=== PATIENT | female | born 1965 | race Caucasian/White ===

== ENCOUNTER → 2018-01-27 11:52 | Outpatient (CLI) | payer OTHER, SELFPAY ==
--- NOTE | 2018-01-27 12:00 | RAD_ITS ---
STUDY: X-RAY - LUMBAR SPINE REASON FOR EXAM: Female, 52 years old. Low back and left leg pain. TECHNIQUE: 3 view(s) of the lumbar spine were obtained. COMPARISON: None FINDINGS: Normal lumbar lordosis. There is no substantial scoliosis. There is a normal alignment of the vertebrae. Mild anterior spondylosis at the L4-L5 level. Moderate degree of disc space at the L4-L5 and L5-S1 levels. The soft tissue structures are unremarkable. RAD/Lumbar Spine 2 or 3 Views IMPRESSION: Degenerative changes of the spine, as detailed above. Electronically Signed: Mane Viera MD at 14:00 EDT Tel [phone], Service support ,
== END ==
PROVIDERS: Family Provider Nurse Practitioner; PCP Nurse Practitioner; Visit Provider Physician Assistant
DX: M54.5 Low back pain (principal)
CPT/HCPCS: 72100

== ENCOUNTER → 2018-02-15 06:32 | Outpatient (CLI) | payer OTHER, SELFPAY ==
--- NOTE | 2018-02-15 06:30 | MRI_ITS ---
STUDY: MRI LEFT KNEE REASON FOR EXAM: Female, 52 years old. Pain. TECHNIQUE: Standardized fat and water weighted pulse sequences were obtained in all 3 orthogonal planes. COMPARISON: None. FINDINGS: There is partial tear of the posterior horn of the medial meniscus adjacent to the meniscal root ligament, series 8 image 13/30. There is partial extrusion of the body of the medial meniscus. There is diffuse, greater than 50% thickness articular cartilage loss of the medial femorotibial compartment. There is mild osteoarthritic spur formation of the medial knee compartment. Normal medial collateral ligamentous complex (MCL). Normal distal semimembranosus, gracilis and semitendinosus tendons. Normal lateral meniscus. There is diffuse, less than 50% thickness articular cartilage loss of the lateral femorotibial compartment. There is mild osteoarthritic spur formation of the lateral knee compartment. Normal proximal tibiofibular articulation. Normal lateral collateral (fibular) ligament. Normal popliteus tendon. Normal biceps femoris tendon. Normal anterior cruciate ligament (ACL). Normal posterior cruciate ligament (PCL). There is arthrosis of the patellofemoral articulation. There is diffuse, full thickness articular cartilage loss of the patellofemoral compartment. Normal medial and lateral patellar retinaculum. Normal quadriceps tendon. Normal patellar tendon. Normal Hoffa's fat pad. There is a small volume joint effusion. The soft tissues are unremarkable. The otherwise visualized osseous structures are unremarkable. MRI/Lower Ext Joint Only (Routine) IMPRESSION: Medial meniscus tear. Tricompartmental degenerative change. Joint effusion. Electronically Signed: Domingo Man MD at 10:36 EDT , Service support ,
--- NOTE | 2018-02-15 06:32 | DT_ITS ---
This patient was seen during an EMR downtime February 14, 2018 - February 21, 2018. This patient may have a combination of paper and electronic documentation or all paper documentation. All documentation is viewable within the e-chart portion of [employer] for each patient visit.
== END ==
PROVIDERS: Family Provider Nurse Practitioner; PCP Nurse Practitioner; Visit Provider Physician Assistant
DX: M17.12 Unilateral primary osteoarthritis, left knee (principal)
CPT/HCPCS: 73721

== ENCOUNTER → 2018-07-15 07:30 | Outpatient (CLI) | payer OTHER, SELFPAY ==
--- NOTE | 2018-07-14 17:05 | BI_ITS ---
MAMMOGRAPHY - BILATERAL SCREENING REASON FOR EXAM: Female, 52 years old. Routine annual screening examination. PERTINENT HISTORY: Non-contributory. TECHNIQUE: Digital bilateral breast rina (3D mammographic acquisition) in the CC and MLO projections. 2-D mediolateral oblique (MLO) and craniocaudad (CC) views of both breasts were obtained. CAD: Full Field Digital Mammography with Computer Added Detection was performed. COMPARISON: Comparison is made with prior study dated February 28, 2014. FINDINGS: Breast Composition: The breasts are heterogeneously dense, which may obscure small masses. There is a 1.6 cm x 1.3 cm well-defined nodule in the central medial aspect of the left breast corresponding to the 3:00 position. Correlation with ultrasound is recommended. Stable small bilateral axillary lymph nodes. No other significant abnormalities are identified. BI/SCREENING MAMM (CAD), BILAT IMPRESSION: 1.6 cm x 1.3 cm well-defined nodule at the 3:00 position of the left breast as described. Correlation with ultrasound is recommended. ASSESSMENT CATEGORY: BIRADS Category 0: Incomplete. Need additional imaging evaluation. A letter regarding these results will be sent to the patient by the facility within 30 days. Approximately 10% of breast cancers are not detected by mammography. A normal mammogram should not delay biopsy of a clinically suspicious abnormality. [id number] Electronically Signed: Mane Viera MD at 8:03 EDT Tel [phone], Service support ,
== END ==
PROVIDERS: Family Provider Nurse Practitioner; PCP Nurse Practitioner; Visit Provider Nurse Practitioner
DX: Z12.31 Encounter for screening mammogram for malignant neoplasm of breast (principal)
CPT/HCPCS: 77063; 77067

== ENCOUNTER → 2018-07-18 15:01 | Outpatient (CLI) | payer OTHER, SELFPAY ==
--- NOTE | 2018-07-18 15:02 | US_ITS ---
STUDY: ULTRASOUND BREAST - LEFT REASON FOR EXAM: Female, 52 years old. Abnormal screening mammogram. TECHNIQUE: Axial and longitudinal images of the LEFT breast were performed with a high resolution ultrasound transducer. COMPARISON: Comparison is made with prior mammogram dated July 14, 2018. FINDINGS: LEFT Breast: There is a 1.6 cm x 1.2 cm x 0.7 cm cyst at the 9:00 position breast 5 cm from the nipple. Adjacent to this, there is a 0.5 cm x 0.6 cm by 0.3 cm cyst. There is a 1.4 cm x 1 cm x 0.9 cm cyst with septation at the 10:00 position breast at 5 cm from the nipple. US/Breast Limited Unilateral IMPRESSION: 3 cysts are seen in the central medial aspect of the left breast as described. Routine mammographic follow-up is recommended. ASSESSMENT CATEGORY: BIRADS Category 2: Benign. A letter regarding these results will be sent to the patient by the facility within 30 days. Electronically Signed: Mane Viera MD at 15:48 EST Tel [phone], Service support ,
== END ==
PROVIDERS: Family Provider Nurse Practitioner; PCP Nurse Practitioner; Visit Provider Nurse Practitioner
DX: R92.8 Other abnormal and inconclusive findings on diagnostic imaging of breast (principal)
CPT/HCPCS: 76642

== ENCOUNTER → 2018-09-19 08:55 | Outpatient (CLI) | payer OTHER, SELFPAY ==
[2018-09-19 10:35] LABS: Anion Gap 8 (5-15); BUN 16 mg/dL (7-18); BUN/Creat Ratio 20.4 RATIO (10-20); Calcium,Total 8.2 mg/dL (8.5-10.1); Chloride 108 mmol/L (98-107); Creatinine, Serum 0.79 mg/dL (0.55-1.02); EST Glomerular Filtration Rate 82 mL/min (>60); Est Glom Filt Rate - Afr Amer 99 mL/min (>60); Glucose 84 mg/dL (74-106); Potassium 3.8 mmol/L (3.5-5.1); Sodium Level 142 mmol/L (136-145)
[2018-09-20 10:50] LABS: AST(SGOT) 16 U/L (15-37); Alanine Aminotransfer ALT/SGPT 18 U/L (13-56); Albumin, Serum 3.4 g/dL (3.2-5.0); Alkaline Phosphatase 76 U/L (45-117); Bilirubin, Direct 0.09 mg/dL (0.00-0.30); Protein, Total 6.4 g/dL (6.4-8.2)
== END ==
PROVIDERS: Family Provider Nurse Practitioner; PCP Nurse Practitioner; Referring Provider Nurse Practitioner; Visit Provider Nurse Practitioner
DX: I10 Essential (primary) hypertension (principal)
CPT/HCPCS: 36415; 80048; 80076

== ENCOUNTER → 2018-09-22 12:53 | Outpatient (CLI) | payer OTHER, SELFPAY ==
--- NOTE | 2018-09-22 12:56 | ECHOD_ITS ---
Reason For Study: CHEST PAIN Procedure This was a 2D Doppler, Color Flow transthoracic echocardiogram. Exam performed in department. Left Ventricle Normal size and thickness. The estimated ejection fraction is 65 %. Normal diastology for age. No regional wall motion abnormalities noted. Right Ventricle Normal size and thickness. Normal systolic function. Atria Normal left atrium. Normal right atrium. Normal atrial septum. Mitral Valve The mitral valve is structurally normal. No prolapse or stenosis seen. Tricuspid Valve Normal tricuspid valve. Trivial tricuspid valve insufficiency. Right ventricular systolic pressure estimated to be 28 mmHg. Aortic Valve Normal aortic valve. Trisinus/trileaflet aortic valve. Pulmonic Valve Normal pulmonic valve. Great Vessels Normal aortic root. Normal arch. Normal inferior vena cava. Inferior vena cava collapse with sniff. Pericardium/Pleural Trivial pericardial effusion. There are no echocardiographic indications of cardiac tamponade. MMode/2D Measurements & Calculations LVIDd: 4.3 cm IVSd: 0.82 cm Ao root diam: 3.2 cm LVIDs: 2.4 cm LVPWd: 0.94 cm RVDd: 2.3 cm FS: 43.8 % LAV(MOD-bp): 41.8 ml LVAd ap4: 28.1 cm2 SV(MOD-sp4): 65.7 ml LAV(MOD-bp) Indexed: 24.2 ml/m2 EDV(MOD-sp4): 87.0 ml LAV(MOD-sp2): 44.2 ml EDV(sp4-el): 92.2 ml LAV(MOD-sp4): 37.5 ml LVAs ap4: 11.1 cm2 ESV(MOD-sp4): 21.3 ml ESV(sp4-el): 20.8 ml EF(MOD-sp4): 75.5 % EF(sp4-el): 77.4 % SV(sp4-el): 71.3 ml LA A4 area: 15.1 cm2 LA dimension(2D): 3.4 cm RA A4 area: 8.5 cm2 Time Measurements MV dec time: 0.19 sec Doppler Measurements & Calculations MV E max óscar: 85.8 cm/sec Lat Peak E' Óscar: 10.2 cm/sec Med Peak E' Óscar: 7.4 cm/sec MV A max óscar: 64.6 cm/sec E/E' lat: 8.4 E/E' med: 11.7 MV E/A: 1.3 Ao V2 max: 157.8 cm/sec LV V1 max: 128.6 cm/sec PA V2 max: 107.7 cm/sec Ao max P.0 mmHg LV V1 max P.6 mmHg TR max óscar: 241.5 cm/sec TR max P.3 mmHg Interpretation Summary The estimated ejection fraction is 65 %. Normal diastology for age. Trivial tricuspid valve insufficiency. Right ventricular systolic pressure estimated to be 28 mmHg. Trivial pericardial effusion. There are no echocardiographic indications of cardiac tamponade. Compared to echo report dated 01/26/2014, no appreciable changes noted. Ordering Physician: Ivette Ramos Referring Physician: Ivette Ramos Performed By: Mckenna Henry, DUSTY, RVT
== END ==
PROVIDERS: Family Provider Nurse Practitioner; PCP Nurse Practitioner; Referring Provider Nurse Practitioner; Visit Provider Nurse Practitioner
DX: R07.9 Chest pain, unspecified (principal)
CPT/HCPCS: 93225; 93226; 93306

== ENCOUNTER → 2018-10-06 14:50 | Outpatient (CLI) | payer OTHER, SELFPAY ==
--- NOTE | 2018-10-06 14:54 | CT_ITS ---
STUDY: CT CHEST WITHOUT CONTRAST REASON FOR EXAM: Female, 52 years old. Chest pain, screening exam for calcium scoring RADIATION DOSAGE (If Supplied By Facility): CTDIvol = ( 12.19 ) mGy, DLP = ( 170.66 ) mGycm TECHNIQUE: Transaxial imaging was performed without the administration of intravenous contrast material. Individualized dose optimization techniques were used for this CT. COMPARISON: None. FINDINGS: The lungs are normal in their visualized extent. There is no demonstrated pleural abnormality. Heart size is normal. There is a small volume pericardial effusion. Normal mediastinum. Normal hilar regions. Normal unenhanced pulmonary arteries. Normal aorta arch and descending thoracic aorta. Normal osseous structures. There is a small hiatal hernia. Simple cyst of the left hepatic lobe is demonstrated. CT/Limited Chest CT w/CCTA IMPRESSION: 1. Small pericardial effusion. 2. Small hepatic cyst. Electronically Signed: Jose Alberto Walton MD at 9:07 EST , Service support ,
--- NOTE | 2018-10-06 14:54 | CT_ITS ---
STUDY: CT CHEST WITHOUT CONTRAST REASON FOR EXAM: Female, 52 years old. Chest pain, screening exam for calcium scoring RADIATION DOSAGE (If Supplied By Facility): CTDIvol = ( 12.19 ) mGy, DLP = ( 170.66 ) mGycm TECHNIQUE: Transaxial imaging was performed without the administration of intravenous contrast material. Individualized dose optimization techniques were used for this CT. COMPARISON: None. FINDINGS: The lungs are normal in their visualized extent. There is no demonstrated pleural abnormality. Heart size is normal. There is a small volume pericardial effusion. Normal mediastinum. Normal hilar regions. Normal unenhanced pulmonary arteries. Normal aorta arch and descending thoracic aorta. Normal osseous structures. There is a small hiatal hernia. Simple cyst of the left hepatic lobe is demonstrated. CT/CCTA Calcium Scoring IMPRESSION: 1. Small pericardial effusion. 2. Small hepatic cyst. Electronically Signed: Jose Alberto Walton MD at 9:07 EST , Service support ,
[2018-10-06 14:55] VITALS: BP 151/106; PULSE 73; RESP 16; O2SAT 100; BMI 32.8
--- NOTE | 2018-10-06 16:58 | CA.SCORE ---
Calcium Scoring Date of Study:: 10/06/18 Coronary Calcium Scoring: Coronary calcium score. High-resolution computed tomographic images of the chest was performed on 10/06/2018 with particular attention paid to the coronary arteries. Images from the examination were analyzed for the presence and extent of coronary artery calcification using the coronary calcification quantification software. The patient tolerated the procedure well there were no complications. The results of the coronary consultation analysis are provided below. Coronary artery score Left main coronary artery score 0 Line left anterior descending artery score 0 Left circumflex artery score 0 Right coronary artery score 0. Total Agagston score 0. Interpretation: The above is indicative of no significant atherosclerotic plaquing. Less than 5% chance of coronary artery disease noted.
== END ==
PROVIDERS: Family Provider Nurse Practitioner; PCP Nurse Practitioner; Referring Provider Nurse Practitioner; Visit Provider Nurse Practitioner
DX: I10 Essential (primary) hypertension (principal); R07.9 Chest pain, unspecified
CPT/HCPCS: 75571; 76380

== ENCOUNTER → 2018-10-24 15:01 | Outpatient (CLI) | payer OTHER, SELFPAY ==
[2018-10-12 15:10] VITALS: BMI 34.0
--- NOTE | 2018-10-24 15:04 | VDLE_ITS ---
Reason For Study: swelling RIGHT LEFT CFV is compressible, spontaneous, phasic, GSV is normal. competent and demonstrates normal CFV is compressible, spontaneous, phasic, augmentation. competent, and demonstrates normal Procedure augmentation. Exam performed in department. FV is compressible, spontaneous, phasic, The exam was diagnostic. competent and demonstrates normal A preliminary report was called and/or faxed augmentation. to Ivette Ramos. POP V is compressible, spontaneous, phasic, competent and demonstrates normal augmentation. T/P Trunk is compressible. PTV is compressible. LT PerV is compressible. Interpretation Summary Deep veins of the left lower extremity are patent and compressible segmentally. There is no evidence of left lower extremity deep vein thrombosis. Valvular competence appears intact within the proximal deep venous system on the left . The left greater saphenous vein appears patent and compressible segmentally. Ordering Physician: Ivette Ramos Performed By: Srini Zamora RVT
--- NOTE | 2018-10-24 15:22 | RAD_ITS ---
STUDY: X-RAY CHEST REASON FOR EXAM: Female, 52 years old. Shortness of breath TECHNIQUE: PA and lateral views of the chest. COMPARISON: August 23, 2009 chest x-ray FINDINGS: There is a trace focus of linear density in the right upper lobe which was not seen on prior study. There is persistent elevation of the right hemidiaphragm. There is no demonstrated pleural abnormality. Normal size heart. Normal mediastinum and glenda. Normal visualized pulmonary arteries. Normal visualized aortic arch and descending thoracic aorta. Normal visualized thoracic spine. Normal visualized ribs, clavicles, and shoulders. There is no demonstrated abnormality of the visualized soft tissue structures of the upper abdomen. RAD/Chest PA and Lateral IMPRESSION: Right upper lobe atelectasis and/or developing infiltrate. Electronically Signed: Shannon Martinez MD at 16:36 EST Tel , Service support ,
[2018-10-24 16:23] LABS: Absolute Lymphocyte Count 2.25 X10^3/ul (0.83-4.51); Absolute Neutrophil Count 7.3 X10^3/uL (2.0-7.7); Basophil# 0.03 X10^3/uL; Basophil% 0.3 % (0-1); Eosinophil# 0.24 X10^3/uL; Eosinophils% 2.3 % (0-5); Hematocrit 44.1 % (37-47); Hemoglobin 14.6 g/dl (12.0-15.0); Lymphocyte # 2.25 X10^3/ul (4.0); Lymphocyte % 21.6 % (19-41); Mean Corp Hgb Conc 33.1 g/gl (32-36); Mean Corpuscular Volume 84.6 fL (81-99); Mean Platelet Vol. 10.1 fl (6.2-12.0); Monocyte# 0.61 X10^3/uL; Monocyte% 5.9 % (0-10); Neutrophil # 7.28 X10^3/uL (2.7-7.7); Neutrophil % 69.8 % (47-70); Platelet Count 330 K/mm3 (150-450); RBC Distribution Width SD 39.7 fl (35.1-43.9); Red Blood Count 5.21 M/mm3 (4.2-5.4); White Blood Count 10.4 K/mm3 (4.4-11.0)
[2018-10-24 16:30] LABS: POSITIVE COUNT NO; POSITIVE DIFFERENTIAL NO; POSITIVE MORPHOLOGY NO
[2018-10-24 16:40] LABS: Erythrocyte Sedimentation Rate 15 mm/hr (0-30)
[2018-10-24 16:52] LABS: ALB/GLOB Ratio 1.1 RATIO (0.9-2.4); AST(SGOT) 16 U/L (15-37); Alanine Aminotransfer ALT/SGPT 20 U/L (13-56); Albumin, Serum 3.8 g/dL (3.2-5.0); Alkaline Phosphatase 80 U/L (45-117); Anion Gap 12 (5-15); BUN 12 mg/dL (7-18); BUN/Creat Ratio 16.6 RATIO (10-20); CRP 5.02 mg/L (0.0-3.0); Calcium,Total 8.8 mg/dL (8.5-10.1); Chloride 105 mmol/L (98-107); Creatinine, Serum 0.72 mg/dL (0.55-1.02); EST Glomerular Filtration Rate 90 mL/min (>60); Est Glom Filt Rate - Afr Amer 109 mL/min (>60); Globulin 3.6 g/dL (2.2-4.2); Glucose 85 mg/dL (74-106); Potassium 3.6 mmol/L (3.5-5.1); Protein, Total 7.4 g/dL (6.4-8.2); Sodium Level 140 mmol/L (136-145)
[2018-10-24 17:51] LABS: D-Dimer Quantitative (DVT/PE) 0.27 FEU/ug/m (0.27-0.49)
[2018-10-25 10:22] LABS: BNP,B-Type NATRIURETIC PEPTIDE 20.6 pg/mL (0-100)
== END ==
PROVIDERS: Family Provider Nurse Practitioner; PCP Nurse Practitioner; Referring Provider Nurse Practitioner; Visit Provider Nurse Practitioner
DX: M79.89 Other specified soft tissue disorders (principal); R06.02 Shortness of breath
CPT/HCPCS: 36415; 71046; 80053; 83880; 85025; 85379; 85652; 86140; 93971

== ENCOUNTER → 2018-11-07 12:20 | Outpatient (CLI) | payer OTHER, SELFPAY ==
[2018-10-12 15:10] VITALS: BMI 34.0
--- NOTE | 2018-11-07 12:21 | STE_ITS ---
Reason For Study: HTN WITH CHEST PAIN Stress Results Protocol: Juan Protocol Maximum Predicted HR: 168 bpm Target HR: 143 bpm % Maximum Predicted HR: 96 % DurationHeart Rate Stage (mm:ss) (bpm) BP BASELINE 84 144/92 STAGE 1 3:00 120 166/90 STAGE 2 3:00 144 184/94 STAGE 3 2:00 162 / RECOVERY 86 122/90 Stress Duration: 8:00 mm:ss Maximum Stress HR: 162 bpm Baseline Echocardiogram Findings Stress Echo Wall motion Data Resting WM Intermediate WM Stress WM Resting Wall Motion Wall Motion Stress No regional wall motion No regional wall motion abnormalities noted. abnormalities noted. Ejection Fraction 55 %. Ejection Fraction 65 %. Interpretation Summary Exercise stress echo. Stress protocol: Resting EKG demonstrates normal sinus rhythm with a rate of 80 bpm normal intervals are noted. Resting blood pressure 144/92 mmHg. The patient exercised according to regular Juan protocol for total duration of 8 minutes the maximum heart rate attained was 164 bpm which was 97% of maximum predicted heart rate the maximum workload was 10.1 metabolic equivalents. At rest there were no ST or T wave changes noted suggest ischemia peak exercise upsloping ST changes only were noted with no meet the criteria for ischemia. No clinical angina was noted the test was terminated due to leg fatigue. The resting blood pressure 144/92 mmHg with a peak blood pressure 184/94 mmHg. The blood pressure response to exercise was normal. Stress echocardiographic images. The resting echocardiogram demonstrated preserved ejection fraction of 55-60% with no wall motion of normality is noted. The stress echocardiographic images demonstrated thickening of all lambert with reduction in left ventricular cavity size and no new wall motion abnormalities noted. No evidence of ischemia was noted the peak ejection fraction was 75%. Conclusion: Normal exercise stress echo with no evidence of ischemia at a high workload No clinical angina noted Ordering Physician: Rip Hester Referring Physician: Rip Hester Performed By: Ambar Frances, DUSTY, RVT
== END ==
PROVIDERS: Family Provider Nurse Practitioner; PCP Nurse Practitioner; Referring Provider Internal Medicine Cardiovascular Disease; Visit Provider Internal Medicine Cardiovascular Disease
DX: I10 Essential (primary) hypertension (principal)
CPT/HCPCS: 93017; 93350

== ENCOUNTER → 2020-06-27 11:30 | Outpatient (CLI) | payer OTHER, SELFPAY ==
[2018-10-12 15:10] VITALS: BMI 34.0
[2020-06-27 12:21] LABS: Absolute Lymphocyte Count 2.59 X10^3/uL (0.83-4.51); Absolute Neutrophil Count 4.4 X10^3/uL (2.0-7.7); Basophil# 0.04 X10^3/uL; Basophil% 0.5 % (0-1); Eosinophils% 3.8 % (0-5); Hematocrit 45.5 % (37-47); Hemoglobin 15.1 g/dL (12.0-15.0); Lymphocyte # 2.59 X10^3/ul (4.0); Lymphocyte % 32.9 % (19-41); Mean Corp Hgb Conc 33.2 g/dL (32-36); Mean Corpuscular Hgb 28.7 pg (27.0-32.0); Mean Corpuscular Volume 86.3 fL (81-99); Mean Platelet Vol. 9.9 fl (6.2-12.0); Monocyte# 0.49 X10^3/uL; Monocyte% 6.2 % (0-10); NRBC Flagged by Analyzer 0 % (0-5); Neutrophil # 4.44 X10^3/uL (2.7-7.7); Neutrophil % 56.5 % (47-70); Platelet Count 361 K/mm3 (150-450); RBC Distribution Width CV 12.6 % (11.6-14.6); RBC Distribution Width SD 39.5 fl (35.1-43.9); Red Blood Count 5.27 M/mm3 (4.2-5.4); White Blood Count 7.9 K/mm3 (4.4-11.0)
[2020-06-27 12:56] LABS: Magnesium 2.1 mg/dL (1.6-2.6); Potassium 3.2 mmol/L (3.5-5.1)
== END ==
PROVIDERS: PCP Nurse Practitioner; Referring Provider Nurse Practitioner; Visit Provider Nurse Practitioner
DX: E87.6 Hypokalemia (principal); D72.829 Elevated white blood cell count, unspecified
CPT/HCPCS: 36415; 83735; 84132; 85025

== ENCOUNTER → 2020-07-02 17:30 | Outpatient (CLI) | payer OTHER, SELFPAY ==
[2018-10-12 15:10] VITALS: BMI 34.0
--- NOTE | 2020-07-02 16:50 | BI_ITS ---
MAMMOGRAPHY - BILATERAL SCREENING REASON FOR EXAM: Female, 54 years old. Routine annual screening examination. PERTINENT HISTORY: Non-contributory. TECHNIQUE: Digital bilateral breast jean-paul (3D mammographic acquisition) in the CC and MLO projections. 2-D mediolateral oblique (MLO) and craniocaudad (CC) views of both breasts were obtained. CAD: Full Field Digital Mammography with Computer Added Detection was performed. COMPARISON: Comparison is made with prior study dated 07/14/2018 and 02/28/2014. FINDINGS: Breast Composition: The breasts are heterogeneously dense, which may obscure small masses. There are no dominant masses or suspicious calcifications. The previously seen well-defined nodule in the central medial aspect of the left breast is not seen at this time. No other significant abnormalities are identified. BI/SCREEN MAMM (CAD) W/JEAN-PAUL BILAT IMPRESSION: Stable bilateral screening mammogram. Yearly follow-up mammogram recommended. (A) ASSESSMENT CATEGORY: BIRADS Category 2: Benign. A letter regarding these results will be sent to the patient by the facility within 30 days. Approximately 10% of breast cancers are not detected by mammography. A normal mammogram should not delay biopsy of a clinically suspicious abnormality. [id number] Electronically Signed: Mane Viera, at 8:15 EDT , Service support ,
== END ==
PROVIDERS: PCP Nurse Practitioner; Referring Provider Nurse Practitioner; Visit Provider Nurse Practitioner
DX: Z12.31 Encounter for screening mammogram for malignant neoplasm of breast (principal)
CPT/HCPCS: 77063; 77067

== ENCOUNTER → 2020-07-25 16:51 | Outpatient (CLI) | payer OTHER, SELFPAY ==
[2018-10-12 15:10] VITALS: BMI 34.0
[2020-07-25 21:43] LABS: Anion Gap 8 (5-15); BUN 19 mg/dL (7-18); BUN/Creat Ratio 18.4 RATIO (10-20); Calcium,Total 9.1 mg/dL (8.5-10.1); Chloride 108 mmol/L (98-107); Creatinine, Serum 1.03 mg/dL (0.55-1.02); EST Glomerular Filtration Rate 59 mL/min (>60); Est Glom Filt Rate - Afr Amer 72 mL/min (>60); Glucose 73 mg/dL (74-106); Magnesium 2.3 mg/dL (1.6-2.6); Potassium 3.7 mmol/L (3.5-5.1); Sodium Level 143 mmol/L (136-145)
== END ==
PROVIDERS: PCP Nurse Practitioner; Referring Provider Nurse Practitioner; Visit Provider Nurse Practitioner
DX: E87.6 Hypokalemia (principal)
CPT/HCPCS: 36415; 80048; 83735

== ENCOUNTER → 2021-01-10 12:12 | Outpatient (CLI) | payer OTHER, SELFPAY ==
[2018-10-12 15:10] VITALS: BMI 34.0
[2021-01-10 15:41] LABS: Vitamin B12 299 pg/mL (211-911)
[2021-01-10 15:59] LABS: Follicle Stimulating Hormone 22.3 mIU/mL; Free T3 2.9 pg/mL (2.18-3.98); Luteinizing Hormone 32.5 mIU/mL; T4 Free Direct 1.13 ng/dL (0.76-1.46); Thyroid Stim Hormone (TSH) 1.25 uIU/mL (0.358-3.74)
[2021-01-11 13:21] LABS: ALB/GLOB Ratio 1.6 RATIO (0.9-2.4); AST(SGOT) 12 U/L (15-37); Alanine Aminotransfer ALT/SGPT 17 U/L (13-56); Albumin, Serum 4.2 g/dL (3.2-5.0); Alkaline Phosphatase 86 U/L (45-117); Anion Gap 6 (5-15); BUN 12 mg/dL (7-18); BUN/Creat Ratio 14.4 RATIO (10-20); Calcium,Total 9.3 mg/dL (8.5-10.1); Chloride 105 mmol/L (98-107); Creatinine, Serum 0.83 mg/dL (0.55-1.02); EST Glomerular Filtration Rate 75 mL/min (>60); Est Glom Filt Rate - Afr Amer 91 mL/min (>60); Globulin 2.7 g/dL (2.2-4.2); Glucose 89 mg/dL (74-106); Potassium 3.6 mmol/L (3.5-5.1); Protein, Total 6.9 g/dL (6.4-8.2); Sodium Level 140 mmol/L (136-145)
[2021-01-13 09:27] LABS: Vitamin D,25 Hydroxy 33.9 ng/mL
== END ==
PROVIDERS: PCP Nurse Practitioner; Referring Provider Nurse Practitioner; Visit Provider Nurse Practitioner
DX: R23.2 Flushing (principal)
CPT/HCPCS: 36415; 80053; 82306; 82607; 82652; 82746; 83001; 83002; 84439; 84443; 84481

== ENCOUNTER → 2021-07-15 15:54 | Outpatient (CLI) | payer OTHER, SELFPAY ==
--- NOTE | 2021-07-15 15:56 | BI_ITS ---
MAMMOGRAPHY - BILATERAL SCREENING REASON FOR EXAM: Female, 55 years old. Routine annual screening examination. PERTINENT HISTORY: Non-contributory. TECHNIQUE: Digital bilateral breast jean-paul (3D mammographic acquisition) in the CC and MLO projections. 2-D mediolateral oblique (MLO) and craniocaudad (CC) views of both breasts were obtained. CAD: Full Field Digital Mammography with Computer Added Detection was performed. COMPARISON: Comparison is made with prior study 07/02/2020 and 07/14/2018. FINDINGS: Breast Composition: The breasts are heterogeneously dense, which may obscure small masses. There are no dominant masses or suspicious calcifications. Stable small benign-appearing bilateral axillary lymph nodes. No other significant abnormalities are identified. There has been no significant change since the prior study. BI/SCRN MAMM (CAD)W/JEAN-PAUL BILAT IMPRESSION: Stable bilateral screening mammogram. Yearly follow-up mammogram recommended. (A) ASSESSMENT CATEGORY: BIRADS Category 2: Benign. A letter regarding these results will be sent to the patient by the facility within 30 days. Approximately 10% of breast cancers are not detected by mammography. A normal mammogram should not delay biopsy of a clinically suspicious abnormality. [id number] Electronically Signed: Mane Viera MD at 9:28 EDT , Service support ,
--- NOTE | 2021-07-15 16:00 | BD_ITS ---
STUDY: DUAL ENERGY X-RAY ABSORPTIOMETRY / DXA REASON FOR EXAM: Female, 55 years old. [id number]. Patient is postmenopausal. TECHNIQUE: Bone Mineral Density (BMD) measurements of lumbar spine and bilateral hips were obtained. COMPARISON: None. FINDINGS: Lumbar Spine (L1-L4): g/cm2 (1.101) / T-score (0.8) / Z-score (1.8) Findings are suggestive of normal bone density with a low fracture risk. Left Femur Total: g/cm2 (1.183) / T-score (2.0) / Z-score (2.7) Left Femoral Neck: g/cm2 (1.000) / T-score (1.4) / Z-score (2.4) Right Femur Total: g/cm2 (1.179) / T-score (1.9) / Z-score (2.6) Right Femoral Neck: g/cm2 (1.010) / T-score (1.5) / Z-score (2.5) BD/Dexa Bone Density Study IMPRESSION: The patient is considered normal as outlined below according to World Luis Alberto Organization (WHO) criteria with a low fracture risk. Reference Information: The T-score is the number of standard deviations above or below the standard which is normal for young adults at their peak bone mineral density. The World Health Organization (WHO) interprets the T-scores as follows: Above -1 Normal bone density Between -1 and -2.5 Osteopenia Equal to / or below -2.5 Osteoporosis As a practical clinical guideline, osteopenia may be graded as follows: Mild -1 through -1.5 Moderate -1.6 through -2.0 Severe -2.1 through -2.4 The Z-score is the number of standard deviations above or below age-matched controls. A Z-score of less than -1.5 would be considered abnormal. References: 1. NIH Osteoporosis and Related Bone Diseases www osteo.org 2. International Society for Clinical Densitometry www iscd.org 3. National Osteoporosis Foundation www nof.org Electronically Signed: Mane Viera MD at 15:48 EDT , Service support ,
[2021-07-15 18:14] LABS: Vitamin B12 966 pg/mL (211-911)
[2021-07-15 18:16] LABS: Albumin, Serum 3.6 g/dL (3.2-5.0); BUN 24 mg/dL (7-18); BUN/Creat Ratio 28.2 RATIO (10-20); Calcium,Total 9.3 mg/dL (8.5-10.1); Chloride 106 mmol/L (98-107); Creatinine, Serum 0.85 mg/dL (0.55-1.02); EST Glomerular Filtration Rate 74 mL/min (>60); Est Glom Filt Rate - Afr Amer 89 mL/min (>60); Glucose 96 mg/dL (74-106); Phosphorus 3.2 mg/dL (2.5-4.9); Potassium 3.9 mmol/L (3.5-5.1); Sodium Level 138 mmol/L (136-145)
== END ==
LOC: OPBD 15:54 → LAB 16:30
PROVIDERS: PCP Nurse Practitioner; Visit Provider Nurse Practitioner
DX: Z12.31 Encounter for screening mammogram for malignant neoplasm of breast (principal); Z78.0 Asymptomatic menopausal state; I10 Essential (primary) hypertension; E53.8 Deficiency of other specified B group vitamins
CPT/HCPCS: 36415; 77063; 77067; 77080; 80069; 82607; 82746

== ENCOUNTER 2021-12-10 14:53 | Outpatient (CLI) | payer OTHER, SELFPAY ==
[2021-12-10 16:32] LABS: Vitamin B12 > 2000 pg/mL (211-911); Vitamin D,25 Hydroxy 58.6 ng/mL
[2021-12-10 17:05] LABS: BUN 23 mg/dL (7-18); BUN/Creat Ratio 28.9 RATIO (10-20); Calcium,Total 8.9 mg/dL (8.5-10.1); Chloride 104 mmol/L (98-107); EST Glomerular Filtration Rate 79 mL/min (>60); Est Glom Filt Rate - Afr Amer 96 mL/min (>60); Glucose 102 mg/dL (74-106); Phosphorus 3.2 mg/dL (2.5-4.9); Potassium 3.7 mmol/L (3.5-5.1); Sodium Level 138 mmol/L (136-145)
== END 2021-12-10 23:59 | disposition home or self-care (01) ==
LOC: LAB 14:54
PROVIDERS: PCP Nurse Practitioner; Referring Provider Nurse Practitioner; Visit Provider Nurse Practitioner
DX: E53.8 Deficiency of other specified B group vitamins (principal); E87.6 Hypokalemia; E55.9 Vitamin D deficiency, unspecified
CPT/HCPCS: 36415; 80069; 82306; 82607; 82746

== ENCOUNTER → 2022-06-05 | Outpatient (CLI) | payer OTHER, SELFPAY ==
--- NOTE | 2022-06-05 12:47 | US_ITS ---
STUDY: RENAL ULTRASOUND - COMPLETE REASON FOR EXAM: Female, 56 years old. Hematuria TECHNIQUE: Ultrasound evaluation of the kidneys was performed with real-time and static padilla-scale imaging. COMPARISON: None. FINDINGS: RIGHT KIDNEY: Normal location of the right kidney, which is normal in size. The right kidney measures 10.2 cm in length. There is a normal cortex of the right kidney. There is no right renal mass or cyst. There are no right renal calculi. There is no right hydronephrosis. DISTAL RIGHT URETER: There is non-visualization of the distal right ureter. There is no demonstrated right ureterovesical junction calculus. There is no demonstrated right ureteral jet. LEFT KIDNEY: Normal location of the left kidney, which is normal in size. The left kidney measures 10.3 cm in length. There is a normal cortex of the left kidney. There is no left renal mass or cyst. There are no left renal calculi. There is no left hydronephrosis. DISTAL LEFT URETER: There is non-visualization of the distal left ureter. There is no demonstrated left ureterovesical junction calculus. There is no demonstrated left ureteral jet. BLADDER: The distended urinary bladder has a volume of 168.2 ml. There is a normal wall thickness of the distended urinary bladder. There is no demonstrated mass within the urinary bladder. There are no demonstrated bladder calculi. There is a predominantly hypoechoic 13.5 x 11.7 x 7.7 cm soft tissue mass that appears to be arising from the uterus. US/Kidney and Bladder IMPRESSION: Within normal limits ultrasound of the kidneys and urinary bladder. 13.5 x 11.7 x 7.7 cm soft tissue mass that appears to be arising from the uterine fundus, likely a fibroid however cannot exclude a leiomyosarcoma, recommend MRI with contrast for further characterization. Electronically Signed: Harmony Bronson MD at 16:35 EDT ,
== END | disposition home or self-care (01) ==
LOC: US 12:46
PROVIDERS: PCP Nurse Practitioner Family; Referring Provider Nurse Practitioner Family; Visit Provider Nurse Practitioner Family
DX: R31.9 Hematuria, unspecified (principal)
CPT/HCPCS: 76770

== ENCOUNTER → 2022-06-11 | Outpatient (CLI) | payer OTHER, SELFPAY ==
--- NOTE | 2022-06-11 08:41 | MRI_ITS ---
MR Pelvis Female W/ Contrast 06/11/2022 8:47 AM COMPARISON: None CLINICAL HISTORY: size and identify utneine mass - was 13.5x11.7x7.7 on u/s -- size and identify utneine mass - was 13.5x11.7x7.7 on u/s TECHNIQUE: Multiplanar T1 and T2 weighted, diffusion and dynamic post-gadolinium images were obtained through the pelvis. FINDINGS: Uterus size: 12.5 x 8.9 x 13 cm There are a total of at least 8 leiomyomas, which do distort the endometrial cavity. The 4 largest leiomyomas: 1) 8.5 x 7 x 7.3 cm; left body; subserosal;homogeneous low T2 signal intensity; heterogeneous enhancement 2) 5.2 x 5 x 5.5 cm; right body/fundal; intramural;heterogeneous T2 signal intensity (cobblestone); heterogeneous enhancement 3) 3.6 x 3.5 x 3.5 cm; anterior; subserosal;homogeneous low T2 signal intensity; heterogeneous enhancement 4) 2.9 x 2.4 x 2.3 cm; left body/fundal; subserosal;heterogeneous T2 signal intensity (cobblestone); homogeneous enhancement Endometrium: Mostly distorted and obscured by the multiple fibroids. No focal abnormalities seen. Right ovary: Unremarkable Left ovary: Unremarkable Free fluid: Small volume Bones: No suspicious lesions MRI/Pelvis W/WO Contrast IMPRESSION: Multi-fibroid uterus as detailed above. The largest fibroid measures 8.5 x 7 x 7.3 cm. Electronically Signed: Srinivas Rodríguez MD at 19:22 EDT ,
== END | disposition home or self-care (01) ==
LOC: MRI 08:39
PROVIDERS: PCP Nurse Practitioner Family; Visit Provider Nurse Practitioner Family
DX: N85.8 Other specified noninflammatory disorders of uterus (principal)
CPT/HCPCS: 72197; A9575

== ENCOUNTER → 2022-08-13 | Outpatient (CLI) | payer OTHER, SELFPAY ==
--- NOTE | 2022-08-13 16:37 | BI_ITS ---
MAMMOGRAPHY - BILATERAL SCREENING REASON FOR EXAM: Female, 56 years old. Routine annual screening examination. PERTINENT HISTORY: Non-contributory. TECHNIQUE: Digital bilateral breast jean-paul (3D mammographic acquisition) in the CC and MLO projections. 2-D mediolateral oblique (MLO) and craniocaudad (CC) views of both breasts were obtained. CAD: Full Field Digital Mammography with Computer Added Detection was performed. COMPARISON: Comparison is made with prior study dated 07/15/2021 and 07/02/2020. FINDINGS: Breast Composition: The breasts are heterogeneously dense, which may obscure small masses. There are no dominant masses or suspicious calcifications. Stable small benign-appearing bilateral axillary lymph nodes. No other significant abnormalities are identified. There has been no significant change since the prior study. BI/SCRN MAMM (CAD)W/JEAN-PAUL BILAT IMPRESSION: Stable bilateral screening mammogram. Yearly follow-up mammogram recommended. (A) ASSESSMENT CATEGORY: BIRADS Category 2: Benign. A letter regarding these results will be sent to the patient by the facility within 30 days. Approximately 10% of breast cancers are not detected by mammography. A normal mammogram should not delay biopsy of a clinically suspicious abnormality. [id number] Electronically Signed: Mane Viera MD at 9:06 EST ,
== END | disposition home or self-care (01) ==
LOC: OPBI 08-14 07:32
PROVIDERS: PCP Nurse Practitioner Family; Referring Provider Nurse Practitioner Family; Visit Provider Nurse Practitioner Family
DX: Z12.31 Encounter for screening mammogram for malignant neoplasm of breast (principal)
CPT/HCPCS: 77063; 77067

== ENCOUNTER → 2023-07-02 | Outpatient (CLI) | payer OTHER, SELFPAY ==
--- NOTE | 2023-07-02 13:55 | RAD_ITS ---
STUDY: X-RAY - LUMBAR SPINE REASON FOR EXAM: Female, 57 years old. lower extremity pain, left TECHNIQUE: 5 view(s) of the lumbar spine were obtained. COMPARISON: None FINDINGS: Normal lumbar lordosis. There is no substantial scoliosis. There is a normal alignment of the vertebrae. Normal vertebral bodies and endplates. There is multi-level degenerative disc disease with multi-level disc space narrowing. Facet hypertrophy in the lower lumbar spine. The soft tissue structures are unremarkable. RAD/L/S Spine Min 4 Views IMPRESSION: Degenerative changes of the spine, as detailed above. MRI may be useful. Electronically Signed: Casimiro Alvarado MD at 16:20 EDT ,
== END | disposition home or self-care (01) ==
LOC: MTRAD 13:53
PROVIDERS: PCP Nurse Practitioner Family; Referring Provider Nurse Practitioner Family; Visit Provider Nurse Practitioner Family
DX: M79.605 Pain in left leg (principal)
CPT/HCPCS: 72110

== ENCOUNTER → 2023-08-19 | Outpatient (CLI) | payer OTHER, SELFPAY ==
--- NOTE | 2023-08-19 15:25 | BI_ITS ---
MAMMOGRAPHY - BILATERAL SCREENING REASON FOR EXAM: Female, 57 years old. Routine annual screening examination. PERTINENT HISTORY: Aunt with breast cancer. TECHNIQUE: Digital bilateral breast jean-paul (3D mammographic acquisition) in the CC and MLO projections. 2-D mediolateral oblique (MLO) and craniocaudad (CC) views of both breasts were obtained. CAD: Full Field Digital Mammography with Computer Added Detection was performed. COMPARISON: Comparison is made with prior study August 13, 2022 and July 15, 2021. FINDINGS: Breast Composition: The breasts are heterogeneously dense, which may obscure small masses. Questionable 1.2 cm x 0.4 cm nodular density seen in the slightly upper aspect of the left breast on the mediolateral oblique view. The patient will be recalled for additional views including 90 degree lateral and compression spot views. Stable small benign-appearing bilateral axillary lymph nodes. No other significant abnormalities are identified. BI/SCRN MAMM (CAD)W/JEAN-PAUL BILAT IMPRESSION: Questionable 1.2 cm x 0.4 cm nodular density in the slightly upper aspect of the left breast as seen on the mediolateral oblique view. The patient will be recalled for additional views. Recall Side: Left Breast ASSESSMENT CATEGORY: BIRADS Category 0: Incomplete. Need additional imaging evaluation. A letter regarding these results will be sent to the patient by the facility within 30 days. Approximately 10% of breast cancers are not detected by mammography. A normal mammogram should not delay biopsy of a clinically suspicious abnormality. [id number] Electronically Signed: Mane Viera MD at 9:26 EST ,
--- NOTE | 2023-08-19 15:29 | BD_ITS ---
STUDY: DUAL ENERGY X-RAY ABSORPTIOMETRY / DXA REASON FOR EXAM: Female, 57 years old. Z78.0 TECHNIQUE: Bone Mineral Density (BMD) measurements of lumbar spine and bilateral hips were obtained. COMPARISON: Comparison is made with prior study July 15, 2021. FINDINGS: Lumbar Spine (L1-L4): g/cm2 (1.177) / T-score (1.2) / Z-score (2.4) Findings are suggestive of normal bone density with a low fracture risk. Left Femur Total: g/cm2 (1.153) / T-score (1.7) / Z-score (2.5) Left Femoral Neck: g/cm2 (0.961) / T-score (1.0) / Z-score (2.2) Right Femur Total: g/cm2 (1.127) / T-score (1.5) / Z-score (2.3) Right Femoral Neck: g/cm2 (0.987) / T-score (1.) / Z-score (2.4) The T-Scores on the most recent prior examination were: Lumbar Spine (L1-L4): There has been improvement of bone density since the previous examination. Left Femur Total: which represents a worsening of 2.5%. Right Femur Total: which represents a worsening of 4.4%. BD/Dexa Bone Density Study IMPRESSION: The patient is considered normal as outlined below according to World [employer] Organization (WHO) criteria with a low fracture risk. There has been worsening of bone density since the previous examination. Reference Information: The T-score is the number of standard deviations above or below the standard which is normal for young adults at their peak bone mineral density. The World Health Organization (WHO) interprets the T-scores as follows: Above -1 Normal bone density Between -1 and -2.5 Osteopenia Equal to / or below -2.5 Osteoporosis As a practical clinical guideline, osteopenia may be graded as follows: Mild -1 through -1.5 Moderate -1.6 through -2.0 Severe -2.1 through -2.4 The Z-score is the number of standard deviations above or below age-matched controls. A Z-score of less than -1.5 would be considered abnormal. References: 1. NIH Osteoporosis and Related Bone Diseases www osteo.org 2. International Society for Clinical Densitometry www iscd.org 3. National Osteoporosis Foundation www nof.org Electronically Signed: Mane Viera MD at 13:38 EST ,
== END | disposition home or self-care (01) ==
LOC: OPBD 15:23
PROVIDERS: PCP Nurse Practitioner Family; Referring Provider Nurse Practitioner Family; Visit Provider Nurse Practitioner Family
DX: Z12.31 Encounter for screening mammogram for malignant neoplasm of breast (principal); Z78.0 Asymptomatic menopausal state
CPT/HCPCS: 77063; 77067; 77080

== ENCOUNTER → 2023-08-24 | Outpatient (CLI) | payer OTHER, SELFPAY ==
--- NOTE | 2023-08-24 14:32 | BI_ITS ---
MAMMOGRAPHY - UNILATERAL DIAGNOSTIC: LEFT BREAST REASON FOR EXAM: Female, 57 years old. Abnormal screening mammogram. PERTINENT HISTORY: Aunt with breast cancer. TECHNIQUE: 90 degree lateral view of the left breast as well as compression spot views were obtained. CAD: Full Field Digital Mammography with Computer Added Detection was performed. COMPARISON: Comparison is made with prior study dated August 19, 2012 3. FINDINGS: Breast Composition: The breasts are heterogeneously dense, which may obscure small masses. There are no dominant masses or suspicious calcifications. No other significant abnormalities are identified. BI/DIAG MAMM W/CAD, UNILAT IMPRESSION: Negative unilateral diagnostic mammogram. Yearly followup mammogram recommended. (A) ASSESSMENT CATEGORY: BIRADS Category 1: Negative. A letter regarding these results will be sent to the patient by the facility within 30 days. Approximately 10% of breast cancers are not detected by mammography. A normal mammogram should not delay biopsy of a clinically suspicious abnormality. Electronically Signed: Mane Viera MD at 15:13 EST ,
== END | disposition home or self-care (01) ==
LOC: OPBI 14:29
PROVIDERS: PCP Nurse Practitioner Family; Referring Provider Nurse Practitioner Family; Visit Provider Nurse Practitioner Family
DX: R92.2 Inconclusive mammogram (principal); R92.30 Dense breasts, unspecified
CPT/HCPCS: 77065

== ENCOUNTER 2023-09-02 13:07 | Outpatient (CLI) | payer OTHER, SELFPAY ==
--- OUTSIDE RECORDS SUMMARY | 2023-09-02 13:47 | XMS RPT_ITS | CCD ---
Author Name Unknown Address [address] [place] [address] Organization [facility] Care Team Providers Care Online Merchandising Manager Name Role Phone Ivette Ramos Unavailable Severiano Kuhn Unavailable Lisa Pop Unavailable Agnes Boyle Unavailable Ilir Alicea Unavailable Letty Gaffney Unavailable Unavailable Rebecca Abdalla Unavailable Unavailable Unavailable Unavailable Ivette Ramos Unavailable Severiano Kuhn Unavailable Lisa Pop Unavailable Jane Boylehleen Unavailable Kacie, [place] S Unavailable Ilir Alicea Unavailable Gulshan Letty Unavailable Unavailable Rebecca Abdalla Unavailable Unavailable Unavailable Unavailable Kacie, Rip S Unavailable Steven [place] Unavailable Unavailable Unavailable Unavailable Steven He Unavailable Unavailable [place] Agnes Unavailable Cindy Oro Unavailable Unavailable Ivette Ramos CNP Unavailable Severiano Kuhn MD Unavailable Dr. Lisa Pop MD Unavailable Agnes Boyle DO Unavailable Kacie MORALES, Rip S Unavailable Dr. Ilir Alicea Unavailable Gulshan BOLAND, Letty Unavailable Unavailable Rebecca Abdalla Unavailable Unavailable Steven He LPN Unavailable Unavailable Unavailable Unavailable Cindy Oro LPN Unavailable Unavailable Unavailable Primary Care Provider Unavailabl e Miguelina Jones CNP Unavailable Miguelina Jones CNP Unavailable Peyton Pizarro MA Unavailable Unavailable Ivette Ramos Unavailable Friend, Dr. Devries Unavailable Miguelina Jones CNP Attending Unavailable Ivette Ramos Referring Unavailable Miguelina Jones CNP Consulting Unavailable Medications Completed/Discontinued Medications Medication Drug Class(es) Dates Sig (Normalized) Sig (Original) amLODIPine 5 mg oral tablet (20 sources) Dihydropyridine Calcium Channel Will take 1 mg by mouth once daily AmLODIPine Besylate 5 MG Oral Tablet daily (5 MG) Inactive amoxicillin 875 mg oral tablet (20 sources) Penicillin-class Antibacterial Start: 03-03-2011 End: 05-31-2012 take 1 tablet by mouth twice daily AMOXICILLIN, 875MG (Oral Tablet) 1 Tablet bid for 0 days Quantity: 20 {Tablet} Refills: 0 Ordered: 31-May-2012 Start : 03-Mar-2011 End : 31-May-2012 Inactive amoxicillin 875 mg / clavulanate 125 mg oral tablet (20 sources) Penicillin-class Antibacterial Start: 08-24-2014 End: 09-07-2014 take 1 tablet by mouth twice daily AUGMENTIN, 875-125MG (Oral Tablet) 1 (one) Tablet bid for 14 days Quantity: 28 {Tablet} Refills: 0 Ordered: 24-Aug-2014 Ivette Ramos Start : 24-Aug-2014 End : 07-Sep-2014 Inactive 12 hr buPROPion hydrochloride 100 mg extended release oral tablet (20 sources) Aminoketone Start: 09-16-2018 End: 10-24-2018 take 1 tablet by mouth once daily BuPROPion HCl ER (SR) 100 MG Oral Tablet Extended Release 12 Hour 1 (one) Milligram one daily for 0 days Quantity: 30 {Milligram} Refills: 3 Ordered: 24-Oct-2018 Rebecca Abdalla Start : 16-Sep-2018 End : 24-Oct-2018 Discontinued buPROPion / Naltrexone (20 sources) Opioid Antagonist, Aminoketone Start: 06-19-2019 End: 06-03-2020 take 1 tablet by mouth once in the morning, then take 1 tablet by mouth twice daily, then take 2 tablets by mouth once daily in the morning, then take 1 tablet by mouth once daily in the evening, then take 2 tablets by mouth twice daily CONTRAVE, 8/ 90MG (Oral Tablet) (Free Text) 1 Tablet TAD for 0 days Quantity: 120 {QS} Refills: 3 Ordered: 03-Jun-2020 Steven He LPN Start : 19-Jun-2019 End : 03-Jun-2020 Inactive Comments: avoid with high fat mealTake 1 q am x 1 week, then 1 bid x 1 week , Then 2 qam and 1 qpm x 1 week then 2 bid Problems Active Problems Problem Classification Problem Date Documented Da te Episodic/Chronic Administrative/social admission (20 sources) Medical examinations/repo rts status; Translations: [Patient encounter status] Resolved: 06-07-2017 03-31-2018 Episodic Past or Other Problems Problem Classification Problem Date Documented Da te Episodic/Chronic Other and unspecified benign neoplasm (1 source) Leiomyoma; Translations: [Benign neoplasm of connective and other soft tissue, unspecified] Onset: 03-31-2011 03-31-2011 Episodic Other circulatory disease (10 sources) Narrow pulse pressure; Translations: [Pulse pressure decrease] Resolved: 06-02-2019 10-24-2018 Chronic Unclassified (20 sources) Encounter for screening for malignant neoplasm of colon (Renamed from Special screening for malignant neoplasms, colon); Translations: [Screening status] 06-03-2018 Unclassified (20 sources) Medication management; Translations: [Drug therapy finding] 06-03-2018 Results Test Name Value Interpretation Reference Range Facil ity Vital Signs Date Time Vital Sign Value Performing Clinician Facility 07-02-2023 13:0400 Body height 152.4 cm Peyton Pizarro [facility] Work Phone: 07-02-2023 13:09-0400 Body mass index (BMI) [Ratio] 30.08 kg/m2 Peyton Pizarro MA [facility]; [facility] Work Phone: 07-02-2023 13:09-0400 Body surface area Derived from formula 1.67 m2 Peyton Pizarro MA [facility]; [facility] Work Phone: 07-02-2023 13: Body temperature 98.3 [degF] Peyton Pizarro MA [facility]; [facility] Work Phone: 07-02-2023 13:040 Body weight 69.85 kg Peyton Pizarro MA [facility]; [facility] Work Phone: 07-02-2023 13:040 Diastolic blood pressure 78 mm[Hg] Peyton Pizarro MA [facility]; [facility] Work Phone: Encounters Encounter Date Encounter Type Care Provider Facility Start: 07-05-2023 End: 07-05-2023 Annotation/Addendum Miguelina Jones CNP Work Phone: [facility] Start: 07-02-2023 End: 07-04-2023 Office outpatient visit 15 minutes Miguelina Jones CNP Work Phone: [facility] Start: 06-09-2023 End: 06-11-2023 Office outpatient visit 15 minutes Miguelina Jones CNP Work Phone: [facility] Start: 06-09-2023 Review Miguelina Jones CNP Work Phone: [facility] Start: 12-22-2022 ambulatory Miguelina Jones CNP [facility] Start: 12-01-2022 End: 12-01-2022 Office outpatient visit 15 minutes Miguelina Jones CNP Work Phone: [facility] Start: 12-01-2022 Review Miguelina Jones CNP Work Phone: [facility] Start: 06-08-2022 Telephone encounter Zoey Pierson MD Work Phone: OB/Gynecology Procedures Date Procedure Procedure Detail Performing Clinician Start: 07-02-2023 End: 07-03-2023 L/S Spine Min 4 Views Procedure Note: See Note; NOTES: [facility] Imaging Services [address] [place] [address] L/S Spine Min 4 Views MR#: [id number] Acct: [id number] Name: MERVAT CORREA Rep #: [id number] : 1965 F 57 From: Casimiro Alvarado MD PCP: DHAVAL Almeida Status: REG CLI Study: L/S Spine Min 4 Views Date of Exam: 07/02/23 Exam# [id number] Ordering Dr: Miguelina Jones :[id number] STUDY: X-RAY - LUMBAR SPINE REASON FOR EXAM: Female, 57 years old. lower extremity pain, left TECHNIQUE: 5 view(s) of the lumbar spine were obtained. COMPARISON: None FINDINGS: Normal lumbar lordosis. There is no substantial scoliosis. There is a normal alignment of the vertebrae. Normal vertebral bodies and endplates. There is multi-level degenerative disc disease with multi-level disc space narrowing. Facet hypertrophy in the lower lumbar spine. The soft tissue structures are unremarkable. RAD/L/S Spine Min 4 Views IMPRESSION: Degenerative changes of the spine, as detailed above. MRI may be useful. Electronically Signed: Casimiro Alvarado MD at 16:20 EDT , CC: [employer]PER[employer]C Miguelina Jones Content Strategy Lead: Signed Miguelina Jones [facility] Work Phone: Start: 08-13-2022 End: 08-14-2022 SCRN MAMM (CAD)W/JEAN-PAUL BILAT Procedure Note: See Note; NOTES: [facility] Imaging Services [address] [place] [address] SCRN MAMM (CAD)W/JEAN-PAUL BILAT MR#: [id number] Acct: [id number] Name: MERVAT CORREA Rep #: [id number] : 1965 F 56 From: Mane powell MD PCP: DHAVAL Almeida Status: [facility] Study: SCRN MAMM (CAD)W/JEAN-PAUL BILAT Date of Exam: 10/04 Exam# [id number] Ordering Dr: Miguelina Jones MAMMOGRAPHY - BILATERAL SCREENING REASON FOR EXAM: Female, 56 years old. Routine annual screening examination. PERTINENT HISTORY: Non-contributory. TECHNIQUE: Digital bilateral breast jean-paul (3D mammographic acquisition) in the CC and MLO projections. 2-D mediolateral oblique (MLO) and craniocaudad (CC) views of both breasts were obtained. CAD: Full Field Digital Mammography with Computer Added Detection was performed. COMPARISON: Comparison is made with prior study dated 07/15/2021 and 07/02/2020. FINDINGS: Breast Composition: The breasts are heterogeneously dense, which may obscure small masses. There are no dominant masses or suspicious calcifications. Stable small benign-appearing bilateral axillary lymph nodes. No other significant abnormalities are identified. There has been no significant change since the prior study. BI/SCRN MAMM (CAD)W/JEAN-PAUL BILAT IMPRESSION: Stable bilateral screening mammogram. Yearly follow-up mammogram recommended. (A) ASSESSMENT CATEGORY: BIRADS Category 2: Benign. A letter regarding these results will be sent to the patient by the facility within 30 days. Approximately 10% of breast cancers are not detected by mammography. A normal mammogram should not delay biopsy of a clinically suspicious abnormality. [id number] Electronically Signed: Mane Viera MD at 9:06 EST , CC: Miguelina Jones NP; SUPERVISOR PLASTICSTeresaC Miguelina Jones Content Strategy Lead: Signed Miguelina Jones CNP Work Phone: Start: 06-11-2022 End: 06-11-2022 Pelvis W/WO Contrast Procedure Note: See Note; NOTES: [facility] Imaging Services [address] [place] [address] Pelvis W/WO Contrast MR#: [id number] Acct: [id number] Name: MERVAT CORREA Rep #: [id number] : 1965 F 56 From: Srinivas chavez MD PCP: DHAVAL Almeida Status: REG CLI Study: Pelvis W/WO Contrast Date of Exam: 06/11/22 Exam# [id number] Ordering Dr: Miguelina Jones MR Pelvis Female W/ Contrast 06/11/2022 8:47 AM COMPARISON: None CLINICAL HISTORY: size and identify utneine mass - was 13.5x11.7x7.7 on u/s -- size and identify utneine mass - was 13.5x11.7x7.7 on u/s TECHNIQUE: Multiplanar T1 and T2 weighted, diffusion and dynamic post-gadolinium images were obtained through the pelvis. FINDINGS: Uterus size: 12.5 x 8.9 x 13 cm There are a total of at least 8 leiomyomas, which do distort the endometrial cavity. The 4 largest leiomyomas: 1) 8.5 x 7 x 7.3 cm; left body; subserosal;homogeneous low T2 signal intensity; heterogeneous enhancement 2) 5.2 x 5 x 5.5 cm; right body/fundal; intramural;heterogeneous T2 signal intensity (cobblestone); heterogeneous enhancement 3) 3.6 x 3.5 x 3.5 cm; anterior; subserosal;homogeneous low T2 signal intensity; heterogeneous enhancement 4) 2.9 x 2.4 x 2.3 cm; left body/fundal; subserosal;heterogeneous T2 signal intensity (cobblestone); homogeneous enhancement Endometrium: Mostly distorted and obscured by the multiple fibroids. No focal abnormalities seen. Right ovary: Unremarkable Left ovary: Unremarkable Free fluid: Small volume Bones: No suspicious lesions MRI/Pelvis W/WO Contrast IMPRESSION: Multi-fibroid uterus as detailed above. The largest fibroid measures 8.5 x 7 x 7.3 cm. Electronically Signed: Srinivas Rodríguez MD at 19:22 EDT , CC: Miguelina Jones SUPERVIS[employer]; [employer] Miguelina Jones Content Strategy Lead: Signed Miguelina Jones FMD TEACHER Work Phone: Start: 06-05-2022 End: 06-05-2022 Kidney and Bladder Procedure Note: See Note; NOTES: [facility] Imaging Services [address] [place] [address] Kidney and Bladder MR#: [id number] Acct: [id number] Name: MERVAT CORREA Rep #: [id number] : 1965 F 56 From: Harmony Bronson MD PCP: DHAVAL Almeida Status: REG CLI Study: Kidney and Bladder Date of Exam: 06/05/22 Exam# [id number] Ordering Dr: Miguelina Jones STUDY: RENAL ULTRASOUND - COMPLETE REASON FOR EXAM: Female, 56 years old. Hematuria TECHNIQUE: Ultrasound evaluation of the kidneys was performed with real-time and static padilla-scale imaging. COMPARISON: None. FINDINGS: RIGHT KIDNEY: Normal location of the right kidney, which is normal in size. The right kidney measures 10.2 cm in length. There is a normal cortex of the right kidney. There is no right renal mass or cyst. There are no right renal calculi. There is no right hydronephrosis. DISTAL RIGHT URETER: There is non-visualization of the distal right ureter. There is no demonstrated right ureterovesical junction calculus. There is no demonstrated right ureteral jet. LEFT KIDNEY: Normal location of the left kidney, which is normal in size. The left kidney measures 10.3 cm in length. There is a normal cortex of the left kidney. There is no left renal mass or cyst. There are no left renal calculi. There is no left hydronephrosis. DISTAL LEFT URETER: There is non-visualization of the distal left ureter. There is no demonstrated left ureterovesical junction calculus. There is no demonstrated left ureteral jet. BLADDER: The distended urinary bladder has a volume of 168.2 ml. There is a normal wall thickness of the distended urinary bladder. There is no demonstrated mass within the urinary bladder. There are no demonstrated bladder calculi. There is a predominantly hypoechoic 13.5 x 11.7 x 7.7 cm soft tissue mass that appears to be arising from the uterus. US/Kidney and Bladder IMPRESSION: Within normal limits ultrasound of the kidneys and urinary bladder. 13.5 x 11.7 x 7.7 cm soft tissue mass that appears to be arising from the uterine fundus, likely a fibroid however cannot exclude a leiomyosarcoma, recommend MRI with contrast for further characterization. Electronically Signed: Harmony Bronson MD at 16:35 EDT , CC: Miguelina Jones NP; SUPERVISOR PLASTICSTeresaC Miguelina Jones Content Strategy Lead: Signed Miguelina Jones FMD TEACHER Work Phone: Start: 07-15-2021 End: 07-16-2021 Dexa Bone Density Study Procedure Note: See Note; NOTES: [facility] Imaging Services [address] [place] [address] Dexa Bone Density Study MR#: [id number] Acct: [id number] Name: MERVAT CORREA Rep #: [id number] : 1965 F 55 From: Mane powell MD PCP: IGGY SolanoC Status: [facility] CLI Study: Dexa Bone Density Study Date of Exam: 07/15/21 Exam# [id number] Ordering Dr: Ivette Ramos NP SUPER[employer]-C STUDY: DUAL ENERGY X-RAY ABSORPTIOMETRY / DXA REASON FOR EXAM: Female, 55 years old. [id number]. Patient is postmenopausal. TECHNIQUE: Bone Mineral Density (BMD) measurements of lumbar spine and bilateral hips were obtained. COMPARISON: None. FINDINGS: Lumbar Spine (L1-L4): g/cm2 (1.101) / T-score (0.8) / Z-score (1.8) Findings are suggestive of normal bone density with a low fracture risk. Left Femur Total: g/cm2 (1.183) / T-score (2.0) / Z-score (2.7) Left Femoral Neck: g/cm2 (1.000) / T-score (1.4) / Z-score (2.4) Right Femur Total: g/cm2 (1.179) / T-score (1.9) / Z-score (2.6) Right Femoral Neck: g/cm2 (1.010) / T-score (1.5) / Z-score (2.5) BD/Dexa Bone Density Study IMPRESSION: The patient is considered normal as outlined below according to World Luis Alberto Organization (WHO) criteria with a low fracture risk. Reference Information: The T-score is the number of standard deviations above or below the standard which is normal for young adults at their peak bone mineral density. The World Health Organization (WHO) interprets the T-scores as follows: Above -1 Normal bone density Between -1 and -2.5 Osteopenia Equal to / or below -2.5 Osteoporosis As a practical clinical guideline, osteopenia may be graded as follows: Mild -1 through -1.5 Moderate -1.6 through -2.0 Severe -2.1 through -2.4 The Z-score is the number of standard deviations above or below age-matched controls. A Z-score of less than -1.5 would be considered abnormal. References: 1. NIH Osteoporosis and Related Bone Diseases www osteo.org 2. International Society for Clinical Densitometry www iscd.org 3. National Osteoporosis Foundation www nof.org Electronically Signed: Mane Viera MD at 15:48 EDT , Service support , CC: DHAVAL Ramos Content Strategy Lead: Signed Ivette Ramos Work Phone: Start: 07-15-2021 End: 07-16-2021 SCRN MAMM (CAD)W/JEAN-PAUL BILAT Procedure Note: See Note; NOTES: [facility] Imaging Services [address] [place] [address] SCRN MAMM (CAD)W/JEAN-PAUL BILAT MR#: [id number] Acct: [id number] Name: MERVAT CORREA Rep #: [id number] : 1965 F 55 From: Mane powell MD PCP: DHAVAL Solano Status: REG CLI Study: SCRN MAMM (CAD)W/JEAN-PAUL BILAT Date of Exam: 11/03 Exam# [id number] Ordering Dr: Ivette Ramos NP, NP-Flaco MAMMOGRAPHY - BILATERAL SCREENING REASON FOR EXAM: Female, 55 years old. Routine annual screening examination. PERTINENT HISTORY: Non-contributory. TECHNIQUE: Digital bilateral breast jean-paul (3D mammographic acquisition) in the CC and MLO projections. 2-D mediolateral oblique (MLO) and craniocaudad (CC) views of both breasts were obtained. CAD: Full Field Digital Mammography with Computer Added Detection was performed. COMPARISON: Comparison is made with prior study 07/02/2020 and 07/14/2018. FINDINGS: Breast Composition: The breasts are heterogeneously dense, which may obscure small masses. There are no dominant masses or suspicious calcifications. Stable small benign-appearing bilateral axillary lymph nodes. No other significant abnormalities are identified. There has been no significant change since the prior study. BI/SCRN MAMM (CAD)W/JEAN-PAUL BILAT IMPRESSION: Stable bilateral screening mammogram. Yearly follow-up mammogram recommended. (A) ASSESSMENT CATEGORY: BIRADS Category 2: Benign. A letter regarding these results will be sent to the patient by the facility within 30 days. Approximately 10% of breast cancers are not detected by mammography. A normal mammogram should not delay biopsy of a clinically suspicious abnormality. [id number] Electronically Signed: Mane Viera MD at 9:28 EDT , Service support , CC: DHAVAL Ramos Content Strategy Lead: Signed Ivette Ramos Work Phone: Start: 07-02-2020 End: 07-03-2020 SCREEN MAMM (CAD) W/JEAN-PAUL BILAT Comments: See Note; NOTES: [facility] Imaging Services [address] [place], [place] [address] SCREEN MAMM (CAD) W/JEAN-PAUL BILAT MR#: [id number] Acct: [id number] Name: MERVAT CORREA Rep #: [id number] : 1965 F 54 From: Mane powell MD PCP: DHAVAL Solano Status: [facility] Study: SCREEN MAMM (CAD) W/JEAN-PAUL BILAT Date of Exam: Exam# [id number] Ordering Dr: Ivette Ramos NP MAMMOGRAPHY - BILATERAL SCREENING REASON FOR EXAM: Female, 54 years old. Routine annual screening examination. PERTINENT HISTORY: Non-contributory. TECHNIQUE: Digital bilateral breast jean-paul (3D mammographic acquisition) in the CC and MLO projections. 2-D mediolateral oblique (MLO) and craniocaudad (CC) views of both breasts were obtained. CAD: Full Field Digital Mammography with Computer Added Detection was performed. COMPARISON: Comparison is made with prior study dated 07/14/2018 and 02/28/2014. FINDINGS: Breast Composition: The breasts are heterogeneously dense, which may obscure small masses. There are no dominant masses or suspicious calcifications. The previously seen well-defined nodule in the central medial aspect of the left breast is not seen at this time. No other significant abnormalities are identified. BI/SCREEN MAMM (CAD) W/JEAN-PAUL BILAT IMPRESSION: Stable bilateral screening mammogram. Yearly follow-up mammogram recommended. (A) ASSESSMENT CATEGORY: BIRADS Category 2: Benign. A letter regarding these results will be sent to the patient by the facility within 30 days. Approximately 10% of breast cancers are not detected by mammography. A normal mammogram should not delay biopsy of a clinically suspicious abnormality. [id number] Electronically Signed: Mane Viera, at 8:15 EDT , Service support , CC: DHAVAL Ramos Content Strategy Lead: Signed Ivette Ramos [facility] Work Phone: Start: 11-07-2018 End: 11-07-2018 Stress Test Echo w/o Contrast Comments: See Note; NOTES: [facility] Cardiovascular Services [address] [place] [address] Stress Test Echo w/o Contrast MR#: [id number] Acct: [id number] Name: MERVAT CORREA Rep #: [id number] : 1965 52 From: Rip Hester MD Primary Care: Ivette Ramos NP Status: REG CLI Ordering Dr: Rip Hester MD Sex: F C Reason For Study: HTN WITH CHEST PAIN Stress Results Protocol: Juan Protocol Maximum Predicted HR: 168 bpm Target HR: 143 bpm % Maximum Predicted HR: 96 % DurationHeart Rate Stage (mm:ss) (bpm) BP BASELINE 84 144/92 STAGE 1 3:00 120 166/90 STAGE 2 3:00 144 184/94 STAGE 3 2:00 162 / RECOVERY 86 122/90 Stress Duration: 8:00 mm:ss Maximum Stress HR: 162 bpm Baseline Echocardiogram Findings Stress Echo Wall motion Data Resting WM Intermediate WM Stress WM Resting Wall Motion Wall Motion Stress No regional wall motion No regional wall motion abnormalities noted. abnormalities noted. Ejection Fraction 55 %. Ejection Fraction 65 %. Interpretation Summary Exercise stress echo. Stress protocol: Resting EKG demonstrates normal sinus rhythm with a rate of 80 bpm normal intervals are noted. Resting blood pressure 144/92 mmHg. The patient exercised according to regular Juan protocol for total duration of 8 minutes the maximum heart rate attained was 164 bpm which was 97% of maximum predicted heart rate the maximum workload was 10.1 metabolic equivalents. At rest there were no ST or T wave changes noted suggest ischemia peak exercise upsloping ST changes only were noted with no meet the criteria for ischemia. No clinical angina was noted the test was terminated due to leg fatigue. The resting blood pressure 144/92 mmHg with a peak blood pressure 184/94 mmHg. The blood pressure response to exercise was normal. Stress echocardiographic images. The resting echocardiogram demonstrated preserved ejection fraction of 55-60% with no wall motion of normality is noted. The stress echocardiographic images demonstrated thickening of all lambert with reduction in left ventricular cavity size and no new wall motion abnormalities noted. No evidence of ischemia was noted the peak ejection fraction was 75%. Conclusion: Normal exercise stress echo with no evidence of ischemia at a high workload No clinical angina noted Ordering Physician: Rip Hester Referring Physician: Rip Hester Performed By: Ambar Frances, DUSTY, RVT 11/07/18 1428 Date Rip Hester MD CC: Ivette Ramos SUPERVIS[employer]; Rip Hester MD Date Dictated: 11/07/18 1254 Date Transcribed: 11/07/18 1428 Content Strategy Lead: Signed Rip Hester Work Phone: Start: 10-24-2018 End: 10-24-2018 Venous Duplex Lower Extremity Comments: See Note; NOTES: [facility] Cardiovascular Services [address] [place] [address] Venous Duplex US, Unilateral 10/24/18 1507 MR#: [id number] Acct: [id number] Name: MERVAT CORREA Rep #: [id number] : 1965 52 From: Art Ojeda MD Attending Dr: Ivette Ramos NP Status: REG CLI Ordering Dr: Ivette Ramos [employer]PER[employer]-C Date: 10/24/18 Location: [facility] Sex: F C Admitted: Reason For Study: swelling RIGHT LEFT CFV is compressible, spontaneous, phasic, GSV is normal. competent and demonstrates normal CFV is compressible, spontaneous, phasic, augmentation. competent, and demonstrates normal Procedure augmentation. Exam performed in department. FV is compressible, spontaneous, phasic, The exam was diagnostic. competent and demonstrates normal A preliminary report was called and/or faxed augmentation. to Ivette Ramos. POP V is compressible, spontaneous, phasic, competent and demonstrates normal augmentation. T/P Trunk is compressible. PTV is compressible. LT PerV is compressible. Interpretation Summary Deep veins of the left lower extremity are patent and compressible segmentally. There is no evidence of left lower extremity deep vein thrombosis. Valvular competence appears intact within the proximal deep venous system on the left . The left greater saphenous vein appears patent and compressible segmentally. Ordering Physician: Ivette Ramos Performed By: Srini Zamora, RVT 10/24/182029 Date Art Ojeda MD CC: Ivette Ramos NP Date Dictated: 10/24/18 1507 Date Transcribed: 10/24/182029 Content Strategy Lead: Signed Ivette Ramos Work Phone: Start: 10-24-2018 End: 10-24-2018 Chest PA and Lateral Comments: See Note; NOTES: [facility] Imaging Services [address] [place] [address] Chest PA and Lateral MR#: [id number] Acct: [id number] Name: MERVAT CORREA Rep #: [id number] : 1965 F 52 From: Shannon Martinez MD PCP: Ivette Ramos NP Status: REG CLI Study: Chest PA and Lateral Date of Exam: 10/24/18 Exam# [id number] Ordering Dr: Ivette Ramos [employer]-C STUDY: X-RAY CHEST REASON FOR EXAM: Female, 52 years old. Shortness of breath TECHNIQUE: PA and lateral views of the chest. COMPARISON: August 23, 2009 chest x-ray FINDINGS: There is a trace focus of linear density in the right upper lobe which was not seen on prior study. There is persistent elevation of the right hemidiaphragm. There is no demonstrated pleural abnormality. Normal size heart. Normal mediastinum and glenda. Normal visualized pulmonary arteries. Normal visualized aortic arch and descending thoracic aorta. Normal visualized thoracic spine. Normal visualized ribs, clavicles, and shoulders. There is no demonstrated abnormality of the visualized soft tissue structures of the upper abdomen. RAD/Chest PA and Lateral IMPRESSION: Right upper lobe atelectasis and/or developing infiltrate. Electronically Signed: Shannon Martinez MD at 16:36 EST Tel , Service support , CC: Ivette Ramos NP Content Strategy Lead: Signed Ivette Ramos Work Phone: Start: 10-12-2018 End: 10-12-2018 Cardiology Visit Report Comments: See Note; NOTES: [facility] [address] [place] [address]. [address] [place] [address] OFFICE VISIT Date of Service: 10/12/18 MR#: [id number] Acct: [id number] Name: MERVAT CORREA Rep #: [id number] : 1965 Provider: Rip Hester MD Age/Sex: 52/F Location: [facility] [place] Status: Signed HPI HPI Chief Complaint: Initial visit Details: MERVAT CORREA, is a 52 F who presents to the office today for an initial visit for evaluation of chest discomfort. She has a history of hypertension which was well controlled on Diovan for years and that this was changed to Cozaar and now subsequently irbesartan. She says that she has been having a continued elevation in her blood pressure as well as these chest pain episodes which are not necessarily heavy and do not have any radiation. As part of her workup she underwent an echocardiogram with demonstrated preserved ejection fraction of 65% and a trivial pericardial effusion which is chronic. She is also had some palpitations and had a 24-hour Holter monitor done which demonstrated an average heart rate of 75 bpm and minimum of 45 beats minute sinus rhythm and a maximum 125 bpm. Occasional ventricular and supraventricular ectopic beats were noted. She also had a calcium score performed which was 0. However she was asked to see us for further evaluation and management. She has had no neck arm or jaw discomfort suggestive of angina. Her physical exam today demonstrates clear lung muller regular rate and rhythm no pedal edema her blood pressure appears to be elevated. Her electrocardiogram from 09/16/2018 demonstrated sinus rhythm with a rate of 73 bpm and no acute changes. Intake Vital Signs10/12/18 Height 5 ft Intake Visit Reasons: PCP ref'd for chest pain Allergies No Known Allergies Allergy (Unverified 10/12/18 12:01) Medications irbesartan 300 mg tablet 300 mg PO DAILY 10/11/18 [History Confirmed 10/12/18] amlodipine 5 mg tablet 5 mg PO DAILY #90 tab 10/12/18 [Rx Confirmed 10/12/18] [facility] Medical History Low HDL (under 40) (Chronic) Essential (primary) hypertension (Chronic) Pericardial effusion (Chronic) Basal cell carcinoma (Chronic) Obesity (Chronic) Surgical History H/O myomectomy (Resolved) History of (Resolved) Family History Mother Heart disease Father Heart disease Social History Smoking Status: Former smoker alcohol intake: never ROS Const Const: Negative for fatigue, weakness, headache(s), frequent falls, difficulty sleeping or excessive sweating Eyes Eyes: Negative for loss of peripheral vision, transient loss of vision, blurry vision, double vision or tunnel vision ENT ENT: Negative for headache(s), dizziness, Nosebleed/epistaxis or balance problems Cardio Chest Pain: Yes (notes chest pain with elevated blood pressure) Palpitations: Yes (Fast heart rate wakes her from sleep) feels like its: fast Edema: None Muscle aches with walking: None Resp Respiratory: Negative for SOB with activity, SOB at rest, SOB orthopnea\SOB lying down, Cough or paroxysmal nocturnal dyspnea GI GI: Negative nausea, vomiting, heartburn or black,tarry stools : Negative for hematuria Musc Musc: Negative for muscle aches/ myalgia, muscle weakness, joint pain or balance problems Skin Skin: Negative non-healing lesions, rash or unusual bruising Neuro Neuro: Negative for dizziness, lightheadedness, near syncope, syncope, orthostatic symptoms, frequent falls, headache(s), weakness, blurry vision, double vision or lack of coordination Flavio Hematologic/Lymphatic: Negative for easy bleeding or easy bruising Endo Endo: Negative for fatigue, excessive sweating or increased thirst/drinking Psych Psych: Negative for anxiety or depression Allergy Allergy/Immunology: Negative for hives, Negative for rash Cardiology Exam Const Appearance: cooperative, healthy appearing, no acute distress, well developed and well groomed Nutritional Appearance: average body habitus and well nourished Orientation: alert, awake and oriented x3 Head Head: normal to inspection, normocephalic and atraumatic Ears: hearing grossly normal bilaterally and external ears normal Nose: external nose normal, nares normal, nasal mucous membranes and turbinates normal, septum normal, no nasal discharge Face and Sinus: face symmetric Mouth: oral mucosae normal, tongue normal, oropharynx normal and moist mucous membranes Teeth and gingiva: dentition normal Throat: posterior oropharynx normal, tonsils normal and uvula midline Eyes General: appearance normal, both eyes and all related structures Eyelids: eyelids normal Conjunctivae: conjunctivae normal Pupils: PERRL, normal by confrontation and accommodation normal EOM: EOM intact bilaterally Neck Neck: normal visual inspection, trachea midline and no JVD JVD: +5 Carotids: normal carotid upstroke and bounding pulses Chest Chest inspection: normal inspection of the chest, symmetric chest movement and normal respiratory effort Auscultation: Bilateral: Clear to Auscultation Cardio Palpation: normal PMI Rate: regular rate Rhythm: regular rhythm Heart sounds: S1 normal, S2 normal and normal, physiologic split S2; negative rub, gallop or murmur GI GI: normal to inspection, soft, no hepatosplenomegaly and bowel sounds present Neuro General: alert, awake, oriented x3, gait normal, moves all extremities and no focal sensory deficit Skin Skin: no rashes or lesions noted Extremities Pulses: Normal: Right Femoral Pulse, Left Femoral Pulse, Right Dorsalis Pedis Pulse, Left Dorsalis Pedis Pulse, Right Posterior Tibial Pulse, Left Posterior Tibial Pulse, Right Radial Pulse, Left Radial Pulse Lower Extremity Edema: None: Bilateral Musculoskel Musculoskeletal: No joint tenderness Psych Psychological: normal affect Assessment AND Plan 1. Chest pain R07.9 Plan She does have chest pain which is atypical. With her normal calcium score I am fairly confident that she does not have any significant atherosclerotic plaquing. It may however be helpful to assess exercise tolerance as well as her blood pressure with exercise by doing a stress echo. Depending on the results further recommendations will be made. 2. Essential (primary) hypertension I10 Plan She does have a history of hypertension which does not appear to be very well controlled I would recommend that she remain on the atorvastatin, discontinue the potassium and the hydrochlorothiazide due to her tendency towards hypokalemia and start her on Norvasc 5 mg a day. She has previously had pedal edema on Norvasc though I do not know the dose but I suspect that she will do well with the lower dose. Salt restriction has also been emphasized. Her lipid status is excellent with a total cholesterol 179, LDL of 95 and HDL of 65. With a calcium score of 0 I do not think that there is any reason for statin management.. It will be helpful for her to check her blood pressure on a weekly basis and record to this. Thank you for allowing me to participate in the care of your patient. Please don't hesitate to call if any issues arise Orders Orders: 3. Pericardial effusion I31.3 Plan She does have a history of trivial pericardial effusion which appears to be inconsequential. No changes were made to the above. 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) Coding Level of Care Code Off vis,new,level 4 Diagnoses Chest pain R07.9 Essential (primary) hypertension I10 Pericardial effusion I31.3 Coding Level of Care Code Off vis,new,level 4 Diagnoses Chest pain R07.9 Essential (primary) hypertension I10 Pericardial effusion I31.3 Supplemental Info Supplemental Information Labs LDL Cholesterol 95 mg/dL (0-130) 05/17/18 HDL Cholesterol 65 mg/dL (40-) 05/17/18 Triglycerides 97 mg/dL (-199) 05/17/18 VLDL Cholesterol 19 mg/dL (5-40) 05/17/18 Diagnostics Echocardiogram 09/22/[address] 10/06/18 10/12/18 2016 <Electronically signed by Rip Hester MD> Date Rip Hester MD Cosigner Signature: Date (if applicable) CC: Ivette Ramos Start: 10-06-2018 End: 10-10-2018 CCTA Calcium Scoring Comments: See Note; NOTES: [facility] Imaging Services [address] [place] [address] CCTA Calcium Scoring MR#: [id number] Acct: [id number] Name: MERVAT CORREA Rep #: [id number] : 1965 F 52 From: Jose Alberto Walton MD PCP: Ivette Ramos NP Status: REG CLI Study: CCTA Calcium Scoring Date of Exam: 10/06/18 Exam# [id number] Ordering Dr: Ivette Ramos [employer]C STUDY: CT CHEST WITHOUT CONTRAST REASON FOR EXAM: Female, 52 years old. Chest pain, screening exam for calcium scoring RADIATION DOSAGE (If Supplied By Facility): CTDIvol = ( 12.19 ) mGy, DLP = ( 170.66 ) mGycm TECHNIQUE: Transaxial imaging was performed without the administration of intravenous contrast material. Individualized dose optimization techniques were used for this CT. COMPARISON: None. FINDINGS: The lungs are normal in their visualized extent. There is no demonstrated pleural abnormality. Heart size is normal. There is a small volume pericardial effusion. Normal mediastinum. Normal hilar regions. Normal unenhanced pulmonary arteries. Normal aorta arch and descending thoracic aorta. Normal osseous structures. There is a small hiatal hernia. Simple cyst of the left hepatic lobe is demonstrated. CT/CCTA Calcium Scoring IMPRESSION: 1. Small pericardial effusion. 2. Small hepatic cyst. Electronically Signed: Jose Alberto Walton MD at 9:07 EST , Service support , CC: Ivette Ramos NP Content Strategy Lead: Signed Jazmyn Rachel Work Phone: Start: 10-06-2018 End: 10-08-[address] w/CCTA Comments: See Note; NOTES: [facility] Imaging Services [address] [place] [address] w/CCTA MR#: [id number] Acct: [id number] Name: MERVAT CORREA Rep #: [id number] : 1965 F 52 From: Jose Alberto Walton MD PCP: Ivette Ramos NP Status: REG CLI Study: Limited Chest CT w/CCTA Date of Exam: 10/06/18 Exam# [id number] Ordering Dr: Ivette Ramos [employer] STUDY: CT CHEST WITHOUT CONTRAST REASON FOR EXAM: Female, 52 years old. Chest pain, screening exam for calcium scoring RADIATION DOSAGE (If Supplied By Facility): CTDIvol = ( 12.19 ) mGy, DLP = ( 170.66 ) mGycm TECHNIQUE: Transaxial imaging was performed without the administration of intravenous contrast material. Individualized dose optimization techniques were used for this CT. COMPARISON: None. FINDINGS: The lungs are normal in their visualized extent. There is no demonstrated pleural abnormality. Heart size is normal. There is a small volume pericardial effusion. Normal mediastinum. Normal hilar regions. Normal unenhanced pulmonary arteries. Normal aorta arch and descending thoracic aorta. Normal osseous structures. There is a small hiatal hernia. Simple cyst of the left hepatic lobe is demonstrated. CT/Limited Chest CT w/CCTA IMPRESSION: 1. Small pericardial effusion. 2. Small hepatic cyst. Electronically Signed: Jose Alberto Walton MD at 9:07 EST , Service support , CC: Ivette Ramos NP Content Strategy Lead: Signed Ivette Ramos Work Phone: Start: 09-22-2018 End: 09-22-2018 Echocardiogram Complete Comments: See Note; NOTES: [facility] Cardiovascular Services [address] [place] [address] Echo Complete 09/22/18 1253 MR#: [id number] Acct: [id number] Name: MERVAT CORREA Rep #: [id number] : 1965 52 From: Jeff Eckert MD Attending Dr: Ivette Ramos NP Status: REG CLI Ordering Dr: Ivette Ramos [employer]C Date: 09/22/18 Location: [facility] Sex: F C Admitted: Reason For Study: CHEST PAIN Procedure This was a 2D Doppler, Color Flow transthoracic echocardiogram. Exam performed in department. Left Ventricle Normal size and thickness. The estimated ejection fraction is 65 %. Normal diastology for age. No regional wall motion abnormalities noted. Right Ventricle Normal size and thickness. Normal systolic function. Atria Normal left atrium. Normal right atrium. Normal atrial septum. Mitral Valve The mitral valve is structurally normal. No prolapse or stenosis seen. Tricuspid Valve Normal tricuspid valve. Trivial tricuspid valve insufficiency. Right ventricular systolic pressure estimated to be 28 mmHg. Aortic Valve Normal aortic valve. Trisinus/trileaflet aortic valve. Pulmonic Valve Normal pulmonic valve. Great Vessels Normal aortic root. Normal arch. Normal inferior vena cava. Inferior vena cava collapse with sniff. Pericardium/Pleural Trivial pericardial effusion. There are no echocardiographic indications of cardiac tamponade. MMode/2D Measurements AND Calculations LVIDd: 4.3 cm IVSd: 0.82 cm Ao root diam: 3.2 cm LVIDs: 2.4 cm LVPWd: 0.94 cm RVDd: 2.3 cm FS: 43.8 % LAV(MOD-bp): 41.8 ml LVAd ap4: 28.1 cm2 SV(MOD-sp4): 65.7 ml LAV(MOD-bp) Indexed: 24.2 ml/m2 EDV(MOD-sp4): 87.0 ml LAV(MOD-sp2): 44.2 ml EDV(sp4-el): 92.2 ml LAV(MOD-sp4): 37.5 ml LVAs ap4: 11.1 cm2 ESV(MOD-sp4): 21.3 ml ESV(sp4-el): 20.8 ml EF(MOD-sp4): 75.5 % EF(sp4-el): 77.4 % SV(sp4-el): 71.3 ml LA A4 area: 15.1 cm2 LA dimension(2D): 3.4 cm RA A4 area: 8.5 cm2 Time Measurements MV dec time: 0.19 sec Doppler Measurements AND Calculations MV E max óscar: 85.8 cm/sec Lat Peak E' Óscar: 10.2 cm/sec Med Peak E' Óscar: 7.4 cm/sec MV A max óscar: 64.6 cm/sec E/E' lat: 8.4 E/E' med: 11.7 MV E/A: 1.3 Ao V2 max: 157.8 cm/sec LV V1 max: 128.6 cm/sec PA V2 max: 107.7 cm/sec Ao max P.0 mmHg LV V1 max P.6 mmHg TR max óscar: 241.5 cm/sec TR max P.3 mmHg Interpretation Summary The estimated ejection fraction is 65 %. Normal diastology for age. Trivial tricuspid valve insufficiency. Right ventricular systolic pressure estimated to be 28 mmHg. Trivial pericardial effusion. There are no echocardiographic indications of cardiac tamponade. Compared to echo report dated 01/26/2014, no appreciable changes noted. Ordering Physician: Ivette Ramos Referring Physician: Ivette Ramos Performed By: Mckenna Henry, DUSTY, RVT 09/22/18 1949 Date Jeff Eckert MD CC: Ivette Ramos [employer]PER[employer] Date Dictated: 09/22/18 1253 Date Transcribed: 09/22/18 2842 Content Strategy Lead: Signed Ivette Ramos Work Phone: Start: 07-18-2018 End: 07-18-2018 Breast Limited Unilateral Comments: See Note; NOTES: [facility] Imaging Services [address] [place] [address] Breast Limited Unilateral MR#: [id number] Acct: [id number] Name: MERVAT CORREA Rep #: [id number] : 1965 F 52 From: Mane Viera MD PCP: Ivette Ramos NP Status: REG CLI Study: Breast Limited Unilateral Date of Exam: 07/18/18 Exam# [id number] Ordering Dr: Ivette Ramos [employer]-C STUDY: ULTRASOUND BREAST - LEFT REASON FOR EXAM: Female, 52 years old. Abnormal screening mammogram. TECHNIQUE: Axial and longitudinal images of the LEFT breast were performed with a high resolution ultrasound transducer. COMPARISON: Comparison is made with prior mammogram dated July 14, 2018. FINDINGS: LEFT Breast: There is a 1.6 cm x 1.2 cm x 0.7 cm cyst at the 9:00 position breast 5 cm from the nipple. Adjacent to this, there is a 0.5 cm x 0.6 cm by 0.3 cm cyst. There is a 1.4 cm x 1 cm x 0.9 cm cyst with septation at the 10:00 position breast at 5 cm from the nipple. US/Breast Limited Unilateral IMPRESSION: 3 cysts are seen in the central medial aspect of the left breast as described. Routine mammographic follow-up is recommended. ASSESSMENT CATEGORY: BIRADS Category 2: Benign. A letter regarding these results will be sent to the patient by the facility within 30 days. Electronically Signed: Mane Viera MD at 15:48 EST Tel [phone], Service support , CC: Ivette Ramos NP Content Strategy Lead: Signed Ivette Ramos Work Phone: Start: 07-14-2018 End: 07-15-2018 SCREENING MAMM (CAD), BILAT Comments: See Note; NOTES: [facility] Imaging Services [address] [place] [address] SCREENING MAMM (CAD), BILAT MR#: [id number] Acct: [id number] Name: MERVAT CORREA Rep #: [id number] : 1965 F 52 From: Mane Viera MD PCP: Ivette Ramos NP Status: REG CLI Study: SCREENING MAMM (CAD), BILAT Date of Exam: 07/14/18 Exam# [id number] Ordering Dr: Ivette Ramos [employer]-C MAMMOGRAPHY - BILATERAL SCREENING REASON FOR EXAM: Female, 52 years old. Routine annual screening examination. PERTINENT HISTORY: Non-contributory. TECHNIQUE: Digital bilateral breast jean-paul (3D mammographic acquisition) in the CC and MLO projections. 2-D mediolateral oblique (MLO) and craniocaudad (CC) views of both breasts were obtained. CAD: Full Field Digital Mammography with Computer Added Detection was performed. COMPARISON: Comparison is made with prior study dated February 28, 2014. FINDINGS: Breast Composition: The breasts are heterogeneously dense, which may obscure small masses. There is a 1.6 cm x 1.3 cm well-defined nodule in the central medial aspect of the left breast corresponding to the 3:00 position. Correlation with ultrasound is recommended. Stable small bilateral axillary lymph nodes. No other significant abnormalities are identified. BI/SCREENING MAMM (CAD), BILAT IMPRESSION: 1.6 cm x 1.3 cm well-defined nodule at the 3:00 position of the left breast as described. Correlation with ultrasound is recommended. ASSESSMENT CATEGORY: BIRADS Category 0: Incomplete. Need additional imaging evaluation. A letter regarding these results will be sent to the patient by the facility within 30 days. Approximately 10% of breast cancers are not detected by mammography. A normal mammogram should not delay biopsy of a clinically suspicious abnormality. [id number] Electronically Signed: Mane Viera MD at 8:03 EDT Tel [phone], Service support , CC: Ivette Ramos NP Content Strategy Lead: Signed Jazmyn Rachel Work Phone: Start: 03-03-2018 End: 03-03-2018 Downtime Report Comments: See Note; NOTES: [facility] Medical Records Department [address] [place] [address] Downtime Report MR#: [id number] Acct: [id number] Name: MELANIE CORREALEIGH Soni Rep #: [id number] : 1965 52 From: Mitch Toro PCP: Ivette Ramos NP Status: REG CLI This patient was seen during an EMR downtime February 14, 2018 - February 21, 2018. This patient may have a combination of paper and electronic documentation or all paper documentation. All documentation is viewable within the e-chart portion of [facility] for each patient visit. Ivette Ramos Start: 02-18-2018 End: 02-24-2018 Lower Ext Joint Only (Routine) Comments: See Note; NOTES: [facility] Imaging Services [address] [place] [address] Lower Ext Joint Only (Routine) MR#: [id number] Acct: [id number] Name: MERVAT CORREA Zachariah Rep #: [id number] : 1965 F 52 From: Domingo Man MD PCP: Ivette Ramos NP Status: REG CLI Study: Lower Ext Joint Only (Routine) Date of Exam: 02/15/18 Exam# [id number] Ordering Dr: Fercho Lees PA-C STUDY: MRI LEFT KNEE REASON FOR EXAM: Female, 52 years old. Pain. TECHNIQUE: Standardized fat and water weighted pulse sequences were obtained in all 3 orthogonal planes. COMPARISON: None. FINDINGS: There is partial tear of the posterior horn of the medial meniscus adjacent to the meniscal root ligament, series 8 image . There is partial extrusion of the body of the medial meniscus. There is diffuse, greater than 50% thickness articular cartilage loss of the medial femorotibial compartment. There is mild osteoarthritic spur formation of the medial knee compartment. Normal medial collateral ligamentous complex (MCL). Normal distal semimembranosus, gracilis and semitendinosus tendons. Normal lateral meniscus. There is diffuse, less than 50% thickness articular cartilage loss of the lateral femorotibial compartment. There is mild osteoarthritic spur formation of the lateral knee compartment. Normal proximal tibiofibular articulation. Normal lateral collateral ( fibular ) ligament. Normal popliteus tendon. Normal biceps femoris tendon. Normal anterior cruciate ligament (ACL). Normal posterior cruciate ligament (PCL). There is arthrosis of the patellofemoral articulation. There is diffuse, full thickness articular cartilage loss of the patellofemoral compartment. Normal medial and lateral patellar retinaculum. Normal quadriceps tendon. Normal patellar tendon. Normal Hoffa's fat pad. There is a small volume joint effusion. The soft tissues are unremarkable. The otherwise visualized osseous structures are unremarkable. MRI/Lower Ext Joint Only (Routine) IMPRESSION: Medial meniscus tear. Tricompartmental degenerative change. Joint effusion. Electronically Signed: Domingo Man MD at 10:36 EDT , Service support , CC: Ivette Ramos NP; Fercho NATARAJAN Content Strategy Lead: Signed Ivette Ramos Start: 01-27-2018 End: 01-27-2018 Lumbar Spine 2 or 3 Views Comments: See Note; NOTES: [facility] Imaging Services [address] [place] [id number] Lumbar Spine 2 or 3 Views MR#: [id number] Acct: [id number] Name: MERVAT CORREA Rep #: [id number] : 1965 F 52 From: Mane Viera MD PCP: Ivette Ramos NP Status: REG CLI Study: Lumbar Spine 2 or 3 Views Date of Exam: 01/27/18 Exam# [id number] Ordering Dr: Fercho Lees-C STUDY: X-RAY - LUMBAR SPINE REASON FOR EXAM: Female, 52 years old. Low back and left leg pain. TECHNIQUE: 3 view(s) of the lumbar spine were obtained. COMPARISON: None FINDINGS: Normal lumbar lordosis. There is no substantial scoliosis. There is a normal alignment of the vertebrae. Mild anterior spondylosis at the L4-L5 level. Moderate degree of disc space at the L4-L5 and L5-S1 levels. The soft tissue structures are unremarkable. RAD/Lumbar Spine 2 or 3 Views IMPRESSION: Degenerative changes of the spine, as detailed above. Electronically Signed: Mane Viera MD at 14:00 EDT Tel [phone], Service support , CC: Ivette Ramos NP; Fercho NATARAJAN Content Strategy Lead: Signed Ivette Ramos Start: 01-24-2015 End: 01-24-2015 NCS and/or EMG Patient Comments: See Note; NOTES: [facility] Pulmonary Services/Neurology [address] [place] [address] NCS and/or EMG Patient MR#: [id number] Acct: [id number] Name: MERVAT CORREA Rep #: [id number] : 1965 49 From: Kell Perales Referring Dr: Ivette Ramos Status: REG CLI Ordering Dr: Ivette Ramos Date: 01/23/15 Location: [facility] Sex: F C HISTORY OF PRESENT ILLNESS: The patient is a 49-year-old female with arm pain and numbness. ELECTRODIAGNOSTIC FINDINGS: No significant nerve slowing or amplitude loss noted in both hands. Normal EMG in areas tested both arms without membrane irritability or motor unit changes. IMPRESSION: No significant electrodiagnostic abnormality to indicate carpal tunnel syndrome or other nerve entrapment. No evidence of cervical root or brachial plexus lesion or polyneuropathy. In the absence of any significant electrodiagnostic abnormalities, consider referred pain from cervical spine or soft tissue problems or nerve paresthesias without measurable damage. She will follow up with her primary care doctor for further review. Thank you for this referral. 01/24/15 1227 <Electronically signed by Kell Perales > Date Kell Perales CC: Ivette Ramos; KELL PERALES Date Dictated: 01/23/15 1047 Date Transcribed: 01/23/15 1215 Content Strategy Lead: LUIS ENRIQUE Ramos Work Phone: Start: 01-23-2015 End: 01-23-2015 Cerv Spine 4 or 5 Views Comments: See Note; NOTES: [facility] Imaging Services [address] [place] [id number] Radiology Report MR#: [id number] Acct: [id number] Name: MERVAT CORREA Rep #: [id number] : 1965 F 49 From: Shashi Loera DO PCP: Ivette Ramos Status: REG CLI Study: Cerv Spine 4 or 5 Views Date of Exam: 01/23/15 Exam# [id number] Ordering Dr: Ievtte Ramos STUDY: X-RAY - CERVICAL SPINE REASON FOR EXAM: Female, 49 years old. Bilateral arm numbness. TECHNIQUE: 7 view(s) of the cervical spine were obtained. COMPARISON: None FINDINGS: Normal anterior atlantoaxial articulation. Normal odontoid process. Normal cervical lordosis. There is minimal endplate spondylosis most marked at C5-6 and C6-7. There is multi-level degenerative disc disease with multilevel disc space narrowing. Again, this is most marked at C5-6 and C6-7. Normal visualized intervertebral neuroforamina. There is no evidence of acute fracture or loss of vertebral axial height. There is maintenance of normal alignment. The soft tissue structures are unremarkable. IMPRESSION: Minimal degenerative changes of the lower cervical spine. Electronically Signed: Shashi Loera DO at 11:16 EDT Tel [phone], Service support [phone], RAD/Cerv Spine 4 or 5 Views IMPRESSION: Minimal degenerative changes of the lower cervical spine. Electronically Signed: Shashi Loera DO at 11:16 EDT Tel [phone], Service support [phone], CC: Ivette Ramos Content Strategy Lead: Signed Ivette Ramos Work Phone: Start: 01-23-2015 End: 01-24-2015 Nuclear Stress Test - Chemical Comments: See Note; NOTES: [facility] Imaging Services [address] [place] [address] Nuclear Medicine Report MR#: [id number] Acct: [id number] Name: MERVAT CORREA Rep #: [id number] : 1965 F 49 From: Rip Hester MD PCP: Ivette Ramos Status: REG CLI Study: Nuclear Stress Test - Chemical Date of Exam: 01/23/15 Exam# [id number] Ordering Dr: Ivette Ramos PHARMACOLOGIC MYOCARDIAL PERFUSION STRESS TEST INDICATION: Hypertension. MEDICATIONS: Diovan, Hydrochlorothiazide. Resting EKG demonstrates normal sinus rhythm with a rate of 85 beats per minute. Normal intervals are noted. Resting blood pressure was 144/110. 0.4 mg of regadenoson was infused per usual protocol followed by rapid intravenous saline flush injection. Continuous EKG monitoring was performed. The maximum heart rate attained was 120 beats per minute, which was 70% of maximum predicted heart rate. The maximum workload attained was 1 MET. At rest, there were no ST or T-wave changes noted to suggest abnormal flow reserve. At peak infusion, no ST or T-wave changes were noted to suggest abnormal flow reserve. MYOCARDIAL PERFUSION PROTOCOL: 11.4 mCi of Sestamibi was injected at rest. 0.4 mg of regadenoson was infused per usual protocol. At peak infusion, 33.7 mCi of Sestamibi was injected. Stress images were obtained. Stress and rest images were reconstructed and compared in the short axis, vertical long, and horizontal long axes. Gated images were also obtained. PERFUSION SPECT ANALYSIS: Review of the images demonstrated normal uptake of tracer noted in all areas of the myocardium. The resting images similarly demonstrated normal uptake of tracer noted in all areas of the myocardium. No areas of reversibility are noted to suggest ischemia. GATED SPECT ANALYSIS: The gated ejection fraction is noted to be 68%. CONCLUSION: 1. Normal myocardial perfusion stress test with no evidence of ischemia. 2. Preserved ejection fraction. CC: Ivette Ramos Content Strategy Lead: DUDLEY Signed Ivette Ramos Work Phone: Start: 02-28-2014 End: 02-28-2014 Bilat Scrn Digital & CAD Comments: See Note; NOTES: [facility] Imaging Services [address] [place] [address] Breast Imaging Report MR#: [id number] Acct: [id number] Name: MERVAT CORREA Rep #: [id number] : 1965 F 48 From: Mane Viera MD PCP: Status: [facility] Exam# [id number] Ordering Dr: Ivette Ramos MAMMOGRAPHY - BILATERAL SCREENING REASON FOR EXAM: Female, 48 years old. Routine annual screening examination. PERTINENT HISTORY: Aunt with breast cancer. TECHNIQUE: Digital examination. Mediolateral oblique (MLO) and craniocaudad (CC) views of both breasts were obtained. CAD: CAD was performed on this study. COMPARISON: Comparison is made with prior study dated November 24, 2007. FINDINGS: The breast composition is heterogeneously dense, ranging from 51% to 75% of the total breast volume, which may obscure small masses. There are no dominant masses or suspicious calcifications. No other significant abnormalities are identified. There has been no significant change since the prior study. IMPRESSION: Stable bilateral screening mammogram. Yearly follow-up recommended. (A) ASSESSMENT CATEGORY: BIRADS Category 2: Benign finding(s). A letter regarding these results will be sent to the patient by the facility within 30 days. Approximately 10% of breast cancers are not detected by mammography. A normal mammogram should not delay biopsy of a clinically suspicious abnormality. Electronically Signed: Mane Viera MD at 16:18 EDT Tel [phone], Service support [phone], CC: Ivette Ramos Content Strategy Lead: Signed Ivette Ramos Work Phone: Start: 01-26-2014 End: 01-26-2014 Echocardiogram Complete Comments: See Note; NOTES: [facility] Cardiovascular Services [address] [place] [address] Echo Complete 01/26/14 1012 MR#: [id number] Acct: [id number] Name: MERVAT CORREA Rep #: [id number] : 1965 48 From: Jeff Eckert MD Attending Dr: Ivette Ramos Status: REG CLI Ordering Dr: Ivette Ramos Date: 01/26/14 Location: [facility] Sex: F C Admitted: Procedure This was a 2D Doppler, Color Flow transthoracic echocardiogram. Exam performed in department. Left Ventricle Normal size and thickness. The estimated ejection fraction is 65 %. Normal diastology for age. No regional wall motion abnormalities noted. Right Ventricle Normal size and thickness. Normal systolic function. Atria Normal left atrium. Normal right atrium. Normal atrial septum. Mitral Valve The mitral valve is structurally normal. No prolapse or stenosis seen. Trivial mitral valve insufficiency. Tricuspid Valve Normal tricuspid valve. Trivial tricuspid valve insufficiency. Right ventricular systolic pressure estimated to be 28 mmHg. Aortic Valve Trisinus/trileaflet aortic valve. Pulmonic Valve Normal pulmonic valve. Great Vessels Normal aortic root. Normal arch. Normal inferior vena cava. Inferior vena cava collapse with respiration. Pericardium/Pleural Trivial pericardial effusion. There are no echocardiographic indications of cardiac tamponade. LVIDd: 4.2 cm IVSd: 1.0 cm Ao root diam: 2.8 cm LAV(MOD-bp): 20.2 ml LVIDs: 2.3 cm LVPWd: 1.1 cm Ao root area: 6.1 cm2 LAV(MOD-bp) Indexed: 11.3 ml/m2 RVDd: 2.8 cm FS: 45.6 % LA dimension: 3.5 cm LAV(MOD-sp2): 18.6 ml LAV(MOD-sp4): 18.7 ml LA A4 area: 10.5 cm2 RA A4 area: 9.5 cm2 MV E max óscar: Lat Peak E' Óscar: Med Peak E' Óscar: Ao V2 max: 70.8 cm/sec 10.7 cm/sec 8.1 cm/sec 137.7 cm/sec MV A max óscar: Ao max P.6 mmHg 65.9 cm/sec MV E/A: 1.1 LV V1 max: 121.0 cm/sec PA V2 max: 106.8 cm/sec TR max óscar: 237.3 cm/sec E /E' lat: 6.6 LV V1 max P.9 mmHg PA max P.6 mmHg TR max P.5 mmHg E/E' med: 8.7 Interpretation Summary The estimated ejection fraction is 65 %. Right ventricular systolic pressure estimated to be 28 mmHg. Trivial pericardial effusion. There are no echocardiographic indications of cardiac tamponade. Compared to echo report dated 07/25/2009, no appreciable changes noted. Pericardial effusion appears the same. Ordering Physician: Ivette Ramos Referring Physician: Agnes Boyle M.D. Performed By: Chloe Mcgee RDCS : Ivette Boyle DO Date Dictated: 01/26/14 1012 Date Transcribed: 01/26/14 1332 Content Strategy Lead: Signed Ivette Ramos Plan of Treatment Date Care Activity Detail Author Start: 07-02-2023 Procedure Education Eprescribed prescriptions (G8553) [facility] Work Phone: Start: 07-02-2023 Provider Instructions for Treatment Follow up if no improvement or if symptoms worsen [facility]; [facility] Work Phone: Start: 06-11-2023 Provider Instructions for Treatment [facility] Work Phone: Start: 06-09-2023 Procedure Education Eprescribed prescriptions (G8553) [facility]; [facility] Work Phone: Start: 06-09-2023 Provider Instructions for Treatment Follow up in 6 months [facility]; [facility] Work Phone: Start: 12-01-2022 Procedure Education Eprescribed prescriptions (G8553) [facility]; [facility] Work Phone: Start: 12-01-2022 Provider Instructions for Treatment Follow up in 6 months for work physical/gen med [facility]; [facility] Work Phone: Start: 06-02-2022 Provider Instructions for Treatment Reviewed Lab [facility]; [facility] Work Phone: Start: 06-01-2022 Procedure Education Eprescribed prescriptions (G8553) [facility]; [facility] Work Phone: Start: 06-01-2022 Provider Instructions for Treatment Follow up in 6 months [facility]; [facility] Work Phone: Start: 06-01-2022 Urine albumin quantitative MICROALBUMIN: CREATININE RATIO (82850) AND (86205) [facility]; [facility] Work Phone: Start: 06-01-2022 Urnls dip stick/tablet reagent auto microscopy URINALYSIS, W/ MICRO (45231) [facility]; [facility] Work Phone: Start: 05-14-2022 Influenza vaccination INFLUENZA (#1) [facility] Start: 12-02-2021 Procedure Education Eprescribed prescriptions (G8553) [facility]; [facility] Work Phone: Start: 12-02-2021 Provider Instructions for Treatment Follow up in 6 months [facility]; [facility] Work Phone: Start: 12-02-2021 25 hydroxy includes fractions if performed CALCIFEDIOL (48356) [facility]; [facility] Work Phone: Start: 12-02-2021 Renal function panel RENAL FUNCTION PANEL (50349) [facility]; [facility] Work Phone: Start: 12-02-2021 Cyanocobalamin vitamin b-12 VITAMIN B12 AND FOLATES (52018) [facility]; [facility] Work Phone: Start: 06-06-2021 Procedure Education Eprescribed prescriptions (G8553) [facility]; [facility] Work Phone: Start: 06-06-2021 Provider Instructions for Treatment Follow up in 6 months [facility]; [facility] Work Phone: Start: 06-06-2021 Renal function panel RENAL FUNCTION PANEL (55219) [facility]; [facility] Work Phone: Start: 06-06-2021 Cyanocobalamin vitamin b-12 VITAMIN B12 AND FOLATES (69318) [facility]; [facility] Work Phone: Start: 01-10-2021 Procedure Education Eprescribed prescriptions (G8553) [facility]; [facility] Work Phone: Start: 01-10-2021 Provider Instructions for Treatment [facility]; [facility] Work Phone: Start: 01-10-2021 Assay of free thyroxine T4, FREE (THYROXINE) (96877) [facility]; [facility] Work Phone: Start: 01-10-2021 Assay of triiodothyronine t3 free T3, FREE (TRIDOTHYRONINE) (57961) [facility]; [facility] Work Phone: Start: 01-10-2021 Cortisol free CORTISOL FREE (38218) [facility] Work Phone: Start: 01-10-2021 Gonadotropin follicle stimulating hormone FSH AND LH (01407) [facility]; [facility] Work Phone: Start: 01-10-2021 Cyanocobalamin vitamin b-12 VITAMIN B12 AND FOLATES (47927) [facility]; [facility] Work Phone: Start: 01-10-2021 25 hydroxy includes fractions if performed CALCIFEDIOL (19737) [facility]; [facility] Work Phone: Start: 01-10-2021 Comprehensive metabolic panel Metabolic Panel, Comprehensive (10207) [facility]; [facility] Work Phone: Start: 04-30-2021 Assay of thyroid stimulating hormone tsh TSH (THYROID STIMULATING HORMONE) (13443) [facility]; [facility] Work Phone: Start: 06-28-2020 Assay of magnesium MAGNESIUM (72579) [facility]; [facility] Work Phone: Start: 06-28-2020 Magnesium [Mass/Vol] MAGNESIUM (80020) [facility] Work Phone: Start: 06-28-2020 Basic metabolic panel calcium total METABOLIC PANEL, BASIC (74030) [facility] Work Phone: Start: 06-25-2020 Procedure Education Eprescribed prescriptions (G8553) [facility] Work Phone: Start: 06-03-2020 Potassium [Moles/Vol] POTASSIUM SERUM (19619) [facility] Work Phone: Start: 06-03-2020 Potassium serum plasma/whole blood POTASSIUM SERUM (61770) [facility]; [facility] Work Phone: Start: 06-03-2020 Blood count complete auto&auto difrntl wbc CBC, PLATELETS & AUT DIFF (08256) [facility] Work Phone: Start: 06-03-2020 Assay of magnesium MAGNESIUM (55964) [facility]; [facility] Work Phone: Start: 06-03-2020 Magnesium [Mass/Vol] MAGNESIUM (33138) [facility] Work Phone: Start: 06-03-2020 Procedure Education Eprescribed prescriptions (G8553) [facility] Work Phone: Start: 06-03-2020 Provider Instructions for Treatment [facility] Work Phone: Start: 06-19-2019 Procedure Education Eprescribed prescriptions (G8553) [facility] Work Phone: Start: 06-19-2019 Provider Instructions for Treatment Follow up in 1 month [facility] Work Phone: Start: 06-02-2019 Procedure Education Eprescribed prescriptions (G8553) [facility] Work Phone: Start: 06-02-2019 Provider Instructions for Treatment [facility] Work Phone: Start: 10-25-2018 Provider Instructions for Treatment [facility] Work Phone: Start: 10-24-2018 Blood count complete automated CBC & PLATELETS (AUTO) (88555) [facility] Work Phone: Start: 10-24-2018 Comprehensive metabolic panel Metabolic Panel, Comprehensive (01870) [facility] Work Phone: Start: 10-24-2018 Sedimentation rate rbc automated Sedimentation Rate-ESR (59020) [facility] Work Phone: Start: 10-24-2018 Fibrin dgradj products d-dimer quantitative D-Dimer (40295) [facility] Work Phone: Start: 10-24-2018 C-reactive protein C-Reactive Protein (89135) [facility]; [facility] Work Phone: Start: 10-24-2018 CRP mass conc C-Reactive Protein (25715) [facility] Work Phone: Start: 10-24-2018 Procedure Education Eprescribed prescriptions (G8553) [facility] Work Phone: Start: 10-24-2018 Provider Instructions for Treatment Reviewed Manager Title Letter [facility] Work Phone: Start: 09-16-2018 Procedure Education Eprescribed prescriptions (G8553) [facility] Work Phone: Start: 09-16-2018 Provider Instructions for Treatment Follow up - Make appt after diagnostic tests [facility] Work Phone: Start: 09-16-2018 Comprehensive metabolic panel Metabolic Panel, Comprehensive (27012) [facility] Work Phone: Start: 06-03-2018 Procedure Education Eprescribed prescriptions (G8553) [facility] Work Phone: Start: 06-03-2018 Provider Instructions for Treatment [facility] Work Phone: Start: 06-07-2017 Provider Instructions for Treatment [facility] Work Phone: Start: 06-07-2017 Assay of magnesium MAGNESIUM (41250) [facility]; [facility] Work Phone: Start: 06-07-2017 Magnesium mass conc MAGNESIUM (89005) [facility] Work Phone: Start: 06-07-2017 Potassium molar conc POTASSIUM SERUM (81811) [facility] Work Phone: Start: 06-07-2017 Potassium serum plasma/whole blood POTASSIUM SERUM (03682) [facility]; [facility] Work Phone: Start: 06-08-2016 Provider Instructions for Treatment [facility] Work Phone: Start: 06-08-2016 Blood occult peroxidase actv qual feces 1 deter OCCULT BLOOD FECES SCREEN - card done in office (78960) [facility] Work Phone: Start: 03-13-2016 HPV TESTING HPV TESTING [facility] Start: 03-13-2016 PAP TESTING PAP TESTING [facility] Start: 12-16-2015 SHINGRIX VACCINE (1 of 2) SHINGRIX VACCINE (1 of 2) [facility] Start: 09-11-2015 Provider Instructions for Treatment [facility] Work Phone: Start: 08-14-2015 Provider Instructions for Treatment [facility] Work Phone: Start: 07-08-2015 Provider Instructions for Treatment Follow up in 4 weeks [facility] Work Phone: Start: 06-07-2015 Provider Instructions for Treatment [facility] Work Phone: Start: 08-24-2014 Antibody tracy-watkins eb virus early antigen ea EBV Panel (38947) [facility] Work Phone: Immunizations Immunization Date Immunization Notes Care Provider Fa cility 10-22-2020 COVID-Moderna (100 MCG/0.5 ML) Miguelina Jones FMD TEACHER Work Phone: [facility]; [facility] Work Phone: 09-24-2020 COVID-Moderna (100 MCG/0.5 ML) Miguelina Jones FMD TEACHER Work Phone: [facility]; [facility] Work Phone: Payers Date Payer Category Payer Unknown [id number] 2013 Unknown [id number] 1965 Unknown [id number] Unknown Social History Date Type Detail Facility Start: 05-06-2011 Tobacco smoking stat us SDIS Never smoked tobacco [facility] Work Phone: Start: 05-06-2011 Tobacco use and exposure Smokeless tobacco non-user [facility] Work Phone: Start: 04-29-2022 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 Kidney & bladder ultrasound results recevied from [facility]. Patient stated that she is having an MRI ordered by PCP and will call office to f/u after she has MRI completed. Ultrasound results sent to be scanned documented in this encounter [facility]; [facility] Work Phone: Instructions* Name Dates Details Patient Instructions Indication:BMI 33.0-33.9,adult Start:10-Jan-2021 Instruction Type:Provider Instructions for Treatment How to Access Health Informa tion Online using Patient Portal and 3rd [employer] Apps Indication:Nonsmoker Start:10-Jan-2021 Instruction Type:Patient Education How to access health informa tion online Indication:BMI 33.0-33.9,adult Start:25-Jun-2020 Instruction Type:Patient Education How to access health informa tion online - Detail Indication:BMI 33.0-33.9,adult Start:25-Jun-2020 Instruction Type:Patient Education Patient Instructions Indication:BMI 33.0-33.9,adult Start:25-Jun-2020 Instruction Type:Provider Instructions for Treatment How to access health informa tion online Indication:Nonsmoker Start:03-Jun-2020 Instruction Type:Patient Education How to access health informa tion online - Detail Indication:Nonsmoker Start:03-Jun-2020 Instruction Type:Patient Education Patient Instructions Indication:Nonsmoker Start:03-Jun-2020 Instruction Type:Provider Instructions for Treatment How to access health informa tion online Indication:Nonsmoker Start:19-Jun-2019 Instruction Type:Patient Education How to access health informa tion online - Detail Indication:Nonsmoker Start:19-Jun-2019 Instruction Type:Patient Education Patient Instructions Indication:Nonsmoker Start:19-Jun-2019 Instruction Type:Provider Instructions for Treatment How to access health informa tion online Indication:Nonsmoker Start:02-Jun-2019 Instruction Type:Patient Education How to access health informa tion online - Detail Indication:Nonsmoker Start:02-Jun-2019 Instruction Type:Patient Education Patient Instructions Indication:BMI 33.0-33.9,adult Start:02-Jun-2019 Instruction Type:Provider Instructions for Treatment How to access health informa tion online Indication:Nonsmoker Start:24-Oct-2018 Instruction Type:Patient Education How to access health informa tion online - Detail Indication:Nonsmoker Start:24-Oct-2018 Instruction Type:Patient Education Patient Instructions Indication:Nonsmoker Start:24-Oct-2018 Instruction Type:Provider Instructions for Treatment How to access health informa tion online Indication:Nonsmoker Start:16-Sep-2018 Instruction Type:Patient Education How to access health informa tion online - Detail Indication:Nonsmoker Start:16-Sep-2018 Instruction Type:Patient Education Patient Instructions Indication:Nonsmoker Start:16-Sep-2018 Instruction Type:Provider Instructions for Treatment How to access health informa tion online Indication:Nonsmoker Start:03-Jun-2018 Instruction Type:Patient Education How to access health informa tion online - Detail Indication:Nonsmoker Start:03-Jun-2018 Instruction Type:Patient Education Patient Instructions Indication:BMI 31.0-31.9,adult Start:03-Jun-2018 Instruction Type:Provider Instructions for Treatment Patient Instructions Indication:Benign essential hypertension Start:12-Feb-2014 Instruction Type:Provider Instructions for Treatment Patient Instructions Indication:Benign essential hypertension Start:22-Jan-2014 Instruction Type:Provider Instructions for Treatment Patient Instructions Indication:Benign essential hypertension Start:25-Dec-2013 Instruction Type:Provider Instructions for Treatment [facility]; [facility] Work Phone: Instructions* Name Dates Details Patient Instructions Indication:BMI 33.0-33.9,adult Start:10-Jan-2021 Instruction Type:Provider Instructions for Treatment How to Access Health Informa tion Online using Patient Portal and 3rd [employer] Apps Indication:Nonsmoker Start:10-Jan-2021 Instruction Type:Patient Education How to access health informa tion online Indication:BMI 33.0-33.9,adult Start:25-Jun-2020 Instruction Type:Patient Education How to access health informa tion online - Detail Indication:BMI 33.0-33.9,adult Start:25-Jun-2020 Instruction Type:Patient Education Patient Instructions Indication:BMI 33.0-33.9,adult Start:25-Jun-2020 Instruction Type:Provider Instructions for Treatment How to access health informa tion online Indication:Nonsmoker Start:03-Jun-2020 Instruction Type:Patient Education How to access health informa tion online - Detail Indication:Nonsmoker Start:03-Jun-2020 Instruction Type:Patient Education Patient Instructions Indication:Nonsmoker Start:03-Jun-2020 Instruction Type:Provider Instructions for Treatment How to access health informa tion online Indication:Nonsmoker Start:19-Jun-2019 Instruction Type:Patient Education How to access health informa tion online - Detail Indication:Nonsmoker Start:19-Jun-2019 Instruction Type:Patient Education Patient Instructions Indication:Nonsmoker Start:19-Jun-2019 Instruction Type:Provider Instructions for Treatment How to access health informa tion online Indication:Nonsmoker Start:02-Jun-2019 Instruction Type:Patient Education How to access health informa tion online - Detail Indication:Nonsmoker Start:02-Jun-2019 Instruction Type:Patient Education Patient Instructions Indication:BMI 33.0-33.9,adult Start:02-Jun-2019 Instruction Type:Provider Instructions for Treatment How to access health informa tion online Indication:Nonsmoker Start:24-Oct-2018 Instruction Type:Patient Education How to access health informa tion online - Detail Indication:Nonsmoker Start:24-Oct-2018 Instruction Type:Patient Education Patient Instructions Indication:Nonsmoker Start:24-Oct-2018 Instruction Type:Provider Instructions for Treatment How to access health informa tion online Indication:Nonsmoker Start:16-Sep-2018 Instruction Type:Patient Education How to access health informa tion online - Detail Indication:Nonsmoker Start:16-Sep-2018 Instruction Type:Patient Education Patient Instructions Indication:Nonsmoker Start:16-Sep-2018 Instruction Type:Provider Instructions for Treatment How to access health informa tion online Indication:Nonsmoker Start:03-Jun-2018 Instruction Type:Patient Education How to access health informa tion online - Detail Indication:Nonsmoker Start:03-Jun-2018 Instruction Type:Patient Education Patient Instructions Indication:BMI 31.0-31.9,adult Start:03-Jun-2018 Instruction Type:Provider Instructions for Treatment Patient Instructions Indication:Benign essential hypertension Start:12-Feb-2014 Instruction Type:Provider Instructions for Treatment Patient Instructions Indication:Benign essential hypertension Start:22-Jan-2014 Instruction Type:Provider Instructions for Treatment Patient Instructions Indication:Benign essential hypertension Start:25-Dec-2013 Instruction Type:Provider Instructions for Treatment [facility]; [facility] Work Phone: Instructions* Name Dates Details Patient Instructions Indication:BMI 33.0-33.9,adult Start:10-Jan-2021 Instruction Type:Provider Instructions for Treatment How to Access Health Informa tion Online using Patient Portal and [employer] Apps Indication:Nonsmoker Start:10-Jan-2021 Instruction Type:Patient Education How to access health informa tion online Indication:BMI 33.0-33.9,adult Start:25-Jun-2020 Instruction Type:Patient Education How to access health informa tion online - Detail Indication:BMI 33.0-33.9,adult Start:25-Jun-2020 Instruction Type:Patient Education Patient Instructions Indication:BMI 33.0-33.9,adult Start:25-Jun-2020 Instruction Type:Provider Instructions for Treatment How to access health informa tion online Indication:Nonsmoker Start:03-Jun-2020 Instruction Type:Patient Education How to access health informa tion online - Detail Indication:Nonsmoker Start:03-Jun-2020 Instruction Type:Patient Education Patient Instructions Indication:Nonsmoker Start:03-Jun-2020 Instruction Type:Provider Instructions for Treatment How to access health informa tion online Indication:Nonsmoker Start:19-Jun-2019 Instruction Type:Patient Education How to access health informa tion online - Detail Indication:Nonsmoker Start:19-Jun-2019 Instruction Type:Patient Education Patient Instructions Indication:Nonsmoker Start:19-Jun-2019 Instruction Type:Provider Instructions for Treatment How to access health informa tion online Indication:Nonsmoker Start:02-Jun-2019 Instruction Type:Patient Education How to access health informa tion online - Detail Indication:Nonsmoker Start:02-Jun-2019 Instruction Type:Patient Education Patient Instructions Indication:BMI 33.0-33.9,adult Start:02-Jun-2019 Instruction Type:Provider Instructions for Treatment How to access health informa tion online Indication:Nonsmoker Start:24-Oct-2018 Instruction Type:Patient Education How to access health informa tion online - Detail Indication:Nonsmoker Start:24-Oct-2018 Instruction Type:Patient Education Patient Instructions Indication:Nonsmoker Start:24-Oct-2018 Instruction Type:Provider Instructions for Treatment How to access health informa tion online Indication:Nonsmoker Start:16-Sep-2018 Instruction Type:Patient Education How to access health informa tion online - Detail Indication:Nonsmoker Start:16-Sep-2018 Instruction Type:Patient Education Patient Instructions Indication:Nonsmoker Start:16-Sep-2018 Instruction Type:Provider Instructions for Treatment How to access health informa tion online Indication:Nonsmoker Start:03-Jun-2018 Instruction Type:Patient Education How to access health informa tion online - Detail Indication:Nonsmoker Start:03-Jun-2018 Instruction Type:Patient Education Patient Instructions Indication:BMI 31.0-31.9,adult Start:03-Jun-2018 Instruction Type:Provider Instructions for Treatment Patient Instructions Indication:Benign essential hypertension Start:12-Feb-2014 Instruction Type:Provider Instructions for Treatment Patient Instructions Indication:Benign essential hypertension Start:22-Jan-2014 Instruction Type:Provider Instructions for Treatment Patient Instructions Indication:Benign essential hypertension Start:25-Dec-2013 Instruction Type:Provider Instructions for Treatment [facility]; [facility] Work Phone: Instructions* Name Dates Details Patient Instructions Indication:BMI 33.0-33.9,adult Start:10-Jan-2021 Instruction Type:Provider Instructions for Treatment How to Access Health Informa tion Online using Patient Portal and [employer] Apps Indication:Nonsmoker Start:10-Jan-2021 Instruction Type:Patient Education How to access health informa tion online Indication:BMI 33.0-33.9,adult Start:25-Jun-2020 Instruction Type:Patient Education How to access health informa tion online - Detail Indication:BMI 33.0-33.9,adult Start:25-Jun-2020 Instruction Type:Patient Education Patient Instructions Indication:BMI 33.0-33.9,adult Start:25-Jun-2020 Instruction Type:Provider Instructions for Treatment How to access health informa tion online Indication:Nonsmoker Start:03-Jun-2020 Instruction Type:Patient Education How to access health informa tion online - Detail Indication:Nonsmoker Start:03-Jun-2020 Instruction Type:Patient Education Patient Instructions Indication:Nonsmoker Start:03-Jun-2020 Instruction Type:Provider Instructions for Treatment How to access health informa tion online Indication:Nonsmoker Start:19-Jun-2019 Instruction Type:Patient Education How to access health informa tion online - Detail Indication:Nonsmoker Start:19-Jun-2019 Instruction Type:Patient Education Patient Instructions Indication:Nonsmoker Start:19-Jun-2019 Instruction Type:Provider Instructions for Treatment How to access health informa tion online Indication:Nonsmoker Start:02-Jun-2019 Instruction Type:Patient Education How to access health informa tion online - Detail Indication:Nonsmoker Start:02-Jun-2019 Instruction Type:Patient Education Patient Instructions Indication:BMI 33.0-33.9,adult Start:02-Jun-2019 Instruction Type:Provider Instructions for Treatment How to access health informa tion online Indication:Nonsmoker Start:24-Oct-2018 Instruction Type:Patient Education How to access health informa tion online - Detail Indication:Nonsmoker Start:24-Oct-2018 Instruction Type:Patient Education Patient Instructions Indication:Nonsmoker Start:24-Oct-2018 Instruction Type:Provider Instructions for Treatment How to access health informa tion online Indication:Nonsmoker Start:16-Sep-2018 Instruction Type:Patient Education How to access health informa tion online - Detail Indication:Nonsmoker Start:16-Sep-2018 Instruction Type:Patient Education Patient Instructions Indication:Nonsmoker Start:16-Sep-2018 Instruction Type:Provider Instructions for Treatment How to access health informa tion online Indication:Nonsmoker Start:03-Jun-2018 Instruction Type:Patient Education How to access health informa tion online - Detail Indication:Nonsmoker Start:03-Jun-2018 Instruction Type:Patient Education Patient Instructions Indication:BMI 31.0-31.9,adult Start:03-Jun-2018 Instruction Type:Provider Instructions for Treatment Patient Instructions Indication:Benign essential hypertension Start:12-Feb-2014 Instruction Type:Provider Instructions for Treatment Patient Instructions Indication:Benign essential hypertension Start:22-Jan-2014 Instruction Type:Provider Instructions for Treatment Patient Instructions Indication:Benign essential hypertension Start:25-Dec-2013 Instruction Type:Provider Instructions for Treatment [facility]; [facility] Work Phone: Instructions* Name Dates Details How to Access Health Informa tion Online using Patient Portal and [employer] Apps Indication:Encounter for general adult medical examination with abnormal findings Start:01-Jun-2022 Instruction Type:Patient Education Patient Instructions Indication:Encounter for general adult medical examination with abnormal findings Start:01-Jun-2022 Instruction Type:Provider Instructions for Treatment Patient Instructions Indication:BMI 32.0-32.9,adult Start:02-Dec-2021 Instruction Type:Provider Instructions for Treatment How to Access Health Informa tion Online using Patient Portal and [employer] Apps Indication:BMI 32.0-32.9,adult Start:02-Dec-2021 Instruction Type:Patient Education Patient Instructions Indication:BMI 32.0-32.9,adult Start:06-Jun-2021 Instruction Type:Provider Instructions for Treatment How to Access Health Informa tion Online using Patient Portal and [employer] Apps Indication:BMI 32.0-32.9,adult Start:06-Jun-2021 Instruction Type:Patient Education Patient Instructions Indication:BMI 33.0-33.9,adult Start:10-Jan-2021 Instruction Type:Provider Instructions for Treatment How to Access Health Informa tion Online using Patient Portal and [employer] Apps Indication:Nonsmoker Start:10-Jan-2021 Instruction Type:Patient Education How to access health informa tion online Indication:BMI 33.0-33.9,adult Start:25-Jun-2020 Instruction Type:Patient Education How to access health informa tion online - Detail Indication:BMI 33.0-33.9,adult Start:25-Jun-2020 Instruction Type:Patient Education Patient Instructions Indication:BMI 33.0-33.9,adult Start:25-Jun-2020 Instruction Type:Provider Instructions for Treatment How to access health informa tion online Indication:Nonsmoker Start:03-Jun-2020 Instruction Type:Patient Education How to access health informa tion online - Detail Indication:Nonsmoker Start:03-Jun-2020 Instruction Type:Patient Education Patient Instructions Indication:Nonsmoker Start:03-Jun-2020 Instruction Type:Provider Instructions for Treatment How to access health informa tion online Indication:Nonsmoker Start:19-Jun-2019 Instruction Type:Patient Education How to access health informa tion online - Detail Indication:Nonsmoker Start:19-Jun-2019 Instruction Type:Patient Education Patient Instructions Indication:Nonsmoker Start:19-Jun-2019 Instruction Type:Provider Instructions for Treatment How to access health informa tion online Indication:Nonsmoker Start:02-Jun-2019 Instruction Type:Patient Education How to access health informa tion online - Detail Indication:Nonsmoker Start:02-Jun-2019 Instruction Type:Patient Education Patient Instructions Indication:BMI 33.0-33.9,adult Start:02-Jun-2019 Instruction Type:Provider Instructions for Treatment How to access health informa tion online Indication:Nonsmoker Start:24-Oct-2018 Instruction Type:Patient Education How to access health informa tion online - Detail Indication:Nonsmoker Start:24-Oct-2018 Instruction Type:Patient Education Patient Instructions Indication:Nonsmoker Start:24-Oct-2018 Instruction Type:Provider Instructions for Treatment How to access health informa tion online Indication:Nonsmoker Start:16-Sep-2018 Instruction Type:Patient Education How to access health informa tion online - Detail Indication:Nonsmoker Start:16-Sep-2018 Instruction Type:Patient Education Patient Instructions Indication:Nonsmoker Start:16-Sep-2018 Instruction Type:Provider Instructions for Treatment How to access health informa tion online Indication:Nonsmoker Start:03-Jun-2018 Instruction Type:Patient Education How to access health informa tion online - Detail Indication:Nonsmoker Start:03-Jun-2018 Instruction Type:Patient Education Patient Instructions Indication:BMI 31.0-31.9,adult Start:03-Jun-2018 Instruction Type:Provider Instructions for Treatment Patient Instructions Indication:Benign essential hypertension Start:12-Feb-2014 Instruction Type:Provider Instructions for Treatment Patient Instructions Indication:Benign essential hypertension Start:22-Jan-2014 Instruction Type:Provider Instructions for Treatment Patient Instructions Indication:Benign essential hypertension Start:25-Dec-2013 Instruction Type:Provider Instructions for Treatment [facility]; [facility] Work Phone: Instructions* Name Dates Details How to Access Health Informa tion Online using Patient Portal and [employer] Apps Indication:Encounter for general adult medical examination with abnormal findings Start:01-Jun-2022 Instruction Type:Patient Education Patient Instructions Indication:Encounter for general adult medical examination with abnormal findings Start:01-Jun-2022 Instruction Type:Provider Instructions for Treatment Patient Instructions Indication:BMI 32.0-32.9,adult Start:02-Dec-2021 Instruction Type:Provider Instructions for Treatment How to Access Health Informa tion Online using Patient Portal and [employer] Apps Indication:BMI 32.0-32.9,adult Start:02-Dec-2021 Instruction Type:Patient Education Patient Instructions Indication:BMI 32.0-32.9,adult Start:06-Jun-2021 Instruction Type:Provider Instructions for Treatment How to Access Health Informa tion Online using Patient Portal and [employer] Apps Indication:BMI 32.0-32.9,adult Start:06-Jun-2021 Instruction Type:Patient Education Patient Instructions Indication:BMI 33.0-33.9,adult Start:10-Jan-2021 Instruction Type:Provider Instructions for Treatment How to Access Health Informa tion Online using Patient Portal and [employer] Apps Indication:Nonsmoker Start:10-Jan-2021 Instruction Type:Patient Education How to access health informa tion online Indication:BMI 33.0-33.9,adult Start:25-Jun-2020 Instruction Type:Patient Education How to access health informa tion online - Detail Indication:BMI 33.0-33.9,adult Start:25-Jun-2020 Instruction Type:Patient Education Patient Instructions Indication:BMI 33.0-33.9,adult Start:25-Jun-2020 Instruction Type:Provider Instructions for Treatment How to access health informa tion online Indication:Nonsmoker Start:03-Jun-2020 Instruction Type:Patient Education How to access health informa tion online - Detail Indication:Nonsmoker Start:03-Jun-2020 Instruction Type:Patient Education Patient Instructions Indication:Nonsmoker Start:03-Jun-2020 Instruction Type:Provider Instructions for Treatment How to access health informa tion online Indication:Nonsmoker Start:19-Jun-2019 Instruction Type:Patient Education How to access health informa tion online - Detail Indication:Nonsmoker Start:19-Jun-2019 Instruction Type:Patient Education Patient Instructions Indication:Nonsmoker Start:19-Jun-2019 Instruction Type:Provider Instructions for Treatment How to access health informa tion online Indication:Nonsmoker Start:02-Jun-2019 Instruction Type:Patient Education How to access health informa tion online - Detail Indication:Nonsmoker Start:02-Jun-2019 Instruction Type:Patient Education Patient Instructions Indication:BMI 33.0-33.9,adult Start:02-Jun-2019 Instruction Type:Provider Instructions for Treatment How to access health informa tion online Indication:Nonsmoker Start:24-Oct-2018 Instruction Type:Patient Education How to access health informa tion online - Detail Indication:Nonsmoker Start:24-Oct-2018 Instruction Type:Patient Education Patient Instructions Indication:Nonsmoker Start:24-Oct-2018 Instruction Type:Provider Instructions for Treatment How to access health informa tion online Indication:Nonsmoker Start:16-Sep-2018 Instruction Type:Patient Education How to access health informa tion online - Detail Indication:Nonsmoker Start:16-Sep-2018 Instruction Type:Patient Education Patient Instructions Indication:Nonsmoker Start:16-Sep-2018 Instruction Type:Provider Instructions for Treatment How to access health informa tion online Indication:Nonsmoker Start:03-Jun-2018 Instruction Type:Patient Education How to access health informa tion online - Detail Indication:Nonsmoker Start:03-Jun-2018 Instruction Type:Patient Education Patient Instructions Indication:BMI 31.0-31.9,adult Start:03-Jun-2018 Instruction Type:Provider Instructions for Treatment Patient Instructions Indication:Benign essential hypertension Start:12-Feb-2014 Instruction Type:Provider Instructions for Treatment Patient Instructions Indication:Benign essential hypertension Start:22-Jan-2014 Instruction Type:Provider Instructions for Treatment Patient Instructions Indication:Benign essential hypertension Start:25-Dec-2013 Instruction Type:Provider Instructions for Treatment [facility]; [facility] Work Phone: Instructions* Name Dates Details How to Access Health Informa tion Online using Patient Portal and [employer] Apps Indication:Encounter for general adult medical examination with abnormal findings Start:01-Jun-2022 Instruction Type:Patient Education Patient Instructions Indication:Encounter for general adult medical examination with abnormal findings Start:01-Jun-2022 Instruction Type:Provider Instructions for Treatment Patient Instructions Indication:BMI 32.0-32.9,adult Start:02-Dec-2021 Instruction Type:Provider Instructions for Treatment How to Access Health Informa tion Online using Patient Portal and [employer] Apps Indication:BMI 32.0-32.9,adult Start:02-Dec-2021 Instruction Type:Patient Education Patient Instructions Indication:BMI 32.0-32.9,adult Start:06-Jun-2021 Instruction Type:Provider Instructions for Treatment How to Access Health Informa tion Online using Patient Portal and [employer] Apps Indication:BMI 32.0-32.9,adult Start:06-Jun-2021 Instruction Type:Patient Education Patient Instructions Indication:BMI 33.0-33.9,adult Start:10-Jan-2021 Instruction Type:Provider Instructions for Treatment How to Access Health Informa tion Online using Patient Portal and [employer] Apps Indication:Nonsmoker Start:10-Jan-2021 Instruction Type:Patient Education How to access health informa tion online Indication:BMI 33.0-33.9,adult Start:25-Jun-2020 Instruction Type:Patient Education How to access health informa tion online - Detail Indication:BMI 33.0-33.9,adult Start:25-Jun-2020 Instruction Type:Patient Education Patient Instructions Indication:BMI 33.0-33.9,adult Start:25-Jun-2020 Instruction Type:Provider Instructions for Treatment How to access health informa tion online Indication:Nonsmoker Start:03-Jun-2020 Instruction Type:Patient Education How to access health informa tion online - Detail Indication:Nonsmoker Start:03-Jun-2020 Instruction Type:Patient Education Patient Instructions Indication:Nonsmoker Start:03-Jun-2020 Instruction Type:Provider Instructions for Treatment How to access health informa tion online Indication:Nonsmoker Start:19-Jun-2019 Instruction Type:Patient Education How to access health informa tion online - Detail Indication:Nonsmoker Start:19-Jun-2019 Instruction Type:Patient Education Patient Instructions Indication:Nonsmoker Start:19-Jun-2019 Instruction Type:Provider Instructions for Treatment How to access health informa tion online Indication:Nonsmoker Start:02-Jun-2019 Instruction Type:Patient Education How to access health informa tion online - Detail Indication:Nonsmoker Start:02-Jun-2019 Instruction Type:Patient Education Patient Instructions Indication:BMI 33.0-33.9,adult Start:02-Jun-2019 Instruction Type:Provider Instructions for Treatment How to access health informa tion online Indication:Nonsmoker Start:24-Oct-2018 Instruction Type:Patient Education How to access health informa tion online - Detail Indication:Nonsmoker Start:24-Oct-2018 Instruction Type:Patient Education Patient Instructions Indication:Nonsmoker Start:24-Oct-2018 Instruction Type:Provider Instructions for Treatment How to access health informa tion online Indication:Nonsmoker Start:16-Sep-2018 Instruction Type:Patient Education How to access health informa tion online - Detail Indication:Nonsmoker Start:16-Sep-2018 Instruction Type:Patient Education Patient Instructions Indication:Nonsmoker Start:16-Sep-2018 Instruction Type:Provider Instructions for Treatment How to access health informa tion online Indication:Nonsmoker Start:03-Jun-2018 Instruction Type:Patient Education How to access health informa tion online - Detail Indication:Nonsmoker Start:03-Jun-2018 Instruction Type:Patient Education Patient Instructions Indication:BMI 31.0-31.9,adult Start:03-Jun-2018 Instruction Type:Provider Instructions for Treatment Patient Instructions Indication:Benign essential hypertension Start:12-Feb-2014 Instruction Type:Provider Instructions for Treatment Patient Instructions Indication:Benign essential hypertension Start:22-Jan-2014 Instruction Type:Provider Instructions for Treatment Patient Instructions Indication:Benign essential hypertension Start:25-Dec-2013 Instruction Type:Provider Instructions for Treatment [facility]; [facility] Work Phone: Instructions* Name Dates Details Patient Instructions Indication:Hypertension Start:01-Dec-2022 Instruction Type:Provider Instructions for Treatment How to Access Health Informa tion Online using Patient Portal and [employer] Apps Indication:Hypertension Start:01-Dec-2022 Instruction Type:Patient Education How to Access Health Informa tion Online using Patient Portal and [employer] Apps Indication:Encounter for general adult medical examination with abnormal findings Start:01-Jun-2022 Instruction Type:Patient Education Patient Instructions Indication:Encounter for general adult medical examination with abnormal findings Start:01-Jun-2022 Instruction Type:Provider Instructions for Treatment Patient Instructions Indication:BMI 32.0-32.9,adult Start:02-Dec-2021 Instruction Type:Provider Instructions for Treatment How to Access Health Informa tion Online using Patient Portal and [employer] Indication:BMI 32.0-32.9,adult Start:02-Dec-2021 Instruction Type:Patient Education Patient Instructions Indication:BMI 32.0-32.9,adult Start:06-Jun-2021 Instruction Type:Provider Instructions for Treatment How to Access Health Informa tion Online using Patient Portal and [employer] Indication:BMI 32.0-32.9,adult Start:06-Jun-2021 Instruction Type:Patient Education Patient Instructions Indication:BMI 33.0-33.9,adult Start:10-Jan-2021 Instruction Type:Provider Instructions for Treatment How to Access Health Informa tion Online using Patient Portal and [employer] Apps Indication:Nonsmoker Start:10-Jan-2021 Instruction Type:Patient Education How to access health informa tion online Indication:BMI 33.0-33.9,adult Start:25-Jun-2020 Instruction Type:Patient Education How to access health informa tion online - Detail Indication:BMI 33.0-33.9,adult Start:25-Jun-2020 Instruction Type:Patient Education Patient Instructions Indication:BMI 33.0-33.9,adult Start:25-Jun-2020 Instruction Type:Provider Instructions for Treatment How to access health informa tion online Indication:Nonsmoker Start:03-Jun-2020 Instruction Type:Patient Education How to access health informa tion online - Detail Indication:Nonsmoker Start:03-Jun-2020 Instruction Type:Patient Education Patient Instructions Indication:Nonsmoker Start:03-Jun-2020 Instruction Type:Provider Instructions for Treatment How to access health informa tion online Indication:Nonsmoker Start:19-Jun-2019 Instruction Type:Patient Education How to access health informa tion online - Detail Indication:Nonsmoker Start:19-Jun-2019 Instruction Type:Patient Education Patient Instructions Indication:Nonsmoker Start:19-Jun-2019 Instruction Type:Provider Instructions for Treatment How to access health informa tion online Indication:Nonsmoker Start:02-Jun-2019 Instruction Type:Patient Education How to access health informa tion online - Detail Indication:Nonsmoker Start:02-Jun-2019 Instruction Type:Patient Education Patient Instructions Indication:BMI 33.0-33.9,adult Start:02-Jun-2019 Instruction Type:Provider Instructions for Treatment How to access health informa tion online Indication:Nonsmoker Start:24-Oct-2018 Instruction Type:Patient Education How to access health informa tion online - Detail Indication:Nonsmoker Start:24-Oct-2018 Instruction Type:Patient Education Patient Instructions Indication:Nonsmoker Start:24-Oct-2018 Instruction Type:Provider Instructions for Treatment How to access health informa tion online Indication:Nonsmoker Start:16-Sep-2018 Instruction Type:Patient Education How to access health informa tion online - Detail Indication:Nonsmoker Start:16-Sep-2018 Instruction Type:Patient Education Patient Instructions Indication:Nonsmoker Start:16-Sep-2018 Instruction Type:Provider Instructions for Treatment How to access health informa tion online Indication:Nonsmoker Start:03-Jun-2018 Instruction Type:Patient Education How to access health informa tion online - Detail Indication:Nonsmoker Start:03-Jun-2018 Instruction Type:Patient Education Patient Instructions Indication:BMI 31.0-31.9,adult Start:03-Jun-2018 Instruction Type:Provider Instructions for Treatment Patient Instructions Indication:Benign essential hypertension Start:12-Feb-2014 Instruction Type:Provider Instructions for Treatment Patient Instructions Indication:Benign essential hypertension Start:22-Jan-2014 Instruction Type:Provider Instructions for Treatment Patient Instructions Indication:Benign essential hypertension Start:25-Dec-2013 Instruction Type:Provider Instructions for Treatment [facility]; [facility] Work Phone: Instructions* Name Dates Details Patient Instructions Indication:Hypertension Start:01-Dec-2022 Instruction Type:Provider Instructions for Treatment How to Access Health Informa tion Online using Patient Portal and [employer]rd [employer] Apps Indication:Hypertension Start:01-Dec-2022 Instruction Type:Patient Education How to Access Health Informa tion Online using Patient Portal and [employer] Apps Indication:Encounter for general adult medical examination with abnormal findings Start:01-Jun-2022 Instruction Type:Patient Education Patient Instructions Indication:Encounter for general adult medical examination with abnormal findings Start:01-Jun-2022 Instruction Type:Provider Instructions for Treatment Patient Instructions Indication:BMI 32.0-32.9,adult Start:02-Dec-2021 Instruction Type:Provider Instructions for Treatment How to Access Health Informa tion Online using Patient Portal and [employer] Apps Indication:BMI 32.0-32.9,adult Start:02-Dec-2021 Instruction Type:Patient Education Patient Instructions Indication:BMI 32.0-32.9,adult Start:06-Jun-2021 Instruction Type:Provider Instructions for Treatment How to Access Health Informa tion Online using Patient Portal and [employer] Apps Indication:BMI 32.0-32.9,adult Start:06-Jun-2021 Instruction Type:Patient Education Patient Instructions Indication:BMI 33.0-33.9,adult Start:10-Jan-2021 Instruction Type:Provider Instructions for Treatment How to Access Health Informa tion Online using Patient Portal and [employer] Apps Indication:Nonsmoker Start:10-Jan-2021 Instruction Type:Patient Education How to access health informa tion online Indication:BMI 33.0-33.9,adult Start:25-Jun-2020 Instruction Type:Patient Education How to access health informa tion online - Detail Indication:BMI 33.0-33.9,adult Start:25-Jun-2020 Instruction Type:Patient Education Patient Instructions Indication:BMI 33.0-33.9,adult Start:25-Jun-2020 Instruction Type:Provider Instructions for Treatment How to access health informa tion online Indication:Nonsmoker Start:03-Jun-2020 Instruction Type:Patient Education How to access health informa tion online - Detail Indication:Nonsmoker Start:03-Jun-2020 Instruction Type:Patient Education Patient Instructions Indication:Nonsmoker Start:03-Jun-2020 Instruction Type:Provider Instructions for Treatment How to access health informa tion online Indication:Nonsmoker Start:19-Jun-2019 Instruction Type:Patient Education How to access health informa tion online - Detail Indication:Nonsmoker Start:19-Jun-2019 Instruction Type:Patient Education Patient Instructions Indication:Nonsmoker Start:19-Jun-2019 Instruction Type:Provider Instructions for Treatment How to access health informa tion online Indication:Nonsmoker Start:02-Jun-2019 Instruction Type:Patient Education How to access health informa tion online - Detail Indication:Nonsmoker Start:02-Jun-2019 Instruction Type:Patient Education Patient Instructions Indication:BMI 33.0-33.9,adult Start:02-Jun-2019 Instruction Type:Provider Instructions for Treatment How to access health informa tion online Indication:Nonsmoker Start:24-Oct-2018 Instruction Type:Patient Education How to access health informa tion online - Detail Indication:Nonsmoker Start:24-Oct-2018 Instruction Type:Patient Education Patient Instructions Indication:Nonsmoker Start:24-Oct-2018 Instruction Type:Provider Instructions for Treatment How to access health informa tion online Indication:Nonsmoker Start:16-Sep-2018 Instruction Type:Patient Education How to access health informa tion online - Detail Indication:Nonsmoker Start:16-Sep-2018 Instruction Type:Patient Education Patient Instructions Indication:Nonsmoker Start:16-Sep-2018 Instruction Type:Provider Instructions for Treatment How to access health informa tion online Indication:Nonsmoker Start:03-Jun-2018 Instruction Type:Patient Education How to access health informa tion online - Detail Indication:Nonsmoker Start:03-Jun-2018 Instruction Type:Patient Education Patient Instructions Indication:BMI 31.0-31.9,adult Start:03-Jun-2018 Instruction Type:Provider Instructions for Treatment Patient Instructions Indication:Benign essential hypertension Start:12-Feb-2014 Instruction Type:Provider Instructions for Treatment Patient Instructions Indication:Benign essential hypertension Start:22-Jan-2014 Instruction Type:Provider Instructions for Treatment Patient Instructions Indication:Benign essential hypertension Start:25-Dec-2013 Instruction Type:Provider Instructions for Treatment [facility]; [facility] Work Phone: Instructions* Name Dates Details Patient Instructions Indication:Hypertension Start:01-Dec-2022 Instruction Type:Provider Instructions for Treatment How to Access Health Informa tion Online using Patient Portal and [employer] Apps Indication:Hypertension Start:01-Dec-2022 Instruction Type:Patient Education How to Access Health Informa tion Online using Patient Portal and [employer] Apps Indication:Encounter for general adult medical examination with abnormal findings Start:01-Jun-2022 Instruction Type:Patient Education Patient Instructions Indication:Encounter for general adult medical examination with abnormal findings Start:01-Jun-2022 Instruction Type:Provider Instructions for Treatment Patient Instructions Indication:BMI 32.0-32.9,adult Start:02-Dec-2021 Instruction Type:Provider Instructions for Treatment How to Access Health Informa tion Online using Patient Portal and [employer] Apps Indication:BMI 32.0-32.9,adult Start:02-Dec-2021 Instruction Type:Patient Education Patient Instructions Indication:BMI 32.0-32.9,adult Start:06-Jun-2021 Instruction Type:Provider Instructions for Treatment How to Access Health Informa tion Online using Patient Portal and [employer] Apps Indication:BMI 32.0-32.9,adult Start:06-Jun-2021 Instruction Type:Patient Education Patient Instructions Indication:BMI 33.0-33.9,adult Start:10-Jan-2021 Instruction Type:Provider Instructions for Treatment How to Access Health Informa tion Online using Patient Portal and [employer] Apps Indication:Nonsmoker Start:10-Jan-2021 Instruction Type:Patient Education How to access health informa tion online Indication:BMI 33.0-33.9,adult Start:25-Jun-2020 Instruction Type:Patient Education How to access health informa tion online - Detail Indication:BMI 33.0-33.9,adult Start:25-Jun-2020 Instruction Type:Patient Education Patient Instructions Indication:BMI 33.0-33.9,adult Start:25-Jun-2020 Instruction Type:Provider Instructions for Treatment How to access health informa tion online Indication:Nonsmoker Start:03-Jun-2020 Instruction Type:Patient Education How to access health informa tion online - Detail Indication:Nonsmoker Start:03-Jun-2020 Instruction Type:Patient Education Patient Instructions Indication:Nonsmoker Start:03-Jun-2020 Instruction Type:Provider Instructions for Treatment How to access health informa tion online Indication:Nonsmoker Start:19-Jun-2019 Instruction Type:Patient Education How to access health informa tion online - Detail Indication:Nonsmoker Start:19-Jun-2019 Instruction Type:Patient Education Patient Instructions Indication:Nonsmoker Start:19-Jun-2019 Instruction Type:Provider Instructions for Treatment How to access health informa tion online Indication:Nonsmoker Start:02-Jun-2019 Instruction Type:Patient Education How to access health informa tion online - Detail Indication:Nonsmoker Start:02-Jun-2019 Instruction Type:Patient Education Patient Instructions Indication:BMI 33.0-33.9,adult Start:02-Jun-2019 Instruction Type:Provider Instructions for Treatment How to access health informa tion online Indication:Nonsmoker Start:24-Oct-2018 Instruction Type:Patient Education How to access health informa tion online - Detail Indication:Nonsmoker Start:24-Oct-2018 Instruction Type:Patient Education Patient Instructions Indication:Nonsmoker Start:24-Oct-2018 Instruction Type:Provider Instructions for Treatment How to access health informa tion online Indication:Nonsmoker Start:16-Sep-2018 Instruction Type:Patient Education How to access health informa tion online - Detail Indication:Nonsmoker Start:16-Sep-2018 Instruction Type:Patient Education Patient Instructions Indication:Nonsmoker Start:16-Sep-2018 Instruction Type:Provider Instructions for Treatment How to access health informa tion online Indication:Nonsmoker Start:03-Jun-2018 Instruction Type:Patient Education How to access health informa tion online - Detail Indication:Nonsmoker Start:03-Jun-2018 Instruction Type:Patient Education Patient Instructions Indication:BMI 31.0-31.9,adult Start:03-Jun-2018 Instruction Type:Provider Instructions for Treatment Patient Instructions Indication:Benign essential hypertension Start:12-Feb-2014 Instruction Type:Provider Instructions for Treatment Patient Instructions Indication:Benign essential hypertension Start:22-Jan-2014 Instruction Type:Provider Instructions for Treatment Patient Instructions Indication:Benign essential hypertension Start:25-Dec-2013 Instruction Type:Provider Instructions for Treatment [facility]; [facility] Work Phone: Instructions* Name Dates Details Patient Instructions Indication:Nonsmoker Start:09-Jun-2023 Instruction Type:Provider Instructions for Treatment How to Access Health Informa tion Online using Patient Portal and [employer] Apps Indication:Nonsmoker Start:09-Jun-2023 Instruction Type:Patient Education Patient Instructions Indication:Hypertension Start:01-Dec-2022 Instruction Type:Provider Instructions for Treatment How to Access Health Informa tion Online using Patient Portal and [employer] Apps Indication:Hypertension Start:01-Dec-2022 Instruction Type:Patient Education How to Access Health Informa tion Online using Patient Portal and [employer] Apps Indication:Encounter for general adult medical examination with abnormal findings Start:01-Jun-2022 Instruction Type:Patient Education Patient Instructions Indication:Encounter for general adult medical examination with abnormal findings Start:01-Jun-2022 Instruction Type:Provider Instructions for Treatment Patient Instructions Indication:BMI 32.0-32.9,adult Start:02-Dec-2021 Instruction Type:Provider Instructions for Treatment How to Access Health Informa tion Online using Patient Portal and [employer] Apps Indication:BMI 32.0-32.9,adult Start:02-Dec-2021 Instruction Type:Patient Education Patient Instructions Indication:BMI 32.0-32.9,adult Start:06-Jun-2021 Instruction Type:Provider Instructions for Treatment How to Access Health Informa tion Online using Patient Portal and [employer] Apps Indication:BMI 32.0-32.9,adult Start:06-Jun-2021 Instruction Type:Patient Education Patient Instructions Indication:BMI 33.0-33.9,adult Start:10-Jan-2021 Instruction Type:Provider Instructions for Treatment How to Access Health Informa tion Online using Patient Portal and [employer] Apps Indication:Nonsmoker Start:10-Jan-2021 Instruction Type:Patient Education How to access health informa tion online Indication:BMI 33.0-33.9,adult Start:25-Jun-2020 Instruction Type:Patient Education How to access health informa tion online - Detail Indication:BMI 33.0-33.9,adult Start:25-Jun-2020 Instruction Type:Patient Education Patient Instructions Indication:BMI 33.0-33.9,adult Start:25-Jun-2020 Instruction Type:Provider Instructions for Treatment How to access health informa tion online Indication:Nonsmoker Start:03-Jun-2020 Instruction Type:Patient Education How to access health informa tion online - Detail Indication:Nonsmoker Start:03-Jun-2020 Instruction Type:Patient Education Patient Instructions Indication:Nonsmoker Start:03-Jun-2020 Instruction Type:Provider Instructions for Treatment How to access health informa tion online Indication:Nonsmoker Start:19-Jun-2019 Instruction Type:Patient Education How to access health informa tion online - Detail Indication:Nonsmoker Start:19-Jun-2019 Instruction Type:Patient Education Patient Instructions Indication:Nonsmoker Start:19-Jun-2019 Instruction Type:Provider Instructions for Treatment How to access health informa tion online Indication:Nonsmoker Start:02-Jun-2019 Instruction Type:Patient Education How to access health informa tion online - Detail Indication:Nonsmoker Start:02-Jun-2019 Instruction Type:Patient Education Patient Instructions Indication:BMI 33.0-33.9,adult Start:02-Jun-2019 Instruction Type:Provider Instructions for Treatment How to access health informa tion online Indication:Nonsmoker Start:24-Oct-2018 Instruction Type:Patient Education How to access health informa tion online - Detail Indication:Nonsmoker Start:24-Oct-2018 Instruction Type:Patient Education Patient Instructions Indication:Nonsmoker Start:24-Oct-2018 Instruction Type:Provider Instructions for Treatment How to access health informa tion online Indication:Nonsmoker Start:16-Sep-2018 Instruction Type:Patient Education How to access health informa tion online - Detail Indication:Nonsmoker Start:16-Sep-2018 Instruction Type:Patient Education Patient Instructions Indication:Nonsmoker Start:16-Sep-2018 Instruction Type:Provider Instructions for Treatment How to access health informa tion online Indication:Nonsmoker Start:03-Jun-2018 Instruction Type:Patient Education How to access health informa tion online - Detail Indication:Nonsmoker Start:03-Jun-2018 Instruction Type:Patient Education Patient Instructions Indication:BMI 31.0-31.9,adult Start:03-Jun-2018 Instruction Type:Provider Instructions for Treatment Patient Instructions Indication:Benign essential hypertension Start:12-Feb-2014 Instruction Type:Provider Instructions for Treatment Patient Instructions Indication:Benign essential hypertension Start:22-Jan-2014 Instruction Type:Provider Instructions for Treatment Patient Instructions Indication:Benign essential hypertension Start:25-Dec-2013 Instruction Type:Provider Instructions for Treatment [facility]; [facility] Work Phone: Instructions* Name Dates Details Patient Instructions Indication:Nonsmoker Start:09-Jun-2023 Instruction Type:Provider Instructions for Treatment How to Access Health Informa tion Online using Patient Portal and [employer] Apps Indication:Nonsmoker Start:09-Jun-2023 Instruction Type:Patient Education Patient Instructions Indication:Hypertension Start:01-Dec-2022 Instruction Type:Provider Instructions for Treatment How to Access Health Informa tion Online using Patient Portal and [employer] Apps Indication:Hypertension Start:01-Dec-2022 Instruction Type:Patient Education How to Access Health Informa tion Online using Patient Portal and [employer] Apps Indication:Encounter for general adult medical examination with abnormal findings Start:01-Jun-2022 Instruction Type:Patient Education Patient Instructions Indication:Encounter for general adult medical examination with abnormal findings Start:01-Jun-2022 Instruction Type:Provider Instructions for Treatment Patient Instructions Indication:BMI 32.0-32.9,adult Start:02-Dec-2021 Instruction Type:Provider Instructions for Treatment How to Access Health Informa tion Online using Patient Portal and [employer] Apps Indication:BMI 32.0-32.9,adult Start:02-Dec-2021 Instruction Type:Patient Education Patient Instructions Indication:BMI 32.0-32.9,adult Start:06-Jun-2021 Instruction Type:Provider Instructions for Treatment How to Access Health Informa tion Online using Patient Portal and [employer] Indication:BMI 32.0-32.9,adult Start:06-Jun-2021 Instruction Type:Patient Education Patient Instructions Indication:BMI 33.0-33.9,adult Start:10-Jan-2021 Instruction Type:Provider Instructions for Treatment How to Access Health Informa tion Online using Patient Portal and [employer] Apps Indication:Nonsmoker Start:10-Jan-2021 Instruction Type:Patient Education How to access health informa tion online Indication:BMI 33.0-33.9,adult Start:25-Jun-2020 Instruction Type:Patient Education How to access health informa tion online - Detail Indication:BMI 33.0-33.9,adult Start:25-Jun-2020 Instruction Type:Patient Education Patient Instructions Indication:BMI 33.0-33.9,adult Start:25-Jun-2020 Instruction Type:Provider Instructions for Treatment How to access health informa tion online Indication:Nonsmoker Start:03-Jun-2020 Instruction Type:Patient Education How to access health informa tion online - Detail Indication:Nonsmoker Start:03-Jun-2020 Instruction Type:Patient Education Patient Instructions Indication:Nonsmoker Start:03-Jun-2020 Instruction Type:Provider Instructions for Treatment How to access health informa tion online Indication:Nonsmoker Start:19-Jun-2019 Instruction Type:Patient Education How to access health informa tion online - Detail Indication:Nonsmoker Start:19-Jun-2019 Instruction Type:Patient Education Patient Instructions Indication:Nonsmoker Start:19-Jun-2019 Instruction Type:Provider Instructions for Treatment How to access health informa tion online Indication:Nonsmoker Start:02-Jun-2019 Instruction Type:Patient Education How to access health informa tion online - Detail Indication:Nonsmoker Start:02-Jun-2019 Instruction Type:Patient Education Patient Instructions Indication:BMI 33.0-33.9,adult Start:02-Jun-2019 Instruction Type:Provider Instructions for Treatment How to access health informa tion online Indication:Nonsmoker Start:24-Oct-2018 Instruction Type:Patient Education How to access health informa tion online - Detail Indication:Nonsmoker Start:24-Oct-2018 Instruction Type:Patient Education Patient Instructions Indication:Nonsmoker Start:24-Oct-2018 Instruction Type:Provider Instructions for Treatment How to access health informa tion online Indication:Nonsmoker Start:16-Sep-2018 Instruction Type:Patient Education How to access health informa tion online - Detail Indication:Nonsmoker Start:16-Sep-2018 Instruction Type:Patient Education Patient Instructions Indication:Nonsmoker Start:16-Sep-2018 Instruction Type:Provider Instructions for Treatment How to access health informa tion online Indication:Nonsmoker Start:03-Jun-2018 Instruction Type:Patient Education How to access health informa tion online - Detail Indication:Nonsmoker Start:03-Jun-2018 Instruction Type:Patient Education Patient Instructions Indication:BMI 31.0-31.9,adult Start:03-Jun-2018 Instruction Type:Provider Instructions for Treatment Patient Instructions Indication:Benign essential hypertension Start:12-Feb-2014 Instruction Type:Provider Instructions for Treatment Patient Instructions Indication:Benign essential hypertension Start:22-Jan-2014 Instruction Type:Provider Instructions for Treatment Patient Instructions Indication:Benign essential hypertension Start:25-Dec-2013 Instruction Type:Provider Instructions for Treatment [facility]; [facility] Work Phone: Instructions* Name Dates Details Patient Instructions Indication:Nonsmoker Start:02-Jul-2023 Instruction Type:Provider Instructions for Treatment How to Access Health Informa tion Online using Patient Portal and [employer] Indication:Nonsmoker Start:02-Jul-2023 Instruction Type:Patient Education Patient Instructions Indication:Nonsmoker Start:09-Jun-2023 Instruction Type:Provider Instructions for Treatment How to Access Health Informa tion Online using Patient Portal and [employer] Indication:Nonsmoker Start:09-Jun-2023 Instruction Type:Patient Education Patient Instructions Indication:Hypertension Start:01-Dec-2022 Instruction Type:Provider Instructions for Treatment How to Access Health Informa tion Online using Patient Portal and [employer] Indication:Hypertension Start:01-Dec-2022 Instruction Type:Patient Education How to Access Health Informa tion Online using Patient Portal and [employer] Indication:Encounter for general adult medical examination with abnormal findings Start:01-Jun-2022 Instruction Type:Patient Education Patient Instructions Indication:Encounter for general adult medical examination with abnormal findings Start:01-Jun-2022 Instruction Type:Provider Instructions for Treatment Patient Instructions Indication:BMI 32.0-32.9,adult Start:02-Dec-2021 Instruction Type:Provider Instructions for Treatment How to Access Health Informa tion Online using Patient Portal and [employer] Indication:BMI 32.0-32.9,adult Start:02-Dec-2021 Instruction Type:Patient Education Patient Instructions Indication:BMI 32.0-32.9,adult Start:06-Jun-2021 Instruction Type:Provider Instructions for Treatment How to Access Health Informa tion Online using Patient Portal and [employer] Indication:BMI 32.0-32.9,adult Start:06-Jun-2021 Instruction Type:Patient Education Patient Instructions Indication:BMI 33.0-33.9,adult Start:10-Jan-2021 Instruction Type:Provider Instructions for Treatment How to Access Health Informa tion Online using Patient Portal and 3rd [employer] Apps Indication:Nonsmoker Start:10-Jan-2021 Instruction Type:Patient Education How to access health informa tion online Indication:BMI 33.0-33.9,adult Start:25-Jun-2020 Instruction Type:Patient Education How to access health informa tion online - Detail Indication:BMI 33.0-33.9,adult Start:25-Jun-2020 Instruction Type:Patient Education Patient Instructions Indication:BMI 33.0-33.9,adult Start:25-Jun-2020 Instruction Type:Provider Instructions for Treatment How to access health informa tion online Indication:Nonsmoker Start:03-Jun-2020 Instruction Type:Patient Education How to access health informa tion online - Detail Indication:Nonsmoker Start:03-Jun-2020 Instruction Type:Patient Education Patient Instructions Indication:Nonsmoker Start:03-Jun-2020 Instruction Type:Provider Instructions for Treatment How to access health informa tion online Indication:Nonsmoker Start:19-Jun-2019 Instruction Type:Patient Education How to access health informa tion online - Detail Indication:Nonsmoker Start:19-Jun-2019 Instruction Type:Patient Education Patient Instructions Indication:Nonsmoker Start:19-Jun-2019 Instruction Type:Provider Instructions for Treatment How to access health informa tion online Indication:Nonsmoker Start:02-Jun-2019 Instruction Type:Patient Education How to access health informa tion online - Detail Indication:Nonsmoker Start:02-Jun-2019 Instruction Type:Patient Education Patient Instructions Indication:BMI 33.0-33.9,adult Start:02-Jun-2019 Instruction Type:Provider Instructions for Treatment How to access health informa tion online Indication:Nonsmoker Start:24-Oct-2018 Instruction Type:Patient Education How to access health informa tion online - Detail Indication:Nonsmoker Start:24-Oct-2018 Instruction Type:Patient Education Patient Instructions Indication:Nonsmoker Start:24-Oct-2018 Instruction Type:Provider Instructions for Treatment How to access health informa tion online Indication:Nonsmoker Start:16-Sep-2018 Instruction Type:Patient Education How to access health informa tion online - Detail Indication:Nonsmoker Start:16-Sep-2018 Instruction Type:Patient Education Patient Instructions Indication:Nonsmoker Start:16-Sep-2018 Instruction Type:Provider Instructions for Treatment How to access health informa tion online Indication:Nonsmoker Start:03-Jun-2018 Instruction Type:Patient Education How to access health informa tion online - Detail Indication:Nonsmoker Start:03-Jun-2018 Instruction Type:Patient Education Patient Instructions Indication:BMI 31.0-31.9,adult Start:03-Jun-2018 Instruction Type:Provider Instructions for Treatment Patient Instructions Indication:Benign essential hypertension Start:12-Feb-2014 Instruction Type:Provider Instructions for Treatment Patient Instructions Indication:Benign essential hypertension Start:22-Jan-2014 Instruction Type:Provider Instructions for Treatment Patient Instructions Indication:Benign essential hypertension Start:25-Dec-2013 Instruction Type:Provider Instructions for Treatment [facility] Work Phone: Instructions* Name Dates Details Patient Instructions Indication:Nonsmoker Start:02-Jul-2023 Instruction Type:Provider Instructions for Treatment How to Access Health Informa tion Online using Patient Portal and 3rd [employer] Apps Indication:Nonsmoker Start:02-Jul-2023 Instruction Type:Patient Education Patient Instructions Indication:Nonsmoker Start:09-Jun-2023 Instruction Type:Provider Instructions for Treatment How to Access Health Informa tion Online using Patient Portal and [employer]rd [employer] Apps Indication:Nonsmoker Start:09-Jun-2023 Instruction Type:Patient Education Patient Instructions Indication:Hypertension Start:01-Dec-2022 Instruction Type:Provider Instructions for Treatment How to Access Health Informa tion Online using Patient Portal and [employer]rd [employer] Apps Indication:Hypertension Start:01-Dec-2022 Instruction Type:Patient Education How to Access Health Informa tion Online using Patient Portal and [employer]rd [employer] Apps Indication:Encounter for general adult medical examination with abnormal findings Start:01-Jun-2022 Instruction Type:Patient Education Patient Instructions Indication:Encounter for general adult medical examination with abnormal findings Start:01-Jun-2022 Instruction Type:Provider Instructions for Treatment Patient Instructions Indication:BMI 32.0-32.9,adult Start:02-Dec-2021 Instruction Type:Provider Instructions for Treatment How to Access Health Informa tion Online using Patient Portal and 3rd [employer] Apps Indication:BMI 32.0-32.9,adult Start:02-Dec-2021 Instruction Type:Patient Education Patient Instructions Indication:BMI 32.0-32.9,adult Start:06-Jun-2021 Instruction Type:Provider Instructions for Treatment How to Access Health Informa tion Online using Patient Portal and [employer]rd [employer] Apps Indication:BMI 32.0-32.9,adult Start:06-Jun-2021 Instruction Type:Patient Education Patient Instructions Indication:BMI 33.0-33.9,adult Start:10-Jan-2021 Instruction Type:Provider Instructions for Treatment How to Access Health Informa tion Online using Patient Portal and [employer]rd [employer] Apps Indication:Nonsmoker Start:10-Jan-2021 Instruction Type:Patient Education How to access health informa tion online Indication:BMI 33.0-33.9,adult Start:25-Jun-2020 Instruction Type:Patient Education How to access health informa tion online - Detail Indication:BMI 33.0-33.9,adult Start:25-Jun-2020 Instruction Type:Patient Education Patient Instructions Indication:BMI 33.0-33.9,adult Start:25-Jun-2020 Instruction Type:Provider Instructions for Treatment How to access health informa tion online Indication:Nonsmoker Start:03-Jun-2020 Instruction Type:Patient Education How to access health informa tion online - Detail Indication:Nonsmoker Start:03-Jun-2020 Instruction Type:Patient Education Patient Instructions Indication:Nonsmoker Start:03-Jun-2020 Instruction Type:Provider Instructions for Treatment How to access health informa tion online Indication:Nonsmoker Start:19-Jun-2019 Instruction Type:Patient Education How to access health informa tion online - Detail Indication:Nonsmoker Start:19-Jun-2019 Instruction Type:Patient Education Patient Instructions Indication:Nonsmoker Start:19-Jun-2019 Instruction Type:Provider Instructions for Treatment How to access health informa tion online Indication:Nonsmoker Start:02-Jun-2019 Instruction Type:Patient Education How to access health informa tion online - Detail Indication:Nonsmoker Start:02-Jun-2019 Instruction Type:Patient Education Patient Instructions Indication:BMI 33.0-33.9,adult Start:02-Jun-2019 Instruction Type:Provider Instructions for Treatment How to access health informa tion online Indication:Nonsmoker Start:24-Oct-2018 Instruction Type:Patient Education How to access health informa tion online - Detail Indication:Nonsmoker Start:24-Oct-2018 Instruction Type:Patient Education Patient Instructions Indication:Nonsmoker Start:24-Oct-2018 Instruction Type:Provider Instructions for Treatment How to access health informa tion online Indication:Nonsmoker Start:16-Sep-2018 Instruction Type:Patient Education How to access health informa tion online - Detail Indication:Nonsmoker Start:16-Sep-2018 Instruction Type:Patient Education Patient Instructions Indication:Nonsmoker Start:16-Sep-2018 Instruction Type:Provider Instructions for Treatment How to access health informa tion online Indication:Nonsmoker Start:03-Jun-2018 Instruction Type:Patient Education How to access health informa tion online - Detail Indication:Nonsmoker Start:03-Jun-2018 Instruction Type:Patient Education Patient Instructions Indication:BMI 31.0-31.9,adult Start:03-Jun-2018 Instruction Type:Provider Instructions for Treatment Patient Instructions Indication:Benign essential hypertension Start:12-Feb-2014 Instruction Type:Provider Instructions for Treatment Patient Instructions Indication:Benign essential hypertension Start:22-Jan-2014 Instruction Type:Provider Instructions for Treatment Patient Instructions Indication:Benign essential hypertension Start:25-Dec-2013 Instruction Type:Provider Instructions for Treatment [facility]; [facility] Work Phone: Instructions Name Dates Details Nonsmoker : How to access he alth information online Indication:Nonsmoker Nonsmoker : How to access he alth information online - Detail Indication:Nonsmoker BMI 31.0-31.9,adult : Patien t Instructions Indication:BMI 31.0-31.9,adult Benign essential hypertensio n : Patient Instructions Indication:Benign essential hypertension Name Dates Details Nonsmoker : How to access he alth information online Indication:Nonsmoker Nonsmoker : How to access he alth information online - Detail Indication:Nonsmoker Nonsmoker : Patient Instruct ions Indication:Nonsmoker BMI 31.0-31.9,adult : Patien t Instructions Indication:BMI 31.0-31.9,adult Benign essential hypertensio n : Patient Instructions Indication:Benign essential hypertension Name Dates Details Nonsmoker : How to access he alth information online Indication:Nonsmoker Nonsmoker : How to access he alth information online - Detail Indication:Nonsmoker Nonsmoker : Patient Instruct ions Indication:Nonsmoker BMI 31.0-31.9,adult : Patien t Instructions Indication:BMI 31.0-31.9,adult Benign essential hypertensio n : Patient Instructions Indication:Benign essential hypertension Name Dates Details Nonsmoker : How to access he alth information online Indication:Nonsmoker Nonsmoker : How to access he alth information online - Detail Indication:Nonsmoker Nonsmoker : Patient Instruct ions Indication:Nonsmoker BMI 31.0-31.9,adult : Patien t Instructions Indication:BMI 31.0-31.9,adult Benign essential hypertensio n : Patient Instructions Indication:Benign essential hypertension Name Dates Details Nonsmoker : How to access he alth information online Indication:Nonsmoker Nonsmoker : How to access he alth information online - Detail Indication:Nonsmoker Nonsmoker : Patient Instruct ions Indication:Nonsmoker BMI 31.0-31.9,adult : Patien t Instructions Indication:BMI 31.0-31.9,adult Benign essential hypertensio n : Patient Instructions Indication:Benign essential hypertension Name Dates Details Nonsmoker : How to access he alth information online Indication:Nonsmoker Nonsmoker : How to access he alth information online - Detail Indication:Nonsmoker Nonsmoker : Patient Instruct ions Indication:Nonsmoker BMI 31.0-31.9,adult : Patien t Instructions Indication:BMI 31.0-31.9,adult Benign essential hypertensio n : Patient Instructions Indication:Benign essential hypertension Name Dates Details Nonsmoker : How to access he alth information online Indication:Nonsmoker Nonsmoker : How to access he alth information online - Detail Indication:Nonsmoker Nonsmoker : Patient Instruct ions Indication:Nonsmoker BMI 31.0-31.9,adult : Patien t Instructions Indication:BMI 31.0-31.9,adult Benign essential hypertensio n : Patient Instructions Indication:Benign essential hypertension Name Dates Details How to access health informa tion online Indication:Nonsmoker Start:02-Jun-2019 Instruction Type:Patient Education How to access health informa tion online - Detail Indication:Nonsmoker Start:02-Jun-2019 Instruction Type:Patient Education Patient Instructions Indication:Nonsmoker Start:02-Jun-2019 Instruction Type:Provider Instructions for Treatment How to access health informa tion online Indication:Nonsmoker Start:24-Oct-2018 Instruction Type:Patient Education How to access health informa tion online - Detail Indication:Nonsmoker Start:24-Oct-2018 Instruction Type:Patient Education Patient Instructions Indication:Nonsmoker Start:24-Oct-2018 Instruction Type:Provider Instructions for Treatment How to access health informa tion online Indication:Nonsmoker Start:16-Sep-2018 Instruction Type:Patient Education How to access health informa tion online - Detail Indication:Nonsmoker Start:16-Sep-2018 Instruction Type:Patient Education Patient Instructions Indication:Nonsmoker Start:16-Sep-2018 Instruction Type:Provider Instructions for Treatment How to access health informa tion online Indication:Nonsmoker Start:03-Jun-2018 Instruction Type:Patient Education How to access health informa tion online - Detail Indication:Nonsmoker Start:03-Jun-2018 Instruction Type:Patient Education Patient Instructions Indication:BMI 31.0-31.9,adult Start:03-Jun-2018 Instruction Type:Provider Instructions for Treatment Patient Instructions Indication:Benign essential hypertension Start:12-Feb-2014 Instruction Type:Provider Instructions for Treatment Patient Instructions Indication:Benign essential hypertension Start:22-Jan-2014 Instruction Type:Provider Instructions for Treatment Patient Instructions Indication:Benign essential hypertension Start:25-Dec-2013 Instruction Type:Provider Instructions for Treatment Name Dates Details How to access health informa tion online Indication:Nonsmoker Start:02-Jun-2019 Instruction Type:Patient Education How to access health informa tion online - Detail Indication:Nonsmoker Start:02-Jun-2019 Instruction Type:Patient Education Patient Instructions Indication:BMI 33.0-33.9,adult Start:02-Jun-2019 Instruction Type:Provider Instructions for Treatment How to access health informa tion online Indication:Nonsmoker Start:24-Oct-2018 Instruction Type:Patient Education How to access health informa tion online - Detail Indication:Nonsmoker Start:24-Oct-2018 Instruction Type:Patient Education Patient Instructions Indication:Nonsmoker Start:24-Oct-2018 Instruction Type:Provider Instructions for Treatment How to access health informa tion online Indication:Nonsmoker Start:16-Sep-2018 Instruction Type:Patient Education How to access health informa tion online - Detail Indication:Nonsmoker Start:16-Sep-2018 Instruction Type:Patient Education Patient Instructions Indication:Nonsmoker Start:16-Sep-2018 Instruction Type:Provider Instructions for Treatment How to access health informa tion online Indication:Nonsmoker Start:03-Jun-2018 Instruction Type:Patient Education How to access health informa tion online - Detail Indication:Nonsmoker Start:03-Jun-2018 Instruction Type:Patient Education Patient Instructions Indication:BMI 31.0-31.9,adult Start:03-Jun-2018 Instruction Type:Provider Instructions for Treatment Patient Instructions Indication:Benign essential hypertension Start:12-Feb-2014 Instruction Type:Provider Instructions for Treatment Patient Instructions Indication:Benign essential hypertension Start:22-Jan-2014 Instruction Type:Provider Instructions for Treatment Patient Instructions Indication:Benign essential hypertension Start:25-Dec-2013 Instruction Type:Provider Instructions for Treatment Name Dates Details How to access health informa tion online Indication:Nonsmoker Start:19-Jun-2019 Instruction Type:Patient Education How to access health informa tion online - Detail Indication:Nonsmoker Start:19-Jun-2019 Instruction Type:Patient Education Patient Instructions Indication:Nonsmoker Start:19-Jun-2019 Instruction Type:Provider Instructions for Treatment How to access health informa tion online Indication:Nonsmoker Start:02-Jun-2019 Instruction Type:Patient Education How to access health informa tion online - Detail Indication:Nonsmoker Start:02-Jun-2019 Instruction Type:Patient Education Patient Instructions Indication:BMI 33.0-33.9,adult Start:02-Jun-2019 Instruction Type:Provider Instructions for Treatment How to access health informa tion online Indication:Nonsmoker Start:24-Oct-2018 Instruction Type:Patient Education How to access health informa tion online - Detail Indication:Nonsmoker Start:24-Oct-2018 Instruction Type:Patient Education Patient Instructions Indication:Nonsmoker Start:24-Oct-2018 Instruction Type:Provider Instructions for Treatment How to access health informa tion online Indication:Nonsmoker Start:16-Sep-2018 Instruction Type:Patient Education How to access health informa tion online - Detail Indication:Nonsmoker Start:16-Sep-2018 Instruction Type:Patient Education Patient Instructions Indication:Nonsmoker Start:16-Sep-2018 Instruction Type:Provider Instructions for Treatment How to access health informa tion online Indication:Nonsmoker Start:03-Jun-2018 Instruction Type:Patient Education How to access health informa tion online - Detail Indication:Nonsmoker Start:03-Jun-2018 Instruction Type:Patient Education Patient Instructions Indication:BMI 31.0-31.9,adult Start:03-Jun-2018 Instruction Type:Provider Instructions for Treatment Patient Instructions Indication:Benign essential hypertension Start:12-Feb-2014 Instruction Type:Provider Instructions for Treatment Patient Instructions Indication:Benign essential hypertension Start:22-Jan-2014 Instruction Type:Provider Instructions for Treatment Patient Instructions Indication:Benign essential hypertension Start:25-Dec-2013 Instruction Type:Provider Instructions for Treatment Name Dates Details How to access health informa tion online Indication:Nonsmoker Start:03-Jun-2020 Instruction Type:Patient Education How to access health informa tion online - Detail Indication:Nonsmoker Start:03-Jun-2020 Instruction Type:Patient Education Patient Instructions Indication:Nonsmoker Start:03-Jun-2020 Instruction Type:Provider Instructions for Treatment How to access health informa tion online Indication:Nonsmoker Start:19-Jun-2019 Instruction Type:Patient Education How to access health informa tion online - Detail Indication:Nonsmoker Start:19-Jun-2019 Instruction Type:Patient Education Patient Instructions Indication:Nonsmoker Start:19-Jun-2019 Instruction Type:Provider Instructions for Treatment How to access health informa tion online Indication:Nonsmoker Start:02-Jun-2019 Instruction Type:Patient Education How to access health informa tion online - Detail Indication:Nonsmoker Start:02-Jun-2019 Instruction Type:Patient Education Patient Instructions Indication:BMI 33.0-33.9,adult Start:02-Jun-2019 Instruction Type:Provider Instructions for Treatment How to access health informa tion online Indication:Nonsmoker Start:24-Oct-2018 Instruction Type:Patient Education How to access health informa tion online - Detail Indication:Nonsmoker Start:24-Oct-2018 Instruction Type:Patient Education Patient Instructions Indication:Nonsmoker Start:24-Oct-2018 Instruction Type:Provider Instructions for Treatment How to access health informa tion online Indication:Nonsmoker Start:16-Sep-2018 Instruction Type:Patient Education How to access health informa tion online - Detail Indication:Nonsmoker Start:16-Sep-2018 Instruction Type:Patient Education Patient Instructions Indication:Nonsmoker Start:16-Sep-2018 Instruction Type:Provider Instructions for Treatment How to access health informa tion online Indication:Nonsmoker Start:03-Jun-2018 Instruction Type:Patient Education How to access health informa tion online - Detail Indication:Nonsmoker Start:03-Jun-2018 Instruction Type:Patient Education Patient Instructions Indication:BMI 31.0-31.9,adult Start:03-Jun-2018 Instruction Type:Provider Instructions for Treatment Patient Instructions Indication:Benign essential hypertension Start:12-Feb-2014 Instruction Type:Provider Instructions for Treatment Patient Instructions Indication:Benign essential hypertension Start:22-Jan-2014 Instruction Type:Provider Instructions for Treatment Patient Instructions Indication:Benign essential hypertension Start:25-Dec-2013 Instruction Type:Provider Instructions for Treatment Name Dates Details How to access health informa tion online Indication:BMI 33.0-33.9,adult Start:25-Jun-2020 Instruction Type:Patient Education How to access health informa tion online - Detail Indication:BMI 33.0-33.9,adult Start:25-Jun-2020 Instruction Type:Patient Education Patient Instructions Indication:BMI 33.0-33.9,adult Start:25-Jun-2020 Instruction Type:Provider Instructions for Treatment How to access health informa tion online Indication:Nonsmoker Start:03-Jun-2020 Instruction Type:Patient Education How to access health informa tion online - Detail Indication:Nonsmoker Start:03-Jun-2020 Instruction Type:Patient Education Patient Instructions Indication:Nonsmoker Start:03-Jun-2020 Instruction Type:Provider Instructions for Treatment How to access health informa tion online Indication:Nonsmoker Start:19-Jun-2019 Instruction Type:Patient Education How to access health informa tion online - Detail Indication:Nonsmoker Start:19-Jun-2019 Instruction Type:Patient Education Patient Instructions Indication:Nonsmoker Start:19-Jun-2019 Instruction Type:Provider Instructions for Treatment How to access health informa tion online Indication:Nonsmoker Start:02-Jun-2019 Instruction Type:Patient Education How to access health informa tion online - Detail Indication:Nonsmoker Start:02-Jun-2019 Instruction Type:Patient Education Patient Instructions Indication:BMI 33.0-33.9,adult Start:02-Jun-2019 Instruction Type:Provider Instructions for Treatment How to access health informa tion online Indication:Nonsmoker Start:24-Oct-2018 Instruction Type:Patient Education How to access health informa tion online - Detail Indication:Nonsmoker Start:24-Oct-2018 Instruction Type:Patient Education Patient Instructions Indication:Nonsmoker Start:24-Oct-2018 Instruction Type:Provider Instructions for Treatment How to access health informa tion online Indication:Nonsmoker Start:16-Sep-2018 Instruction Type:Patient Education How to access health informa tion online - Detail Indication:Nonsmoker Start:16-Sep-2018 Instruction Type:Patient Education Patient Instructions Indication:Nonsmoker Start:16-Sep-2018 Instruction Type:Provider Instructions for Treatment How to access health informa tion online Indication:Nonsmoker Start:03-Jun-2018 Instruction Type:Patient Education How to access health informa tion online - Detail Indication:Nonsmoker Start:03-Jun-2018 Instruction Type:Patient Education Patient Instructions Indication:BMI 31.0-31.9,adult Start:03-Jun-2018 Instruction Type:Provider Instructions for Treatment Patient Instructions Indication:Benign essential hypertension Start:12-Feb-2014 Instruction Type:Provider Instructions for Treatment Patient Instructions Indication:Benign essential hypertension Start:22-Jan-2014 Instruction Type:Provider Instructions for Treatment Patient Instructions Indication:Benign essential hypertension Start:25-Dec-2013 Instruction Type:Provider Instructions for Treatment Name Dates Details How to access health informa tion online Indication:BMI 33.0-33.9,adult Start:25-Jun-2020 Instruction Type:Patient Education How to access health informa tion online - Detail Indication:BMI 33.0-33.9,adult Start:25-Jun-2020 Instruction Type:Patient Education Patient Instructions Indication:BMI 33.0-33.9,adult Start:25-Jun-2020 Instruction Type:Provider Instructions for Treatment How to access health informa tion online Indication:Nonsmoker Start:03-Jun-2020 Instruction Type:Patient Education How to access health informa tion online - Detail Indication:Nonsmoker Start:03-Jun-2020 Instruction Type:Patient Education Patient Instructions Indication:Nonsmoker Start:03-Jun-2020 Instruction Type:Provider Instructions for Treatment How to access health informa tion online Indication:Nonsmoker Start:19-Jun-2019 Instruction Type:Patient Education How to access health informa tion online - Detail Indication:Nonsmoker Start:19-Jun-2019 Instruction Type:Patient Education Patient Instructions Indication:Nonsmoker Start:19-Jun-2019 Instruction Type:Provider Instructions for Treatment How to access health informa tion online Indication:Nonsmoker Start:02-Jun-2019 Instruction Type:Patient Education How to access health informa tion online - Detail Indication:Nonsmoker Start:02-Jun-2019 Instruction Type:Patient Education Patient Instructions Indication:BMI 33.0-33.9,adult Start:02-Jun-2019 Instruction Type:Provider Instructions for Treatment How to access health informa tion online Indication:Nonsmoker Start:24-Oct-2018 Instruction Type:Patient Education How to access health informa tion online - Detail Indication:Nonsmoker Start:24-Oct-2018 Instruction Type:Patient Education Patient Instructions Indication:Nonsmoker Start:24-Oct-2018 Instruction Type:Provider Instructions for Treatment How to access health informa tion online Indication:Nonsmoker Start:16-Sep-2018 Instruction Type:Patient Education How to access health informa tion online - Detail Indication:Nonsmoker Start:16-Sep-2018 Instruction Type:Patient Education Patient Instructions Indication:Nonsmoker Start:16-Sep-2018 Instruction Type:Provider Instructions for Treatment How to access health informa tion online Indication:Nonsmoker Start:03-Jun-2018 Instruction Type:Patient Education How to access health informa tion online - Detail Indication:Nonsmoker Start:03-Jun-2018 Instruction Type:Patient Education Patient Instructions Indication:BMI 31.0-31.9,adult Start:03-Jun-2018 Instruction Type:Provider Instructions for Treatment Patient Instructions Indication:Benign essential hypertension Start:12-Feb-2014 Instruction Type:Provider Instructions for Treatment Patient Instructions Indication:Benign essential hypertension Start:22-Jan-2014 Instruction Type:Provider Instructions for Treatment Patient Instructions Indication:Benign essential hypertension Start:25-Dec-2013 Instruction Type:Provider Instructions for Treatment Name Dates Details How to access health informa tion online Indication:Nonsmoker Start:19-Jun-2019 Instruction Type:Patient Education How to access health informa tion online - Detail Indication:Nonsmoker Start:19-Jun-2019 Instruction Type:Patient Education Patient Instructions Indication:Nonsmoker Start:19-Jun-2019 Instruction Type:Provider Instructions for Treatment How to access health informa tion online Indication:Nonsmoker Start:02-Jun-2019 Instruction Type:Patient Education How to access health informa tion online - Detail Indication:Nonsmoker Start:02-Jun-2019 Instruction Type:Patient Education Patient Instructions Indication:BMI 33.0-33.9,adult Start:02-Jun-2019 Instruction Type:Provider Instructions for Treatment How to access health informa tion online Indication:Nonsmoker Start:24-Oct-2018 Instruction Type:Patient Education How to access health informa tion online - Detail Indication:Nonsmoker Start:24-Oct-2018 Instruction Type:Patient Education Patient Instructions Indication:Nonsmoker Start:24-Oct-2018 Instruction Type:Provider Instructions for Treatment How to access health informa tion online Indication:Nonsmoker Start:16-Sep-2018 Instruction Type:Patient Education How to access health informa tion online - Detail Indication:Nonsmoker Start:16-Sep-2018 Instruction Type:Patient Education Patient Instructions Indication:Nonsmoker Start:16-Sep-2018 Instruction Type:Provider Instructions for Treatment How to access health informa tion online Indication:Nonsmoker Start:03-Jun-2018 Instruction Type:Patient Education How to access health informa tion online - Detail Indication:Nonsmoker Start:03-Jun-2018 Instruction Type:Patient Education Patient Instructions Indication:BMI 31.0-31.9,adult Start:03-Jun-2018 Instruction Type:Provider Instructions for Treatment Patient Instructions Indication:Benign essential hypertension Start:12-Feb-2014 Instruction Type:Provider Instructions for Treatment Patient Instructions Indication:Benign essential hypertension Start:22-Jan-2014 Instruction Type:Provider Instructions for Treatment Patient Instructions Indication:Benign essential hypertension Start:25-Dec-2013 Instruction Type:Provider Instructions for Treatment Name Dates Details Nonsmoker : How to access he alth information online Indication:Nonsmoker Nonsmoker : How to access he alth information online - Detail Indication:Nonsmoker Nonsmoker : Patient Instruct ions Indication:Nonsmoker BMI 31.0-31.9,adult : Patien t Instructions Indication:BMI 31.0-31.9,adult Benign essential hypertensio n : Patient Instructions Indication:Benign essential hypertension Name Dates Details Nonsmoker : How to access he alth information online Indication:Nonsmoker Nonsmoker : How to access he alth information online - Detail Indication:Nonsmoker Nonsmoker : Patient Instruct ions Indication:Nonsmoker BMI 31.0-31.9,adult : Patien t Instructions Indication:BMI 31.0-31.9,adult Benign essential hypertensio n : Patient Instructions Indication:Benign essential hypertension Summary Purpose Family History No Family History Records FoundNo Family History Records Found Advance Directives No Advanced Directives Records FoundNo Advanced Directives Records Found Additional Source Comments Source Comments (unrecognize d section and content) In the event this informatio n is protected by the Federal Confidentiality of Alcohol and Drug Abuse Patient Records regulations: The Federal rules restrict any use of the information to criminally investigate or prosecute any alcohol or drug abuse patient.[facility] Reason for Visit (unrecogniz ed section and content) INFORMATION SOURCE (unrecogn ized section and content) DATE CREATED AUTHOR AUTHOR'S BHARGAV ATION 12/23/2022 Comprehensive In [facility] FOR RECORDS PERTAINING TO PATIENTS WHO ARE OR HAVE BEEN ENROLLED IN A CHEMICAL DEPENDENCY/SUBSTANCEABUSE PROGRAM, SOME INFORMATION MAY BE OMITTED. This clinical summary was aggregated from multiple sources. Caution should be exercised in using it in the provision of clinical care. This summary normalizes information from multiple sources, and as a consequence, information in this document may materially change the coding, format and clinical context of patient data. In addition, data may be omitted in some cases. CLINICAL DECISIONS SHOULD BE BASED ON THE PRIMARY CLINICAL RECORDS. [employer] [facility]. provides no warranty or guarantee of the accuracy or completeness of information in this document.
[2023-09-02 16:30] LABS: Absolute Lymphocyte Count 3.31 X10^3/uL (0.83-4.51); Absolute Neutrophil Count 3.9 X10^3/uL (2.0-7.7); Basophil# 0.08 X10^3/uL; Basophil% 0.9 % (0-1); Eosinophil# 0.35 X10^3/uL; Eosinophils% 4.1 % (0-5); Hematocrit 44.4 % (37-47); Hemoglobin 14.4 g/dL (12.0-15.0); Lymphocyte # 3.31 X10^3/ul (0.83-4.51); Lymphocyte % 39.1 % (19-41); Mean Corp Hgb Conc 32.4 g/dL (32-36); Mean Corpuscular Hgb 28.5 pg (27.0-32.0); Mean Corpuscular Volume 87.9 fL (81-99); Mean Platelet Vol. 9.3 fl (6.2-12.0); Monocyte# 0.78 X10^3/uL; Monocyte% 9.2 % (0-10); NRBC Flagged by Analyzer 0 % (0-5); Neutrophil # 3.93 X10^3/uL (2.7-7.7); Neutrophil % 46.6 % (47-70); Platelet Count 334 K/mm3 (150-450); RBC Distribution Width SD 41.9 fl (35.1-43.9); Red Blood Count 5.05 M/mm3 (4.2-5.4); White Blood Count 8.5 K/mm3 (4.4-11.0)
[2023-09-02 19:38] LABS: M R Staph aureus DNA By PCR Negative (Negative); Probe Check PASS; Specimen Processing Control PASS
== END 2023-09-02 23:59 | disposition home or self-care (01) ==
LOC: LAB 13:09
PROVIDERS: PCP Nurse Practitioner Family; Referring Provider Anesthesiology; Visit Provider Anesthesiology
DX: R22.1 Localized swelling, mass and lump, neck (principal)
CPT/HCPCS: 36415; 85025; 87070; 87077; 87081; 87186; 87205; 87641

== ENCOUNTER 2023-09-16 17:00 | Outpatient (RCR) | payer OTHER, SELFPAY ==
--- NOTE | 2023-08-19 18:17 | HP.PTEVAL_ITS ---
Patient's Visit Information Visit Information Visit Information: SAYDA CORREA is a 57 year old F referred to Physical Therapy by IGGY AlmeidaC with a diagnosis of FACET HYPERTROPHY ,DDD. Date of Evaluation: 08/19/23 Physical Therapist: Getachew Puente, PT, Cert MDT, OCS Visit Plan Frequency: 2x /Week Duration: 4 Weeks Plan: PT INTERVETIONS CHRISTINE EX'S, DLS ,POSTURAL EX'S ,LE FLEXABILITY AND MODLATIES FOR PAIN Subjective Subjective: This 57 y/o female presents to physical therapy with lumbar radiculopathy. Patient has had lumbar radiculopathy left lower extremity . Patient had symptoms since May 2023. Patient noticed symptoms in hamstrings and progressively worse and paresthesia in foot. Patient was unable to RTW one day ,tried steroid pack . Patient x-rays showed DDD. Aggravating sitting ,walking and affects job demands. Alleviating factors resting. Coughing/sneezing+. Bowel/bladder +. Patient has no pain .Patient pain can affects sleeping . Patient has numbness in foot. Patient condition affects QOL and function/job demands. Patient goals to decrease pain. 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 Left Lower Extremity: Pain Intensity (Out of 10): 3 Pain Intensity Range: 10 Objective Objective: POSTURE: mild forward posture PALPATION: unremarkable MMT: quads/hams 4/5 right ,left quads 4-/5 ,hip flexion 4/5 ,ankle 5/5 FLEXABLIY: hamstrings WNL + ANR LUMBAR ROM: flexion WFL ,extension min loss ,side glides WFL Special Tests L/S Slump test left side: Negative L/S Slump test right side: Negative L/S Left Straight Leg Raise: Negative L/S Right Straight Leg Raise: Negative Lumbar Standing: Flexion - Mechanical Response: No effect Lumbar Standing: Flexion - Symptoms During Testing: No effect Lumbar Standing: Flexion - Symptoms After Testing: No effect Lumbar Standing: Extension - Mechanical Response: No effect Lumbar Standing: Extension - Symptoms During Testing: No effect Lumbar Standing: Extension - Symptoms After Testing: No effect Lumbar Standing: Right Side Glides - Mechanical Response: No effect Lumbar Standing: Right Side [place] - Symptoms During Testing: No effect Lumbar Standing: Right Side [place] - Symptoms After Testing: No effect Lumbar Standing: Left Side [place] - Mechanical Response: No effect Lumbar Standing: Left Side [place] - Symptoms During Testing: No effect Lumbar Standing: Left Side [place] - Symptoms After Testing: No effect Lumbar Lying: Flexion - Mechanical Response: No effect Lumbar Lying: Flexion - Symptoms During Testing: No effect Lumbar Lying: Flexion - Symptoms After Testing: No effect Lumbar Lying: Extension - Mechanical Response: No effect Lumbar Lying: Extension - Symptoms During Testing: Decreases Lumbar Lying: Extension - Symptoms After Testing: Better Balance/Special Test Scores Oswestry Low Back Score: 23 Goals Goal 1:: Patient to be I with HEP for lumbar Goal Time Frame: 4-6 Weeks Goal 2:: Patient to demonstrate 50% improvement with less pain and improved function Goal Time Frame: 4-6 Weeks Goal 3:: Patient to improve lumbar ROM for function of recovery for job demands Goal Time Frame: 4-6 Weeks Goal 4:: Patient to improve back oswestry score by 5 points to improve QOL and function Goal Time Frame: 4-6 Weeks Goal 5:: Patient to improve posture/body mechanics for job demands Goal Time Frame: 4-6 Weeks Rehabilitation Potential Physical Therapy Diagnosis: Patient appears to have lumbar HNP possible with symptoms in leg worse with walking ,sitting ,position and motion testing better with extension and correction of posture thus benefit from skilled PT Rehabilitation Potential: Good Anticipated Interventions Patient/Client Instruction: Educate patient on: Condition and Plan of Care For the Purpose of:: To decrease pain, To increase ROM, To improve muscle performance and motor function, To improve ability to perform ADL's, To increase tolerance to activity/condition/position, To improve performance and independence with ADL's, To improve ability of physical actions for home /community/work/leisure, To improve health of tissue, To decrease soft tissue restriction, To increase flexibility/ROM, To reduce risk of recurrence and To improve health and function Therapeutic Exercise to Include: Strength training, Endurance training, Balance training, Body mechanics, Postural training, Flexibilty training, Dynamic Lumbar Stabilization and Christine Exercises For the Purpose of:: To decrease pain, To increase ROM, To improve muscle performance and motor function, To improve ability to perform ADL's, To increase tolerance to activity/condition/position, To improve ability of physical actions for home/community/work/leisure, To improve health of tissue, To decrease soft tissue restriction, To increase flexibility/ROM and To improve tolerance to ADL's Manual Therapy Techniques to Include: Mobilization Comment: LUMBAR For the Purpose of:: To decrease pain and To increase ROM TENS: Yes IF ES: Yes Cryotherapy (ice pack, ice massage): Yes Thermo therapy (hot pack): Yes Ultrasound (thermal/non thermal): Yes For the Purpose of:: To decrease pain, To increase ROM, To improve nutrient delivery to tissue, To increase oxygenation perfusion, To improve health of tissue and To decrease soft tissue restriction Text: Thank you for the opportunity to evaluate your patient. For Medicare and Medicare HMO plans, please review the plan of care and approve it. It will need to be FAXED BACK to us at [phone] for Medicare purposes. For Medicare only, by signing this I certify the plan of care. Please let me know if there are questions or concerns regarding this plan of care. Physician Signature: ____Date:
--- NOTE | 2023-12-24 12:38 | HP.PTDCSUM ---
Discharge Summary D/C summary: It has been my pleasure to treat SAYDA CORREA referred by Miguelina Jones NP-C, with the diagnosis of FACET HYPERTROPHY ,DDD for a total of 6 visit(s). Discharge Date: Please see the following information for a summary of their discharge status. Subjective Subjective: Patient seems some better Pain Left Lower Extremity: Pain Intensity (Out of 10): 3 Objective Objective/Function: Patient is actually doing well with progression of strengthening and Leela ex's with progression of abolishing pain in leg Goals Goal 1:: Patient to be I with HEP for lumbar Goal 2:: Patient to demonstrate 50% improvement with less pain and improved function Goal 3:: Patient to improve lumbar ROM for function of recovery for job demands Goal 4:: Patient to improve back oswestry score by 5 points to improve QOL and function Goal 5:: Patient to improve posture/body mechanics for job demands Plan Plan: RTD D/C Information d/c sentence: If there are questions or concerns regarding this patient's physical therapy, please feel free to call me at [phone]. Thank you for the referral of this patient. Sincerely, Getachew Puente, PT, Cert MDT, OCS Balance/Gait/Functional tests Balance/Special Test Scores Oswestry Low Back Score: 23
== END 2023-09-16 19:00 | disposition home or self-care (01) ==
LOC: PT 17:00
PROVIDERS: PCP Nurse Practitioner Family; Referring Provider Nurse Practitioner Family; Visit Provider Nurse Practitioner Family
DX: M47.819 Spondylosis without myelopathy or radiculopathy, site unspecified (principal); M51.36 Other intervertebral disc degeneration, lumbar region
CPT/HCPCS: 97110; 97162

== ENCOUNTER → 2023-10-07 | Outpatient (CLI) | payer OTHER, SELFPAY ==
--- NOTE | 2023-10-07 16:35 | MRI_ITS ---
STUDY: MRI LUMBAR SPINE WITHOUT CONTRAST REASON FOR EXAM: Female, 57 years old. LOWER BACK PAIN WITH LT LEG RADICULOPATHY NKI TECHNIQUE: Standardized fat and water weighted pulse sequences were obtained in the sagittal and axial planes. COMPARISON: Lumbar spine radiograph July 02, 2023. FINDINGS: T12-L1: Normal endplates. Normal disc height, hydration and morphology. Normal bilateral facet joints. Normal central canal and bilateral lateral recesses. Normal bilateral intervertebral neural foramina. Normal lumbar lordosis. There is no substantial scoliosis. Normal conus medullaris that terminates at the L1-2 level. L1-2: Normal endplates. Normal disc height, hydration and morphology. Normal bilateral facet joints. Normal central canal and bilateral lateral recesses. Normal bilateral intervertebral neural foramina. L2-3: Normal endplates. Normal disc height, hydration and morphology. Normal bilateral facet joints. Normal central canal and bilateral lateral recesses. Normal bilateral intervertebral neural foramina. L3-4: Normal endplates. Normal disc height, hydration and morphology. Normal bilateral facet joints. Normal central canal and bilateral lateral recesses. Normal bilateral intervertebral neural foramina. L4-5: Normal endplates. Decreased disc height, hydration and morphology. Normal bilateral facet joints. Normal central canal and bilateral lateral recesses. Normal bilateral intervertebral neural foramina. L5-S1: Normal endplates. Decreased disc height, hydration and morphology. Normal bilateral facet joints. Normal central canal and bilateral lateral recesses. Normal bilateral intervertebral neural foramina. Normal visualized sacral ala. Normal visualized paraspinous soft tissue structures. MRI/Spine Lumbar (Routine) IMPRESSION: Degenerative disc disease L4-5 and L5-S1 Electronically Signed: Hemanth Murdock MD at 20:31 EST Reading Location ID and State: [id number] Tel , Service support ,
== END | disposition home or self-care (01) ==
LOC: MRI 16:29
PROVIDERS: PCP Nurse Practitioner Family; Referring Provider Nurse Practitioner Family; Visit Provider Nurse Practitioner Family
DX: M54.42 Lumbago with sciatica, left side (principal)
CPT/HCPCS: 72148

== ENCOUNTER → 2023-12-01 | Outpatient (CLI) | payer OTHER, SELFPAY ==
--- NOTE | 2023-12-01 14:33 | NEURO_ITS ---
NCS and/or EMG Patient Report Ordering Doctor: Miguelina Jones DATE OF SERVICE: 12/01/23 Mervat presents for electrodiagnostic testing of the left lower limb. She complains of numbness around the left foot and left calf. Electrodiagnostic findings: Left peroneal motor nerve demonstrates normal distal latency, amplitude and conduction velocity. No drop in conduction velocity across the fibular head. Left tibial motor responses within normal limits. Normal tibial and peroneal F?waves on the left side. Sensory responses are within normal limits. Needle EMG testing was performed in the left lower limb.
--- NOTE | 2023-12-01 14:33 | NEURO ---
NCS and/or EMG Patient Report Ordering Doctor: iMguelina Jones DATE OF SERVICE: 12/01/23 Mervat presents for electrodiagnostic testing of the left lower limb. She complains of numbness around the left foot and left calf. Electrodiagnostic findings: Left peroneal motor nerve demonstrates normal distal latency, amplitude and conduction velocity. No significant drop in conduction velocity across the fibular head. Left tibial motor response is within normal limits. Normal tibial and peroneal F?waves on the left side. Sensory responses are within normal limits. Needle EMG testing was performed in the left lower limb. All muscles tested, including the left lumbar paraspinals, showed no evidence of denervation with normal motor unit action potentials. Electrodiagnostic impression: This a normal electrodiagnostic study of the left lower limb. There is no electrodiagnostic evidence for peripheral neuropathy or lumbosacral radiculopathy. Multi Select Codes Neurology Neurology Interp Codes: 94874-29 Musc test done w/n test comp (interp) and 84779-44 Nrv cndj test 7-8 studies (interp)
== END | disposition home or self-care (01) ==
LOC: PSN 13:42
PROVIDERS: PCP Nurse Practitioner Family; Referring Provider Nurse Practitioner Family; Visit Provider Nurse Practitioner Family
DX: M79.605 Pain in left leg (principal)
CPT/HCPCS: 95886; 95910

== ENCOUNTER 2024-04-06 07:05 | Emergency (ER) | payer OTHER, SELFPAY ==
[2024-04-06 07:05] VITALS: BP 170/110; BP 172/100; PULSE 85; PULSE 89; RESP 14; TEMP 36.6; O2SAT 100
[2024-04-06 07:09] VITALS: BMI 33.8
--- NOTE | 2024-04-06 07:21 | RAD_ITS ---
INDICATION: knee pain EXAMINATION/TECHNIQUE: X-RAY - RIGHT XR Knee Complete 4 Views or More 5 VIEWS COMPARISON: No relevant prior comparison study available FINDINGS: SOFT TISSUES: No soft tissue swelling or gas. No radiopaque foreign body. BONES/JOINTS: No acute fracture or subluxation.. Normal alignment. There are mild degenerative changes of the medial compartment. There are moderate degenerative changes of the patellofemoral articulation. There are enthesophytes arising from the superior and inferior pole of the patella. There is lateral patellar tilt. No sclerotic or destructive changes observed. RAD/Knee 4 or More Views IMPRESSION: Degenerative changes. Electronically Signed: Harmony Bronson MD at 8:20 EDT ,
--- NOTE | 2024-04-06 07:22 | EDS_ITS ---
HPI History of Present Illness Chief Complaint: Lower Extremity Injury Informant: patient Narrative Narrative: 58-year-old female presenting to the emergency room with right knee pain. Patient states that she was getting ready for work ambulating and felt a pop in the posterior aspect of her right knee. She states she does not have pain in the knee except when she goes to bear weight. She is able to lay in the bed and bend the knee without pain. She states the knee feels stable. She notes that she has a meniscal tear in the left knee. She is not currently seeing orthopedic surgeon for the. Patient notes pain when she palpates posteriorly in the midline. Pain radiates down to the upper calf. PFSH [facility] Medical History Low HDL (under 40) Essential (primary) hypertension Pericardial effusion Obesity Basal cell carcinoma Home Medications ?Medication ?Instructions ?Recorded ?Last Taken ?Type valsartan 320 mg tablet (Diovan) 320 mg PO DAILY 10/25/18 Unknown History spironolactone 25 mg tablet 25 mg PO DAILY 04/06/24 Unknown History Allergy/AdvReac Type Severity Reaction Status Date / Time amlodipine AdvReac edema Verified 04/06/24 07:06 Family History Mother Heart disease Father Heart disease Surgical History H/O myomectomy History of Social History Smoking Status: Never smoker alcohol intake: never ROS ROS ED Constitutional Constitutional ED: Denies chills or weight loss Eyes Eyes: Denies change in vision or diplopia ENT ENT ED: Denies ear pain, rhinorrhea or sore throat Cardiovascular Cardiovascular: Denies chest pain, orthopnea, palpitations or racing heartbeat Respiratory/Chest Respiratory/Chest: Denies cough, dyspnea or orthopnea Gastrointestinal Gastrointestinal: Denies abdominal pain, diarrhea, nausea or vomiting Genitourinary Genitourinary ED: Denies dysuria, hematuria or urinary frequency Musculoskeletal Musculoskeletal: Reports other Details: See history of present illness ; Denies arthralgias or myalgias Integumentary Denies abscess or rash Neurologic Neurologic: Denies headache(s) or weakness Psychiatric Psychiatric: Denies anxiety, depression, suicidal ideation or suicidal thoughts Endocrine Endocrinology: Denies polydipsia, polyphagia or polyuria Allergic/Immunologic Allergic/Immunologic ED: Denies mouth swelling, tongue swelling or urticaria EXAM Physical Exam Const Vital Signs: 04/06/24 07:05 04/06/24 07:05 Temperature 98 F Temperature Source Temporal Pulse Rate 89 85 Respiratory Rate 14 14 Blood Pressure 170/110 H 172/100 H Blood Pressure Mean 130 124 Pulse Ox 100 100 Oxygen Delivery Method Room Air Room Air Positive well nourished and well developed General Appearance ED: well developed and NAD HEENT Reports normocephalic, head/scalp atraumatic and moist mucous membranes Eyes PERRL and EOMs intact bilaterally Neck no lymphadenopathy, supple and no JVD Resp normal respiratory effort and clear to auscultation bilaterally Cardio regular rate, regular rhythm and no murmurs GI normal to inspection, nondistended, normoactive bowel sounds and non-tender Palpation: soft Back/Spine no CVA tenderness and normal ROM Extremity Extremity Narrative: Patient guards the knee significantly thus limiting competent ligamentous examination. I do not palpate joint effusion. Anteriorly the knee appears nonswollen. She has pain to palpation posteriorly in the midline. I do not appreciate any significant swelling. Again ligaments appear stable but she has difficulty relaxing for the exam nation. She is able to range the knee on her own without pain General Extremety ED: Yes weight-bearing difficulty; Negative for edema General Extremity: weight-bearing difficulty; Negative for edema Neuro oriented x3 and CN's II-XII intact bilaterally Sensorium / Orientation: alert Motor Exam: strength 5/5 throughout Psych mental status grossly normal Mood & Affect: Negative for depressed or tearful Skin no rashes or lesions noted and no wounds MDM MDM MDM Narrative Medical decision making narrative: Differential diagnosis includes sprain strain fracture meniscal injury bursitis tendinitis ligamentous tear effusion My independent interpretation of the plain films of the right knee is degenerative changes particularly of the medial compartment and patellofemoral articulation. I do not appreciate significant joint effusion. Patient will use Denny wrap ice anti-inflammatories. If no improvement she should follow-up 10 to 14 days with orthopedics or with primary care. She states she is not sure that she can use crutches. She could use a cane to help offload and bear weight. History & Record Review Discussion w/independent historian: Patient Radiography Diagnostic Testing: Clinical Impression(s) from Imaging Studies Knee X-Ray 04/06/24 07:21 IMPRESSION: Degenerative changes. Electronically Signed: Harmony Bronson MD at 8:20 EDT Reading Location ID and State: [facility] / [place] Tel , Service support , Discharge Plan Triage Chief Complaint: Lower Extremity Injury ED Provider: Jeff Richardson Dx/Rx/DC Orders Clinical Impression: Acute pain of right knee, Degenerative arthritis of right knee Instructions: ED Meniscal Injury Knee Poss Prescriptions: No Action spironolactone 25 mg tablet 25 mg PO DAILY valsartan [Diovan] 320 mg tablet 320 mg PO DAILY Primary Care Provider: Miguelina Jones Referrals: Abel Armendariz DO [Med Staff - Active Staff] - 10-14 Days if not better Miguelina Jones, WORK ADJUSTMENT INSTRUCTOR-C [Primary Care Provider] - 10-14 Days if not better Print Language: Sami Disposition Disposition: Home, Self Care
[2024-04-06 09:02] VITALS: BP 146/86; PULSE 76; RESP 16; TEMP 36.3; O2SAT 93
== END 2024-04-06 09:03 | disposition home or self-care (01) ==
PROVIDERS: Emergency Provider Emergency Medicine; PCP Nurse Practitioner Family; Visit Provider Emergency Medicine
DX: M25.561 Pain in right knee (principal); M17.11 Unilateral primary osteoarthritis, right knee; I10 Essential (primary) hypertension
CPT/HCPCS: 73564; 99282

== ENCOUNTER → 2024-04-24 | Outpatient (CLI) | payer OTHER, SELFPAY ==
--- NOTE | 2024-04-24 11:00 | MRI_ITS ---
EXAM: MR RIGHT LOWER EXTREMITY WITHOUT INTRAVENOUS CONTRAST, KNEE CLINICAL INDICATION: KNEE SPRAIN, PAIN TECHNIQUE: Multiplanar and multisequence MR images of the right knee without intravenous contrast. COMPARISON: April 06, 2024 FINDINGS: BONES/JOINTS: Severe tricompartmental osteoarthrosis which is worse at the patellofemoral compartment. Torn posterior root ligament of the medial meniscus. Moderate amount of suprapatellar joint fluid. No fracture. No abnormal bone marrow signal. No synovial hypertrophy. No intra-articular body. No other meniscal tear. Lobulated lesion at the posterior aspect of the lateral femoral condyle may represent a chondroid lesion. EXTENSOR MECHANISM: Unremarkable. MEDIAL MENISCUS: See above. LATERAL MENISCUS: Unremarkable. MEDIAL CAPSULE/SUPPORTING STRUCTURES: Unremarkable. Intact. LATERAL CAPSULE/SUPPORTING STRUCTURES: Unremarkable. Lateral collateral ligamentous complex, inclusive of the popliteal tendon, are intact. ANTERIOR CRUCIATE LIGAMENT: Unremarkable. Intact. POSTERIOR CRUCIATE LIGAMENT: Unremarkable. Intact. MUSCLES: Unremarkable. CARTILAGE: Unremarkable. Intact. FLUID: Bilobed Trinidad''s cyst measures 3.7 x 1.0 cm with evidence of inferior leakage or rupture. No joint effusion. OTHER SOFT TISSUES: See above. MRI/Lower Ext Joint Only (Routine) IMPRESSION: 1. Severe tricompartmental osteoarthrosis which is worse at the patellofemoral compartment. 2. Torn posterior root ligament of the medial meniscus. 3. Moderate amount of suprapatellar joint fluid. 4. Bilobed Trinidad''s cyst measures 3.7 x 1.0 cm with evidence of inferior leakage or rupture. 5. Lobulated interosseous lesion at the posterior aspect of the lateral femoral condyle may represent achondroid lesion. Electronically Signed: Matteo Carter MD at 22:43 EDT ,
== END | disposition home or self-care (01) ==
LOC: MRI 10:33
PROVIDERS: PCP Nurse Practitioner Family; Referring Provider Physician Assistant Surgical; Visit Provider Physician Assistant Surgical
DX: M25.561 Pain in right knee (principal); M17.11 Unilateral primary osteoarthritis, right knee; S83.8X1A Sprain of other specified parts of right knee, initial encounter
CPT/HCPCS: 73721

== ENCOUNTER 2024-07-20 08:35 | Day surgery (SDC) | payer OTHER, SELFPAY ==
[2024-07-20] VITALS (8 sets, daily range): BP systolic 74–133; BP diastolic 42–90; PULSE 71–90; RESP 16–18; TEMP 36.4–36.7; O2SAT 96–100; BMI 32.1
== END 2024-07-20 11:14 | disposition home or self-care (01) ==
LOC: EN 08:38 → AC 08:39
PROVIDERS: PCP Nurse Practitioner Family; Referring Provider Nurse Practitioner Family; Visit Provider Internal Medicine Gastroenterology
PROC: 0DJD8ZZ Inspection of Lower Intestinal Tract, Via Natural or Artificial Opening Endoscopic (ICD-10-PCS; CPT 45378; principal; 2024-07-20 09:25)
DX: Z12.11 Encounter for screening for malignant neoplasm of colon (principal); K57.30 Diverticulosis of large intestine without perforation or abscess without bleeding; K64.1 Second degree hemorrhoids; I10 Essential (primary) hypertension; Z79.899 Other long term (current) drug therapy
CPT/HCPCS: 45378; A4216; J2405

== ENCOUNTER → 2024-10-09 | Outpatient (CLI) | payer OTHER, SELFPAY ==
--- NOTE | 2024-10-09 16:28 | RAD_ITS ---
STUDY: X-RAY - LEFT KNEE REASON FOR EXAM: Female, 58 years old. Unilateral primary osteoarthritis, right knee TECHNIQUE: 2 views of the left knee. COMPARISON: None. FINDINGS: Normal visualized distal femur. Normal visualized proximal tibia and fibula. Normal proximal tibiofibular articulation. There is no demonstrated fracture. There is moderate degenerative arthrosis of the medial femorotibial compartment with moderate joint space narrowing. There is mild degenerative arthrosis of the lateral femorotibial compartment. There is moderate degenerative arthrosis of the patellofemoral articulation. The soft tissue structures are unremarkable. RAD/Knee 1 or 2 Views IMPRESSION: Tricompartment degenerative arthrosis, most pronounced in the patellofemoral and medial femorotibial compartments. No demonstrated fracture. Electronically Signed: Nitish Mensah MD at 13:53 EST ,
--- NOTE | 2024-10-09 16:28 | RAD_ITS ---
STUDY: X-RAY - RIGHT KNEE REASON FOR EXAM: Female, 58 years old. Unilateral primary osteoarthritis, right knee. TECHNIQUE: 5 views of the right knee. COMPARISON: None. FINDINGS: Normal visualized distal femur. Normal visualized proximal tibia and fibula. Normal proximal tibiofibular articulation. There is no demonstrated fracture. There is mild degenerative arthrosis of the medial femorotibial compartment. There is mild degenerative arthrosis of the lateral femorotibial compartment. There is mild degenerative arthrosis of the patellofemoral articulation. There is a small joint effusion. There is ossific density located posterior to the lateral femorotibial joint space, which could represent a fabella versus loose body. The soft tissue structures are unremarkable. RAD/Knee 4 or More Views IMPRESSION: Mild tricompartment degenerative arthrosis. Small knee joint effusion. Ossific density located posterior to the lateral femorotibial joint space, which could represent a fabella versus loose body. Electronically Signed: Nitish Mensah MD at 13:44 EST ,
== END | disposition home or self-care (01) ==
LOC: RAD 16:22
PROVIDERS: PCP Nurse Practitioner Family; Referring Provider Student in an Organized Health Care Education/Training Program; Visit Provider Student in an Organized Health Care Education/Training Program
DX: M17.11 Unilateral primary osteoarthritis, right knee (principal)
CPT/HCPCS: 73560; 73564

== ENCOUNTER 2025-01-29 06:09 | Day surgery (SDC) | payer OTHER, SELFPAY ==
--- NOTE | 2025-01-29 06:30 | RAD_ITS ---
PROCEDURE: FLUORO GUIDED NEEDLE PLACEMENT 01/29/2025 REASON FOR EXAM: KNEE INJECTION RT TECHNIQUE: Intraoperative fluoroscopic services provided for right knee injection. COMPARISON: None FINDINGS: 9.5 seconds of fluoroscopy. 0.68 mGy. 3 images were submitted. RAD/Fluoro Guided Needle Placement IMPRESSION: Intraoperative imaging provided for right knee injection. Reading Location: [facility]
[2025-01-29 06:43] VITALS: BP 148/93; PULSE 85; RESP 16; TEMP 36.2; O2SAT 100; BMI 32.3
[2025-01-29 07:38] VITALS: BP 114/81; BP 121/85; BP 129/66; O2SAT 100
[2025-01-29] MEDS: Lidocaine 1% (5 ml sdv) 5 ML Vial (07:45)
[2025-01-29] MEDS: MethylPREDNISolone Acetate 80 MG/ML Vial (07:45)
[2025-01-29] MEDS: Bupivacaine 0.25% 30 ML Vial (07:45)
--- NOTE | 2025-01-29 07:51 | OP.PCM_ITS ---
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 Type of Anesthesia: Local RN Documented Start/Stop Times: Operation Date: 01/29/25 07:30 Case Time Into Pre-Op 01/29/25 06:10 Out of Pre-Op 01/29/25 07:29 Anesthesia Start 01/29/25 07:30 Into Room 01/29/25 07:30 Procedure Start 01/29/25 07:43 Procedure End 01/29/25 07:47 Anesthesia End 01/29/25 07:49 Out of Room 01/29/25 07:49 Procedure Start Time: 07:52 Procedure Stop Time: 07:52 Select all DRAINS/GRAFTS/IMPLANTS that apply: None Estimated Blood Loss: 1 Specimen collected: No Description of surgery: PROCEDURE PERFORMED: Right knee superomedial, superolateral, and inferomedial genicular nerves steroid injection under fluoroscopy guidance. COMPLICATIONS: None. DESCRIPTION OF PROCEDURE: History and physical of today was reviewed. Risks and benefits of the procedure were explained. The patient understood and agreed to proceed. Informed consent was obtained. IV inserted per routine protocol. The patient was taken to the operating room and placed in the supine position. The right knee was prepped and draped in a sterile fashion using iodine x3. Under fluoroscopy guidance on AP view, the right knee was visualized. The skin and subcutaneous tissue was anesthetized with approximately 5 mL of 1% lidocaine using a 25-gauge regular needle at the vicinity of the superomedial, superolateral, and inferomedial genicular nerves. Under direct visualization of fluoroscopy on AP view as well as lateral view, starting on the right superomedial, ending on the right inferomedial, passing through the right superolateral genicular nerves, the needle was passed through the skin. The tip of the needle was maneuvered and directed towards the diaphyseal junction of each corresponding nerve. Once tip of the needle was in the vicinity of the diaphysis and in contact with the bone, after confirmation on AP as well as lateral view and repeated negative aspiration for blood, a total of 12 mL of preservative-free 0.25% Marcaine with 80 mg of Depo-Medrol was injected in divided doses between those three levels. The needles were then removed intact. The patient experienced no sign or symptoms of intravascular injection. The patient experienced no paresthesia. The procedure was completed without any apparent difficulty or any complications. The patient appeared to tolerate it well. ASSESSMENT AND PLAN: This is a 59-year-old female with osteoarthritis of the right knee status post right knee superior medial, superior lateral, inferior medial genicular nerves steroid injection under fluoroscopic guidance, patient will continue her current medications, patient will follow-up in approximately 1 to 2 weeks for reevaluation. Surgical Findings: 0 Complications Complications: No Admit VTE Documentation VTE Present on Admission: No VTE Mechan Device Prophylaxis: None VTE Pharm Prophylaxis ordered?: No
[2025-01-29 08:07] VITALS: BP 126/78; BP 148/93; PULSE 75; RESP 16; TEMP 36.7; O2SAT 99
== END 2025-01-29 08:09 | disposition home or self-care (01) ==
LOC: SDC 06:09 → AC 06:10
PROVIDERS: PCP Nurse Practitioner Family; Referring Provider Anesthesiology Pain Medicine; Visit Provider Anesthesiology Pain Medicine
PROC: 3E0U3GC Introduction of Other Therapeutic Substance into Joints, Percutaneous Approach (ICD-10-PCS; CPT 20610; principal; 2025-01-29 07:25)
DX: M17.11 Unilateral primary osteoarthritis, right knee (principal); I10 Essential (primary) hypertension; Z79.899 Other long term (current) drug therapy
CPT/HCPCS: 64454; 76000; 77002; A4216

== ENCOUNTER → 2025-01-29 | Outpatient (CLI) | payer OTHER, SELFPAY ==
[2025-01-29 07:19] LABS: Anion Gap 12 (5-15); BUN 23 mg/dL (4-19); BUN/Creat Ratio 33.2 RATIO (10-20); Calcium,Total 9.6 mg/dL (7.6-11.0); Carbon Dioxide 21.4 mmol/L (21.0-32.0); Chloride 104 mmol/L (98-108); Creatinine, Serum 0.68 mg/dL (0.70-1.20); EST Glomerular Filtration Rate 100 (>60); Glucose 98 mg/dL (70-99); Sodium Level 138 mmol/L (133-145)
== END | disposition home or self-care (01) ==
PROVIDERS: PCP Nurse Practitioner Family; Referring Provider Physician Assistant Surgical; Visit Provider Physician Assistant Surgical
DX: I10 Essential (primary) hypertension (principal)
CPT/HCPCS: 80048

== ENCOUNTER → 2025-03-19 | Outpatient (CLI) | payer OTHER, SELFPAY | END | disposition home or self-care (01) | LOC: CT 07:33 | PROVIDERS: PCP Nurse Practitioner Family; Referring Provider Student in an Organized Health Care Education/Training Program; Visit Provider Student in an Organized Health Care Education/Training Program | DX: M17.11 Unilateral primary osteoarthritis, right knee (principal) | CPT/HCPCS: 73700; 93005 ==

== ENCOUNTER → 2025-04-20 | Outpatient (CLI) | payer OTHER, SELFPAY ==
--- NOTE | 2025-04-20 11:39 | BI_ITS ---
EXAM: SCRN MAMM (CAD)W/JEAN-PAUL BILAT DATE: 04/20/2025 CLINICAL HISTORY: F, Age 59 y/o , BREAST CANCER SCREENING TECHNIQUE: SCRN MAMM (CAD)W/JEAN-PAUL BILAT COMPARISON: Prior exam(s) were compared FINDINGS: TISSUE DENSITY: The breasts are heterogeneously dense, which may obscure small masses. Bilateral Breast Mammographic Findings: No suspicious masses, calcifications or other abnormalities are identified. BI/SCRN MAMM (CAD)W/JEAN-PAUL BILAT IMPRESSION: No mammographic evidence of malignancy in either breast OVERALL FINAL ASSESSMENT BI-RADS 1: NEGATIVE. RECOMMENDATION: Routine annual follow-up in 1 Year A letter with findings and recommendations will be mailed to the patient. Reading Location: [id number]
--- NOTE | 2025-04-20 11:39 | BI_ITS ---
EXAM: SCRN MAMM (CAD)W/JEAN-PAUL BILAT DATE: 04/20/2025 CLINICAL HISTORY: F, Age 59 y/o , BREAST CANCER SCREENING TECHNIQUE: SCRN MAMM (CAD)W/JEAN-PUAL BILAT COMPARISON: Prior exam(s) were compared FINDINGS: TISSUE DENSITY: The breasts are heterogeneously dense, which may obscure small masses. Bilateral Breast Mammographic Findings: No suspicious masses, calcifications or other abnormalities are identified. BI/SCRN MAMM (CAD)W/JEAN-PAUL BILAT IMPRESSION: No mammographic evidence of malignancy in either breast OVERALL FINAL ASSESSMENT BI-RADS 1: NEGATIVE. RECOMMENDATION: Routine annual follow-up in 1 Year A letter with findings and recommendations will be mailed to the patient. Reading Location: [id number]
[2025-04-20 13:29] LABS: Vitamin B12 497 pg/mL (180-914); Vitamin D,25 Hydroxy 87.9 ng/mL (30-100)
== END | disposition home or self-care (01) ==
PROVIDERS: PCP Nurse Practitioner Family; Referring Provider Nurse Practitioner Family; Visit Provider Nurse Practitioner Family
DX: Z12.31 Encounter for screening mammogram for malignant neoplasm of breast (principal); E53.8 Deficiency of other specified B group vitamins; E55.9 Vitamin D deficiency, unspecified
CPT/HCPCS: 36415; 77063; 77067; 82306; 82607

== ENCOUNTER 2025-05-07 05:32 | Day surgery (SDC) | payer OTHER, SELFPAY ==
[2025-04-10 16:26] LABS: Hematocrit 40.3 % (37-47); Hemoglobin 13.7 g/dL (12.0-15.0); Immature Granulocytes Count 0.010 X10^3/uL (0.0-0.0); Mean Corp Hgb Conc 34.0 g/dL (32-36); Mean Corpuscular Volume 85.2 fL (81-99); Mean Platelet Vol. 9.7 fl (6.2-12.0); NRBC Flagged by Analyzer 0 % (0-5); Platelet Count 342 K/mm3 (150-450); RBC Distribution Width CV 12.9 % (11.6-14.6); RBC Distribution Width SD 39.8 fl (35.1-43.9); Red Blood Count 4.73 M/mm3 (4.2-5.4); White Blood Count 8.6 K/mm3 (4.4-11.0)
--- NOTE | 2025-04-10 16:42 | PAT.ANESEVAL ---
Pre-Assessment Diagnosis/Proposed Procedure Planned Operative Procedure(s): ROBOTIC ASSISTED RIGHT TOTAL KNEE ARTHROPLASTY, ERAS Anesthesia History Anesthesia History - director of digital technology: Anesthesia History - director of digital technology Hx Hospitalization No 04/10/25 14:15 Any Problems With Anesthesia No 04/10/25 14:15 Cholinesterase deficiency No 04/10/25 14:15 You/Your Family Experience No 04/10/25 14:15 fever (hyperthermia) with Relationship Recent Exposure to Contagious No 07/20/24 09:05 Disease Does patient have nerve No 04/10/25 14:15 stimulator Patient instructed to have device shut off --Does patient have Pacemaker or ICD? When Was Last Pacemaker Check QUESTION #4 FULL TEXT: You/Your Family Experience fever (hyperthermia) with Anesthesia Last Oral Intake Last Oral intake: Last Oral Intake NPO since Meds taken in AM with sips of water? Meds patient instructed to take am of surgery PONV PONV - director of digital technology: PONV - director of digital technology Female Yes 04/10/25 14:15 HX of Motion Sickness No 04/10/25 14:15 HX of N/V After Surgery No 04/10/25 14:15 Non-Smoker Yes 04/10/25 14:15 Duration of Surgery greater Yes 04/10/25 14:15 than 60 minutes Number of Risk Factors 3 04/10/25 14:15 PONV Score Moderate Risk 04/10/25 14:15 Height & Weight Height & Weight: Anesthesia: Height & Weight Height 4 ft 11 in 01/29/25 06:43 Respiratory Assessment Respiratory Assessment - director of digital technology: Respiratory Tract Infection Hx - director of digital technology Hx Respiratory Tract Infection No 04/10/25 14:15 STOP Sleep Apnea STOP Sleep Apnea - director of digital technology: STOP Sleep Apnea - director of digital technology Hx Hypertension Yes: PER PT, CONTROLLED ON 04/10/25 14:15 MEDS Hx Sleep Apnea No 04/10/25 14:15 CPAP BIPAP Do you snore loudly (louder No 04/10/25 14:15 than talking or can be heard Do you often feel tired/ No 04/10/25 14:15 fatigued/ sleepy during daytime? Has anyone observed you stop No 04/10/25 14:15 breathing during sleep? STOP Results Negative 04/10/25 14:15 QUESTION #5 FULL TEXT : Do you snore loudly (louder than talking or can be heard through closed doors)? 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 Specify any problems Hx of Preganancy in last 3 No 04/10/25 14:15 Months Nurse Filling Out Transfusion MGRICHERIITH 04/10/25 14:15 & Questions: Date: 04/10/25 04/10/25 14:15 Time: 14:16 04/10/25 14:15 Patient unable to answer at this time (ie. confused, unrespo /Reproduction History /Reproductive History - director of digital technology: /Reproductive Hx- director of digital technology Hx Now No 04/10/25 14:15 Gestational Age (in weeks): EDC: Hx Hx Para Hx Section SAB No 04/10/25 14:15 [facility] Medical History (Updated 04/10/25 @ 14:23 by Abbie Lerner) Hypertension Wears glasses History of steroid therapy Arthritis Migraine headache Non-smoker History of echocardiogram Normal stress echocardiogram History of Holter monitoring Cardiology follow-up encounter Low HDL (under 40) Essential (primary) hypertension Pericardial effusion Obesity Basal cell carcinoma Home Medications ?Medication ?Instructions ?Recorded ?Last Taken ?Type valsartan 320 mg tablet (Diovan) 320 mg PO DAILY 10/25/18 01/28/25 History spironolactone 25 mg tablet 25 mg PO DAILY 04/06/24 01/28/25 History cholecalciferol (vitamin D3) 25 25 mcg PO DAILY 07/18/24 01/26/25 History mcg (1,000 unit) capsule (Vitamin D3) [id number] 250 2 tab PO Q4H PRN pain 04/10/25 Unknown History mg-250 mg-65 mg tablet (Excedrin Extra Strength) magnesium glycinate 100 mg (as 200 mg PO DAILY 04/10/25 Unknown History glycinate) tablet Allergy/AdvReac Type Severity Reaction Status Date / Time amlodipine AdvReac edema Verified 04/10/25 14:11 Family History Mother Heart disease Father Heart disease Surgical History (Updated 04/10/25 @ 13:37 by Abbie Lerner) History of colonoscopy History of selective injection of anesthetic agent around lumbar nerve root H/O myomectomy History of Social History household members: spouse current occupational status: employed 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 Normal sinus rhythm. Stress test pertinent findings: November 07, 2018. EF of 55% increases to 65% with stress. No evidence of ischemia at a high workload. Patient achieved 10.1 METS. Echo (EF%) pertinent findings: September 22, 2018. EF of 65%. RVSP is 28 mmHg. No aortic stenosis is noted. Consult pertinent findings: October 12, 2018. Dr. Hester. 1. Chest pain-atypical. Patient has a normal calcium score. Assess exercise tolerance with a stress echo (see above). 2. Hypertension-not well-controlled. Start Norvasc 5 mg. Start salt restriction. Recommendation Anesthesia Recommendation Anesthesia recommendation: OPTIMIZED for anesthesia
[2025-04-10 17:11] LABS: Albumin, Serum 4.3 g/dL (3.5-5.0); Anion Gap 13 (5-15); BUN 17 mg/dL (4-19); BUN/Creat Ratio 23.4 RATIO (10-20); Calcium,Total 9.2 mg/dL (7.6-11.0); Carbon Dioxide 24.2 mmol/L (21.0-32.0); Chloride 103 mmol/L (98-108); Glucose 55 mg/dL (70-99); Potassium 3.9 mmol/L (3.3-5.1)
[2025-04-10 17:45] LABS: Magnesium 2.2 mg/dL (1.5-2.2)
[2025-05-07] VITALS (13 sets, daily range): BP systolic 87–127; BP diastolic 54–92; PULSE 79–101; RESP 12–20; TEMP 36.4–36.8; O2SAT 94–100; BMI 32.0
--- OUTSIDE RECORDS SUMMARY | 2025-05-07 05:35 | XMS RPT_ITS | CCD ---
Author Organization [facility] Care Team Providers Care Disease Control Inspector Name Role Phone Ivette Ramos Unavailable Severiano Kuhn Unavailable Lisa Pop Unavailable Agnes Boyle Unavailable Ilir Alicea Unavailable Gulshan, Letty Unavailable Unavailable Rebecca Abdalla Unavailable Unavailable Unavailable Unavailable Ivette Ramos Unavailable Severiano Kuhn Unavailable Lisa Pop Unavailable Agnes Boyle Unavailable Lm Hesterril S Unavailable Ilir Alicea Unavailable Slarb, Letty Unavailable Unavailable Rebecca Abdalla Unavailable Unavailable Unavailable Unavailable Kacie, [place] S Unavailable Steven [place] Unavailable Unavailable Unavailable Unavailable Steven He Unavailable Unavailable [place] Agnes Unavailable Cindy Oro Unavailable Unavailable Ivette Ramos CNP Unavailable Severiano Kuhn MD Unavailable Dr. Lisa Pop MD Unavailable Agnes Boyle DO Unavailable Rip Hester MD Unavailable Dr. Ilir Alicea Unavailable Slajune STAPLE CUTTER, Letty Unavailable Unavailable Rebecca Abdalla Unavailable Unavailable Neri STAPLE CUTTER, Steven Unavailable Unavailable Unavailable Unavailable Shorty STAPLE CUTTER, Cindy Unavailable Unavailable Unavailable Primary Care Provider Unavailabl e Robert ELECTRIC DOLLY OPERATOR, Miguelina Unavailable Robert ELECTRIC DOLLY OPERATOR, Miguelina Unavailable Moira GLADYSPeyton Unavailable Unavailable Brittlatisha Ivette Unavailable Friend, Dr. Devries Unavailable Robert ELECTRIC DOLLY OPERATOR, Miguelina Attending Unavailable Ciesa, Ivette Referring Unavailable Robert ELECTRIC DOLLY OPERATOR, Miguelina Consulting Unavailable Robert, DOOR PATCHER-C Miguelina Primary Care Provider Robert, DOOR PATCHER-C Miguelina Referring Provider Chanell NATAARJAN, DELGADO Tomlin Attending Provider Robert, DOOR PATCHER-C Miguelina Primary Care Provider Robert, DOOR PATCHER-C Miguelina Referring Provider Robert, DOOR PATCHER-C Miguelina Other Provider Dr. Abilio Acosta Attending Provider Robert DOOR PATCHER-C, Miguelina Primary Care Provider Dr. Abel Armendariz DO Attending Provider Dr. Abel Armendariz DO Referring Provider Dr. Maxim Pham MD Attending Provider Dr. Maxim Pham MD Referring Provider Marisol Travis Attending Provider [phone] Marisol Travis Referring Provider Robert DOOR PATCHER-C, Miguelina Primary Care Provider Dr. Abel Armendariz DO Attending Provider [phone] Dr. Abel Armendariz DO Referring Provider Dr. Rip Hester MD Attending Provider Robert DOOR PATCHER-C, Miguelina Attending Provider Robert DOOR PATCHER-C, Miguelina Referring Provider Dr. Agnes Boyle DO Other Provider Karen, Jaycob Attending Unavailable Robert, Miguelina Referring Unavailable Robert, Miguelina Primary Care Unavailable Maxim Pham Attending Unavailable Maxim Pham Referring Unavailable Robert, Miguelina Primary Care Unavailable Spittle, Abel Referring Unavailable Spittle, Abel Attending Unavailable Robert, Miguelina Primary Care Unavailable Robert, Miguelina Attending Unavailable Robert, Miguelina Referring Unavailable Robert, Miguelina Primary Care Unavailable Assessment, Health Risk Attending Unavaila ble Assessment, Health Risk Referring Unavaila ble Robert, Miguelina Primary Care Unavailable Megan Ziegler Attending Unavailable Robert, Miguelina Primary Care Unavailable Rip Hester Attending Unavailable Spittle, Abel Referring Unavailable Robert, Miguelina Primary Care Unavailable Jaycob Jones Consulting Unavailable Jaycob Jones Attending Unavailable Robert, Miguelina Referring Unavailable Robert, Miguelina Primary Care Unavailable Spittle, Abel Referring Unavailable Spittle, Abel Attending Unavailable Robert, Miguelina Primary Care Unavailable Spittle, Abel Attending Unavailable Spittle, Abel Referring Unavailable Robert, Miguelina Primary Care Unavailable Marisol Justice Attending Unavailable Marisol Justice Referring Unavailable Robert, Miguelina Primary Care Unavailable Agnes Boyle Consulting Unavailable Robert, Miguelina Attending Unavailable Robert, Miguelina Referring Unavailable Robert, Miguelina Primary Care Unavailable Robert, Miguelina Primary Care Unavailable Spittle, Abel Attending Unavailable Spittle, Abel Referring Unavailable Allergies Allergy Classification Reported Allergen(s) Allergy Type Date of Onset Reaction(s) Facility (11 sources) amLODIPine Drug Allergy 11-07-2018 edema [facility] (1 source) amLODIPine Drug Allergy 04-10-2025 [facility] Repository Medications Current Medications Medication Drug Class(es) Dates Sig (Normalized) Sig (Original) acetaminophen 250 mg / aspirin 250 mg / caffeine 65 mg oral tablet (1 source) Platelet Aggregation Inhibitor, Nonsteroidal Anti-inflammatory Drug, Central Nervous System Stimulant, Methylxanthine Start: 04-10-2025 Aspirin-Acetaminoph en-Caffeine (Excedrin Extra Strength) 250-250-65 mg tablet Active 2 {tbl} PO Q4H as needed for pain April 10, 2025 12:00am Acetaminophen / Caffeine (2 sources) Central Nervous System Stimulant, Methylxanthine Start: 06-09-2024 Acetaminophen-Caffe ine (Excedrin Tension Headache) 500-65 mg tablet Active 1 {tbl} PO Q12H as needed for migraine headache June 09, 2024 12:00am cholecalciferol 0.025 mg oral capsule (3 sources) Vitamin D Start: 07-18-2024 take 1 capsule by mouth once daily Cholecalciferol (Vitamin D3) (Vitamin D3) 25 mcg (1,000 unit) capsule Active 25 ug PO DAILY July 18, 2024 1:00am magnesium glycinate 100 mg oral tablet (1 source) Start: 04-10-2025 Magnesium Glycinate 100 mg tablet Active 200 mg PO DAILY April 10, 2025 12:00am spironolactone 25 mg oral tablet (20 sources) Aldosterone Antagonist Start: 04-06-2024 take 1 tablet by mouth once daily Spironolactone 25 mg tablet Active 25 mg PO DAILY April 06, 2024 12:00am Start: 06-09-2023 take 1 tablet by [facility] once daily spironolactone 25 mg oral tablet 1 (one) Tablet daily as directed for 0 days Quantity: 90 {Tablet} Refills: 3 Ordered: 09-Jun-2023 Miguelina Jones CNP Start : 09-Jun-2023 Active Start: 07-28-2022 take 1 tablet by [facility] once daily Spironolactone 25 MG Oral Tablet 1 (one) Tablet daily as directed for 0 days Quantity: 90 {Tablet} Refills: 3 Ordered: 28-Jul-2022 Miguelina Jones CNP Start : 28-Jul-2022 Active Start: 06-06-2021 take 1 tablet by [facility] once daily Spironolactone 25 MG Oral Tablet 1 (one) Tablet daily as directed for 0 days Quantity: 90 {Tablet} Refills: 3 Ordered: 06-Jun-2021 Patria Everett LPN Start : 06-Jun-2021 Active valsartan 320 mg oral tablet (20 sources) Angiotensin 2 Receptor Will Start: 10-25-2018 take 1 tablet by mouth once daily Valsartan (Diovan) 320 mg tablet Active 320 mg PO DAILY October 25, 2018 1:00am Start: 07-26-2017 End: 04-04-2018 take 1 tablet by mouth once daily Diovan 320 MG Oral Tablet 1 (one) Tablet daily for 0 days Quantity: 90 {Tablet} Refills: 3 Ordered: 04-Apr-2018 Ivette Ramos CNP, CNP, Mary E Start : 26-Jul-2017 End : 04-Apr-2018 Inactive Completed/Discontinued Medications Medication Drug Class(es) Dates Sig (Normalized) Sig (Original) amLODIPine 5 mg oral tablet (20 sources) Dihydropyridine Calcium Channel Will Start: 10-12-2018 End: 10-25-2018 take 1 tablet by mouth once daily Amlodipine 5 mg tablet Discontinued 5 mg PO DAILY 90 October 12, 2018 1:00am October 25, 2018 10:27am amoxicillin 875 mg oral tablet (20 sources) [...] Quantity: 28 {Tablet} Refills: 0 Ordered: 24-Aug-2014 Rachel Ivette Start : 24-Aug-2014 End : 07-Sep-2014 Inactive [...] qpm x 1 week then 2 bid Start: 06-19-2019 take 1 tablet by [facility] once in the morning, then take 1 tablet by mouth twice daily, then take 2 tablets by mouth once daily in the morning, then take 1 tablet by mouth once daily in the evening, then take 2 tablets by mouth twice daily CONTRAVE, 8/ 90MG (Oral Tablet) (Free Text) 1 Tablet TAD for 0 days Quantity: 120 {QS} Refills: 3 Ordered: 19-Jun-2019 Ivette Ramos CNP, CNP Jazmyn Start : 19-Jun-2019 Active Comments: avoid with high fat mealTake 1 q am x 1 week, then 1 bid x 1 week , Then 2 qam and 1 qpm x 1 week then 2 bid Start: 10-11-2018 End: 10-12-2018 Naltrexone-Bupropion (Contra ve) 8-90 mg tablet extended release Discontinued 1 {tbl} PO EVERY MORNING October 11, 2018 1:00am October 12, 2018 4:11pm Start: 09-27-2017 End: 09-19-2018 take 2 tablets by mouth twice daily at mealtime CONTRAVE, 8/ 90MG (Oral Tablet) (Free Text) 2 (two) Tablet bid for 30 days Quantity: 120 {QS} Refills: 6 Ordered: 19-Sep-2018 Ivette Ramos CNP, CNP Ivette Hodge Start : 27-Sep-2017 End : 19-Sep-2018 Inactive Comments: avoid with high fat meal Start: 09-27-2017 take 2 tablets by mo ut twice daily at mealtime CONTRAVE, 8/ 90MG (Oral Tablet) (Free Text) 2 (two) Tablet bid for 30 days Quantity: 120 {QS} Refills: 6 Ordered: 27-Sep-2017 Ivette Ramos CNP, CNP, Mary E Start : 27-Sep-2017 Active Comments: avoid with high fat meal Comment on above: avoid with high fat meal avoid with high fat mealTake 1 q am x 1 week, then 1 bid x 1 week , Then 2 qam and 1 qpm x 1 week then 2 bid diazePAM 5 mg oral tablet (20 sources) Benzodiazepine Start : 06-17 End: 07-19 take 0.5-1 tablets by mouth twice daily VALIUM, 5MG (Oral Tablet) 1/2-1 Tablet BID for 0 days Quantity: 10 {Tablet} Refills: 0 Ordered: 17-Jun-2009 Resham Cosme RN Start : 17-Jun-2009 End : 19-Jul-2009 Inactive doxycycline hyclate 100 mg oral capsule (20 sources) Tetracycline-class Drug Start : 06-25 End: 01-10 take 1 capsule by mouth twice daily Doxycycline Hyclate 100 MG Oral Capsule 1 (one) Capsule bid for 0 days Quantity: 20 {Capsule} Refills: 0 Ordered: 10-Jan-2021 Steven He LPN Start : 25-Jun-2020 End : 10-Jan-2021 Inactive 24 hr etodolac 400 mg extended release oral tablet (20 sources) Nonsteroidal Anti-inflammatory Drug Start : 06-17 End: 07-19 take 2 tablets by mouth once daily LODINE XL, 400MG (Oral Tablet Extended Release 24 Hour) 2 (two) Tablet ER 24HR Daily w/ food for 0 days Quantity: 20 {Tablet_ER_24HR} Refills: 0 Ordered: 17-Jun-2009 Reshma Cosme RN Start : 17-Jun-2009 End : 19-Jul-2009 Inactive hydroCHLOROthiazide 12.5 mg oral capsule (20 sources) Thiazide Diuretic Start : 06-06 End: 06-06 take 1 capsule by mouth once daily hydroCHLOROthiazide 12.5 MG Oral Capsule 1 (one) Capsule daily for 90 days Quantity: 90 {Capsule} Refills: 3 Ordered: 06-Jun-2021 Ivette Ramos Start : 06-Jun-2021 End : 06-Jun-2021 Inactive Start: 06-03-2020 take 1 capsule by mo [facility] once daily hydroCHLOROthiazide 12.5 MG Oral Capsule 1 (one) Capsule daily for 90 days Quantity: 90 {Capsule} Refills: 3 Ordered: 03-Jun-2020 Steven He LPN Start : 03-Jun-2020 Active Start: 06-02-2019 take 1 capsule by [facility] once daily hydroCHLOROthiazide 12.5 MG Oral Capsule 1 (one) Capsule daily for 90 days Quantity: 90 {Capsule} Refills: 3 Ordered: 02-Jun-2019 Ivette Ramos CNP, CNP, Mary E Start : 02-Jun-2019 Active Start: 08-30-2018 End: 10-24-2018 take 1 capsule by mouth once daily Hydrochlorothiazide 12.5 mg capsule Discontinued 12.5 mg PO DAILY October 11, 2018 1:00am October 12, 2018 4:31pm hydroCHLOROthiazide 12.5 mg / valsartan 160 mg oral tablet (20 sources) Thiazide Diuretic, Angiotensin 2 Receptor Will Start: 12-25-2013 End: 12-26-2013 take 1 tablet by mouth once daily DIOVAN HCT, 160-12.5MG (Oral Tablet) 1 (one) Tablet daily for 0 days Quantity: 90 {Tablet} Refills: 3 Ordered: 26-Dec-2013 JOSELITO Shipley LPN Start : 25-Dec-2013 End : 26-Dec-2013 Inactive Comment on above: Take 1 tablet by [facility] once daily. irbesartan 300 mg oral tablet (20 sources) Angiotensin 2 Receptor Will Start: 09-16-2018 End: 10-25-2018 take 1 tablet by mouth once daily Irbesartan 300 mg tablet Discontinued 300 mg PO DAILY October 11, 2018 1:00am October 25, 2018 10:27am levoFLOXacin 750 mg oral tablet (20 sources) Quinolone Antimicrobial Start: 10-25-2018 End: 11-01-2018 take 1 tablet by mouth once daily LevoFLOXacin 750 MG Oral Tablet 1 (one) Tablet daily for 7 days Quantity: 7 {Tablet} Refills: 0 Ordered: 25-Oct-2018 Ivette Ramos Start : 25-Oct-2018 End : 01-Nov-2018 Inactive levonorgestrel 0.133678 mg/hr intrauterine system (1 source) Progestin, Progestin-containi ng Intrauterine Device levonorgestrel (MIRENA) 20 mcg/24 hr INTRAUTERINE IUD 1 Each by INTRAUTERINE route one time only. 0 Active Comment on above: 1 Each by INTRAUTERI NE route one time only. losartan potassium 100 mg oral tablet (20 sources) Angiotensin 2 Receptor Will Start: 10-11-2018 End: 10-11-2018 take 1 tablet by mouth once daily Losartan 100 mg tablet Discontinued 100 mg PO DAILY October 11, 2018 1:00am October 11, 2018 5:52pm Start: 04-04-2018 End: 09-16-2018 take 1 tablet by mouth once daily Losartan Potassium 100 MG Oral Tablet 1 (one) Tablet Tablet daily for 0 days Quantity: 90 {Tablet} Refills: 3 Ordered: 16-Sep-2018 Ivette Ramos Start : 04-Apr-2018 End : 16-Sep-2018 Inactive Magnesium (17 sources) Magnesium two ti mes daily Active PARoxetine hydrochloride 10 mg oral tablet (13 sources) Serotonin Reuptake Inhibitor Start: 3 take 1 tablet by mouth at bedtime PARoxetine HCL 10 mg oral tablet 1 (one) tablet at bedtime for 0 days Quantity: 30 {Tablet} Refills: 6 Ordered: 09-Jun-2023 Miguelina Jones CNP Start : 09-Jun-2023 Active Start: 05-18-2023 take 1 tablet by [facility] at bedtime PARoxetine HCL 10 mg oral tablet 1 (one) tablet at bedtime for 0 days Quantity: 30 {Tablet} Refills: 6 Ordered: 18-May-2023 Miguelina Jones CNP Start : 18-May-2023 Active Start: 12-01-2022 take 1 tablet by [facility] at bedtime PARoxetine HCL 10 mg oral tablet 1 (one) tablet at bedtime for 0 days Quantity: 30 {Tablet} Refills: 6 Ordered: 01-Dec-2022 Miguelina Jones CNP Start : 01-Dec-2022 Active potassium chloride 20 meq extended release oral tablet (20 sources) Start: 06-28-2020 End: 07-28-2020 take 1 tablet by mouth every other day Potassium Chloride ER 20 MEQ Oral Tablet Extended Release 1 (one) Tablet qod for 30 days Quantity: 30 {Tablet} Refills: 0 Ordered: 28-Jun-2020 Agnes Boyle DO Start : 28-Jun-2020 End : 28-Jul-2020 Inactive Start: 10-12-2018 End: 10-12-2018 take 1 tablet by mouth once daily Potassium Chloride 10 mEq tablet extended release Discontinued 10 meq PO DAILY 30 3 October 12, 2018 4:13pm October 12, 2018 4:31pm Start: 10-11-2018 End: 10-12-2018 take 1 tablet by mouth every other day Potassium Chloride 20 mEq tablet,ER particles/crystals Discontinued 20 meq PO .QOD October 11, 2018 1:00am October 12, 2018 4:12pm Start: 06-03-2018 End: 10-24-2018 take 1 tablet by mouth every other day Potassium Chloride ER 20 MEQ Oral Tablet Extended Release 1 (one) Tablet qod for 30 days Quantity: 30 {Tablet} Refills: 3 Ordered: 24-Oct-2018 Rebecca Abdalla Start : 03-Jun-2018 End : 24-Oct-2018 Discontinued predniSONE 10 mg oral tablet (20 sources) Start: 07-02-2023 take 1 tablet by mouth at mealtime predniSONE 10 mg oral tablet 1 (one) Tablet as directed for 0 days Quantity: 30 {Tablet} Refills: 0 Ordered: 02-Jul-2023 Miguelina Jones CNP Start : 02-Jul-2023 Active Comments: with food Start: 08-24-2014 End: 06-07-2015 PREDNISONE, 10MG (Oral Table t) 1 (one) Tablet bidx 3 days, the daily x 3 days, then 1/2 x3 da for 0 days Quantity: 12 {Tablet} Refills: 0 Ordered: 07-Jun-2015 Letty Gaffney LPN Start : 24-Aug-2014 End : 07-Jun-2015 Discontinued Comments: with food Comment on above: with food quercetin 500 mg oral capsule (14 sources) quercetin 500 mg oral capsule (500 mg) Inactive tiZANidine 4 mg oral tablet (3 sources) Central alpha-2 Adrenergic Agonist Start: 3 take 1 tablet by mouth three times daily tiZANidine 4 mg oral tablet 1 Tablet 3 times per day;muscle spasticity for 0 days Quantity: 30 {Tablet} Refills: 0 Ordered: 02-Jul-2023 Miguelina Jones CNP Start : 02-Jul-2023 Active traMADol hydrochloride 50 mg oral tablet (20 sources) Opioid Agonist Start: 9 End: 9 take 1-2 tablets by mouth three times daily as needed ULTRAM, 50MG (Oral Tablet) 1-2 Tablet TID prn for 0 days Quantity: 60 {Tablet} Refills: 0 Ordered: 17-Jun-2009 Reshma Cosme RN Start : 17-Jun-2009 End : 19-Jul-2009 Inactive vitamin b6 100 mg oral tablet (1 source) take 1 tablet by mouth once daily pyridoxine (VITAMIN B-6) 100 mg ORAL tablet Take 100 mg by mouth once daily. 0 Active Comment on above: Take 100 mg by mouth once daily. Vitamin D3 5000 units daily (9 sources) Vitamin D3 5000 units daily Active NEGATED: Highlighted row has not occurred!drug or medication (17 sources) No Known Histori bernie Medications NEGATED: Highlighted row has not occurred!No Known Historical Medications (10 sources) No Known Histori bernie Medications Problems Active Problems Problem Classification Problem Date Documented Date Episodic/Chronic Administrative/socia l admission (20 sources) Medical examinations/reports status; Translations: [Patient encounter status] Resolved: 7 03-31-2018 Episodic Comment on above: wellness physical fo r [place] Benign neoplasm of uterus (20 sources) Uterine leiomyoma; Translations: [Uterine leiomyoma, unspecified location] 12-01-2022 Episodic Comment on above: no bleeding since pt 2021.has multiple, surgery in past, now with large fibroids t/o uterus. no bleeding since pt 2021.no surgery unless symptomatic per Ray multiple, surgery in past, now with large fibroids t/o uterus. Cardiac dysrhythmias (20 sources) Tachycardia; Translations: [Tachycardia] Resolved: 9 06-03-2018 Episodic Diseases of white blood cells (20 sources) Leukocytosis; Translations: [Elevated WBC count] 06-03-2020 Chronic Disorders of lipid metabolism (20 sources) Hypertriglyceridemia; Translations: [Hyperglyceridemia] 06-03-2018 Chronic Essential hypertension (20 sources) Benign essential hypertension; Translations: [Hypertensive disorder] Onset: 5 06-03-2018 Chronic Comment on above: stable on diovan and hctzhistory of induced hypertension going off of contrav e med history reviewed in detail, reviewed with pharmacist, cardio note reviewed Was on diovan with better control, increased swelling with norvasc. med history reviewed in detail, reviewed with pharmacist, cardio note reviewed Was on diovan with better control, increased swelling with norvasc, back on diovan and hctz stable on spironolac tone, K+ is normalprevious: cardio note reviewed, was on diovan with better control, increased swelling with norvasc, back on diovan and hctz, K low will Dc hctz and add spirolactone and self monitor CONTROLLED ON MED Fluid and electrolyte disorders (20 sources) Dehydration; Translations: [Hypokalemia] Resolved: 3 06-03-2018 Episodic Comment on above: low in past resolved with spirolactone Genitourinary symptoms and ill-defined conditions (20 sources) Blood in urine; Translations: [Hematuria] 06-01-2022 Episodic Malaise and fatigue (20 sources) Fatigue Episodic Menstrual disorders (1 source) Menorrhagia; Translations: [Excessive and frequent menstruation with regular cycle] Onset: 1 03-31-2011 Chronic Nonspecific chest pain (20 sources) Chest pain; Translations: [Chest pain] Resolved: 9 09-16-2018 Episodic Comment on above: on and off, history of pericarditis, will repeat echo and cTA on and off, history of pericarditis, will repeat echo and cTA, reread cardio note Nutritional deficiencies (20 sources) Vitamin D deficiency; Translations: [Vitamin D deficiency] 06-01-2022 Chronic Comment on above: recheck in a year (2 023)11/2021: vit d 58.6, on 5000 iu qd Nutritional deficiencies (20 sources) Cobalamin deficiency; Translations: [B12 deficiency] 01-13-2021 Episodic Osteoarthritis (4 sources) Osteoarthritis of right knee joint; Translations: [Unilateral primary osteoarthritis, right knee] Onset: 5 04-14-2024 Chronic Other aftercare (20 sources) Patient encounter status; Translations: [Medication management] 01-10-2021 Episodic Comment on above: on Contrave 20lbs in 2 months Other circulatory disease (20 sources) Other specified symptoms and signs involving the circulatory and respiratory systems; Translations: [Narrow pulse pressure] Resolved: 9 06-03-2018 Episodic Other connective tissue disease (20 sources) Spasm; Translations: [Muscle spasm] Resolved: 7 03-31-2018 Episodic Other connective tissue disease (20 sources) Leg swelling symptom; Translations: [Swelling of lower limb] Resolved: 9 10-24-2018 Episodic Comment on above: left worse than rt, this occured after Norvasc. Other connective tissue disease (20 sources) Pain in lower limb; Translations: [Pain of anterior lower extremity, unspecified laterality] 06-25-2020 Episodic Other connective tissue disease (20 sources) Swelling of lower limb; Translations: [Swollen leg] Resolved: 2 06-25-2020 Episodic Other connective tissue disease (6 sources) Pain in left lower limb; Translations: [Lower extremity pain, left] 07-02-2023 Episodic Other female genital disorders (20 sources) Mass of uterus; Translations: [Mass of uterus determined by ultrasound] 06-05-2022 Episodic Other lower respiratory disease (20 sources) Dyspnea; Translations: [Dyspnea on exertion] Episodic Other lower respiratory disease (20 sources) Dyspnea on exertion; Translations: [SOB (shortness of breath) on exertion] Resolved: 7 03-31-2018 Episodic Comment on above: on exertion on exertion, read ca rdiology note Other non-epithelial cancer of skin (20 sources) History of malignant basal cell neoplasm of skin; Translations: [History of basal cell cancer] 06-03-2018 Episodic Other non-traumatic joint disorders (20 sources) Pain in wrist; Translations: [Wrist pain] Resolved: 7 03-31-2018 Episodic Comment on above: bilateral add cock u p splint Other non-traumatic joint disorders (20 sources) Shoulder pain; Translations: [Shoulder pain] Resolved: 9 03-31-2018 Episodic Comment on above: SNAPPING SCAPULA SYN DROME-- DX 15 YRS AGO- LATELY JUST REALLY AGAIN Other non-traumatic joint disorders (3 sources) Pain in right knee; Translations: [Acute pain of right knee] 04-14-2024 Episodic Other nutritional; endocrine; and metabolic disorders (20 sources) Body mass index 30+ - obesity; Translations: [BMI 31.0-31.9,adult] Resolved: 3 03-31-2018 Chronic Comment on above: BMI 36.15 Other nutritional; endocrine; and metabolic disorders (20 sources) Obesity Chronic Other nutritional; endocrine; and metabolic disorders (20 sources) Cholesterol level - finding; Translations: [Low HDL (under 40)] Resolved: 9 06-03-2018 Chronic Other screening for suspected conditions (not mental disorders or infectious disease) (20 sources) Breast neoplasm screening status; Translations: [Screening status] Onset: 4 06-03-2018 Episodic Comment on above: offered colonoscopy study participation, does acknowledge she needs it donejose enrique says does not have time to do colonoscopy but knows she is well overdue (never had one). Other upper respiratory infections (20 sources) Pharyngitis; Translations: [Pharyngitis] 06-03-2018 Episodic Comment on above: strep neg but treat as if Jonna-; endo-; and myocarditis; cardiomyopathy (except that caused by tuberculosis or sexually transmitted disease) (20 sources) Pericardial effusion; Translations: [Pericardial effusion] Resolved: 2 06-03-2018 Episodic Comment on above: trivial seen on echo on 01-24 and 07-22 getting TSH SIDNEY, see derm , get mammogram all neg Pneumonia (except that caused by tuberculosis or sexually transmitted disease) (20 sources) Pneumonia; Translations: [Pneumonia] Resolved: 9 10-25-2018 Episodic Comment on above: rt with atelectsis Poisoning by nonmedicinal substances (20 sources) Tick bite; Translations: [Tick bite, initial encounter] Resolved: 2 06-25-2020 Episodic Residual codes; unclassified (20 sources) Flushing; Translations: [Hot flashes] Resolved: 2 01-10-2021 Episodic Comment on above: is on Mirena,has hot flashes could try SSRI, venl afaxine, desvenlafaxine, paroxetine, citalopram, escitalopram all have similar modest benefit. Paroxetine or citalopram are suggested first line.has Mirena. Paroxetine or citalo pram are suggested first line.has Mirena. Dr. Shipley Residual codes; unclassified (20 sources) Non-smoker; Translations: [Nonsmoker] 01-10-2021 Episodic Residual codes; unclassified (20 sources) Postmenopausal state; Translations: [Postmenopausal (Renamed from Postmenopausal status)] 06-01-2022 Episodic Comment on above: saw Dr. Isai vallejo in past, encouraged to go back for possible PASTRY MIXER bleeding Spondylosis; intervertebral disc disorders; other back problems (4 sources) Degeneration of lumbar intervertebral disc; Translations: [Degenerative disc disease, lumbar] 07-05-2023 Chronic Spondylosis; intervertebral disc disorders; other back problems (20 sources) Neck pain; Translations: [Neck pain] Resolved: 2 06-03-2018 Episodic Unclassified (20 sources) Unclassified (20 sources) Low HDL (272.5) Unclassified (20 sources) Hypertriglycerides (272.1) Unclassified (20 sources) Non-smoker; Translations: [Nonsmoker] 06-03-2018 Unclassified (20 sources) BMI 34.0-34.9,adult Unclassified (20 sources) BMI 33.0-33.9,adult Viral infection (11 sources) Disease caused by 2019-nCoV; Translations: [COVID-19] 07-17-2023 Episodic Past or Other Problems Problem Classification [...] Medication management; Translations: [Drug therapy finding] 06-03-2018 Comment on above: on Contrave 20lbs in 2 months Unclassified (20 sources) Patient encounter status; Translations: [Encounter for general adult medical examination with abnormal findings] 06-03-2018 Comment on above: wellness physical fo r [place] Unclassified (20 sources) Well Woman Exam (V72.31) (Pap,Mammo,Routine Female) (Renamed from Well Woman V72.31 (p,m)) Unclassified (20 sources) Patient examined; Translations: [Physical exam for work/school/camp (Renamed from Encounter for school health examination)] 06-03-2018 Unclassified (20 sources) PHARYNGITIS, NOS (462.) Unclassified (20 sources) Muscle spasm (728.85) Unclassified (20 sources) Unspecified Diagnosis 06-07-2017 Unclassified (20 sources) Work Physical (V70.5) Unclassified (20 sources) Annual physical exam (V70.0) Unclassified (20 sources) SCREENING FOR BREAST CANCER (V76.10) Unclassified (20 sources) Physical exam without abnormal findings (Renamed from Encounter for routine adult health examination without abnormal findings) Unclassified (20 sources) BMI 31.0-31.9,adult Unclassified (20 sources) Encounter for screening mammogram for breast cancer (Renamed from Encounter for screening mammogram for malignant neoplasm of breast) Unclassified (20 sources) History of basal cell cancer Unclassified (20 sources) BMI 32.0-32.9,adult Unclassified (20 sources) Pulse pressure decrease Unclassified (20 sources) SOB (shortness of breath) on exertion Unclassified (13 sources) Elevated WBC count Unclassified (12 sources) Tick bite, initial encounter Unclassified (12 sources) Swollen leg Unclassified (12 sources) Pain of anterior lower extremity, unspecified laterality Unclassified (10 sources) Hot flashes Unclassified (20 sources) B12 deficiency Results Test Name Value Interpretation Reference Range Facility Breast imaging reportOrdered By: Kayy Leavitt on 04-20-2025 Study report [facility] Imaging Services [address] [place], [place] [id number] SCRN MAMM (CAD)W/JEAN-PAUL BILAT MR#: [id number] Acct: [id number] Name: MERVAT CORREA Rep #: [id number] : 1965 F 59 From: Marlon Ambrocio MD PCP: Miguelina Jones NP-C Status: [facility] Study:SCRN MAMM (CAD)W/JEAN-PAUL BILAT Date of Exa m: 04/20/25 Exam# [id number] Ordering Dr: Flaco JonesC EXAM: SCRN MAMM (CAD)W/JEAN-PAUL BILAT DATE: 04/20/2025 CLINICAL HISTORY: F, Age 59 y/o , BREAST CANCER SCREENING TECHNIQUE: SCRN MAMM (CAD)W/JEAN-PAUL BILAT COMPARISON: Prior exam(s) were compared FINDINGS: TISSUE DENSITY: The breasts are heterogeneously dense, which may obscure small masses. Bilateral Breast Mammographic Findings: No suspicious masses, calcifications or other abnormalities are identified. BI/SCRN MAMM (CAD)W/JEAN-PAUL BILAT IMPRESSION: No mammographic evidence of malignancy in either breast OVERALL FINAL ASSESSMENT BI-RADS 1: NEGATIVE. RECOMMENDATION: Routine annual follow-up in 1 Year A letter with findings and recommendations will be mailed to the patient. Reading Location: [id number] CC: DOOR PATCHER-C Miguelina Jones ~ Intramural Director: Signed [facility] SCRN MAMM (CAD)W/JEAN-PAUL BILATo n 04-20-2025 SCRN MAMM (CAD)W/JEAN-PAUL BILAT [facility] Imaging Services [address] [place] [address] SCRN MAMM (CAD)W/JEAN-PAUL BILAT MR#: [id number] Acct: [id number] Name: MERVAT CORREA Rep #: [id number] : 1965 F 59 From: Kayy Mccracken i, MD PCP: DHAVAL Almeida Status: [facility] Study: SCRN MAMM (CAD)W/JEAN-PAUL BILAT Date of Exam: 05/07 Exam# [id number] Ordering Dr: Miguelina Jones EXAM: SCRN MAMM (CAD)W/JEAN-PAUL BILAT DATE: 04/20/2025 CLINICAL HISTORY: F, Age 59 y/o , BREAST CANCER SCREENING TECHNIQUE: SCRN MAMM (CAD)W/JEAN-PAUL BILAT COMPARISON: Prior exam(s) were compared FINDINGS: TISSUE DENSITY: The breasts are heterogeneously dense, which may obscure small masses. Bilateral Breast Mammographic Findings: No suspicious masses, calcifications or other abnormalities are identified. BI/SCRN MAMM (CAD)W/JEAN-PAUL BILAT IMPRESSION: No mammographic evidence of malignancy in either breast OVERALL FINAL ASSESSMENT BI-RADS 1: NEGATIVE. RECOMMENDATION: Routine annual follow-up in 1 Year A letter with findings and recommendations will be mailed to the patient. Reading Location: [facility] CC: DHAVAL Jones Intramural Director: Signed Normal [facility] Vitamin B12 ser/plasOrdered By: Miguelina Jones on 04-20-2025 Cobalamin (Vitamin B12) [Mass/Vol] 497 pg/mL Normal 180-914 [facility] Comment on above: Performed By: #### L 503.0106, L506.1001 ####[facility] [address] [place], [address] Vitamin D,25 Hydroxyon 04-20 Vitamin D 25-OH 87.9 ng/mL Normal 30-100 [facility] Comment on above: Result Comment: Sheron min D Status Deficiency: <20 ng/mL (50nmol/L) Insufficiency: 20-30 ng/mL (50-75 nmol/L) Sufficiency: 30-100 ng/mL (75-250 nmol/L) Toxicity: >100 ng/mL (>250 nmol/L) Performed By: #### L 503.0106, L506.1001 ####[facility] [address] [place], [address] MRSA/SAID NASAL SCREENon MRSA+SAID SCRN Reason for Exam: PRE OP MRSA MRSA Negative S. AUREUS S. aureus PositiveA Normal [facility] Comment on above: Performed By: #### L 100.0100, M100.651, L500.2500, L501.1800 ####[facility] [address] [place], [address] Albumin, Serumon 04-10-2025 Albumin [Mass/Vol] 4.3 g/dL Normal 3.5-5.0 [facility] Comment on above: Performed By: #### L 100.0100, M100.651, L500.2500, L501.1800 #### [facility] [address] [place], [address] Basic Metabolic Profile (BMP )on 04-10-2025 BUN/CRE 23.4 RATIO High 10-20 [facility] Comment on above: Performed By: #### L 100.0100, M100.651, L500.2500, L501.1800 #### [facility] [address] [place], [address] Calcium [Mass/Vol] 9.2 mg/dL Normal 7.6-11.0 [facility] Comment on above: Performed By: #### L 100.0100, M100.651, L500.2500, L501.1800 #### [facility] [address] [place], [address] Chloride [Moles/Vol] 103 mmol/L Normal 98-108 [facility] Comment on above: Performed By: #### L 100.0100, M100.651, L500.2500, L501.1800 #### [facility] [address] [place], [address] CO2 [Moles/Vol] 24.2 mmol/L Normal 21.0-32.0 [facility] Comment on above: Performed By: #### L 100.0100, M100.651, L500.2500, L501.1800 #### [facility] [address] [place], [address] Creatinine [Mass/Vol] 0.71 mg/dL Normal 0.70-1.20 [facility] Comment on above: Performed By: #### L 100.0100, M100.651, L500.2500, L501.1800 #### [facility] [address] [place], [address] GAP 13 Normal 5-15 [facility] Comment on above: Performed By: #### L 100.0100, M100.651, L500.2500, L501.1800 #### [facility] [address] [place], [address] GFR/1.73 sq M.predicted among non-blacks MDRD (S/P/Bld) [Vol rate/Area] 99 mL/min/{1.73_m2} Normal >60 [facility] Comment on above: Result Comment: mL/m in/1.73m2 CKD-EPI Creatinine Equation (2020) Performed By: #### L 100.0100, M100.651, L500.2500, L501.1800 #### [facility] [address] [place], [address] Glucose [Mass/Vol] 55 mg/dL Low 70-99 [facility] Comment on above: Performed By: #### L 100.0100, M100.651, L500.2500, L501.1800 #### [facility] [address] [place], [address] Potassium [Moles/Vol] 3.9 mmol/L Normal 3.3-5.1 [facility] Comment on above: Performed By: #### L 100.0100, M100.651, L500.2500, L501.1800 #### [facility] [address] [place], [address] Sodium [Moles/Vol] 140 mmol/L Normal 133-145 [facility] Comment on above: Performed By: #### L 100.0100, M100.651, L500.2500, L501.1800 #### [facility] [address] [place], [address] Urea nitrogen [Mass/Vol] 17 mg/dL Normal 4-19 [facility] Comment on above: Performed By: #### L 100.0100, M100.651, L500.2500, L501.1800 #### [facility] [address] [place], [address] CBC W/Diff, Automatedon 07-2 Absolute Lymph 2.92 X10 3/uL Normal 0.83-4.51 [facility] Comment on above: Performed By: #### L 100.0100, M100.651, L500.2500, L501.1800 #### [facility] [address] [place], [address] Absolute Neut 4.9 X10 3/uL Normal 2.0-7.7 [facility] Comment on above: Performed By: #### L 100.0100, M100.651, L500.2500, L501.1800 #### [facility] [address] [place], [address] Basophils/100 WBC (Bld) 0.6 % Normal 0-1 [facility] Comment on above: Performed By: #### L 100.0100, M100.651, L500.2500, L501.1800 #### [facility] [address] [place], [address] Eosinophils/100 WBC (Bld) 2.2 % Normal 0-5 [facility] Comment on above: Performed By: #### L 100.0100, M100.651, L500.2500, L501.1800 #### [facility] [address] [place], [address] Erythrocyte distribution width (RBC) [Ratio] 12.9 % Normal 11.6-14.6 [facility] Comment on above: Performed By: #### L 100.0100, M100.651, L500.2500, L501.1800 #### [facility] [address] [place], [address] Hematocrit (Bld) [Volume fraction] 40.3 % Normal 37-47 [facility] Comment on above: Performed By: #### L 100.0100, M100.651, L500.2500, L501.1800 #### [facility] [address] [place], [address] Hemoglobin (Bld) [Mass/Vol] 13.7 g/dL Normal 12.0-15.0 [facility] Comment on above: Performed By: #### L 100.0100, M100.651, L500.2500, L501.1800 #### [facility] [address] [place], [address] IG% 0.100 Normal 0.0-0.9 [facility] Comment on above: Result Comment: IG% - Immature Granulocytes (promyelocytes, myelocytes and metamyelocytes) > 1% indicates that a LEFT SHIFT is Present. Performed By: #### L 100.0100, M100.651, L500.2500, L501.1800 #### [facility] [address] [place], [address] Lymphocytes/100 WBC (Bld) 33.8 % Normal 19-41 [facility] Comment on above: Performed By: #### L 100.0100, M100.651, L500.2500, L501.1800 #### [facility] [address] [place], [address] MCH (RBC) [Entitic mass] 29.0 pg Normal 27.0-32.0 [facility] Comment on above: Performed By: #### L 100.0100, M100.651, L500.2500, L501.1800 #### [facility] [address] [place], [address] MCHC (RBC) [Mass/Vol] 34.0 g/dL Normal 32-36 [facility] Comment on above: Performed By: #### L 100.0100, M100.651, L500.2500, L501.1800 #### [facility] [address] [place], [address] MCV (RBC) [Entitic vol] 85.2 fL Normal 81-99 [facility] Comment on above: Performed By: #### L 100.0100, M100.651, L500.2500, L501.1800 #### [facility] [address] [place], [address] Monocytes/100 WBC (Bld) 7.1 % Normal 0-10 [facility] Comment on above: Performed By: #### L 100.0100, M100.651, L500.2500, L501.1800 #### [facility] [address] [place], [address] Neutrophils/100 WBC (Bld) 56.2 % Normal 47-70 [facility] Comment on above: Performed By: #### L 100.0100, M100.651, L500.2500, L501.1800 #### [facility] [address] [place], [address] Nucleated RBC (Bld) [#/Vol] 0 10*3/uL Normal 0-5 [facility] Comment on above: Performed By: #### L 100.0100, M100.651, L500.2500, L501.1800 #### [facility] [address] [place], [address] Platelet mean volume (Bld) [Entitic vol] 9.7 fL Normal 6.2-12.0 [facility] Comment on above: Performed By: #### L 100.0100, M100.651, L500.2500, L501.1800 #### [facility] [address] [place], [address] Platelets (Bld) [#/Vol] 342 10*3/uL Normal 150-450 [facility] Comment on above: Performed By: #### L 100.0100, M100.651, L500.2500, L501.1800 #### [facility] [address] [place], [address] RBC (Bld) [#/Vol] 4.73 10*6/uL Normal 4.2-5.4 [facility] Comment on above: Performed By: #### L 100.0100, M100.651, L500.2500, L501.1800 #### [facility] [address] [place], [address] RDW SD 39.8 fl Normal 35.1-43.9 [facility] Comment on above: Performed By: #### L 100.0100, M100.651, L500.2500, L501.1800 #### [facility] [address] [place], [address] WBC (Bld) [#/Vol] 8.6 10*3/uL Normal 4.4-11.0 [facility] Comment on above: Performed By: #### L 100.0100, M100.651, L500.2500, L501.1800 #### [facility] [address] [place], [address] MR/PATBUSHRAon 04-10-2025 MR[facility] Medical Records Department [address] [place] [address] PAT - Anesthesia 04/10/25 1642 MR#: [id number] Acct: [id number] Name: MERVAT CORREA Rep #: [id number] : 1965 59 From: Napoleon Lane MD PCP: DHAVAL Almeida Status:PRE [facility] Y Race: C Location: [facility] Pre-Assessment Diagnosis/Proposed Procedure Planned Operative Procedure(s): ROBOTIC ASSISTED RIGHT TOTAL KNEE ARTHROPLASTY, ERAS Anesthesia History Anesthesia History - registered dental assistant: Anesthesia History - registered dental assistant Hx Hospitalization No 04/10/25 14:15 Any Problems With Anesthesia No 04/10/25 14:15 Cholinesterase deficiency No 04/10/25 14:15 You/Your Family Experience No 04/10/25 14:15 fever (hyperthermia) with Relationship Recent Exposure to Contagious No 07/20/24 09:05 Disease Does patient have nerve No 04/10/25 14:15 stimulator Patient instructed to have device shut off --Does patient have Pacemaker or ICD? When Was Last Pacemaker Check QUESTION #4 FULL TEXT: You/Your Family Experience fever (hyperthermia) with Anesthesia Last Oral Intake Last Oral intake: Last Oral Intake NPO since Meds taken in AM with sips of water? Meds patient instructed to take am of surgery PONV PONV - registered dental assistant: PONV - registered dental assistant Female Yes 04/10/25 14:15 HX of Motion Sickness No 04/10/25 14:15 HX of N/V After Surgery No 04/10/25 14:15 Non-Smoker Yes 04/10/25 14:15 Duration of Surgery greater Yes 04/10/25 14:15 than 60 minutes Number of Risk Factors 3 04/10/25 14:15 PONV Score Moderate Risk 04/10/25 14:15 Height Weight Height Weight: Anesthesia: Height Weight Height 4 ft 11 in 01/29/25 06:43 Respiratory Assessment Respiratory Assessment - registered dental assistant: Respiratory Tract Infection Hx - registered dental assistant Hx Respiratory Tract Infection No 04/10/25 14:15 STOP Sleep Apnea STOP Sleep Apnea - registered dental assistant: STOP Sleep Apnea - registered dental assistant Hx Hypertension Yes: PER PT, CONTROLLED ON 04/10/25 14:15 MEDS Hx Sleep Apnea No 04/10/25 14:15 CPAP BIPAP Do you snore loudly (louder No 04/10/25 14:15 than talking or can be heard Do you often feel tired/ No 04/10/25 14:15 fatigued/ sleepy during daytime? Has anyone observed you stop No 04/10/25 14:15 breathing during sleep? STOP Results Negative 04/10/25 14:15 QUESTION #5 FULL TEXT : Do you snore loudly (louder than talking or can be heard through closed doors)? 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 Specify any problems Hx of Preganancy in last 3 No 04/10/25 14:15 Months Nurse Filling Out Transfusion MGRIFFITH 04/10/25 14:15 Questions: Date: 04/10/25 04/10/25 14:15 Time: 14:16 04/10/25 14:15 Patient unable to answer at this time (ie. confused, unrespo /Reproduction History /Reproductive History - registered dental assistant: /Reproductive Hx- registered dental assistant Hx Now No 04/10/25 14:15 Gestational Age (in weeks): EDC: Hx Hx Para Hx Section SAB No 04/10/25 14:15 [facility] Medical History (Updated 04/10/25 @ 14:23 by Abbie Lerner) Hypertension Wears glasses History of steroid therapy Arthritis Migraine headache Non-smoker History of echocardiogram Normal stress echocardiogram History of Holter monitoring Cardiology follow-up encounter Low HDL (under 40) Essential (primary) hypertension Pericardial effusion Obesity Basal cell carcinoma Home Medications ???Medication ???Instructions ???Recorded ???Last Taken ???Type valsartan 320 mg tablet (Diovan) 320 mg PO DAILY 10/25/18 01/28/25 History spironolactone 25 mg tablet 25 mg PO DAILY 04/06/24 01/28/25 H istory cholecalciferol (vitamin D3) 25 25 mcg PO DAILY 07/18/24 01/26/25 History mcg (1,000 unit) capsule (Vitamin D3) pdggisu-ilwdntbfgxcyy-edb feine 250 2 tab PO Q4H PRN pain 04/10/25 U nknown History mg-250 mg-65 mg tablet (Excedrin Extra Strength) magnesium g (more content not included)... Normal [facility] Magnesiumon 04-10-2025 Magnesium [Mass/Vol] 2.2 mg/dL Normal 1.5-2.2 [facility] Comment on above: Performed By: #### L 501.5200 #### [facility] [address] [place], [address] 12 Lead EKGon 03-19-2025 12 Lead EKG [facility] Cardiovascular Services [address] [place] [address] 12 Lead EKG 03/19/25 0753 MR#: [id number] Acct: [id number] Name: MERVAT CORREA Rep #: [id number] : 1965 59 From: Rip Hester MD Attending Dr: Dr. Abel Armendariz, DO Status: REG CLI Ordering Dr: Abel Armendariz DO Date: 03/19/25 Location: CT Sex: F C Admitted: Test Reason : PRE OP Blood Pressure : */* mmHG Vent. Rate : 84 BPM Atrial Rate : 84 BPM P-R Int : 158 ms QRS Dur : 82 ms QT Int : 338 ms P-R-T Axes : -2 -20 -10 degrees QTcB Int : 399 ms Normal sinus rhythm Low voltage QRS Borderline ECG Confirmed by RIP HESTER MD ([id number]), manuscript editor ROBIN BARRERA ([id number]) on 03/19/2025 1:19:17 PM Referred By: Abel Armendariz Confirmed By: RIP HESTER MD 03/19/25 1319 Date Rip Hester MD CC: DOOR PATCHER-C Miguelina Jones; Dr. Abel Armendariz DO Signed Normal [facility] Electrocardiogram reportOrde red By: Rip Hester on 03-19-2025 EKG study [facility] Cardiovascular Services [address] [place] [address] 12 Lead EKG 03/19/253 MR#: [id number] Acct: [id number] Name: MERVAT CORREA Rep #:[id number] : 1965 59 From: Rip Hester MD Attending Dr: Dr. Abel Armendariz, Status: REG CLI Ordering Dr: Abel Armendariz DO Date: 03/19/25 Location: CT Sex: F C Admitted: Test Reason : PRE OP Blood Pressure : */* mmHG Vent. Rate : 84 BPM Atrial Rate : 84 BPM P-R Int : 158 ms QRS Dur : 82 ms QT Int : 338 ms P-R-T Axes : -2 -20 -10 degrees QTcB Int : 399 ms Normal sinus rhythm Low voltage QRS Borderline ECG Confirmed by RIP HESTER MD ([id number]), manuscript editor ROBIN BARRERA ([id number]) on 03/19/2025 1:19:17 PM Referred By: Abel Armendariz Confirmed By: RIP HESTER MD 03/19/25 1319 Date _ Rip Hester MD CC: DOOR PATCHER-C Miguelina Jones; Dr. Abel Armendariz DO ~ Signed [facility] Work Phone: Extremity Lower without Cont raon 03-19-2025 Extremity Lower without Contra [facility] Imaging Services [address] [place], [place] [address] Extremity Lower without Contra MR#: [id number] Acct: [id number] Name: MERVAT CORREA Rep #: [id number] : 1965 F 59 From: Aj Quach PCP: DHAVAL Almeida Status: REG CLI Study: Extremity Lower without Contra Date of Exam: 0 03/19/25 Exam# [id number] Ordering Dr: Abel Armendariz DO PROCEDURE: EXTREMITY LOWER WITHOUT CONTRA 03/19/2025 REASON FOR EXAM: RIGHT KNEE JAI PROTOCOL TECHNIQUE: [facility] right knee protocol. One or more dose reduction techniques were used (e.g., Automated exposure control, adjustment of the mA and/or kV according to patient size, use of iterative reconstruction technique). RADIATION DOSE SUMMARY: DLP: 1347.85 mGycm COMPARISON: Right knee series of 10/09/2024. FINDINGS: Limited imaging of the right sacroiliac joint demonstrates mild degenerative changes. The right hip joint shows no significant finding. No evidence of femoral head osteonecrosis. The right knee demonstrates a small joint effusion. A moderate-sized Correa's cyst is also seen. Tricompartmental degenerative changes are again seen, now with severe medial joint narrowing and genu varus. Severe patellofemoral joint narrowing is also noted. Loose intra-articular bodies are seen in the suprapatellar bursa. Minimal degenerative changes are seen in the right ankle joint. No fracture or dislocation is seen. CT/Extremity Lower without Contra IMPRESSION: Right knee degenerative changes and additional findings as described. Reading Location: [address] CC: DOOR PATCHERFrederic Jones; Dr. Abel Armendariz, Intramural Director: Signed Normal [facility] Anion gap in Serum or Plasma Ordered By: Marisol Justice on 01-29-2025 Anion gap [Moles/Vol] 12 mmol/L 5-15 [facility] BUN/creatinine ratioOrdered By: Marisol Justice on 01-29-2025 Urea nitrogen/Creatinine [Mass ratio] 33.2 mg/mg High 10- [facility] Basic Metabolic Profile (BMP )on 01-29-2025 BUN/CRE 33.2 RATIO High - [facility] Comment on above: Performed By: #### L 500.2500 #### [facility] [address] [place], [address] Calcium [Mass/Vol] 9.6 mg/dL Normal 7.6-11.0 [facility] Comment on above: Performed By: #### L 500.2500 #### [facility] [address] [place], [address] Chloride [Moles/Vol] 104 mmol/L Normal 98-108 [facility] Comment on above: Performed By: #### L 500.2500 #### [facility] [address] [place], [address] CO2 [Moles/Vol] 21.4 mmol/L Normal 21.0-32.0 [facility] Comment on above: Performed By: #### L 500.2500 #### [facility] [address] [place], [address] Creatinine [Mass/Vol] 0.68 mg/dL Low 0.70-1.20 [facility] Comment on above: Performed By: #### L 500.2500 #### [facility] [address] [place], [address] GAP 12 Normal 5-15 [facility] Comment on above: Performed By: #### L 500.2500 #### [facility] [address] [place], [address] GFR/1.73 sq M.predicted among non-blacks MDRD (S/P/Bld) [Vol rate/Area] 100 mL/min/{1.73_m2} Normal >60 [facility] Comment on above: Result Comment: mL/m in/1.73m2 CKD-EPI Creatinine Equation (2020) Performed By: #### L 500.2500 #### [facility] [address] [place], [address] Glucose [Mass/Vol] 98 mg/dL Normal 70-99 [facility] Comment on above: Performed By: #### L 500.2500 #### [facility] [address] [place], [address] Potassium [Moles/Vol] 4.0 mmol/L Normal 3.3-5.1 [facility] Comment on above: Performed By: #### L 500.2500 #### [facility] [address] [place], [address] Sodium [Moles/Vol] 138 mmol/L Normal 133-145 [facility] Comment on above: Performed By: #### L 500.2500 #### [facility] [address] [place], [address] Urea nitrogen [Mass/Vol] 23 mg/dL High 4-19 [facility] Comment on above: Performed By: #### L 500.2500 #### [facility] [address] [place], [address] Carbon dioxide, total [Moles /volume] in Central venous bloodOrdered By: Marisol Justice on 01-29-2025 CO2 [Moles/Vol] 21.4 mmol/L 21.0-32.0 [facility] Chloride assayOrdered By: Russell Justice on 01-29-2025 Chloride [Moles/Vol] 104 mmol/L 98-108 [facility] Fluoro Guided Needle Placeme nton 01-29-2025 Fluoro Guided Needle Placement [facility] Imaging Services [address] [place] [address] Fluoro Guided Needle Placement MR#: [id number] Acct: [id number] Name: MERVAT CORREA Rep #: [id number] : 1965 F 59 From: Mane powell MD PCP: DHAVAL Almeida Status: [facility] Study: Fluoro Guided Needle Placement Date of Exam: 0 01/29/25 Exam# [id number] Ordering Dr: Maxim Pham MD PROCEDURE: FLUORO GUIDED NEEDLE PLACEMENT 01/29/2025 REASON FOR EXAM: KNEE INJECTION RT TECHNIQUE: Intraoperative fluoroscopic services provided for right knee injection. COMPARISON: None FINDINGS: 9.5 seconds of fluoroscopy. 0.68 mGy. 3 images were submitted. RAD/Fluoro Guided Needle Placement IMPRESSION: Intraoperative imaging provided for right knee injection. Reading Location: [place] [address] CC: DOOR PATCHERFrederic Jones; Dr. Maxim Pham MD Intramural Director: Signed Normal [facility] Glomerular filtration rate ( GFR) estimation/1.73 sq m using serum, plasma, or whole bOrdered By: Marisol Justice on 01-29-2025 GFR/1.73 sq M.predicted among non-blacks MDRD (S/P/Bld) [Vol rate/Area] 100 mL/min/{1.73_m2} >60 [facility] Comment on above: mL/min/1.73m2 CKD-EP I Creatinine Equation (2020) Operative Reporton Operative Report [facility] Medical Records Department [address] [place] [address] Operative Report 01/29/25 0751 MR#: [id number] Acct: [id number] Name: MERVAT CORREA Rep #: [id number] : 1965 59 From: Maxim Pham MD PCP: DHAVAL Almeida Status:REG [facility] Location: [place] [address] Operative Report (Standard) Operative Information Date of Procedure: 01/29/25 Pre-Operative Diagnosis: Osteoarthritis of the right knee Post-Operative Diagnosis: Osteoarthritis of the right knee Surgery/Procedure Performed: Right knee superior medial/superior lateral/inferior medial genicular nerve steroid injection under fluoroscopic guidance grape crusher: No Type of Anesthesia: Local RN Documented Start/Stop Times: Operation Date: 01/29/25 07:30 Case Time Into Pre-Op 01/29/25 06:10 Out of Pre-Op 01/29/25 07:29 Anesthesia Start 01/29/25 07:30 Into Room 01/29/25 07:30 Procedure Start 01/29/25 07:43 Procedure End 01/29/25 07:47 Anesthesia End 01/29/25 07:49 Out of Room 01/29/25 07:49 Procedure Start Time: 07:52 Procedure Stop Time: 07:52 Select all DRAINS/GRAFTS/IMPLANTS that apply: None Estimated Blood Loss: 1 Specimen collected: No Description of surgery: PROCEDURE PERFORMED: Right knee superomedial, superolateral, and inferomedial genicular nerves steroid injection under fluoroscopy guidance. COMPLICATIONS: None. DESCRIPTION OF PROCEDURE: History and physical of today was reviewed. Risks and benefits of the procedure were explained. The patient understood and agreed to proceed. Informed consent was obtained. IV inserted per routine protocol. The patient was taken to the operating room and placed in the supine position. The right knee was prepped and draped in a sterile fashion using iodine x3. Under fluoroscopy guidance on AP view, the right knee was visualized. The skin and subcutaneous tissue was anesthetized with approximately 5 mL of 1% lidocaine using a 25-gauge regular needle at the vicinity of the superomedial, superolateral, and inferomedial genicular nerves. Under direct visualization of fluoroscopy on AP view as well as lateral view, starting on the right superomedial, ending on the right inferomedial, passing through the right superolateral genicular nerves, the needle was passed through the skin. The tip of the needle was maneuvered and directed towards the diaphyseal junction of each corresponding nerve. Once tip of the needle was in the vicinity of the diaphysis and in contact with the bone, after confirmation on AP as well as lateral view and repeated negative aspiration for blood, a total of 12 mL of preservative-free 0.25% Marcaine with 80 mg of Depo-Medrol was injected in divided doses between those three levels. The needles were then removed intact. The patient experienced no sign or symptoms of intravascular injection. The patient experienced no paresthesia. The procedure was completed without any apparent difficulty or any complications. The patient appeared to tolerate it well. ASSESSMENT AND PLAN: This is a 59-year-old female with osteoarthritis of the right knee status post right knee superior medial, superior lateral, inferior medial genicular nerves steroid injection under fluoroscopic guidance, patient will continue her current medications, patient will follow-up in approximately 1 to 2 weeks for reevaluation. Surgical Findings: 0 Complications Complications: No Admit VTE Documentation VTE Present on Admission: No VTE Mechan Device Prophylaxis: None VTE Pharm Prophylaxis ordered?: No 01/29/25 0754 Cosigner Signature (if applicable): CC: DHAVAL Jones; Dr. Maxim Pham MD Signed Normal [facility] Potassium measurement (mass/ volume)Ordered By: Marisol Justice on 01-29-2025 Potassium (Unsp spec) [Mass/Vol] 4.0 mmol/L 3.3-5.1 [facility] Serum creatinine measurement (mass/volume)Ordered By: Marisol Justice on 01-29-2025 Creatinine [Mass/Vol] 0.68 mg/dL Low 0.70-1.20 [facility] Serum glucose measurement (m ass/volume)Ordered By: Marisol Justice on 01-29-2025 Glucose [Mass/Vol] 98 mg/dL 70-99 [facility] Serum or plasma calcium julien urement (mass/volume)Ordered By: Marisol Justice on 01-29-2025 Calcium [Mass/Vol] 9.6 mg/dL 7.6-11.0 [facility] Serum or plasma urea nitroge n measurement (mass/volume)Ordered By: Marisol Justice on 01-29-2025 Urea nitrogen [Mass/Vol] 23 mg/dL High 4-19 [facility] Sodium levelOrdered By: Rubi Justice on 01-29-2025 Sodium [Moles/Vol] 138 mmol/L 133-145 [facility] Knee 1 or 2 Viewson 10-09-19 Knee 1 or 2 Views [facility] Imaging Services [address] [place] [address] Knee 1 or 2 Views MR#: [id number] Acct: [id number] Name: MERVAT CORREA Rep #: [id number] : 1965 F 58 From: Nitish Mensah MD PCP: Miguelina Jones NP-C Status: REG CLI Study: Knee 1 or 2 Views Date of Exam: 10/09/24 Exam# [id number] Ordering Dr: Abel Armendariz DO [id number] STUDY: X-RAY - LEFT KNEE REASON FOR EXAM: Female, 58 years old. Unilateral primary osteoarthritis, right knee TECHNIQUE: 2 views of the left knee. COMPARISON: None. FINDINGS: Normal visualized distal femur. Normal visualized proximal tibia and fibula. Normal proximal tibiofibular articulation. There is no demonstrated fracture. There is moderate degenerative arthrosis of the medial femorotibial compartment with moderate joint space narrowing. There is mild degenerative arthrosis of the lateral femorotibial compartment. There is moderate degenerative arthrosis of the patellofemoral articulation. The soft tissue structures are unremarkable. RAD/Knee 1 or 2 Views IMPRESSION: Tricompartment degenerative arthrosis, most pronounced in the patellofemoral and medial femorotibial compartments. No demonstrated fracture. Electronically Signed: Nitish Mensah MD at 13:53 EST , CC: DOOR PATCHER-C Miguelina Jones; Dr. Abel Armendariz DO Intramural Director: Signed Normal [facility] Knee 4 or More Viewson 10-09 Knee 4 or More Views [facility] Imaging Services [address] [place], [place] [address] Knee 4 or More Views MR#: [id number] Acct: [id number] Name: MERVAT CORREA Rep #: [id number] : 1965 F 58 From: Nitish Mensah MD PCP: DHAVAL Almeida Status: REG CLI Study: Knee 4 or More Views Date of Exam: 10/09/24 Exam# [id number] Ordering Dr: Abel Armendariz DO [id number] STUDY: X-RAY - RIGHT KNEE REASON FOR EXAM: Female, 58 years old. Unilateral primary osteoarthritis, right knee. TECHNIQUE: 5 views of the right knee. COMPARISON: None. FINDINGS: Normal visualized distal femur. Normal visualized proximal tibia and fibula. Normal proximal tibiofibular articulation. There is no demonstrated fracture. There is mild degenerative arthrosis of the medial femorotibial compartment. There is mild degenerative arthrosis of the lateral femorotibial compartment. There is mild degenerative arthrosis of the patellofemoral articulation. There is a small joint effusion. There is ossific density located posterior to the lateral femorotibial joint space, which could represent a fabella versus loose body. The soft tissue structures are unremarkable. RAD/Knee 4 or More Views IMPRESSION: Mild tricompartment degenerative arthrosis. Small knee joint effusion. Ossific density located posterior to the lateral femorotibial joint space, which could represent a fabella versus loose body. Electronically Signed: Nitish Mensah MD at 13:44 EST Reading Location ID and State: [facility] / [place] , Service support , CC: DOOR PATCHERFrederic Jones; Dr. Abel Armendariz DO Intramural Director: Signed Normal [facility] Colonoscopy Reporton 024 Colonoscopy Report [facility] Medical Records Department [address] [place] [address] Colonoscopy Report MR#: [id number] Acct: [id number] Name: MERVAT CORREA Rep #: [id number] : 1965 58 From: Jaycob Jones DO PCP: IGGY AlmeidaC Status:REG SDC Patient Name: Mervat Correa Procedure Date: 07/20/2024 9:55 AM Date of : 1965 Age: 58 Procedure: Colonoscopy Indications: Screening for colorectal malignant neoplasm Providers: Jaycob Jones DO Medicines: Monitored Anesthesia Care Patient Profile: This is a 58 year old female. Refer to note in patient chart for documentation of history and physical. Last Colonoscopy: none. The patient's first colonoscopy is today. Complications: No immediate complications. Procedure: Pre-Anesthesia Assessment: - Prior to the procedure, a History and Physical was performed, and patient medications and allergies were reviewed. The patient is competent. The risks and benefits of the procedure and the sedation options and risks were discussed with the patient. All questions were answered and informed consent was obtained. Patient identification and proposed procedure were verified by the physician in the pre-procedure area. Mental Status Examination: alert and oriented. Airway Examination: normal oropharyngeal airway and neck mobility. Respiratory Examination: clear to auscultation. CV Examination: normal. Prophylactic Antibiotics: The patient does not require prophylactic antibiotics. Prior Anticoagulants: The patient has taken no anticoagulant or antiplatelet agents except for NSAID medication. ASA Grade Assessment: II - A patient with mild systemic disease. After reviewing the risks and benefits, the patient was deemed in satisfactory condition to undergo the procedure. The anesthesia plan was to use monitored anesthesia care (MAC). Immediately prior to administration of medications, the patient was re-assessed for adequacy to receive sedatives. The heart rate, respiratory rate, oxygen saturations, blood pressure, adequacy of pulmonary ventilation, and response to care were monitored throughout the procedure. The physical status of the patient was re-assessed after the procedure. After I obtained informed consent, the scope was passed under direct vision. Throughout the procedure, the patient's blood pressure, pulse, and oxygen saturations were monitored continuously. The Colonoscope was introduced through the anus and advanced to the terminal ileum. The colonoscopy was performed without difficulty. The patient tolerated the procedure well. The quality of the bowel preparation was adequate. The terminal ileum, ileocecal valve, appendiceal orifice, and rectum were photographed. Scope In: 10:08:18 AM Scope Withdrawal Time 0 hours 11 minutes 26 seconds Scope Out: 10:24:11 AM Total Procedure Duration Time 0 hours 15 minutes 53 seconds Findings: The perianal and digital rectal examinations were normal. Non-bleeding internal hemorrhoids were found during retroflexion. The hemorrhoids were moderate and Grade II (internal hemorrhoids that prolapse but reduce spontaneously). A few small-mouthed diverticula were found in the recto-sigmoid colon and sigmoid colon. Impression: - Non-bleeding internal hemorrhoids. - Diverticulosis in the recto-sigmoid colon and in the sigmoid colon. - No specimens collected. Recommendation: - Discharge patient to home. - Resume regular diet. - Continue present medications. - Repeat colonoscopy in 10 years for screening purposes. Procedure Code(s): --- Professional --- G0121, Colorectal cancer screening; colonoscopy on individual not meeting criteria for high risk CPT copyright 2021 [employer]. All rights reserved. The codes documented in this report are preliminary and upon crown assembly machine operator review may be revised to meet current compliance requirements. Jaycob Jones DO 07/20/2024 10:29:40 AM This report has been signed electronically. Number of Addenda: 0 Note Initiated On: 07/20/2024 9:55 AM 07/20/24 1029 Date Jaycob Jones DO Cosigner Signature: Date (if indicated) CC: DHAVAL Jones; Jaycob Jones DO Date Dictated: 07/20/24 0955 Date Transcribed: Intramural Director: JOSEFA Signed [facility] MR/POSTOP.Moshe 07-20-2024 MR/POSTOP.[facility] Medical Records Department [address] [place] [address] Anesthesia Postop Eval I 07/20/24 1031 MR#: [id number] Acct: [id number] Name: MERVAT CORREA Rep #: [id number] : 1965 58 From: Keyla Torres PCP: IGGY AlmeidaC Status:[facility] Y Race: C Location: [place] [address] Anesthesia: Postop Eval I Current Vital Signs Temperature: 97.5 F Pulse Rate: 73 Blood Pressure: 74/42 Respiratory Rate: 18 Pulse Ox: 99 Assessment Airway patent: Yes Spontaneous unlabored respirations: Yes nausea: No Vomiting: No Anesthesia Complication: No Fluid Hydration Crystalloid volume administer (ml): 10 Total IV fluid infused: 10 Progress Note Anesthesia document: Postop Eval 1 completed: Yes 07/20/24 103 Date Keyla Cueto Signature: Date CC: Signed Normal [facility] MR/[id number] 07-20-2024 /[facility] Medical Records Department [facility] [place] [address] Anesthesia Postop Eval II 07/20/24 1432 MR#: [id number] Acct: [id number] Name: MERVAT CORREA Zachariah Rep #: [id number] : 1965 58 From: Napoleon Lane MD PCP: IGGY AlmeidaC Status:DEP [facility] Y Race: C Location: EN Anesthesia Postop Eval I Sum Postop Eval Completion status Anesthesia document: Postop Eval 1 completed: Yes Anesthesia Postop Eval I Summary Anesthesia Postop Eval I Summary: Anesthesia Postop Eval I: Assessment Summary Airway patent Yes 07/20/24 10:31 BREAD SLICER MACHINE.CSIR Spontaneous unlabored Yes 07/20/24 10:31 BREAD SLICER MACHINE.CSIR respirations Mental status nausea No 07/20/24 10:31 BREAD SLICER MACHINE.CSIR Vomiting No 07/20/24 10:31 BREAD SLICER MACHINE.CSIR Anesthesia Postop Eval I: Fluid Summary Crystalloid volume administer 10 07/20/24 10:31 BREAD SLICER MACHINE.CSIR (ml) Colloids volume administered ( ml) Blood Product volume administered (ml) Total IV fluid infused 10 07/20/24 10:31 BREAD SLICER MACHINE.CSIR Anesthesia Postop Eval I: Summary Notes Anesthesia Complication No 07/20/24 10:31 BREAD SLICER MACHINE.CSIR Anesthesia Complication Comment: Post-operative progress note Anesthesia: Postop Eval II Evaluation Mental status: Awake and Calm Pain Level: 0 nausea: No Vomiting: No Complications Anesthesia Complication: No 07/20/[address] MD Cosigner Signature: Date CC: Signed Normal [facility] CBC, Employeeon 06-20-2024 Absolute Lymph 2.92 X10 3/uL Normal 0.83-4.51 [facility] Comment on above: Performed By: #### L 100.0200, L500.2900, L400.0100 #### [facility] [address] [place], [place], [id number] (199) Absolute Neut 3.6 X10 3/uL Normal 2.0-7.7 [facility] Comment on above: Performed By: #### L 100.0200, L500.2900, L400.0100 #### [facility] [address] [place], [address] Basophils/100 WBC (Bld) 0.9 % Normal 0-1 [facility] Comment on above: Performed By: #### L 100.0200, L500.2900, L400.0100 #### [facility] [address] [place], [address] Eosinophils/100 WBC (Bld) 8.1 % High 0-5 [facility] Comment on above: Performed By: #### L 100.0200, L500.2900, L400.0100 #### [facility] [address] [place], [address] Erythrocyte distribution width (RBC) [Ratio] 12.7 % Normal 11.6-14.6 [facility] Comment on above: Performed By: #### L 100.0200, L500.2900, L400.0100 #### [facility] [address] [place], [address] Hematocrit (Bld) [Volume fraction] 42.0 % Normal 37-47 [facility] Comment on above: Performed By: #### L 100.0200, L500.2900, L400.0100 #### [facility] [address] [place], [address] Hemoglobin (Bld) [Mass/Vol] 13.4 g/dL Normal 12.0-15.0 [facility] Comment on above: Performed By: #### L 100.0200, L500.2900, L400.0100 #### [facility] [address] [place], [address] Lymphocytes/100 WBC (Bld) 37.7 % Normal 19-41 [facility] Comment on above: Performed By: #### L 100.0200, L500.2900, L400.0100 #### [facility] [address] [place], [address] MCH (RBC) [Entitic mass] 28.0 pg Normal 27.0-32.0 [facility] Comment on above: Performed By: #### L 100.0200, L500.2900, L400.0100 #### [facility] [address] [place], [address] MCHC (RBC) [Mass/Vol] 31.9 g/dL Low 32-36 [facility] Comment on above: Performed By: #### L 100.0200, L500.2900, L400.0100 #### [facility] [address] [place], [address] MCV (RBC) [Entitic vol] 87.9 fL Normal 81-99 [facility] Comment on above: Performed By: #### L 100.0200, L500.2900, L400.0100 #### [facility] [address] [place], [address] Monocytes/100 WBC (Bld) 7.1 % Normal 0-10 [facility] Comment on above: Performed By: #### L 100.0200, L500.2900, L400.0100 #### [facility] [address] [place], [address] Neutrophils/100 WBC (Bld) 46.1 % Low 47-70 [facility] Comment on above: Performed By: #### L 100.0200, L500.2900, L400.0100 #### [facility] [address] [place], [address] NRBC # 0.00 10 3/uL Normal 0-5 [facility] Comment on above: Performed By: #### L 100.0200, L500.2900, L400.0100 #### [facility] [address] [place], [address] Nucleated RBC (Bld) [#/Vol] 0 10*3/uL Normal 0-5 [facility] Comment on above: Performed By: #### L 100.0200, L500.2900, L400.0100 #### [facility] [address] [place], [address] Platelet mean volume (Bld) [Entitic vol] 9.2 fL Normal 6.2-12.0 [facility] Comment on above: Performed By: #### L 100.0200, L500.2900, L400.0100 #### [facility] [address] [place], [address] Platelets (Bld) [#/Vol] 345 10*3/uL Normal 150-450 [facility] Comment on above: Performed By: #### L 100.0200, L500.2900, L400.0100 #### [facility] [address] [place], [address] RBC (Bld) [#/Vol] 4.78 10*6/uL Normal 4.2-5.4 [facility] Comment on above: Performed By: #### L 100.0200, L500.2900, L400.0100 #### [facility] [address] [place], [address] RDW SD 41.1 fl Normal 35.1-43.9 [facility] Comment on above: Performed By: #### L 100.0200, L500.2900, L400.0100 #### [facility] [address] [place], [address] WBC (Bld) [#/Vol] 7.7 10*3/uL Normal 4.4-11.0 [facility] Comment on above: Performed By: #### L 100.0200, L500.2900, L400.0100 #### [facility] [address] [place], [address] Employee [employer] 4 Albumin [Mass/Vol] 3.6 g/dL Normal 3.2-5.0 [facility] Comment on above: Performed By: #### L 100.0200, L500.2900, L400.0100 #### [facility] [address] [place], [address] Albumin/Globulin [Mass ratio] 1.2 {ratio} Normal 0.9-2.4 [facility] Comment on above: Performed By: #### L 100.0200, L500.2900, L400.0100 #### [facility] [address] [place], [address] ALK P 74 U/L Normal 45-117 [facility] Comment on above: Performed By: #### L 100.0200, L500.2900, L400.0100 #### [facility] [address] [place], [address] ALT [Catalytic activity/Vol] 41 U/L Normal 13-56 [facility] Comment on above: Performed By: #### L 100.0200, L500.2900, L400.0100 #### [facility] [address] [place], [address] AST [Catalytic activity/Vol] 22 U/L Normal 15-37 [facility] Comment on above: Performed By: #### L 100.0200, L500.2900, L400.0100 #### [facility] [address] [place], [address] Bilirubin [Mass/Vol] 0.30 mg/dL Normal 0.20-1.00 [facility] Comment on above: Result Comment: For patients on eltrombopag therapy, use of Dimension [place] TBIL is not recommended. Performed By: #### L 100.0200, L500.2900, L400.0100 #### [facility] [address] [place], [address] Bilirubin.direct [Mass/Vol] 0.08 mg/dL Normal 0.00-0.30 [facility] Comment on above: Performed By: #### L 100.0200, L500.2900, L400.0100 #### [facility] [facility] [address] [place], [address] BUN/CRE 31.8 RATIO High 10-20 [facility] Comment on above: Performed By: #### L 100.0200, L500.2900, L400.0100 #### [facility] [address] [place], [address] CA,Total 9.5 mg/dL Normal 8.5-10.1 [facility] Comment on above: Performed By: #### L 100.0200, L500.2900, L400.0100 #### [facility] [address] [place], [address] Chloride [Moles/Vol] 105 mmol/L Normal 98-107 [facility] Comment on above: Performed By: #### L 100.0200, L500.2900, L400.0100 #### [facility] [address] [place], [address] CHOL:HDL 2.80 Normal [facility] Comment on above: Performed By: #### L 100.0200, L500.2900, L400.0100 #### [facility] [address] [place], [address] Cholesterol [Mass/Vol] 202 mg/dL High 200 [facility] Comment on above: Result Comment: <200 mg/dL Desirable 200-240 mg/dL Borderline >240 mg/dL High Risk Performed By: #### L 100.0200, L500.2900, L400.0100 #### [facility] [address] [place], [address] Cholesterol in HDL [Mass/Vol] 73 mg/dL Normal [facility] Comment on above: Result Comment: The drugs N-Acetylcysteine and Metamizole may falsely depress this assay. Reference Range HDL <40 mg/dL Low HDL Cholesterol HDL >or= 60 mg/dL High HDL Cholesterol Performed By: #### L 100.0200, L500.2900, L400.0100 #### [facility] [address] [place], [address] Cholesterol in LDL [Mass/Vol] 108 mg/dL Normal 0-130 [facility] Comment on above: Performed By: #### L 100.0200, L500.2900, L400.0100 #### [facility] [address] [place], [address] Cholesterol in VLDL [Mass/Vol] 21 mg/dL Normal 5-40 [facility] Comment on above: Performed By: #### L 100.0200, L500.2900, L400.0100 #### [facility] [address] [place], [address] CO2 [Moles/Vol] 28.0 mmol/L Normal 21.0-32.0 [facility] Comment on above: Performed By: #### L 100.0200, L500.2900, L400.0100 #### [facility] [address] [place], [address] Creatinine [Mass/Vol] 0.82 mg/dL Normal 0.55-1.02 [facility] Comment on above: Result Comment: The validity of the calculated GFR GFRAA in patients over 70 years has not been determined. Clinical correlation is essential. Performed By: #### L 100.0200, L500.2900, L400.0100 #### [facility] [address] [place], [address] EST GFR - AA 92 mL/min Normal >60 [facility] Comment on above: Result Comment: Afri can [place] GFR Calc Performed By: #### L 100.0200, L500.2900, L400.0100 #### [facility] [address] [place], [address] GAP 6 Normal 5-15 [facility] Comment on above: Performed By: #### L 100.0200, L500.2900, L400.0100 #### [facility] [address] [place], [address] GFR/1.73 sq M.predicted among non-blacks MDRD (S/P/Bld) [Vol rate/Area] 76 mL/min/{1.73_m2} Normal >60 [facility] Comment on above: Result Comment: Non- GFR Calc Performed By: #### L 100.0200, L500.2900, L400.0100 #### [facility] [address] [place], [address] Globulin (S) [Mass/Vol] 3.0 g/dL Normal 2.2-4.2 [facility] Comment on above: Performed By: #### L 100.0200, L500.2900, L400.0100 #### [facility] [address] [place], [address] Glucose [Mass/Vol] 100 mg/dL Normal 74-106 [facility] Comment on above: Result Comment: Fast ing Glucose result from 100 to 125 mg/dL suggests IMPAIRED HOMEOSTASIS per A.D.A. criteria. Performed By: #### L 100.0200, L500.2900, L400.0100 #### [facility] [address] [place], [address] LDH 170 U/L Normal 84-246 [facility] Comment on above: Performed By: #### L 100.0200, L500.2900, L400.0100 #### [facility] [address] [place], [address] Phosphate [Mass/Vol] 3.9 mg/dL Normal 2.5-4.9 [facility] Comment on above: Performed By: #### L 100.0200, L500.2900, L400.0100 #### [facility] [address] [place], [address] Potassium [Moles/Vol] 4.1 mmol/L Normal 3.5-5.1 [facility] Comment on above: Performed By: #### L 100.0200, L500.2900, L400.0100 #### [facility] [address] [place], [address] Sodium [Moles/Vol] 139 mmol/L Normal 136-145 [facility] Comment on above: Performed By: #### L 100.0200, L500.2900, L400.0100 #### [facility] [address] [place], [address] T PROT 6.6 g/dL Normal 6.4-8.2 [facility] Comment on above: Performed By: #### L 100.0200, L500.2900, L400.0100 #### [facility] [address] [place], [address] Triglyceride [Mass/Vol] 107 mg/dL Normal [facility] Comment on above: Result Comment: The drugs N-Acetylcysteine and Metamizole may falsely depress this assay. Serum Triglycerides Reference Interval Normal <150 mg/dL Borderline high 150 - 199 mg/dL High 200 - 499 mg/dL Very High > or = 500 mg/dL Performed By: #### L 100.0200, L500.2900, L400.0100 #### [facility] [address] [place], [address] Urea nitrogen [Mass/Vol] 26 mg/dL High 7-18 [facility] Comment on above: Performed By: #### L 100.0200, L500.2900, L400.0100 #### [facility] [address] [place], [address] URIC 4.5 mg/dL Normal 2.6-6.0 [facility] Comment on above: Result Comment: The drugs N-Acetylcysteine and Metamizole may falsely depress this assay. Performed By: #### L 100.0200, L500.2900, L400.0100 #### [facility] [address] [place], [address] Urinalysis, Employeeon 06-20 BILIRUBIN URINE Negative Normal Negative [facility] Comment on above: Order Comment: CLEAN CATCH Performed By: #### L 100.0200, L500.2900, L400.0100 #### [facility] [address] [place], [address] Clarity (U) Clear Normal Clear [facility] Comment on above: Order Comment: CLEAN CATCH Performed By: #### L 100.0200, L500.2900, L400.0100 #### [facility] [address] [place], [address] Color (U) Yellow Normal Yellow [facility] Comment on above: Order Comment: CLEAN CATCH Performed By: #### L 100.0200, L500.2900, L400.0100 #### [facility] [address] [place], [address] GLUCOSE, UR Normal Normal Normal [facility] Comment on above: Order Comment: CLEAN CATCH Performed By: #### L 100.0200, L500.2900, L400.0100 #### [facility] [address] [place], [address] KETONE UR Negative Normal Negative [facility] Comment on above: Order Comment: CLEAN CATCH Performed By: #### L 100.0200, L500.2900, L400.0100 #### [facility] [address] [place], [address] LEUK ESTERASE Negative Normal Negative [facility] Comment on above: Order Comment: CLEAN CATCH Performed By: #### L 100.0200, L500.2900, L400.0100 #### [facility] [address] [place], [address] Nitrite Ql (U) Negative Normal Negative [facility] Comment on above: Order Comment: CLEAN CATCH Performed By: #### L 100.0200, L500.2900, L400.0100 #### [facility] [address] [place], [address] OCCULT BLOOD-UR Negative Normal Negative [facility] Comment on above: Order Comment: CLEAN CATCH Performed By: #### L 100.0200, L500.2900, L400.0100 #### [facility] [address] [place], [address] pH UR 7.0 Normal 5.0 - 8.0 [facility] Comment on above: Order Comment: CLEAN CATCH Performed By: #### L 100.0200, L500.2900, L400.0100 #### [facility] [address] [place], [address] PROT DIPSTX Negative Normal Negative [facility] Comment on above: Order Comment: CLEAN CATCH Performed By: #### L 100.0200, L500.2900, L400.0100 #### [facility] [address] [place], [address] SP.GR. DIPSTX 1.015 Normal 1.002-1.03 0 [facility] Comment on above: Order Comment: CLEAN CATCH Performed By: #### L 100.0200, L500.2900, L400.0100 #### [facility] [address] [place], [address] UROBILI Normal Normal Normal [facility] Comment on above: Order Comment: CLEAN CATCH Performed By: #### L 100.0200, L500.2900, L400.0100 #### [facility] [address] [place], [address] Absolute lymphocyte countOrd ered By: Charles Nazaroi on 09-02-2023 Lymphocytes Auto (Unsp spec) [#/Vol] 3.31 10*3/uL 0.83-4.51 [facility] Basophil percentageOrdered B y: Charles Nazario on 09-02-2023 Basophils/100 WBC (Bld) 0.9 % 0-1 [facility] Eosinophils/100 WBC (Bld) 4.1 % 0-5 [facility] Neutrophils (Bld) [#/Vol] 3.9 10*3/uL 2.0-7.7 [facility] Neutrophils/100 WBC (Bld) 46.6 % 47-70 [facility] WBC (Bld) [#/Vol] 8.5 10*3/uL 4.4-11.0 [facility] Blood erythrocytes count (nu mber/volume)Ordered By: Charles Nazario on 09-02-2023 RBC (Bld) [#/Vol] 5.05 10*6/uL 4.2-5.4 [facility] Blood hemoglobin measurement (mass/volume)Ordered By: Charles Nazario on 09-02-2023 Hemoglobin (Bld) [Mass/Vol] 14.4 g/dL 12.0-15.0 [facility] Blood lymphocytes/100 leukoc ytesOrdered By: Charles Nazario on 09-02-2023 Lymphocytes/100 WBC (Bld) 39.1 % 19-41 [facility] Blood monocytes/100 leukocyt esOrdered By: Charles Nazario on 09-02-2023 Monocytes/100 WBC (Bld) 9.2 % 0-10 [facility] Blood platelet mean volumeOr dered By: Charles Nazario on 09-02-2023 Platelet mean volume (Bld) [Entitic vol] 9.3 fL 6.2-12.0 [facility] Determination of erythrocyte mean corpuscular volume (MCV)Ordered By: Charles Nazario on 09-02-2023 MCV (RBC) [Entitic vol] 87.9 fL 81-99 [facility] Gram stain for investigation of transfusion reactionOrdered By: Charles Nazario on 09-02-2023 Microscopic observation Gram stain Nom (Unsp spec) [facility] Microscopic observation Gram stain Nom (Unsp spec) [facility] Hematocrit Auto (Bld) [Volum e fraction]Ordered By: Charles Nazario on 09-02-2023 Hematocrit (Bld) [Volume fraction] 44.4 % 37-47 [facility] - Hematology and Cell countsOrdered By: Charles Nazario on 09-02-2023 Erythrocyte distribution width (RBC) [Entitic vol] 41.9 fL 35.1-43.9 [facility] Erythrocyte distribution width (RBC) [Ratio] 13.0 % 11.6-14.6 [facility] Immature granulocytes/100 WBC (Bld) 0.100 % 0.0-0.9 [facility] Comment on above: IG% - Immature Granu locytes (promyelocytes, myelocytes and metamyelocytes) > 1% indicates that a LEFT SHIFT is Present. MCH (RBC) [Entitic mass] 28.5 pg 27.0-32.0 [facility] Nucleated RBC/100 WBC (Bld) [Ratio] 0 % 0-5 [facility] MCHC Auto (RBC) [Mass/Vol]Or dered By: Charles Nazario on 09-02-2023 MCHC (RBC) [Mass/Vol] 32.4 g/dL 32-36 [facility] No Panel InformationOrdered By: Charles Nazario on 09-02-2023 Methicillin-Resist S.aureus DNA PCR Negative Negative [facility] Nasal Screen MRSA/MSSA [facility] Nasopharyngeal Culture Klebsiella oxytoca [facility] Nasal Screen MRSA/MSSA [facility] Nasopharyngeal Culture Klebsiella oxytoca [facility] Platelets bldOrdered By: Salina Nazario on 09-02-2023 Platelets (Bld) [#/Vol] 334 10*3/uL 150-450 [facility] - Microbiology an d Antimicrobial susceptibilityon 07-17-2023 SARS-CoV-2 (COVID-19) RNA ROBERT+probe Ql (Unsp spec) Detected [facility] No Panel Informationon 07-17 Influenza Types A,B Rapid (Clinic) Not detected [facility] Absolute lymphocyte countOrd ered By: HEALTH ASSESSMENT on 05-19-2023 Lymphocytes Auto (Unsp spec) [#/Vol] 3.06 10*3/uL 0.83-4.51 [facility] Absolute reticulocyte countO rdered By: HEALTH ASSESSMENT on 05-19-2023 Reticulocytes (Bld) [#/Vol] 0.00 10*3/uL 0-5 [facility] Basophil percentageOrdered B y: HEALTH ASSESSMENT on 05-19-2023 Basophil percentage 3.5 mg/dL 2.5-4.9 [facility] Bilirubin [Mass/Vol] 0.40 mg/dL 0.20-1.00 [facility] Comment on above: For patients on eltr ombopag therapy, use of Dimension [place] TBIL is not recommended. Chloride [Moles/Vol] 105 mmol/L 98-107 [facility] Cholesterol [Mass/Vol] 186 mg/dL <200 [facility] Comment on above: <200 mg/dL Desirable 200-240 mg/dL Borderline >240 mg/dL High Risk Glucose [Mass/Vol] 92 mg/dL 74-106 [facility] LDH [Catalytic activity/Vol] 145 U/L 84-246 [facility] Neutrophils (Bld) [#/Vol] 3.7 10*3/uL 2.0-7.7 [facility] Potassium [Moles/Vol] 3.6 mmol/L 3.5-5.1 [facility] Protein [Mass/Vol] 6.7 g/dL 6.4-8.2 [facility] Sodium [Moles/Vol] 139 mmol/L 136-145 [facility] Triglyceride [Mass/Vol] 98 mg/dL <199 [facility] Comment on above: The drugs N-Acetylcy steine and Metamizole may falsely depress this assay.Serum Triglycerides Reference Interval Normal <150 mg/dL Borderline high 150 - 199 mg/dL High 200 - 499 mg/dL Very High > or = 500 mg/dL WBC (Bld) [#/Vol] 7.7 10*3/uL 4.4-11.0 [facility] Bilirubin Test strip Ql (U)O rdered By: HEALTH ASSESSMENT on 05-19-2023 Bilirubin Ql (U) Negative Negative [facility] Blood erythrocytes count (nu mber/volume)Ordered By: HEALTH ASSESSMENT on 05-19-2023 RBC (Bld) [#/Vol] 4.87 10*6/uL 4.2-5.4 [facility] Blood hemoglobin measurement (mass/volume)Ordered By: HEALTH ASSESSMENT on 05-19-2023 Hemoglobin (Bld) [Mass/Vol] 14.3 g/dL 12.0-15.0 [facility] Blood platelet mean volumeOr dered By: HEALTH ASSESSMENT on 05-19-2023 Platelet mean volume (Bld) [Entitic vol] 9.6 fL 6.2-12.0 [facility] Determination of erythrocyte mean corpuscular volume (MCV)Ordered By: HEALTH ASSESSMENT on 05-19-2023 MCV (RBC) [Entitic vol] 90.1 fL 81-99 [facility] Direct bilirubinOrdered By: HEALTH ASSESSMENT on 05-19-2023 Bilirubin.direct [Mass/Vol] 0.12 mg/dL 0.00-0.30 [facility] Hematocrit Auto (Bld) [Volum e fraction]Ordered By: HEALTH ASSESSMENT on 05-19-2023 Hematocrit (Bld) [Volume fraction] 43.9 % 37-47 [facility] Ketones Test strip Ql (U)Ord ered By: HEALTH ASSESSMENT on 05-19-2023 Ketones Ql (U) Negative Negative [facility] - Chemistry and C hemistry - challengeOrdered By: HEALTH ASSESSMENT on 05-19-2023 ALP [Catalytic activity/Vol] 70 U/L 45-117 [facility] ALT [Catalytic activity/Vol] 17 U/L 13-56 [facility] Cholesterol.total/Cho lesterol in HDL [Mass ratio] 2.80 {ratio} [facility] CO2 [Moles/Vol] 30.0 mmol/L 21.0-32.0 [facility] Globulin (S) [Mass/Vol] 3.0 g/dL 2.2-4.2 [facility] Urea nitrogen/Creatinine [Mass ratio] 22.5 mg/mg 10-20 [facility] - Hematology and Cell countsOrdered By: HEALTH ASSESSMENT on 05-19-2023 Erythrocyte distribution width (RBC) [Entitic vol] 41.9 fL 35.1-43.9 [facility] Erythrocyte distribution width (RBC) [Ratio] 12.7 % 11.6-14.6 [facility] MCH (RBC) [Entitic mass] 29.4 pg 27.0-32.0 [facility] Nucleated RBC/100 WBC (Bld) [Ratio] 0 % 0-5 [facility] MCHC Auto (RBC) [Mass/Vol]Or dered By: HEALTH ASSESSMENT on 05-19-2023 MCHC (RBC) [Mass/Vol] 32.6 g/dL 32-36 [facility] Nitrite Test strip Ql (U)Ord ered By: HEALTH ASSESSMENT on 05-19-2023 Nitrite Ql (U) Negative Negative [facility] No Panel InformationOrdered By: HEALTH ASSESSMENT on 05-19-2023 Estimated GFR (MDRD) Amer 95 mL/min >60 [facility] Comment on above: GFR Calc Estimated GFR (MDRD) Non-Af Amer 78 mL/min >60 [facility] Comment on above: Non- GFR Calc Platelets bldOrdered By: [facility] ASSESSMENT on 05-19-2023 Platelets (Bld) [#/Vol] 324 10*3/uL 150-450 [facility] Protein Test strip Ql (U)Ord ered By: HEALTH ASSESSMENT on 05-19-2023 Protein Ql (U) Negative Negative [facility] Segmented neutrophils/100 WB C Auto (Bld)Ordered By: HEALTH ASSESSMENT on 05-19-2023 Segmented neutrophils/100 WBC (Bld) 48.5 % 47-70 [facility] Serum or plasma albumin julien urement (mass/volume)Ordered By: HEALTH ASSESSMENT on 05-19-2023 Albumin [Mass/Vol] 3.7 g/dL 3.2-5.0 [facility] Serum or plasma albumin/glob ulin mass ratioOrdered By: HEALTH ASSESSMENT on 05-19-2023 Albumin/Globulin [Mass ratio] 1.2 {ratio} 0.9-2.4 [facility] Serum or plasma calcium julien urement (mass/volume)Ordered By: HEALTH ASSESSMENT on 05-19-2023 Calcium [Mass/Vol] 8.9 mg/dL 8.5-10.1 [facility] Serum or plasma cholesterol in HDL measurement (mass/volume)Ordered By: HEALTH ASSESSMENT on 05-19-2023 Cholesterol in HDL [Mass/Vol] 67 mg/dL >40 [facility] Comment on above: The drugs N-Acetylcy steine and Metamizole may falsely depress this assay. Reference Range HDL <40 mg/dL Low HDL Cholesterol HDL >or= 60 mg/dL High HDL Cholesterol Serum or plasma cholesterol in VLDL measurement (mass/volume)Ordered By: HEALTH ASSESSMENT on 05-19-2023 Cholesterol in VLDL [Mass/Vol] 20 mg/dL 5-40 [facility] Serum or plasma creatinine m easurement (mass/volume)Ordered By: HEALTH ASSESSMENT on 05-19-2023 Creatinine [Mass/Vol] 0.80 mg/dL 0.55-1.02 [facility] Comment on above: The validity of the calculated GFR & GFRAA in patients over 70 years has not been determined. Clinical correlation is essential. Serum or plasma low density lipoprotein (LDL) cholesterol measurement (mass/volume)Ordered By: HEALTH ASSESSMENT on 05-19-2023 Cholesterol in LDL [Mass/Vol] 99 mg/dL 0-130 [facility] Serum or plasma urea nitroge n measurement (mass/volume)Ordered By: HEALTH ASSESSMENT on 05-19-2023 Urea nitrogen [Mass/Vol] 18 mg/dL 7-18 [facility] Serum or plasma uric acid me asurement (mass/volume)Ordered By: HEALTH ASSESSMENT on 05-19-2023 Urate [Mass/Vol] 4.6 mg/dL 2.6-6.0 [facility] Comment on above: The drugs N-Acetylcy steine and Metamizole may falsely depress this assay. Thin prep Papanicolaou smear with manual screeningOrdered By: HEALTH ASSESSMENT on 05-19-2023 Thin prep Papanicolaou smear with manual screening 13 U/L 15-37 [facility] Thin prep Papanicolaou smear with manual screening 4 5-15 [facility] Urine blood detectionOrdered By: HEALTH ASSESSMENT on 05-19-2023 RBC Ql (U) Negative Negative [facility] Urine clarityOrdered By: [facility] ASSESSMENT on 05-19-2023 Clarity (U) Clear Clear [facility] Urine color determinationOrd ered By: HEALTH ASSESSMENT on 05-19-2023 Color (U) Yellow Yellow [facility] Urine glucose detectionOrder ed By: HEALTH ASSESSMENT on 05-19-2023 Glucose Ql (U) Normal mg/dl Normal [facility] Urine leukocyte esterase det ection by dipstickOrdered By: HEALTH ASSESSMENT on 05-19-2023 Leukocyte esterase Test strip Ql (U) Negative Negative [facility] Urine pHOrdered By: HEALTH A SSESSMENT on 05-19-2023 pH (U) 7.0 [pH] 5.0 - 8.0 [facility] Urine specific gravity measu rementOrdered By: HEALTH ASSESSMENT on 05-19-2023 Specific gravity (U) [Rel density] 1.010 1.002-1.03 0 [facility] Urobilinogen Auto test strip Ql (U)Ordered By: HEALTH ASSESSMENT on 05-19-2023 Urobilinogen Ql (U) Normal mg/dl Normal [facility] CNPNon 06-08-2022 CNPN Telephone (OBGYWM) ----- MERVAT CORREA ([id number]) 1965 F Date Time Provider Department 06/08/22 ISAI SHIPLEY OBGYWM During your visit today, we recorded the following information about you: Linda Ko KRYSTIAN 06/08/2022 10:18 AM Signed Kidney AND bladder ultrasound results recevied from [facility]. Patient stated that she is having an MRI ordered by PCP and will call office to f/u after she has MRI completed. Ultrasound results sent to be scanned Allergies As of Date: 06/08/2022 (No Known Allergies) Date Reviewed: 05/06/2011 Reviewed by: Summer eRnner Rn - Fully Assessed Reason for Visit: Results [95] Prescriptions as of 06/08/2022 - levonorgestrel (MIRENA) 20 mcg/24 hr INTRAUTERINE IUD 1 Each by INTRAUTERINE route one time only. - Valsartan-Hydrochlorothia zide (DIOVAN HCT) 160-12.5 mg ORAL per tablet Take 1 tablet by mouth once daily. - pyridoxine (VITAMIN B-6) 100 mg ORAL tablet Take 100 mg by mouth once daily. Problem List As Of Date 06/08/2022 Noted Resolved Menorrhagia [N92.0] 03/31/2011 Fibroid [D21.9] 03/31/2011 Encounter Status:Closed by LINDA KO LPN on 06/08/22 Normal [facility] Absolute lymphocyte counton 05-26-2022 Lymphocytes Auto (Unsp spec) [#/Vol] 2.99 10*3/uL 0.83-4.51 [facility] Work Phone: Absolute reticulocyte counto n 05-26-2022 Reticulocytes (Bld) [#/Vol] 0.00 10*3/uL 0-5 [facility] Work Phone: Basophil percentageon 2021 Basophil percentage 3.8 mg/dL 2.5-4.9 [facility] Work Phone: Bilirubin [Mass/Vol] 0.30 mg/dL 0.20-1.00 [facility] Work Phone: Comment on above: For patients on eltr ombopag therapy, use of Dimension [place] TBIL is not recommended. Chloride [Moles/Vol] 104 mmol/L 98-107 [facility] Work Phone: Cholesterol [Mass/Vol] 180 mg/dL <200 [facility] Work Phone: Comment on above: <200 mg/dL Desirable 200-240 mg/dL Borderline >240 mg/dL High Risk Glucose [Mass/Vol] 90 mg/dL 74-106 [facility] Work Phone: Neutrophils (Bld) [#/Vol] 3.6 10*3/uL 2.0-7.7 [facility] Work Phone: Potassium [Moles/Vol] 4.0 mmol/L 3.5-5.1 [facility] Work Phone: Protein [Mass/Vol] 6.7 g/dL 6.4-8.2 [facility] Work Phone: Sodium [Moles/Vol] 138 mmol/L 136-145 [facility] Work Phone: Triglyceride [Mass/Vol] 86 mg/dL <199 [facility] Work Phone: Comment on above: The drugs N-Acetylcy steine and Metamizole may falsely depress this assay.Serum Triglycerides Reference Interval Normal <150 mg/dL Borderline high 150 - 199 mg/dL High 200 - 499 mg/dL Very High > or = 500 mg/dL WBC (Bld) [#/Vol] 7.6 10*3/uL 4.4-11.0 [facility] Work Phone: Bilirubin Test strip Ql (U)o n 05-26-2022 Bilirubin Ql (U) Negative Negative [facility] Work Phone: Blood erythrocytes count (nu mber/volume)on 05-26-2022 RBC (Bld) [#/Vol] 4.92 10*6/uL 4.2-5.4 [facility] Work Phone: Blood hemoglobin measurement (mass/volume)on 05-26-2022 Hemoglobin (Bld) [Mass/Vol] 14.4 g/dL 12.0-15.0 [facility] Work Phone: Blood platelet mean volumeon 05-26-2022 Platelet mean volume (Bld) [Entitic vol] 9.7 fL 6.2-12.0 [facility] Work Phone: Determination of erythrocyte mean corpuscular volume (MCV)on 05-26-2022 MCV (RBC) [Entitic vol] 87.4 fL 81-99 [facility] Work Phone: Direct bilirubinon Bilirubin.direct [Mass/Vol] 0.07 mg/dL 0.00-0.30 [facility] Work Phone: Hematocrit Auto (Bld) [Volum e fraction]on 05-26-2022 Hematocrit (Bld) [Volume fraction] 43.0 % 37-47 [facility] Work Phone: Ketones Test strip Ql (U)on 05-26-2022 Ketones Ql (U) Negative Negative [facility] Work Phone: Laboratory - Chemistry and C hemistry - challengeon 05-26-2022 ALP [Catalytic activity/Vol] 71 U/L 45-117 [facility] Work Phone: ALT [Catalytic activity/Vol] 17 U/L 13-56 [facility] Work Phone: Cholesterol.total/Cho lesterol in HDL [Mass ratio] 3.00 {ratio} [facility] Work Phone: CO2 [Moles/Vol] 27.0 mmol/L 21.0-32.0 [facility] Work Phone: Globulin (S) [Mass/Vol] 3.2 g/dL 2.2-4.2 [facility] Work Phone: Urea nitrogen/Creatinine [Mass ratio] 44.5 mg/mg 10-20 [facility] Work Phone: Laboratory - Hematology and Cell countson 05-26-2022 Erythrocyte distribution width (RBC) [Entitic vol] 40.0 fL 35.1-43.9 [facility] Work Phone: Erythrocyte distribution width (RBC) [Ratio] 12.6 % 11.6-14.6 [facility] Work Phone: MCH (RBC) [Entitic mass] 29.3 pg 27.0-32.0 [facility] Work Phone: Nucleated RBC/100 WBC (Bld) [Ratio] 0 % 0-5 [facility] Work Phone: MCHC Auto (RBC) [Mass/Vol]on 05-26-2022 MCHC (RBC) [Mass/Vol] 33.5 g/dL 32-36 [facility] Work Phone: Nitrite Test strip Ql (U)on 05-26-2022 Nitrite Ql (U) Negative Negative [facility] Work Phone: No Panel Informationon 05-26 Estimated GFR (MDRD) Amer 112 mL/min >60 [facility] Work Phone: Comment on above: GFR Calc Estimated GFR (MDRD) Non-Af Amer 92 mL/min >60 [facility] Work Phone: Comment on above: Non- GFR Calc Platelets bldon 05-26-2022 Platelets (Bld) [#/Vol] 310 10*3/uL 150-450 [facility] Work Phone: Protein Test strip Ql (U)on 05-26-2022 Protein Ql (U) Negative Negative [facility] Work Phone: Segmented neutrophils/100 WB C Auto (Bld)on 05-26-2022 Segmented neutrophils/100 WBC (Bld) 46.8 % 47-70 [facility] Work Phone: Serum or plasma albumin julien urement (mass/volume)on 05-26-2022 Albumin [Mass/Vol] 3.5 g/dL 3.2-5.0 [facility] Work Phone: Serum or plasma albumin/glob ulin mass ratioon 05-26-2022 Albumin/Globulin [Mass ratio] 1.1 {ratio} 0.9-2.4 [facility] Work Phone: Serum or plasma calcium julien urement (mass/volume)on 05-26-2022 Calcium [Mass/Vol] 8.8 mg/dL 8.5-10.1 [facility] Work Phone: Serum or plasma cholesterol in HDL measurement (mass/volume)on 05-26-2022 Cholesterol in HDL [Mass/Vol] 61 mg/dL >40 [facility] Work Phone: Comment on above: The drugs N-Acetylcy steine and Metamizole may falsely depress this assay. Reference Range HDL <40 mg/dL Low HDL Cholesterol HDL >or= 60 mg/dL High HDL Cholesterol Serum or plasma cholesterol in VLDL measurement (mass/volume)on 05-26-2022 Cholesterol in VLDL [Mass/Vol] 17 mg/dL 5-40 [facility] Work Phone: Serum or plasma creatinine m easurement (mass/volume)on 05-26-2022 Creatinine [Mass/Vol] 0.70 mg/dL 0.55-1.02 [facility] Work Phone: Comment on above: The validity of the calculated GFR & GFRAA in patients over 70 years has not been determined. Clinical correlation is essential. Serum or plasma low density lipoprotein (LDL) cholesterol measurement (mass/volume)on 05-26-2022 Cholesterol in LDL [Mass/Vol] 102 mg/dL 0-130 [facility] Work Phone: Serum or plasma urea nitroge n measurement (mass/volume)on 05-26-2022 Urea nitrogen [Mass/Vol] 31 mg/dL 7-18 [facility] Work Phone: Serum or plasma uric acid me asurement (mass/volume)on 05-26-2022 Urate [Mass/Vol] 3.9 mg/dL 2.6-6.0 [facility] Work Phone: Comment on above: The drugs N-Acetylcy steine and Metamizole may falsely depress this assay. Thin prep Papanicolaou smear with manual screeningon 05-26-2022 Thin prep Papanicolaou smear with manual screening 16 U/L 15-37 [facility] Work Phone: Thin prep Papanicolaou smear with manual screening 7 5-15 [facility] Work Phone: Thin prep Papanicolaou smear with manual screening 166 U/L 84-246 [facility] Work Phone: Urine blood detectionon 05-14 RBC Ql (U) 250 /ul Negative [facility] Work Phone: Urine clarityon 05-26-2022 Clarity (U) Sl. Cloudy Clear [facility] Work Phone: Urine color determinationon 05-26-2022 Color (U) Yellow Yellow [facility] Work Phone: Urine glucose detectionon Glucose Ql (U) Normal mg/dl Normal [facility] Work Phone: Urine leukocyte esterase det ection by dipstickon 05-26-2022 Leukocyte esterase Test strip Ql (U) Negative Negative [facility] Work Phone: Urine pHon 05-26-2022 pH (U) 6.0 [pH] 5.0 - 8.0 [facility] Work Phone: Urine specific gravity measu rementon 05-26-2022 Specific gravity (U) [Rel density] 1.010 1.002-1.03 0 [facility] Work Phone: Urobilinogen Auto test strip Ql (U)on 05-26-2022 Urobilinogen Ql (U) Normal mg/dl Normal [facility] Work Phone: Basophil percentageon 2021 Basophil percentage 3.2 mg/dL 2.5-4.9 [facility] Work Phone: Chloride [Moles/Vol] 104 mmol/L 98-107 [facility] Work Phone: Glucose [Mass/Vol] 102 mg/dL 74-106 [facility] Work Phone: Comment on above: Fasting Glucose resu lt from 100 to 125 mg/dL suggests IMPAIRED HOMEOSTASIS per A.D.A. criteria. Potassium [Moles/Vol] 3.7 mmol/L 3.5-5.1 [facility] Work Phone: Sodium [Moles/Vol] 138 mmol/L 136-145 [facility] Work Phone: Laboratory - Chemistry and C hemistry - challengeon 12-10-2021 CO2 [Moles/Vol] 31.0 mmol/L 21.0-32.0 [facility] Work Phone: Urea nitrogen/Creatinine [Mass ratio] 28.9 mg/mg 10-20 [facility] Work Phone: No Panel Informationon 12-10 Estimated GFR (MDRD) Amer 96 mL/min >60 [facility] Work Phone: Comment on above: GFR Calc Estimated GFR (MDRD) Non-Af Amer 79 mL/min >60 [facility] Work Phone: Comment on above: Non- GFR Calc Vitamin B12 Level > 2000 pg/mL 211-911 [facility] Work Phone: Vitamin D 25-Hydroxy 58.6 ng/mL [facility]: Comment on above: Vitamin D 25(OH) Sta tus Range Deficiency <20 ng/mL (50nmol/L) Insufficiency 20 - 30 ng/mL (50 - 75 nmol/L) Sufficiency 30 - 100 ng/mL (75 - 250 nmol/L) Toxicity >100 ng/mL (>250 nmol/L) Serum or plasma albumin julien urement (mass/volume)on 12-10-2021 Albumin [Mass/Vol] 4.0 g/dL 3.2-5.0 [facility] Work Phone: Serum or plasma calcium julien urement (mass/volume)on 12-10-2021 Calcium [Mass/Vol] 8.9 mg/dL 8.5-10.1 [facility] Work Phone: Serum or plasma creatinine m easurement (mass/volume)on 12-10-2021 Creatinine [Mass/Vol] 0.80 mg/dL 0.55-1.02 [facility] Work Phone: Comment on above: The validity of the calculated GFR & GFRAA in patients over 70 years has not been determined. Clinical correlation is essential. Serum or plasma folate measu rement (mass/volume)on 12-10-2021 Folate [Mass/Vol] 41.30 ng/mL 3.1-55.4 [facility] Work Phone: Serum or plasma urea nitroge n measurement (mass/volume)on 12-10-2021 Urea nitrogen [Mass/Vol] 23 mg/dL 7-18 [facility] Work Phone: BNP,B-Type NATRIURETIC PEPTI DEOrdered By: Skilled Trades Teacher on 10-24-2018 BNP,B-Type NATRIURETIC PEPTIDE 20.6 pg/mL Normal 0-100 [facility] Work Phone: Comment on above: [facility] [address] [place], [place], [id number] CBC W/Diff, AutomatedOrdered By: Skilled Trades Teacher on 10-24-2018 Absolute Neut 7.3 {X10_3/uL} Normal 2.0-7.7 [facility] ens[facility] Work Phone: Comment on above: [facility] [address] [place], [place], [phone] Basophils/100 WBC (Bld) 0.3 % Normal 0-1 [facility] Work Phone: Comment on above: [facility] [address] [place], [place], [phone] Eosinophils/100 WBC (Bld) 2.3 % Normal 0-5 [facility] Work Phone: Comment on above: [facility] [address] [place], [address] Erythrocyte distribution width Ratio (RBC) 13.0 % Normal 11.6-14.6 [facility] Work Phone: Comment on above: [facility] [address] [place], [place], [id number] Hematocrit Volume Fraction (Bld) 44.1 % Normal 37-47 [facility] Work Phone: Comment on above: [facility] [address] [place], [address] Hemoglobin mass conc (Bld) 14.6 g/dL Normal 12.0-15.0 [facility] Work Phone: Comment on above: [facility] [address] [place], [place], [id number] IM GRAN % 0.100 % Normal 0.0-0.9 [facility] Work Phone: Comment on above: IG% - Immature Granu locytes (promyelocytes, myelocytes andmetamyelocytes) > 1% indicates that a LEFT SHIFT is Present. [facility] [address] [place], [address] Lymphocytes #/vol (Bld) 2.25 {X10_3/ul} Normal 0.83-4.51 [facility] Work Phone: Comment on above: [facility] [address] [place], [address] Lymphocytes/100 WBC (Bld) 21.6 % Normal 19-41 [facility] Work Phone: Comment on above: [facility] [address] [place], [address] MCH Entitic mass (RBC) 28.0 pg Normal 27.0-32.0 [facility] Work Phone: Comment on above: [facility] [address] [place], [address] MCHC mass conc (RBC) 33.1 {g/gl} Normal 32-36 [facility] prehensive Internal Medicine Work Phone: Comment on above: [facility] [address] [place], [address] MCV Entitic volume (RBC) 84.6 fL Normal 81-99 [facility] Work Phone: Comment on above: [facility] [address] [place], [address] Monocytes/100 WBC (Bld) 5.9 % Normal 0-10 [facility] Work Phone: Comment on above: [facility] [address] [place], [address] Neutrophils/100 WBC (Bld) 69.8 % Normal 47-70 [facility] Work Phone: Comment on above: [facility] [address] [place], [place], [id number] Platelet mean volume Entitic volume (Bld) 10.1 fL Normal 6.2-12.0 [facility] Work Phone: Comment on above: [facility] [address] [place], [address] Platelets #/vol (Bld) 330 10*3/uL Normal 150-450 [facility] Work Phone: Comment on above: [facility] [address] [place], [place], [id number] RBC #/vol (Bld) 5.21 {M/mm3} Normal 4.2-5.4 Compreh ens[facility] Work Phone: Comment on above: [facility] [address] [place], [place], [address] RDW SD 39.7 fL Normal 35.1-43.9 [facility] Work Phone: Comment on above: [facility] [address] [place], [address] WBC #/vol (Bld) 10.4 10*3/uL Normal 4.4-11.0 [facility] ens[facility] Work Phone: Comment on above: [facility] [address] [place], [place], [id number] CRPOrdered By: System Manage r on 10-24-2018 CRP High sensitivity method mass conc 5.02 mg/L Abnormal 0.0-3.0 [facility] Work Phone: Comment on above: C-Reactive Protein ( CRP) provides useful information for thediagnosis, therapy and monitoring of inflammatory processesand associated diseases. For the evaluation of Relative Riskfor Cardiovascular Disease, a High Sensitivity CRP (HSCRP)should be ordered. [facility] [address] [place], [place], [id number] Comprehensive Metabolic Prof ilOrdered By: Skilled Trades Teacher on 10-24-2018 Comprehensive metabolic 2000 panel 0.72 mg/dL Normal 0.55-1.02 [facility] Work Phone: Comment on above: The validity of the calculated GFR AND GFRAA in patients over70 years has not been determined. Clinical correlation isessential. [facility] [address] [place], [place], [id number] Comprehensive metabolic 2000 panel 7.4 g/dL Normal 6.4-8.2 [facility] Work Phone: Comment on above: [facility] [address] [place], [place], [address] Comprehensive metabolic 2000 panel 3.8 g/dL Normal 3.2-5.0 [facility] Work Phone: Comment on above: [facility] [address] [place], [place], [address] Comprehensive metabolic 2000 panel 3.6 g/dL Normal 2.2-4.2 [facility] Work Phone: Comment on above: [facility] [address] [place], [place], [address] Comprehensive metabolic 2000 panel 20 U/L Normal 13-56 [facility] Work Phone: Comment on above: [facility] [address] [place], [place], [address] Comprehensive metabolic 2000 panel 90 mL/min Normal [facility] Work Phone: Comment on above: Non- GFR Calc [facility] [address] [place], [place], [phone] Comprehensive metabolic 2000 panel 0.50 mg/dL Normal 0.20-1.00 [facility] Work Phone: Comment on above: [facility] [address] [place], [place], [address] Comprehensive metabolic 2000 panel 140 mmol/L Normal 136-145 [facility] Work Phone: Comment on above: [facility] [address] [place], [place], [address] Comprehensive metabolic 2000 panel 3.6 mmol/L Normal 3.5-5.1 [facility] Work Phone: Comment on above: [facility] [address] [place], [place], [address] Comprehensive metabolic 2000 panel 105 mmol/L Normal 98-107 Compre[facility] Work Phone: Comment on above: [facility] [address] [place], [place], [address] Comprehensive metabolic 2000 panel 12 mg/dL Normal 7-18 [facility] Work Phone: Comment on above: [facility] [address] [place], [place], [address] Comprehensive metabolic 2000 panel 85 mg/dL Normal 74-106 [facility] Work Phone: Comment on above: Please note revised GLUCOSE reference range [id number]/02/2018. [facility] [address] [place], [place], [address] Comprehensive metabolic 2000 panel 23.0 mmol/L Normal 21.0-32.0 [facility] Work Phone: Comment on above: [facility] [address] [place], [place], [address] Comprehensive metabolic 2000 panel 1.1 {RATIO} Normal 0.9-2.4 [facility] Work Phone: Comment on above: [facility] [address] [place], [place], [address] Comprehensive metabolic 2000 panel 8.8 mg/dL Normal 8.5-10.1 [facility] Work Phone: Comment on above: [facility] [address] [place], [place], [address] Comprehensive metabolic 2000 panel 16 U/L Normal 15-37 [facility] Work Phone: Comment on above: [facility] [address] [place], [place], [address] Comprehensive metabolic 2000 panel 80 U/L Normal 45-117 Compre[facility] Work Phone: Comment on above: [facility] [address] [place], [place], [address] Comprehensive metabolic 2000 panel 12 1 Normal 5-15 [facility] Work Phone: Comment on above: [facility] [address] [place], [place], [id number] Comprehensive metabolic 2000 panel 109 mL/min Normal Compre[facility]si ve [facility] Work Phone: Comment on above: GFR Calc [facility] [address] [place], [place], [address] Comprehensive metabolic 2000 panel 16.6 {RATIO} Normal 10-20 [facility] Work Phone: Comment on above: [facility] [address] [place], [place], [id number] D-Dimer Quantitative (DVT/PE )Ordered By: Skilled Trades Teacher on 10-24-2018 D-Dimer Quantitative (DVT/PE) 0.27 {FEU/ug/m} Normal 0.27-0.49 [facility] Work Phone: Comment on above: NORMAL D-Dimer level (<0.50) indicates no DVT or PE. [facility] [address] [place], [place], [id number] Erythrocyte Sed RateOrdered By: Skilled Trades Teacher on 10-24-2018 Erythrocyte Sed Rate 15 mm/h Normal 0-30 Comp rehensive Internal Medicine Work Phone: Comment on above: [facility] [address] [place], [address] Basic Metabolic Profile (BMP )Ordered By: Skilled Trades Teacher on 09-19-2018 Basic metabolic 2000 panel 26.0 mmol/L Normal 21.0-32.0 [facility] Work Phone: Comment on above: WAS SUPPOSE TO BE A CMP-SO JUST ADD THE LIVERComments: WAS SUPPOSE TO BE A CMP-SO JUST ADD THE [facility] [address] [place], [address] Basic metabolic 2000 panel 8 1 Normal 5-15 [facility] Work Phone: Comment on above: WAS SUPPOSE TO BE A CMP-SO JUST ADD THE LIVERComments: WAS SUPPOSE TO BE A CMP-SO JUST ADD THE [facility] [address] [place], [address] Basic metabolic 2000 panel 108 mmol/L Abnormal 98-107 [facility] Work Phone: Comment on above: WAS SUPPOSE TO BE A CMP-SO JUST ADD THE LIVERComments: WAS SUPPOSE TO BE A CMP-SO JUST ADD THE [facility] [address] [place], [address] Basic metabolic 2000 panel 142 mmol/L Normal 136-145 [facility] Work Phone: Comment on above: WAS SUPPOSE TO BE A CMP-SO JUST ADD THE LIVERComments: WAS SUPPOSE TO BE A CMP-SO JUST ADD THE [facility] [address] [place], [address] Basic metabolic 2000 panel 8.2 mg/dL Abnormal 8.5-10.1 [facility] Work Phone: Comment on above: WAS SUPPOSE TO BE A CMP-SO JUST ADD THE LIVERComments: WAS SUPPOSE TO BE A CMP-SO JUST ADD THE [facility] [address] [place], [address] Basic metabolic 2000 panel 3.8 mmol/L Normal 3.5-5.1 [facility] Work Phone: Comment on above: WAS SUPPOSE TO BE A CMP-SO JUST ADD THE LIVERComments: WAS SUPPOSE TO BE A CMP-SO JUST ADD THE [facility] [address] [place], [address] Basic metabolic 2000 panel 20.4 {RATIO} Abnormal 10-20 [facility] Work Phone: Comment on above: WAS SUPPOSE TO BE A CMP-SO JUST ADD THE LIVERComments: WAS SUPPOSE TO BE A CMP-SO JUST ADD THE [facility] [address] [place], [address] Basic metabolic 2000 panel 99 mL/min Normal [facility] Work Phone: Comment on above: GFR Calc WAS SUPPOSE TO BE A CMP-SO JUST ADD THE LIVERComments: WAS SUPPOSE TO BE A CMP-SO JUST ADD THE [facility] [address] [place], [address] Basic metabolic 2000 panel 82 mL/min Normal [facility] Work Phone: Comment on above: Non- GFR Calc WAS SUPPOSE TO BE A CMP-SO JUST ADD THE LIVERComments: WAS SUPPOSE TO BE A CMP-SO JUST ADD THE [facility] [address] [place], [address] Basic metabolic 2000 panel 0.79 mg/dL Normal 0.55-1.02 [facility] Work Phone: Comment on above: The validity of the calculated GFR AND GFRAA in patients over70 years has not been determined. Clinical correlation isessential. WAS SUPPOSE TO BE A CMP-SO JUST ADD THE LIVERComments: WAS SUPPOSE TO BE A CMP-SO JUST ADD THE [facility] [address] [place], [address] Basic metabolic 2000 panel 16 mg/dL Normal 7-18 [facility] Work Phone: Comment on above: WAS SUPPOSE TO BE A CMP-SO JUST ADD THE LIVERComments: WAS SUPPOSE TO BE A CMP-SO JUST ADD THE [facility] [address] [place], [address] Basic metabolic 2000 panel 84 mg/dL Normal 74-106 [facility] Medicine Work Phone: Comment on above: Please note revised GLUCOSE reference range [id number]/02/2018. WAS SUPPOSE TO BE A CMP-SO JUST ADD THE LIVERComments: WAS SUPPOSE TO BE A CMP-SO JUST ADD THE [facility] [address] [place], [address] Liver ProfileOrdered By: Erika tem Electrical Foreman on 09-19-2018 Albumin mass conc 3.4 g/dL Normal 3.2-5.0 [facility] Internal Medicine Work Phone: Comment on above: WAS SUPPOSE TO BE A CMP-SO JUST ADD THE LIVERComments: WAS SUPPOSE TO BE A CMP-SO JUST ADD THE [facility] [address] [place], [address] ALP enzyme act/vol 76 U/L Normal 45-117 [facility] Internal Medicine Work Phone: Comment on above: WAS SUPPOSE TO BE A CMP-SO JUST ADD THE LIVERComments: WAS SUPPOSE TO BE A CMP-SO JUST ADD THE [facility] [address] [place], [address] ALT enzyme act/vol 18 U/L Normal 13-56 [facility] Medicine Work Phone: Comment on above: WAS SUPPOSE TO BE A CMP-SO JUST ADD THE LIVERComments: WAS SUPPOSE TO BE A CMP-SO JUST ADD THE [facility] [address] [place], [address] AST enzyme act/vol 16 U/L Normal 15-37 [facility] Medicine Work Phone: Comment on above: WAS SUPPOSE TO BE A CMP-SO JUST ADD THE LIVERComments: WAS SUPPOSE TO BE A CMP-SO JUST ADD THE [facility] [address] [place], [address] Bilirubin mass conc 0.20 mg/dL Normal 0.20-1.00 [facility] Internal Medicine Work Phone: Comment on above: WAS SUPPOSE TO BE A CMP-SO JUST ADD THE LIVERComments: WAS SUPPOSE TO BE A CMP-SO JUST ADD THE [facility] [address] [place], [address] Bilirubin.direct mass conc 0.09 mg/dL Normal 0.00-0.30 [facility] Internal Medicine Work Phone: Comment on above: WAS SUPPOSE TO BE A CMP-SO JUST ADD THE LIVERComments: WAS SUPPOSE TO BE A CMP-SO JUST ADD THE [facility] [address] [place], [address] Globulin mass conc (S) 3.0 g/dL Normal 2.2-4.2 [facility] Internal Medicine Work Phone: Comment on above: WAS SUPPOSE TO BE A CMP-SO JUST ADD THE LIVERComments: WAS SUPPOSE TO BE A CMP-SO JUST ADD [facility] [facility] [address] [place], [phone] Hepatic function 2000 panel - Serum or Plasma 76 U/L Normal 45-117 [facility] Work Phone: Comment on above: WAS SUPPOSE TO BE A CMP-SO JUST ADD THE LIVERComments: WAS SUPPOSE TO BE A CMP-SO JUST ADD THE [facility] [address] [place], [address] Hepatic function 2000 panel - Serum or Plasma 6.4 g/dL Normal 6.4-8.2 [facility] Work Phone: Comment on above: WAS SUPPOSE TO BE A CMP-SO JUST ADD THE LIVERComments: WAS SUPPOSE TO BE A CMP-SO JUST ADD THE [facility] [address] [place], [address] Protein mass conc 6.4 g/dL Normal 6.4-8.2 Compreh ensive Internal Medicine Work Phone: Comment on above: WAS SUPPOSE TO BE A CMP-SO JUST ADD THE LIVERComments: WAS SUPPOSE TO BE A CMP-SO JUST ADD THE [facility] [address] [place], [address] CBC, EmployeeOrdered By: Erika tem Electrical Foreman on 05-17-2018 Basophils/100 WBC (Bld) 0.2 % Normal 0-1 [facility] Work Phone: Comment on above: [facility] [address] [place], [address] Basophils/100 WBC Auto (Bld) 0.2 % Normal 0-1 [facility] Work Phone: Eosinophils/100 WBC (Bld) 2.3 % Normal 0-5 [facility] Work Phone: Comment on above: [facility] [address] [place], [address] Eosinophils/100 WBC Auto (Bld) 2.3 % Normal 0-5 [facility] Work Phone: Erythrocyte distribution width Auto Ratio (RBC) 13.1 % Normal 11.6-14.6 [facility] Work Phone: Erythrocyte distribution width Ratio (RBC) 13.1 % Normal 11.6-14.6 [facility] Work Phone: Comment on above: [facility] [address] [place], [address] Hematocrit Auto Volume Fraction (Bld) 40.9 % Normal 37-47 Comprehens babatunde Internal Medicine Work Phone: Hematocrit Volume Fraction (Bld) 40.9 % Normal 37-47 [facility] Work Phone: Comment on above: [facility] [address] [place], [address] Hemoglobin mass conc (Bld) 13.3 g/dL Normal 12.0-15.0 [facility] Work Phone: Comment on above: [facility] [address] [place], [address] Lymphocytes/100 WBC (Bld) 29.7 % Normal 19-41 [facility] Work Phone: Comment on above: [facility] [address] [place], [address] Lymphocytes/100 WBC Auto (Bld) 29.7 % Normal 19-41 [facility] Work Phone: MCH Auto Entitic mass (RBC) 28.5 pg Normal 27.0-32.0 [facility] Work Phone: MCH Entitic mass (RBC) 28.5 pg Normal 27.0-32.0 [facility] Work Phone: Comment on above: [facility] [address] [place], [address] MCHC Auto mass conc (RBC) 32.5 {g/gl} Normal 32-36 [facility] Work Phone: MCHC mass conc (RBC) 32.5 {g/gl} Normal 32-36 [facility] prehensive Internal Medicine Work Phone: Comment on above: [facility] [address] [place], [address] MCV Auto Entitic volume (RBC) 87.6 fL Normal 81-99 [facility] Work Phone: MCV Entitic volume (RBC) 87.6 fL Normal 81-99 [facility] Work Phone: Comment on above: [facility] [address] [place], [address] Monocytes/100 WBC (Bld) 4.5 % Normal 0-10 [facility] Work Phone: Comment on above: [facility] [address] [place], [address] Monocytes/100 WBC Auto (Bld) 4.5 % Normal 0-10 [facility] Work Phone: Neutrophils/100 WBC (Bld) 63.2 % Normal 47-70 [facility] Work Phone: Comment on above: [facility] [address] [place], [address] Neutrophils/100 WBC Auto (Bld) 63.2 % Normal 47-70 [facility] Work Phone: Platelet mean volume Auto Entitic volume (Bld) 9.8 fL Normal 6.2-12.0 [facility] Work Phone: Platelet mean volume Entitic volume (Bld) 9.8 fL Normal 6.2-12.0 Comprehensi ve Internal Medicine Work Phone: Comment on above: [facility] [address] [place], [address] Platelets #/vol (Bld) 274 10*3/uL Normal 150-450 Co mprehensive Internal Medicine Work Phone: Comment on above: [facility] [address] [place], [address] Platelets Auto #/vol (Bld) 274 10*3/uL Normal 150-450 [facility] Work Phone: RBC #/vol (Bld) 4.67 {M/mm3} Normal 4.2-5.4 Compreh ensive Internal Medicine Work Phone: Comment on above: [facility] [address] [place], [address] RBC Auto #/vol (Bld) 4.67 {M/mm3} Normal 4.2-5.4 Co mprehensive [facility] Work Phone: WBC #/vol (Bld) 8.7 10*3/uL Normal 4.4-11.0 Comprehe nsive Internal Medicine Work Phone: Comment on above: [facility] [address] [place], [place], [id number] WBC Auto #/vol (Bld) 8.7 10*3/uL Normal 4.4-11.0 Com prehensive Internal Medicine Work Phone: CBC, Employee 5.5 {X10_3/uL} Normal 2.0-7.7 Compreh ensive Internal Medicine Work Phone: Comment on above: [facility] [address] [place], [place], [id number] CBC, Employee 41.8 fL Normal 35.1-43.9 Comprehensi ve Internal Medicine Work Phone: Comment on above: [facility] [address] [place], [address] CBC, Employee 2.57 {X10_3/ul} Normal 0.83-4.51 Compre hensive Internal Medicine Work Phone: Comment on above: [facility] [address] [place], [place], [address] Employee ProfileOrdered By: Skilled Trades Teacher on 05-17-2018 Albumin mass conc 3.3 g/dL Normal 3.2-5.0 Compreh ensive Internal Medicine Work Phone: Comment on above: [facility] [address] [place], [place], [id number] Albumin/Globulin mass ratio 1.0 {RATIO} Normal 0.9-2.4 [facility] Work Phone: Comment on above: [facility] [address] [place], [address] ALT enzyme act/vol 18 U/L Normal 13-56 Compre hensive Internal Medicine Work Phone: Comment on above: [facility] [address] [place], [place], [phone] enzyme act/vol 12 U/L Abnormal 15-37 Compre inscription [facility] Internal Medicine Work Phone: Comment on above: [facility] [address] [place], [place], [phone] Bilirubin mass conc 0.20 mg/dL Normal 0.20-1.00 Compr ensive Internal Medicine Work Phone: Comment on above: [facility] [address] [place], [place], [phone] Bilirubin.direct mass conc 0.09 mg/dL Normal 0.00-0.30 [facility] Work Phone: Comment on above: [facility] [address] [place], [place], [phone] Calcium mass conc 8.6 mg/dL Normal 8.5-10.1 Compreh [facility] Internal Medicine Work Phone: Comment on above: [place] [address] [place], [place], [phone] Chloride molar conc 104 mmol/L Normal 98-107 Compr [facility] Internal Medicine Work Phone: Comment on above: [facility] [address] [place], [place], [phone] Cholesterol in HDL mass conc 65 mg/dL Normal [facility] Work Phone: Comment on above: The drugs N-Acetylcy steine and Metamizole may falselydepress this assay. Reference Range HDL <40 mg/dL Low HDL Cholesterol HDL >or= 60 mg/dL High HDL Cholesterol [facility] [address] [place], [place], [phone] Cholesterol in LDL mass conc 95 mg/dL Normal 0-130 [facility] Work Phone: Comment on above: [facility] [address] [place], [place], [phone] Cholesterol mass conc 179 mg/dL Normal Com prehensive Internal Medicine Work Phone: Comment on above: <200 mg/dL Desirable 200-240 mg/dL Borderline >240 mg/dL High Risk [facility] [address] [place], [place], [phone] CO2 molar conc 29.0 mmol/L Normal 21.0-32.0 Comprehen sive Internal Medicine Work Phone: Comment on above: [facility] [address] [place], [place], [address] Creatinine mass conc 0.77 mg/dL Normal 0.55-1.02 Comp rehensive Internal Medicine Work Phone: Comment on above: The validity of the calculated GFR AND GFRAA in patients over70 years has not been determined. Clinical correlation isessential. [place] [address] [place], [place], [phone] GFR/1.73 sq M predicted among non-blacks MDRD vol rate/area (S/P/Bld) 83 mL/min/{1.73_m2} Normal Comprehe nsive Internal Medicine Work Phone: Comment on above: Non- GFR Calc [facility] [address] [place], [address] Glucose mass conc 87 mg/dL Normal 74-106 Compreh ensive Internal Medicine Work Phone: Comment on above: Please note revised GLUCOSE reference range mktlrvymr63/02/2018. [facility] [address] [place], [address] Potassium molar conc 3.5 mmol/L Normal 3.5-5.1 Comp rehensive Internal Medicine Work Phone: Comment on above: [facility] [address] [place], [place], [phone] Protein mass conc 6.7 g/dL Normal 6.4-8.2 Compreh ensive Internal Medicine Work Phone: Comment on above: [place] [address] [place], [place], [address] Sodium molar conc 143 mmol/L Normal 136-145 Compreh ensive Internal Medicine Work Phone: Comment on above: [place] [address] [place], [place], [address] Triglyceride mass conc 97 mg/dL Normal [facility] Work Phone: Comment on above: The drugs N-Acetylcy steine and Metamizole may falselydepress this assay.Serum Triglycerides Reference Interval Normal <150 mg/dL Borderline high 150 - 199 mg/dL High 200 - 499 mg/dL Very High > or = 500 mg/dL [place] [address] [place], [place], [phone] Urea nitrogen mass conc 13 mg/dL Normal 7-18 [facility] Work Phone: Comment on above: [place] [address] [place], [place], [address] Employee Profile 10 1 Normal 5-15 Comprehe nsive Internal Medicine Work Phone: Comment on above: [place] [address] [place], [place], [address] Employee Profile 66 U/L Normal 45-117 Comprehe nsive Internal Medicine Work Phone: Comment on above: [place] [address] [place], [place], [address] Employee Profile 4.8 mg/dL Normal 2.6-6.0 Comprehe nsive Internal Medicine Work Phone: Comment on above: The drugs N-Acetylcy steine and Metamizole may falselydepress this assay. [place] [address] [place], [place], [phone] Employee Profile 16.9 {RATIO} Normal 10-20 Compre hensive Internal Medicine Work Phone: Comment on above: [place] [address] [place], [place], [address] Employee Profile 101 mL/min Normal Comprehe nsive Internal Medicine Work Phone: Comment on above: GFR Calc [facility] [address] [place], [place], [address] Employee Profile 19 mg/dL Normal 5-40 Comprehe nsive Internal Medicine Work Phone: Comment on above: [facility] [address] [place], [place], [address] Employee Profile 3.3 mg/dL Normal 2.5-4.9 Comprehe nsive Internal Medicine Work Phone: Comment on above: [facility] [address] [place], [place], [phone] Employee Profile 145 U/L Normal 84-246 Comprehe nsive Internal Medicine Work Phone: Comment on above: [facility] [address] [place], [place], [address] Employee Profile 2.80 1 Normal Comprehe nsive Internal Medicine Work Phone: Comment on above: [facility] [address] [place], [place], [address] Employee Profile 3.4 g/dL Normal 2.2-4.2 Comprehe nsive Internal Medicine Work Phone: Comment on above: [facility] [address] [place], [place], [address] Employee Profile 6.7 g/dL Normal 6.4-8.2 Comprehe nsive Internal Medicine Work Phone: Comment on above: [facility] [address] [place], [place], [phone] Nicotine Urine Drug ScreenOr dered By: Skilled Trades Teacher on 05-17-2018 Nicotine Urine Drug Screen Normal [facility] Work Phone: Comment on above: CONFIRMATORY TESTING FOR ALL POSITIVE URINE DRUG SCREENRESULTS WILL ONLY BE SENT OUT UPON PHYSICIAN ORDER.The results of Urine Drug Screen methods provide onlypreliminary analytical test results. A more specificalternate chemical method must be used in order to obtain aconfirmed analytical result. Gas chromatography/massspectrometery (GC/MS) is the preferred confirmatory method.Clinical consideration and professional judgement should beapplied to any drug of abuse test result, particularly whenpreliminary positive results are used. [facility] [address] [place], [place], [address] Urinalysis, EmployeeOrdered By: Skilled Trades Teacher on 05-17-2018 Clarity Nom (U) Clear Normal Comprehen sive Internal Medicine Work Phone: Comment on above: [facility] [address] [place], [place], [address] Color Nom (U) Yellow Normal Comprehensi ve Internal Medicine Work Phone: Comment on above: [place] [address] [place], [place], [address] Urinalysis, Employee Negative Normal Comp rehensive Internal Medicine Work Phone: Comment on above: Cotinine is the firs t-stage metabolite of Nicotine. [place] [address] [place], [place], [phone] Urinalysis, Employee Normal Normal Comp rehensive Internal Medicine Work Phone: Comment on above: [place] [address] [place], [place], [phone] Urinalysis, Employee 7.0 1 Normal 5.0 - 8.0 Comp rehensive Internal Medicine Work Phone: Comment on above: [place] [address] [place], [place], [phone] Urinalysis, Employee 1.010 1 Normal 1.002-1 .03 0 [facility] Work Phone: Comment on above: [place] [address] [place], [place], [address] Urinalysis, Employee Clear Normal Comp rehensive Internal Medicine Work Phone: Urinalysis, Employee Yellow Normal Comp rehensive Internal Medicine Work Phone: MAGNESIUM ([id number])Ordered By: Skilled Trades Teacher on 06-07-2017 Magnesium mass conc 2.1 mg/dL Normal 1.6-2.3 [facility] ehensive Internal Medicine Work Phone: Comment on above: PATIENT NOT FASTINGP ERFORMED BY: [facility][id number] [facility] [id number] POTASSIUM SERUM ([id number])Order ed By: Skilled Trades Teacher on 06-07-2017 Potassium molar conc 4.2 mmol/L Normal 3.5-5.2 [facility] Work Phone: Comment on above: PATIENT NOT FASTINGP ERFORMED BY: [facility] Duponi3647 [facility] [id number] CBC, EmployeeOrdered By: Erika tem Electrical Foreman on 05-31-2017 Basophils/100 WBC (Bld) 0.2 % Normal 0-1 [facility] Work Phone: Comment on above: [facility] [address] [place], [place], [id number] Basophils/100 WBC Auto (Bld) 0.2 % Normal 0-1 [facility] Work Phone: Eosinophils/100 WBC (Bld) 1.6 % Normal 0-5 [facility] Work Phone: Comment on above: [facility] [address] [place], [place], [address] Eosinophils/100 WBC Auto (Bld) 1.6 % Normal 0-5 [facility] Work Phone: Erythrocyte distribution width Auto Ratio (RBC) 12.8 % Normal 11.6-14.6 [facility] Work Phone: Erythrocyte distribution width Ratio (RBC) 12.8 % Normal 11.6-14.6 [facility] Work Phone: Comment on above: [facility] [address] [place], [place], [address] Hematocrit Auto Volume Fraction (Bld) 45.4 % Normal 37-47 [facility] Internal Medicine Work Phone: Hematocrit Volume Fraction (Bld) 45.4 % Normal 37-47 [facility] Work Phone: Comment on above: [facility] [address] [place], [address] Hemoglobin mass conc (Bld) 14.9 g/dL Normal 12.0-15.0 [facility] Work Phone: Comment on above: [place] [address] [place], [address] Lymphocytes/100 WBC (Bld) 27.7 % Normal 19-41 [facility] Work Phone: Comment on above: [facility] [address] [place], [address] Lymphocytes/100 WBC Auto (Bld) 27.7 % Normal 19-41 [facility] Work Phone: MCH Auto Entitic mass (RBC) 29.0 pg Normal 27.0-32.0 [facility] Work Phone: MCH Entitic mass (RBC) 29.0 pg Normal 27.0-32.0 [facility] Work Phone: Comment on above: [facility] [address] [place], [address] MCHC Auto mass conc (RBC) 32.8 {g/gl} Normal 32-36 [facility] Work Phone: MCHC mass conc (RBC) 32.8 {g/gl} Normal 32-36 [facility] prehensive Internal Medicine Work Phone: Comment on above: [facility] [address] [place], [address] MCV Auto Entitic volume (RBC) 88.3 fL Normal 81-99 [facility] Work Phone: MCV Entitic volume (RBC) 88.3 fL Normal 81-99 [facility] Work Phone: Comment on above: [facility] [address] [place], [address] Monocytes/100 WBC (Bld) 10.0 % Normal 0-10 [facility] Work Phone: Comment on above: [facility] [address] [place], [address] Monocytes/100 WBC Auto (Bld) 10.0 % Normal 0-10 [facility] Work Phone: Neutrophils/100 WBC (Bld) 60.4 % Normal 47-70 [facility] Work Phone: Comment on above: [facility] [address] [place], [address] Neutrophils/100 WBC Auto (Bld) 60.4 % Normal 47-70 [facility] Work Phone: Platelet mean volume Auto Entitic volume (Bld) 9.8 fL Normal 6.2-12.0 [facility] Work Phone: Platelet mean volume Entitic volume (Bld) 9.8 fL Normal 6.2-12.0 Comprehensi Internal Medicine Work Phone: Comment on above: [facility] [address] [place], [address] Platelets #/vol (Bld) 315 10*3/uL Normal 150-450 [facility] Internal Medicine Work Phone: Comment on above: [facility] [address] [place], [address] Platelets Auto #/vol (Bld) 315 10*3/uL Normal 150-450 [facility] Work Phone: RBC #/vol (Bld) 5.14 {M/mm3} Normal 4.2-5.4 Compreh ensive Internal Medicine Work Phone: Comment on above: [facility] [address] [place], [place], [id number] RBC Auto #/vol (Bld) 5.14 {M/mm3} Normal 4.2-5.4 Co mprehensive Internal Medicine Work Phone: WBC #/vol (Bld) 8.3 10*3/uL Normal 4.4-11.0 Comprehe nsive Internal Medicine Work Phone: Comment on above: [facility] [address] [place], [address] WBC Auto #/vol (Bld) 8.3 10*3/uL Normal 4.4-11.0 Com prehensive Internal Medicine Work Phone: CBC, Employee 41.2 fL Normal 35.1-43.9 Comprehensi ve Internal Medicine Work Phone: Comment on above: [facility] [address] [place], [address] CBC, Employee 5.0 {X10_3/uL} Normal 2.0-7.7 Compreh ensive Internal Medicine Work Phone: Comment on above: [facility] [address] [place], [address] CBC, Employee 2.30 {X10_3/ul} Normal 0.83-4.51 Compre hensive Internal Medicine Work Phone: Comment on above: [facility] [address] [place], [address] Employee ProfileOrdered By: Skilled Trades Teacher on 05-31-2017 Albumin mass conc 3.8 g/dL Normal 3.4-5.0 Compreh ensive Internal Medicine Work Phone: Comment on above: [facility] [address] [place], [address] Albumin/Globulin mass ratio 1.1 {RATIO} Normal 0.9-2.4 [facility] Work Phone: Comment on above: [facility] [address] [place], [address] ALT enzyme act/vol 19 U/L Normal 12-78 [facility] Work Phone: Comment on above: [facility] [address] [place], [address] AST enzyme act/vol 13 U/L Abnormal 15-37 [facility] Internal [facility] Work Phone: Comment on above: [facility] [address] [place], [place], [phone](240 Bilirubin mass conc 0.40 mg/dL Normal 0.20-1.00 Compr [facility] Internal Medicine Work Phone: Comment on above: [facility] [address] [place], [address] Bilirubin.direct mass conc 0.12 mg/dL Normal 0.00-0.30 [facility] Internal Medicine Work Phone: Comment on above: [facility] [address] [place], [address] Calcium mass conc 8.9 mg/dL Normal 8.5-10.1 Compreh [facility] Internal Medicine Work Phone: Comment on above: [facility] [address] [place], [address] Chloride molar conc 100 mmol/L Normal 98-107 Compr [facility] Internal Medicine Work Phone: Comment on above: [facility] [address] [place], [address] Cholesterol in HDL mass conc 69 mg/dL Normal Comprehensive [facility] Work Phone: Comment on above: The drugs N-Acetylcy steine and Metamizole may falselydepress this assay. Reference Range HDL <40 mg/dL Low HDL Cholesterol HDL >or= 60 mg/dL High HDL Cholesterol [facility] [address] [place], [place], [id number] Cholesterol in LDL mass conc 110 mg/dL Normal 0-130 [facility] Work Phone: Comment on above: [place] [address] [place], [place], [address] Cholesterol mass conc 206 mg/dL Abnormal Com prehensive Internal Medicine Work Phone: Comment on above: <200 mg/dL Desirable 200-240 mg/dL Borderline >240 mg/dL High Risk [place] [address] [place], [place], [address] CO2 molar conc 28.0 mmol/L Normal 21.0-32.0 Comprehen [facility] Internal Medicine Work Phone: Comment on above: [place] [address] [place], [address] Creatinine mass conc 0.96 mg/dL Normal 0.55-1.02 Comp [facility] Work Phone: Comment on above: The validity of the calculated GFR AND GFRAA in patients over70 years has not been determined. Clinical correlation isessential. [place] [address] [place], [place], [address] GFR/1.73 sq M predicted among non-blacks MDRD vol rate/area (S/P/Bld) 65 mL/min/{1.73_m2} Normal [facility] Internal Medicine Work Phone: Comment on above: Non- GFR Calc [place] [address] [place], [place], [id number] Globulin Calculated mass conc (S) 3.5 g/dL Normal 2.3-3.5 [facility] Work Phone: Globulin mass conc (S) 3.5 g/dL Normal 2.3-3.5 [facility] Work Phone: Comment on above: [facility] [address] [place], [place], [address] Glucose mass conc 94 mg/dL Normal 70-110 Compreh ensive Internal Medicine Work Phone: Comment on above: [facility] [address] [place], [place], [address] Potassium molar conc 3.0 mmol/L Abnormal 3.5-5.1 Comp rehensive Internal Medicine Work Phone: Comment on above: [facility] [address] [place], [place], [address] Protein mass conc 7.3 g/dL Normal 6.4-8.2 Compreh ensive Internal Medicine Work Phone: Comment on above: [facility] [address] [place], [place], [address] Sodium molar conc 138 mmol/L Normal 136-145 Compreh ensive Internal Medicine Work Phone: Comment on above: [facility] [address] [place], [place], [address] Triglyceride mass conc 136 mg/dL Normal [facility] Work Phone: Comment on above: The drugs N-Acetylcy steine and Metamizole may falselydepress this assay.Serum Triglycerides Reference Interval Normal <150 mg/dL Borderline high 150 - 199 mg/dL High 200 - 499 mg/dL Very High > or = 500 mg/dL [facility] [address] [place], [place], [address] Urea nitrogen mass conc 13 mg/dL Normal 7-18 [facility] Medicine Work Phone: Comment on above: [facility] [address] [place], [place], [address] Employee Profile 157 U/L Normal 84-246 Comprehe nsive Internal Medicine Work Phone: Comment on above: [facility] [address] [place], [address] Employee Profile 27 mg/dL Normal 5-40 Comprehe nsive Internal Medicine Work Phone: Comment on above: [facility] [address] [place], [place], [address] Employee Profile 3.00 1 Normal Comprehe nsive Internal Medicine Work Phone: Comment on above: [facility] [address] [place], [address] Employee Profile 10 1 Normal 5-15 Comprehe nsive Internal Medicine Work Phone: Comment on above: [facility] [address] [place], [address] Employee Profile 80 U/L Normal 45-117 Comprehe nsive Internal Medicine Work Phone: Comment on above: [place] [address] [place], [address] Employee Profile 2.8 mg/dL Normal 2.5-4.9 Comprehe nsive Internal Medicine Work Phone: Comment on above: [facility] [address] [place], [place], [address] Employee Profile 6.4 mg/dL Abnormal 2.6-6.0 Comprehe nsive Internal Medicine Work Phone: Comment on above: The drugs N-Acetylcy steine and Metamizole may falselydepress this assay. [facility] [address] [place], [place], [address] Employee Profile 13.5 {RATIO} Normal 10-20 Compre hensive Internal Medicine Work Phone: Comment on above: [facility] [address] [place], [place], [address] Employee Profile 79 mL/min Normal Comprehe nsive Internal Medicine Work Phone: Comment on above: GFR Calc [facility] [address] [place], [place], [address] Employee Profile 7.3 g/dL Normal 6.4-8.2 Comprehe nsive Internal Medicine Work Phone: Comment on above: [facility] [address] [place], [place], [address] Employee Profile 3.5 g/dL Normal 2.3-3.5 Comprehe nsive Internal Medicine Work Phone: Comment on above: [facility] [address] [place], [place], [address] Nicotine Urine Drug ScreenOr dered By: Skilled Trades Teacher on 05-31-2017 Nicotine Urine Drug Screen Negative Normal [facility] Work Phone: Comment on above: Cotinine is the firs t-stage metabolite of Nicotine. [place] [address] [place], [place], [address] Nicotine Urine Drug Screen Normal [facility] Work Phone: Comment on above: CONFIRMATORY TESTING FOR ALL POSITIVE URINE DRUG SCREENRESULTS WILL ONLY BE SENT OUT UPON PHYSICIAN ORDER.The results of Urine Drug Screen methods provide onlypreliminary analytical test results. A more specificalternate chemical method must be used in order to obtain aconfirmed analytical result. Gas chromatography/massspectrometery (GC/MS) is the preferred confirmatory method.Clinical consideration and professional judgement should beapplied to any drug of abuse test result, particularly whenpreliminary positive results are used. [facility] [address] [place], [place], [address] Urinalysis, EmployeeOrdered By: Skilled Trades Teacher on 05-31-2017 Clarity Nom (U) Sl. Cloudy Normal Comprehen sive Internal Medicine Work Phone: Comment on above: [facility] [address] [place], [place], [address] Color Nom (U) Yellow Normal Comprehensi ve Internal Medicine Work Phone: Comment on above: [facility] [address] [place], [place], [address] Urinalysis, Employee Normal Normal Comp rehensive Internal Medicine Work Phone: Comment on above: [facility] [address] [place], [place], [address] Urinalysis, Employee Yellow Normal Comp rehensive Internal Medicine Work Phone: Urinalysis, Employee 10 /ul Abnormal Comp rehensive Internal Medicine Work Phone: Comment on above: [facility] [address] [place], [place], [address] Urinalysis, Employee 6.5 1 Normal 5.0 - 8.0 Comp rehensive Internal Medicine Work Phone: Comment on above: [facility] [address] [place], [place], [phone] Urinalysis, Employee 1.010 1 Normal 1.002-1 .03 0 [facility] Work Phone: Comment on above: [facility] [address] [place], [place], [address] Urinalysis, Employee Sl. Cloudy Normal Comp rehensive Internal Medicine Work Phone: CBC, EmployeeOrdered By: Erika tem Electrical Foreman on 06-03-2016 Basophils/100 WBC (Bld) 0.4 % Normal 0-1 [facility] Work Phone: Comment on above: [facility] [address] [place], [place], [address] Basophils/100 WBC Auto (Bld) 0.4 % Normal 0-1 [facility] Work Phone: Eosinophils/100 WBC (Bld) 3.2 % Normal 0-5 [facility] Work Phone: Comment on above: [facility] [address] [place], [address] Eosinophils/100 WBC Auto (Bld) 3.2 % Normal 0-5 [facility] Work Phone: Erythrocyte distribution width Auto Ratio (RBC) 13.8 % Normal 11.6-14.6 [facility] Work Phone: Erythrocyte distribution width Ratio (RBC) 13.8 % Normal 11.6-14.6 [facility] Work Phone: Comment on above: [facility] [address] [place], [address] Hematocrit Auto Volume Fraction (Bld) 40.8 % Normal 37-47 Comprehens babatunde Internal Medicine Work Phone: Hematocrit Volume Fraction (Bld) 40.8 % Normal 37-47 [facility] Work Phone: Comment on above: [facility] [address] [place], [address] Hemoglobin mass conc (Bld) 13.2 g/dL Normal 12.0-15.0 [facility] Work Phone: Comment on above: [facility] [address] [place], [address] Lymphocytes/100 WBC (Bld) 27.6 % Normal 19-41 [facility] Work Phone: Comment on above: [facility] [address] [place], [address] Lymphocytes/100 WBC Auto (Bld) 27.6 % Normal 19-41 [facility] Work Phone: MCH Auto Entitic mass (RBC) 29.0 pg Normal 27.0-32.0 [facility] Work Phone: MCH Entitic mass (RBC) 29.0 pg Normal 27.0-32.0 [facility] Work Phone: Comment on above: [facility] [address] [place], [address] MCHC Auto mass conc (RBC) 32.4 {g/gl} Normal 32-36 [facility] Work Phone: MCHC mass conc (RBC) 32.4 {g/gl} Normal 32-36 [facility] prehensive Internal Medicine Work Phone: Comment on above: [facility] [address] [place], [address] MCV Auto Entitic volume (RBC) 89.7 fL Normal 81-99 [facility] Work Phone: MCV Entitic volume (RBC) 89.7 fL Normal 81-99 [facility] Work Phone: Comment on above: [facility] [address] [place], [address] Monocytes/100 WBC (Bld) 5.1 % Normal 0-10 [facility] Work Phone: Comment on above: [facility] [address] [place], [address] Monocytes/100 WBC Auto (Bld) 5.1 % Normal 0-10 [facility] Work Phone: Neutrophils/100 WBC (Bld) 63.6 % Normal 47-70 [facility] Work Phone: Comment on above: [facility] [address] [place], [address] Neutrophils/100 WBC Auto (Bld) 63.6 % Normal 47-70 [facility] Work Phone: Platelet mean volume Auto Entitic volume (Bld) 9.8 fL Normal 6.2-12.0 [facility] Work Phone: Platelet mean volume Entitic volume (Bld) 9.8 fL Normal 6.2-12.0 Comprehensi Internal Medicine Work Phone: Comment on above: [facility] [address] [place], [address] Platelets #/vol (Bld) 419 10*3/uL Normal 150-450 Co mprehensive Internal Medicine Work Phone: Comment on above: [facility] [address] [place], [address] Platelets Auto #/vol (Bld) 419 10*3/uL Normal 150-450 [facility] Work Phone: RBC #/vol (Bld) 4.55 {M/mm3} Normal 4.2-5.4 Compreh ensive Internal Medicine Work Phone: Comment on above: [facility] [address] [place], [address] RBC Auto #/vol (Bld) 4.55 {M/mm3} Normal 4.2-5.4 Co mprehensive Internal Medicine Work Phone: WBC #/vol (Bld) 8.4 10*3/uL Normal 4.4-11.0 Comprehe nsive Internal Medicine Work Phone: Comment on above: [facility] [address] [place], [place], [address] WBC Auto #/vol (Bld) 8.4 10*3/uL Normal 4.4-11.0 Com prehensive Internal Medicine Work Phone: CBC, Employee 2.32 {X10_3/ul} Normal 0.83-4.51 Compre hensive Internal Medicine Work Phone: Comment on above: [facility] [address] [place], [address] CBC, Employee 5.4 {X10_3/uL} Normal 2.0-7.7 Compreh ensive Internal Medicine Work Phone: Comment on above: [facility] [address] [place], [place], [address] CBC, Employee 44.9 fL Abnormal 35.1-43.9 Comprehensi ve Internal Medicine Work Phone: Comment on above: [facility] [address] [place], [place], [address] Employee ProfileOrdered By: Skilled Trades Teacher on 06-03-2016 Albumin mass conc 3.6 g/dL Normal 3.4-5.0 Compreh ensive Internal Medicine Work Phone: Comment on above: [facility] [address] [place], [place], [address] Albumin/Globulin mass ratio 1.3 {RATIO} Normal 0.9-2.4 [facility] Work Phone: Comment on above: [facility] [address] [place], [place], [address] ALT enzyme act/vol 21 U/L Normal 12-78 Compre hensive Internal Medicine Work Phone: Comment on above: [facility] [address] [place], [place], [address] AST enzyme act/vol 14 U/L Abnormal 15-37 Compre hensive Internal Medicine Work Phone: Comment on above: [facility] [address] [place], [place], [address] Bilirubin mass conc 0.40 mg/dL Normal 0.20-1.00 Compr ehensive Internal Medicine Work Phone: Comment on above: [facility] [address] [place], [place], [address] Bilirubin.direct mass conc 0.07 mg/dL Normal 0.00-0.30 [facility] Work Phone: Comment on above: [facility] [address] [place], [place], [address] Calcium mass conc 8.6 mg/dL Normal 8.5-10.1 Compreh ensive Internal Medicine Work Phone: Comment on above: [facility] [address] [place], [address] Chloride molar conc 105 mmol/L Normal 98-107 Compr ehensive Internal Medicine Work Phone: Comment on above: [facility] [address] [place], [place], [phone] Cholesterol in HDL mass conc 60 mg/dL Normal [facility] Internal Medicine Work Phone: Comment on above: The drugs N-Acetylcy steine and Metamizole may falsely deressthis assay. Reference Range HDL <40 mg/dL Low HDL Cholesterol HDL >or= 60 mg/dL High HDL Cholesterol [facility] [address] [place], [place], [phone] Cholesterol in LDL mass conc 93 mg/dL Normal 0-130 [facility] Internal Medicine Work Phone: Comment on above: [facility] [address] [place], [place], [address] Cholesterol mass conc 174 mg/dL Normal [facility] Work Phone: Comment on above: <200 mg/dL Desirable 200-240 mg/dL Borderline >240 mg/dL High Risk [facility] [address] [place], [place], [address] CO2 molar conc 28.0 mmol/L Normal 21.0-32.0 Comprehen [facility] Internal Medicine Work Phone: Comment on above: [facility] [address] [place], [place], [address] Creatinine mass conc 0.84 mg/dL Normal 0.55-1.20 [facility] Work Phone: Comment on above: The validity of the calculated GFR AND GFRAA in patients over70 years has not been determined. Clinical correlation isessential. [facility] [address] [place], [place], [address] GFR/1.73 sq M predicted among non-blacks MDRD vol rate/area (S/P/Bld) 76 mL/min/{1.73_m2} Normal Comprehe nsive Internal Medicine Work Phone: Comment on above: Non- GFR Calc [facility] [address] [place], [place], [phone] Globulin Calculated mass conc (S) 2.8 g/dL Normal 2.3-3.5 [facility] Work Phone: Globulin mass conc (S) 2.8 g/dL Normal 2.3-3.5 [facility] Work Phone: Comment on above: [facility] [address] [place], [address] Glucose mass conc 82 mg/dL Normal 70-110 Compreh ensive Internal Medicine Work Phone: Comment on above: [facility] [address] [place], [address] Potassium molar conc 3.9 mmol/L Normal 3.5-5.1 Comp rehensive Internal Medicine Work Phone: Comment on above: [facility] [address] [place], [address] Protein mass conc 6.4 g/dL Normal 6.4-8.2 Compreh ensive Internal Medicine Work Phone: Comment on above: [facility] [address] [place], [address] Sodium molar conc 139 mmol/L Normal 136-145 Compreh ensive Internal Medicine Work Phone: Comment on above: [facility] [address] [place], [address] Triglyceride mass conc 103 mg/dL Normal [facility] Work Phone: Comment on above: The drugs N-Acetylcy steine and Metamizole may falsely deressthis assay.Serum Triglycerides Reference Interval Normal <150 mg/dL Borderline high 150 - 199 mg/dL High 200 - 499 mg/dL Very High > or = 500 mg/dL [facility] [address] [place], [place], [address] Urea nitrogen mass conc 14 mg/dL Normal 7-18 [facility] Work Phone: Comment on above: [facility] [address] [place], [place], [address] Employee Profile 3.2 mg/dL Normal 2.5-4.9 Comprehe nsive Internal Medicine Work Phone: Comment on above: [place] [address] [place], [place], [address] Employee Profile 92 mL/min Normal Comprehe nsive Internal Medicine Work Phone: Comment on above: GFR Calc [place] [address] [place], [place], [address] Employee Profile 16.6 {RATIO} Normal 10-20 Compre hensive Internal Medicine Work Phone: Comment on above: [place] [address] [place], [place], [address] Employee Profile 183 U/L Normal 84-246 Comprehe nsive Internal Medicine Work Phone: Comment on above: [place] [address] [place], [place], [address] Employee Profile 21 mg/dL Normal 5-40 Comprehe nsive Internal Medicine Work Phone: Comment on above: [place] [address] [place], [place], [address] Employee Profile 5.0 mg/dL Normal 2.6-6.0 Comprehe nsive Internal Medicine Work Phone: Comment on above: The drugs N-Acetylcy steine and Metamizole may falsely deressthis assay. [facility] [address] [place], [place], [address] Employee Profile 2.90 1 Normal Comprehe nsive Internal Medicine Work Phone: Comment on above: [facility] [address] [place], [place], [address] Employee Profile 6 1 Normal 5-15 Comprehe nsive Internal Medicine Work Phone: Comment on above: [facility] [address] [place], [place], [address] Employee Profile 57 U/L Normal 50-136 Comprehe nsive Internal Medicine Work Phone: Comment on above: [facility] [address] [place], [place], [address] Employee Profile 6.4 g/dL Normal 6.4-8.2 Comprehe nsive Internal Medicine Work Phone: Comment on above: [facility] [address] [place], [place], [address] Employee Profile 2.8 g/dL Normal 2.3-3.5 Comprehe nsive Internal Medicine Work Phone: Comment on above: [place] [address] [place], [place], [address] Nicotine Urine Drug ScreenOr dered By: Skilled Trades Teacher on 06-03-2016 Nicotine Urine Drug Screen Normal [facility] Work Phone: Comment on above: CONFIRMATORY TESTING FOR ALL POSITIVE URINE DRUG SCREENRESULTS WILL ONLY BE SENT OUT UPON PHYSICIAN ORDER.The results of Urine Drug Screen methods provide onlypreliminary analytical test results. A more specificalternate chemical method must be used in order to obtain aconfirmed analytical result. Gas chromatography/massspectrometery (GC/MS) is the preferred confirmatory method.Clinical consideration and professional judgement should beapplied to any drug of abuse test result, particularly whenpreliminary positive results are used. [facility] [address] [place], [place], [address] Urinalysis, EmployeeOrdered By: Skilled Trades Teacher on 06-03-2016 Clarity Nom (U) Sl. Cloudy Normal Comprehen sive Internal Medicine Work Phone: Comment on above: How was Urine Obtain ed? [facility] [address] [place], [address] Color Nom (U) Yellow Normal Comprehensi ve Internal Medicine Work Phone: Comment on above: How was Urine Obtain ed? [facility] [address] [place], [place], [address] Urinalysis, Employee 25 /ul Abnormal Comp rehensive Internal Medicine Work Phone: Comment on above: How was Urine Obtain ed? [facility] [address] [place], [place], [address] Urinalysis, Employee Yellow Normal Comp rehensive Internal Medicine Work Phone: Urinalysis, Employee Negative Normal Comp rehensive Internal Medicine Work Phone: Comment on above: Cotinine is the firs t-stage metabolite of Nicotine. [facility] [address] [place], [place], [address] How was Urine Obtain ed? [facility] [address] [place], [place], [address] Urinalysis, Employee 1.020 1 Normal 1.002-1 .03 0 [facility] Work Phone: Comment on above: How was Urine Obtain ed? [facility] [address] [place], [place], [address] Urinalysis, Employee 5.0 1 Normal 5.0 - 8.0 Comp rehensive Internal Medicine Work Phone: Comment on above: How was Urine Obtain ed? [facility] [address] [place], [place], [address] Urinalysis, Employee 15 mg/dL Abnormal Comp rehensive Internal Medicine Work Phone: Comment on above: How was Urine Obtain ed? [facility] [address] [place], [place], [address] Urinalysis, Employee Normal Normal Comp rehensive Internal Medicine Work Phone: Comment on above: How was Urine Obtain ed? [facility] [address] [place], [address] Urinalysis, Employee 250 /ul Abnormal Comp rehensive Internal Medicine Work Phone: Comment on above: How was Urine Obtain ed? [facility] [address] [place], [address] Urinalysis, Employee Sl. Cloudy Normal Comp rehensive Internal Medicine Work Phone: CBC, EmployeeOrdered By: Erika tem Electrical Foreman on 06-03-2015 Basophils/100 WBC (Bld) 0.3 % Normal 0-1 [facility] Work Phone: Comment on above: Test performed at:[facility] [address] [place] [address] Basophils/100 WBC Auto (Bld) 0.3 % Normal 0-1 [facility] Work Phone: Eosinophils/100 WBC (Bld) 2.9 % Normal 0-5 [facility] Work Phone: Comment on above: Test performed at:[facility] [address] [address] Eosinophils/100 WBC Auto (Bld) 2.9 % Normal 0-5 [facility] Work Phone: Erythrocyte distribution width Auto Ratio (RBC) 13.4 % Normal 11.6-14.6 [facility] Work Phone: Erythrocyte distribution width Ratio (RBC) 13.4 % Normal 11.6-14.6 [facility] Work Phone: Comment on above: Test performed at:[facility] [address] [place] [address] Hematocrit Auto Volume Fraction (Bld) 38.8 % Normal 37-47 Comprehens babatunde Internal Medicine Work Phone: Hematocrit Volume Fraction (Bld) 38.8 % Normal 37-47 [facility] Work Phone: Comment on above: Test performed at:[facility] [address] [place] [address] Hemoglobin mass conc (Bld) 13.2 g/dL Normal 12.0-15.0 [facility] Work Phone: Comment on above: Test performed at:[facility] [address] [place] [address] Lymphocytes/100 WBC (Bld) 27.0 % Normal 19-41 [facility] Work Phone: Comment on above: Test performed at:[facility] [address] [place] [address] Lymphocytes/100 WBC Auto (Bld) 27.0 % Normal 19-41 [facility] Work Phone: MCH Auto Entitic mass (RBC) 28.3 pg Normal 27.0-32.0 [facility] Work Phone: MCH Entitic mass (RBC) 28.3 pg Normal 27.0-32.0 [facility] Work Phone: Comment on above: Test performed at:[facility] [address] [place] [address] MCHC Auto mass conc (RBC) 34.0 {g/gl} Normal 32-36 [facility] Work Phone: MCHC mass conc (RBC) 34.0 {g/gl} Normal 32-36 [facility] prehensive Internal Medicine Work Phone: Comment on above: Test performed at:[facility] [address] [place] [address] MCV Auto Entitic volume (RBC) 83.3 fL Normal 81-99 [facility] Work Phone: MCV Entitic volume (RBC) 83.3 fL Normal 81-99 [facility] Work Phone: Comment on above: Test performed at:[facility] [address] [place] [address] Monocytes/100 WBC (Bld) 5.8 % Normal 0-10 [facility] Work Phone: Comment on above: Test performed at:[facility] [address] [place] [address] Monocytes/100 WBC Auto (Bld) 5.8 % Normal 0-10 [facility] Work Phone: Neutrophils/100 WBC (Bld) 63.9 % Normal 47-70 [facility] Work Phone: Comment on above: Test performed at:[facility] [address] [place] [address] Neutrophils/100 WBC Auto (Bld) 63.9 % Normal 47-70 [facility] Work Phone: Platelet mean volume Auto Entitic volume (Bld) 10.2 fL Normal 6.2-12.0 [facility] Work Phone: Platelet mean volume Entitic volume (Bld) 10.2 fL Normal 6.2-12.0 Comprehensi ve Internal Medicine Work Phone: Comment on above: Test performed at:[facility] [address] [place] [address] Platelets #/vol (Bld) 294 10*3/uL Normal 150-450 Co mprehensive [facility] Medicine Work Phone: Comment on above: Test performed at:[facility] [address] [place] [address] Platelets Auto #/vol (Bld) 294 10*3/uL Normal 150-450 [facility] Work Phone: RBC #/vol (Bld) 4.66 {M/mm3} Normal 4.2-5.4 Compreh ensive Internal Medicine Work Phone: Comment on above: Test performed at:[facility] [address] [place] [address] RBC Auto #/vol (Bld) 4.66 {M/mm3} Normal 4.2-5.4 Co mprehensive [facility] Work Phone: WBC #/vol (Bld) 7.9 10*3/uL Normal 4.4-11.0 Comprehe nsive Internal Medicine Work Phone: Comment on above: Test performed at:[facility] [address] [place] [address] WBC Auto #/vol (Bld) 7.9 10*3/uL Normal 4.4-11.0 Com prehensive Internal Medicine Work Phone: CBC, Employee 5.1 {X10_3/uL} Normal 2.0-7.7 Compreh ensive Internal Medicine Work Phone: Comment on above: Test performed at:[facility] [address] [place] [address] CBC, Employee 2.13 {X10_3/ul} Normal 0.83-4.51 Compre hensive Internal Medicine Work Phone: Comment on above: Test performed at:[facility] [address] [place] [address] CBC, Employee 40.1 fL Normal 35.1-43.9 Comprehensi ve Internal Medicine Work Phone: Comment on above: Test performed at:[facility] [address] [place] [address] Employee ProfileOrdered By: Skilled Trades Teacher on 06-03-2015 Albumin mass conc 3.5 g/dL Normal 3.4-5.0 Compreh ensive Internal Medicine Work Phone: Comment on above: Test performed at:[facility] [address] [place] [address] Albumin/Globulin mass ratio 1.2 {RATIO} Normal 0.9-2.4 [facility] Work Phone: Comment on above: Test performed at:[facility] [address] [place] [address] ALT enzyme act/vol 16 U/L Normal 12-78 [facility] Internal Medicine Work Phone: Comment on above: Test performed at:[facility] [address] [place] [address] AST enzyme act/vol 11 U/L Abnormal 15-37 [facility] Work Phone: Comment on above: Test performed at:[facility] [address] [place] [address] Bilirubin mass conc 0.30 mg/dL Normal 0.20-1.00 [facility] Internal Medicine Work Phone: Comment on above: Test performed at:[facility] [address] [place] [address] Bilirubin.direct mass conc 0.09 mg/dL Normal 0.00-0.30 [facility] Internal Medicine Work Phone: Comment on above: Test performed at:[facility] [address] [place] [address] Calcium mass conc 8.5 mg/dL Normal 8.5-10.1 [facility] Internal Medicine Work Phone: Comment on above: Test performed at:[facility] [address] [place] [address] Chloride molar conc 107 mmol/L Normal 98-107 [facility] Internal Medicine Work Phone: Comment on above: Test performed at:[facility] [address] [place] [address] Cholesterol in HDL mass conc 42 mg/dL Normal [facility] Work Phone: Comment on above: Reference Range HDL <40 mg/dL Low HDL Cholesterol HDL >or= 60 mg/dL High HDL Cholesterol Test performed at:[facility] [address] [place] [address] Cholesterol in LDL mass conc 101 mg/dL Normal 0-130 [facility] Work Phone: Comment on above: Test performed at:[facility] [address] [place] [address] Cholesterol mass conc 166 mg/dL Normal Com prehensive Internal Medicine Work Phone: Comment on above: <200 mg/dL Desirable 200-240 mg/dL Borderline >240 mg/dL High Risk Test performed at:[facility] [address] [place] [address] CO2 molar conc 24.0 mmol/L Normal 21.0-32.0 Comprehen [facility] Internal Medicine Work Phone: Comment on above: Test performed at:[facility] [address] [place] [address] Creatinine mass conc 0.73 mg/dL Normal 0.55-1.20 [facility] Work Phone: Comment on above: The validity of the calculated GFR AND GFRAA in patients over70 years has not been determined. Clinical correlation isessential. Test performed at:[facility] [address] [place] [address] GFR/1.73 sq M predicted among non-blacks MDRD vol rate/area (S/P/Bld) 90 mL/min/{1.73_m2} Normal Comprehe nsive Internal Medicine Work Phone: Comment on above: Test performed at:[facility] [address] [place] [address] Globulin Calculated mass conc (S) 3.0 g/dL Normal 2.3-3.5 [facility] Work Phone: Globulin mass conc (S) 3.0 g/dL Normal 2.3-3.5 [facility] Work Phone: Comment on above: Test performed at:[facility] [address] [place], [place] [address] Glucose mass conc 92 mg/dL Normal 70-110 Compreh ensive Internal Medicine Work Phone: Comment on above: Test performed at:[facility] [address] [place] [address] Potassium molar conc 3.6 mmol/L Normal 3.5-5.1 Comp rehensive Internal Medicine Work Phone: Comment on above: Test performed at:[facility] [address] [place] [address] Protein mass conc 6.5 g/dL Normal 6.4-8.2 Compreh ensive Internal Medicine Work Phone: Comment on above: Test performed at:[facility] [address] [place] [address] Sodium molar conc 137 mmol/L Normal 136-145 Compreh ensive Internal Medicine Work Phone: Comment on above: Test performed at:[facility] [address] [place] [address] Triglyceride mass conc 114 mg/dL Normal [facility] Work Phone: Comment on above: Serum Triglycerides Reference Interval Normal <150 mg/dL Borderline high 150 - 199 mg/dL High 200 - 499 mg/dL Very High > or = 500 mg/dL Test performed at:[facility] [address] [place] [address] Urea nitrogen mass conc 18 mg/dL Normal 7-18 [facility] Work Phone: Comment on above: Test performed at:[facility] [address] [place] [address] Employee Profile 3.2 mg/dL Normal 2.5-4.9 Comprehe nsive Internal Medicine Work Phone: Comment on above: Test performed at:[facility] [address] [place] [address] Employee Profile 6 1 Normal 5-15 Comprehe nsive Internal Medicine Work Phone: Comment on above: Test performed at:[facility] [address] [place] [address] Employee Profile 42 mg/dL Normal Comprehe nsive Internal Medicine Work Phone: Comment on above: Reference Range HDL <40 mg/dL Low HDL Cholesterol HDL >or= 60 mg/dL High HDL Cholesterol Test performed at:[facility] [address] [place] [address] Employee Profile 5.3 mg/dL Normal 2.6-6.0 Comprehe nsive Internal Medicine Work Phone: Comment on above: Test performed at:[facility] [address] [place] [address] Employee Profile 24.7 {RATIO} Abnormal 10-20 Compre hensive Internal Medicine Work Phone: Comment on above: Test performed at:[facility] [address] [place] [address] Employee Profile 109 mL/min Normal Comprehe nsive Internal Medicine Work Phone: Comment on above: Test performed at:[facility] [address] [place] [address] Employee Profile 23 mg/dL Normal 5-40 Comprehe nsive Internal Medicine Work Phone: Comment on above: Test performed at:[facility] [address] [place] [address] Employee Profile 169 U/L Normal 84-246 Comprehe nsive Internal Medicine Work Phone: Comment on above: Test performed at:[facility] [address] [place] [address] Employee Profile 69 U/L Normal 50-136 Comprehe nsive Internal Medicine Work Phone: Comment on above: Test performed at:[facility] [address] [place], [place] [address] Employee Profile 6.5 g/dL Normal 6.4-8.2 Comprehe nsive Internal Medicine Work Phone: Comment on above: Test performed at:[facility] [address] [place] [address] Employee Profile 3.0 g/dL Normal 2.3-3.5 Comprehe nsive Internal Medicine Work Phone: Comment on above: Test performed at:[facility] [address] [place] [address] Urinalysis, EmployeeOrdered By: Skilled Trades Teacher on 06-03-2015 Clarity Nom (U) Clear Normal Comprehen sive Internal Medicine Work Phone: Comment on above: Test performed at:[facility] [address] [place] [address] Color Nom (U) Yellow Normal Comprehensi ve Internal Medicine Work Phone: Comment on above: Test performed at:[facility] [address] [place], [place] [address] Urinalysis, Employee Negative Normal Comp rehensive Internal Medicine Work Phone: Comment on above: Test performed at:[facility] [address] [place], [place] [address] Urinalysis, Employee 50 /ul Abnormal Comp rehensive Internal Medicine Work Phone: Comment on above: Test performed at:[facility] [address] [place] [address] Urinalysis, Employee Normal Normal Comp rehensive Internal Medicine Work Phone: Comment on above: Test performed at:[facility] [address] [place], [place] [address] Urinalysis, Employee 6.0 1 Normal 5.0 - 8.0 Comp rehensive Internal Medicine Work Phone: Comment on above: Test performed at:[facility] [address] [place] [place] [address] Urinalysis, Employee 1.020 1 Normal 1.002-1 .03 0 [facility] Work Phone: Comment on above: Test performed at:[facility] [address] [place] [address] Urinalysis, Employee Clear Normal Comp rehensive Internal Medicine Work Phone: Urinalysis, Employee Yellow Normal Comp rehensive Internal Medicine Work Phone: MEGHA CULTURE-OTHER ([id number])Ord ered By: Skilled Trades Teacher on 08-24-2014 Bacteria identified Respiratory culture Nom (Unsp spec) Final report Normal [facility] Work Phone: Comment on above: PATIENT NOT FASTINGP ERFORMED BY: ESE LabLinkMeGlobaldee ClemonsTtvard7015 [facility] [id number] Information: SRC:SONNY [id number] Bacteria identified Respiratory culture Nom (Unsp spec) RRF Normal [facility] Work Phone: Comment on above: Routine respiratory lakisha PATIENT NOT FASTINGP ERFORMED BY: ESE LabLinkMeGlobalrp Upxduj6306 Reddy TargAnoxUNC Health Caldwell [id number] Information: SRC:SONNY [id number] Rapid Strep Test, Office ([phone])Ordered By: Letty Gaffney on 08-24-2014 S. pyogenes Ag EIA Ql (Throat) Negative Normal [facility]; [facility] Work Phone: S. pyogenes Ag IA Ql (Unsp spec) Negative Normal [facility] Work Phone: CBCEMOrdered By: Ab murphy on 05-11-2014 Erythrocyte distribution width Auto Ratio (RBC) 13.4 % Normal 11.6-14.6 [facility] Work Phone: Erythrocyte distribution width Ratio (RBC) 13.4 % Normal 11.6-14.6 [facility] Work Phone: Comment on above: This patient request ed that [facility] [employer] send to you acopy of their Yearly Employee Health Risk Assessment.A copy of this report is also given to the patient so theycan follow up with your office if they choose. Hematocrit Auto Volume Fraction (Bld) 40.9 % Normal 37-47 [facility] Internal Medicine Work Phone: Hematocrit Volume Fraction (Bld) 40.9 % Normal 37-47 [facility] Internal Medicine Work Phone: Comment on above: This patient request ed that [facility] [employer] send to you acopy of their Yearly Employee Health Risk Assessment.A copy of this report is also given to the patient so theycan follow up with your office if they choose. Hemoglobin mass conc (Bld) 13.9 g/dL Normal 12.0-15.0 [facility] Internal Medicine Work Phone: Comment on above: This patient request ed that [facility] inden[employer] send to you acopy of their Yearly Employee Health Risk Assessment.A copy of this report is also given to the patient so theycan follow up with your office if they choose. MCH Auto Entitic mass (RBC) 28.2 pg Normal 27.0-32.0 [facility] Internal Medicine Work Phone: MCH Entitic mass (RBC) 28.2 pg Normal 27.0-32.0 [facility] Internal Medicine Work Phone: Comment on above: This patient request ed that [facility] [employer] send to you acopy of their Yearly Employee Health Risk Assessment.A copy of this report is also given to the patient so theycan follow up with your office if they choose. MCHC Auto mass conc (RBC) 34.0 {g/gl} Normal 32-36 [facility] Internal Medicine Work Phone: MCHC mass conc (RBC) 34.0 {g/gl} Normal 32-36 [facility] prehensive Internal Medicine Work Phone: Comment on above: This patient request ed that [facility] [employer] send to you acopy of their Yearly Employee Health Risk Assessment.A copy of this report is also given to the patient so theycan follow up with your office if they choose. MCV Auto Entitic volume (RBC) 83.0 fL Normal 81-99 [facility] Internal Medicine Work Phone: MCV Entitic volume (RBC) 83.0 fL Normal 81-99 [facility] Internal Medicine Work Phone: Comment on above: This patient request ed that [facility] [employer] send to you acopy of their Yearly Employee Health Risk Assessment.A copy of this report is also given to the patient so theycan follow up with your office if they choose. Platelet mean volume Auto Entitic volume (Bld) 9.8 fL Normal 6.2-12.0 [facility] Internal Medicine Work Phone: Platelet mean volume Entitic volume (Bld) 9.8 fL Normal 6.2-12.0 Comprehensi Internal Medicine Work Phone: Comment on above: This [facility] request ed that [facility] you acopy of their Yearly Employee Health Risk Assessment.A copy of this report is also given to the patient so theycan follow up with your office if they choose. Platelets #/vol (Bld) 320 10*3/uL Normal 150-450 [facility] Internal Medicine Work Phone: Comment on above: This patient request ed that [facility] send to you acopy of their Yearly Employee Health Risk Assessment.A copy of this report is also given to the patient so theycan follow up with your office if they choose. Platelets Auto #/vol (Bld) 320 10*3/uL Normal 150-450 [facility] Internal Medicine Work Phone: RBC #/vol (Bld) 4.93 {M/mm3} Normal 4.2-5.4 [facility] Internal [facility] Work Phone: Comment on above: This patient request ed that [facility] send to you acopy of their Yearly Employee Health Risk Assessment.A copy of this report is also given to the patient so theycan follow up with your office if they choose. RBC Auto #/vol (Bld) 4.93 {M/mm3} Normal 4.2-5.4 [facility] Internal Medicine Work Phone: WBC #/vol (Bld) 9.8 10*3/uL Normal 4.4-11.0 [facility]prehe [facility] Internal Medicine Work Phone: Comment on above: This patient request ed that [facility] [employer] send to you acopy of their Yearly Employee Health Risk Assessment.A copy of this report is also given to the patient so theycan follow up with your office if they choose. WBC Auto #/vol (Bld) 9.8 10*3/uL Normal 4.4-11.0 [facility] prehensive Internal Medicine Work Phone: CBCEM 5.9 {X10_3/uL} Normal 2.0-7.7 Comprehens babatunde Internal Medicine Work Phone: Comment on above: This patient request ed that [facility] [employer] send to you acopy of their Yearly Employee Health Risk Assessment.A copy of this report is also given to the patient so theycan follow up with your office if they choose. CBCEM 0.3 % Normal 0-1 [facility] Work Phone: Comment on above: This patient request ed that [facility] [employer] send to you acopy of their Yearly Employee Health Risk Assessment.A copy of this report is also given to the patient so theycan follow up with your office if they choose. CBCEM 1.1 % Normal 0-5 [facility] Work Phone: Comment on above: This patient request ed that [facility] [employer] send to you acopy of their Yearly Employee Health Risk Assessment.A copy of this report is also given to the patient so theycan follow up with your office if they choose. CBCEM 5.6 % Normal 0-10 [facility] Work Phone: Comment on above: This patient request ed that [facility] [employer] send to you acopy of their Yearly Employee Health Risk Assessment.A copy of this report is also given to the patient so theycan follow up with your office if they choose. CBCEM 3.14 {X10_3/ul} Normal 0.83-4.51 Comprehen sive Internal Medicine Work Phone: Comment on above: This patient request ed that [facility] [employer] send to you acopy of their Yearly Employee Health Risk Assessment.A copy of this report is also given to the patient so theycan follow up with your office if they choose. CBCEM 32.2 % Normal 19-41 [facility] Work Phone: Comment on above: This patient request ed that [facility] [employer] send to you acopy of their Yearly Employee Health Risk Assessment.A copy of this report is also given to the patient so theycan follow up with your office if they choose. CBCEM 60.7 % Normal 47-70 [facility] Internal Medicine Work Phone: Comment on above: This patient request ed that [facility] [employer] send to you acopy of their Yearly Employee Health Risk Assessment.A copy of this report is also given to the patient so theycan follow up with your office if they choose. CBCEM 39.8 fL Normal 35.1-43.9 [facility] Internal Medicine Work Phone: Comment on above: This patient request ed that [facility] to you acopy of their Yearly Employee Health Risk Assessment.A copy of this report is also given to the patient so theycan follow up with your office if they choose. EMPOrdered By: System Manage r on 05-11-2014 Albumin mass conc 3.8 g/dL Normal 3.4-5.0 [facility] Internal Medicine Work Phone: Comment on above: This patient request ed that [facility] send to you acopy of their Yearly Employee Health Risk Assessment.A copy of this report is also given to the patient so theycan follow up with your office if they choose. Albumin/Globulin mass ratio 1.2 {RATIO} Normal 0.9-2.4 [facility] Internal Medicine Work Phone: Comment on above: This patient request ed that y send to you acopy of their Yearly Employee Health Risk Assessment.A copy of this report is also given to the patient so theycan follow up with your office if they choose. ALT enzyme act/vol 16 U/L Normal 12-78 [facility] Work Phone: Comment on above: This patient request ed that [facility] [employer] send to you acopy of their Yearly Employee Health Risk Assessment.A copy of this report is also given to the patient so theycan follow up with your office if they choose. AST enzyme act/vol 12 U/L Abnormal 15-37 [facility] Internal Medicine Work Phone: Comment on above: This patient request ed that [facility] [employer] send to you acopy of their Yearly Employee Health Risk Assessment.A copy of this report is also given to the patient so theycan follow up with your office if they choose. Calcium mass conc 9.2 mg/dL Normal 8.5-10.1 Compreh [facility] Internal Medicine Work Phone: Comment on above: This patient request ed that [facility] [employer] send to you acopy of their Yearly Employee Health Risk Assessment.A copy of this report is also given to the patient so theycan follow up with your office if they choose. Chloride molar conc 104 mmol/L Normal 98-107 Compr ehensive Internal Medicine Work Phone: Comment on above: This patient request ed that [facility] [employer] send to you acopy of their Yearly Employee Health Risk Assessment.A copy of this report is also given to the patient so theycan follow up with your office if they choose. Cholesterol in HDL mass conc 45 mg/dL Normal [facility] Work Phone: Comment on above: Reference RangeHDL < 40 mg/dL Low HDL CholesterolHDL >or= 60 mg/dL High HDL Cholesterol This patient request ed that [facility] [employer] send to you acopy of their Yearly Employee Health Risk Assessment.A copy of this report is also given to the patient so theycan follow up with your office if they choose. Cholesterol in LDL mass conc 88 mg/dL Normal 0-130 [facility] Internal Medicine Work Phone: Comment on above: This patient request ed that [facility] [employer] send to you acopy of their Yearly Employee Health Risk Assessment.A copy of this report is also given to the patient so theycan follow up with your office if they choose. Cholesterol mass conc 167 mg/dL Normal [facility] prehensive Internal Medicine Work Phone: Comment on above: <200 mg/dL Desirable 200-240 mg/dL Borderline>240 mg/dL High Risk This patient request ed that [facility] [employer] send to you acopy of their Yearly Employee Health Risk Assessment.A copy of this report is also given to the patient so theycan follow up with your office if they choose. CO2 molar conc 27.0 mmol/L Normal 21.0-32.0 Comprehen [facility] Internal Medicine Work Phone: Comment on above: This patient request ed that [facility] [employer] send to you acopy of their Yearly Employee Health Risk Assessment.A copy of this report is also given to the patient so theycan follow up with your office if they choose. Creatinine mass conc 0.8 mg/dL Normal 0.6-1.0 [facility] Internal Medicine Work Phone: Comment on above: This patient request ed that [facility] [employer] send to you acopy of their Yearly Employee Health Risk Assessment.A copy of this report is also given to the patient so theycan follow up with your office if they choose. GFR/1.73 sq M predicted among non-blacks MDRD vol rate/area (S/P/Bld) 81 mL/min/{1.73_m2} Normal Comprehe [facility] Internal Medicine Work Phone: Comment on above: This [facility] ed [facility] of their Yearly Employee Health Risk Assessment.A copy of this report is also given to the patient so theycan follow up with your office if they choose. Globulin Calculated mass conc (S) 3.3 g/dL Normal 2.7-4.2 [facility] Work Phone: Globulin mass conc (S) 3.3 g/dL Normal 2.7-4.2 [facility] Internal Medicine Work Phone: Comment on above: This [facility] ed [facility] you acopy of their Yearly Employee Health Risk Assessment.A copy of this report is also given to the patient so theycan follow up with your office if they choose. Glucose mass conc 90 mg/dL Normal 70-110 [facility] Internal [facility] Work Phone: Comment on above: This patient request ed that [facility] [employer] send to you acopy of their Yearly Employee Health Risk Assessment.A copy of this report is also given to the patient so theycan follow up with your office if they choose. Potassium molar conc 3.6 mmol/L Normal 3.5-5.1 [facility] Internal Medicine Work Phone: Comment on above: This patient request ed that [facility] [employer] send to you acopy of their Yearly Employee Health Risk Assessment.A copy of this report is also given to the patient so theycan follow up with your office if they choose. Protein mass conc 7.1 g/dL Normal 6.4-8.2 [facility] Internal [facility] Work Phone: Comment on above: This patient request ed that [facility] [employer] send to you acopy of their Yearly Employee Health Risk Assessment.A copy of this report is also given to the patient so theycan follow up with your office if they choose. Sodium molar conc 136 mmol/L Normal 136-145 [facility] Internal [facility] Work Phone: Comment on above: This patient request ed that [facility] [employer] send to you acopy of their Yearly Employee Health Risk Assessment.A copy of this report is also given to the patient so theycan follow up with your office if they choose. Triglyceride mass conc 169 mg/dL Normal 0-199 [facility] Work Phone: Comment on above: Serum Triglycerides Reference IntervalNormal <150 mg/dLBorderline high 150 - 199 mg/dLHigh 200 - 499 mg/dLVery High > or = 500 mg/dL This patient request ed that [facility] [employer] send to you acopy of their Yearly Employee Health Risk Assessment.A copy of this report is also given to the patient so theycan follow up with your office if they choose. Urea nitrogen mass conc 9 mg/dL Normal 7-18 [facility] Work Phone: Comment on above: This patient request ed that [facility] [employer] send to you acopy of their Yearly Employee Health Risk Assessment.A copy of this report is also given to the patient so theycan follow up with your office if they choose. EMP 166 U/L Normal 87-241 [facility] Work Phone: Comment on above: This patient request ed that [facility] [employer] send to you acopy of their Yearly Employee Health Risk Assessment.A copy of this report is also given to the patient so theycan follow up with your office if they choose. EMP 34 mg/dL Normal 5-40 [facility] Work Phone: Comment on above: This patient request ed that [facility] [employer] send to you acopy of their Yearly Employee Health Risk Assessment.A copy of this report is also given to the patient so theycan follow up with your office if they choose. EMP 45 mg/dL Normal [facility] Work Phone: Comment on above: Reference RangeHDL < 40 mg/dL Low HDL CholesterolHDL >or= 60 mg/dL High HDL Cholesterol This patient request ed that [facility] [employer] send to you acopy of their Yearly Employee Health Risk Assessment.A copy of this report is also given to the patient so theycan follow up with your office if they choose. EMP 5 1 Normal 5-15 [facility] Work Phone: Comment on above: This patient request ed that [facility] [employer] send to you acopy of their Yearly Employee Health Risk Assessment.A copy of this report is also given to the patient so theycan follow up with your office if they choose. EMP 0.13 mg/dL Normal 0.00-0.30 [facility] Work Phone: Comment on above: This patient request ed that [facility] [employer] send to you acopy of their Yearly Employee Health Risk Assessment.A copy of this report is also given to the patient so theycan follow up with your office if they choose. EMP 0.40 mg/dL Normal 0.00-1.00 [facility] Work Phone: Comment on above: This patient request ed that [facility] [employer] send to you acopy of their Yearly Employee Health Risk Assessment.A copy of this report is also given to the patient so theycan follow up with your office if they choose. EMP 79 U/L Normal 45-117 [facility] Work Phone: Comment on above: This patient request ed that [facility] [employer] send to you acopy of their Yearly Employee Health Risk Assessment.A copy of this report is also given to the patient so theycan follow up with your office if they choose. EMP 3.3 mg/dL Normal 2.5-4.9 [facility] Work Phone: Comment on above: This patient request ed that [facility] [employer] send to you acopy of their Yearly Employee Health Risk Assessment.A copy of this report is also given to the patient so theycan follow up with your office if they choose. EMP 5.1 mg/dL Normal 2.6-6.0 [facility] Work Phone: Comment on above: This patient request ed that [facility] [employer] send to you acopy of their Yearly Employee Health Risk Assessment.A copy of this report is also given to the patient so theycan follow up with your office if they choose. EMP 11.3 {RATIO} Normal 10-20 Comprehensiv e Internal Medicine Work Phone: Comment on above: This patient request ed that [facility] [employer] send to you acopy of their Yearly Employee Health Risk Assessment.A copy of this report is also given to the patient so theycan follow up with your office if they choose. EMP 98 mL/min Normal [facility] Work Phone: Comment on above: This patient request ed that [facility] [employer] send to you acopy of their Yearly Employee Health Risk Assessment.A copy of this report is also given to the patient so theycan follow up with your office if they choose. EMP 3.3 g/dL Normal 2.7-4.2 [facility] Work Phone: Comment on above: This patient request ed that [facility] [employer] send to you acopy of their Yearly Employee Health Risk Assessment.A copy of this report is also given to the patient so theycan follow up with your office if they choose. EMP 7.1 g/dL Normal 6.4-8.2 [facility] Work Phone: Comment on above: This patient request ed that [facility] [employer] send to you acopy of their Yearly Employee Health Risk Assessment.A copy of this report is also given to the patient so theycan follow up with your office if they choose. UAEMOrdered By: System Manag er on 05-11-2014 UAEM Yellow Normal [facility] Work Phone: Comment on above: This patient request ed that [facility] [employer] send to you acopy of their Yearly Employee Health Risk Assessment.A copy of this report is also given to the patient so theycan follow up with your office if they choose. UAEM Negative Normal [facility] Work Phone: Comment on above: This patient request ed that [facility] [employer] send to you acopy of their Yearly Employee Health Risk Assessment.A copy of this report is also given to the patient so theycan follow up with your office if they choose. UAEM Normal Normal [facility] Work Phone: Comment on above: This patient request ed that [facility] [employer] send to you acopy of their Yearly Employee Health Risk Assessment.A copy of this report is also given to the patient so theycan follow up with your office if they choose. UAEM 6.0 1 Normal 5.0 - 8.0 [facility] Work Phone: Comment on above: This [facility] ed [facility] acopy of their Yearly Employee Health Risk Assessment.A copy of this report is also given to the patient so theycan follow up with your office if they choose. UAEM 1.010 1 Normal 1.002-1.03 0 [facility] Work Phone: Comment on above: This patient request ed that [facility] send to you acopy of their Yearly Employee Health Risk Assessment.A copy of this report is also given to the patient so theycan follow up with your office if they choose. UAEM Clear Normal [facility] Work Phone: Comment on above: This patient request ed that [facility] send to you acopy of their Yearly Employee Health Risk Assessment.A copy of this report is also given to the patient so theycan follow up with your office if they choose. ANAOrdered By: System Manage r on 02-13-2014 Nuclear Ab IF titer (S) Negative Normal [facility] Work Phone: Comment on above: Performed at: [address] [id number] Director: Fernando Owen MD, Phone: [phone] Rapid Strep Test, Office ([phone])on 03-03-2011 S. pyogenes Ag EIA Ql (Throat) Negative Normal [facility]; [facility] Work Phone: Rapid Strep Test, Office ([phone])Ordered By: Melody Villanueva on 03-03-2011 S. pyogenes Ag IA Ql (Unsp spec) Negative Normal [facility] Work Phone: CBC, EMPLOYEEOrdered By: Erika tem Electrical Foreman on 06-25-2009 Erythrocyte distribution width Auto Ratio (RBC) 13.9 % Normal 11.6-14.6 [facility] Work Phone: Erythrocyte distribution width Ratio (RBC) 13.9 % Normal 11.6-14.6 [facility] Work Phone: Comment on above: COMMENTS: EMP LAB Hematocrit Auto Volume Fraction (Bld) 39.7 % Normal 37-47 [facility] Internal Medicine Work Phone: Hematocrit Volume Fraction (Bld) 39.7 % Normal 37-47 [facility] Internal Medicine Work Phone: Comment on above: COMMENTS: EMP LAB Hemoglobin mass conc (Bld) 13.2 g/dL Normal 12.0-16.0 [facility] Work Phone: Comment on above: COMMENTS: EMP LAB MCH Auto Entitic mass (RBC) 27.7 pg Normal 27.0-32.0 [facility] Work Phone: MCH Entitic mass (RBC) 27.7 pg Normal 27.0-32.0 [facility] Internal Medicine Work Phone: Comment on above: COMMENTS: EMP LAB MCHC Auto mass conc (RBC) 33.3 g/dL Normal 32-36 [facility] Work Phone: MCHC mass conc (RBC) 33.3 g/dL Normal 32-36 Comp rehensive Internal Medicine Work Phone: Comment on above: COMMENTS: EMP LAB MCV Auto Entitic volume (RBC) 83.2 fL Normal 81-99 [facility] Work Phone: MCV Entitic volume (RBC) 83.2 fL Normal 81-99 [facility] Work Phone: Comment on above: COMMENTS: EMP LAB Platelet mean volume Auto Entitic volume (Bld) 8.5 fL Normal 6.5-12.0 [facility] Internal Medicine Work Phone: Platelet mean volume Entitic volume (Bld) 8.5 fL Normal 6.5-12.0 Comprehensi Internal Medicine Work Phone: Comment on above: COMMENTS: EMP LAB Platelets #/vol (Bld) 248 10*3/uL Normal 150-450 [facility] Work Phone: Comment on above: COMMENTS: EMP LAB Platelets Auto #/vol (Bld) 248 10*3/uL Normal 150-450 [facility] Work Phone: RBC #/vol (Bld) 4.77 {M/mm3} Normal 4.2-5.4 Compreh ensive Internal Medicine Work Phone: Comment on above: COMMENTS: EMP LAB RBC Auto #/vol (Bld) 4.77 {M/mm3} Normal 4.2-5.4 [facility] Work Phone: WBC #/vol (Bld) 7.5 10*3/uL Normal 4.4-11.0 Comprehe nsive Internal Medicine Work Phone: Comment on above: COMMENTS: EMP LAB WBC Auto #/vol (Bld) 7.5 10*3/uL Normal 4.4-11.0 Com prehensive Internal Medicine Work Phone: EMP PROFOrdered By: Ab kelly on 06-25-2009 Albumin mass conc 3.5 g/dL Normal 3.4-5.0 Compreh ensive Internal Medicine Work Phone: Comment on above: COMMENTS: EMP LAB Albumin/Globulin mass ratio 1.1 {RATIO} Normal 0.9-2.4 [facility] Internal Medicine Work Phone: Comment on above: COMMENTS: EMP LAB ALP enzyme act/vol 80 U/L Normal 50-136 [facility] Internal Medicine Work Phone: Comment on above: COMMENTS: EMP LAB AST enzyme act/vol 6 U/L Abnormal 15-37 [facility] Work Phone: Comment on above: COMMENTS: EMP LAB Bilirubin mass conc 0.40 mg/dL Normal 0.00-1.00 Compr ensive Internal Medicine Work Phone: Comment on above: COMMENTS: EMP LAB Calcium mass conc 8.8 mg/dL Normal 8.5-10.1 Compreh ensive Internal Medicine Work Phone: Comment on above: COMMENTS: EMP LAB Cholesterol in HDL mass conc 44 mg/dL Normal [facility] Work Phone: Comment on above: Reference Range HDL <40 mg/dL Low HDL Cholesterol HDL >or= 60 mg/dL High HDL Cholesterol COMMENTS: EMP LAB Cholesterol in LDL mass conc 103 mg/dL Normal 0-130 [facility] Work Phone: Comment on above: COMMENTS: EMP LAB Cholesterol in VLDL mass conc 33 mg/dL Normal 5-40 [facility] Work Phone: Comment on above: COMMENTS: EMP LAB Cholesterol mass conc 180 mg/dL Normal Com prehensive Internal Medicine Work Phone: Comment on above: <200 mg/dL Desirable 200-240 mg/dL Borderline >240 mg/dL High Risk COMMENTS: EMP LAB Creatinine mass conc 0.9 mg/dL Normal 0.6-1.0 Comp rehensive Internal Medicine Work Phone: Comment on above: COMMENTS: EMP LAB GFR/1.73 sq M predicted among blacks MDRD vol rate/area (S/P/Bld) 88 mL/min/{1.73_m2} Normal Comprehe nsive Internal Medicine Work Phone: Comment on above: COMMENTS: EMP LAB GFR/1.73 sq M.predicted MDRD (S/P/Bld) [Vol rate/Area] 73 mL/min/{1.73_m2} Normal Comprehensiv e Internal Medicine Work Phone: Comment on above: COMMENTS: EMP LAB GFR/1.73 sq M.predicted MDRD vol rate/area 73 mL/min/{1.73_m2} Normal Comprehensiv e Internal Medicine Work Phone: Comment on above: COMMENTS: EMP LAB Globulin Calculated mass conc (S) 3.2 g/dL Normal 2.7-4.2 [facility] Work Phone: Globulin mass conc (S) 3.2 g/dL Normal 2.7-4.2 [facility] Work Phone: Comment on above: COMMENTS: EMP LAB Glucose mass conc 87 mg/dL Normal 70-110 Compreh ensive Internal Medicine Work Phone: Comment on above: COMMENTS: EMP LAB LDH enzyme act/vol 181 U/L Normal 100-190 Compre hensive Internal Medicine Work Phone: Comment on above: COMMENTS: EMP LAB Protein mass conc 6.7 g/dL Normal 6.4-8.2 Compreh ensive Internal Medicine Work Phone: Comment on above: COMMENTS: EMP LAB Triglyceride mass conc 164 mg/dL Normal [facility] Work Phone: Comment on above: Serum Triglycerides Reference Interval Normal <150 mg/dL Borderline high 150 - 199 mg/dL High 200 - 499 mg/dL Very High > or = 500 mg/dL COMMENTS: EMP LAB Urea nitrogen mass conc 14 mg/dL Normal 7-18 [facility] Work Phone: Comment on above: COMMENTS: EMP LAB Urea nitrogen/Creatinine mass ratio 15.6 {RATIO} Normal 10-20 [facility] Work Phone: Comment on above: COMMENTS: EMP LAB EMP PROF 3.6 mg/dL Normal 2.5-4.9 [facility] Work Phone: Comment on above: COMMENTS: EMP LAB EMP PROF 4.6 mg/dL Normal 2.6-6.0 [facility] Work Phone: Comment on above: COMMENTS: EMP LAB EMP URINALYSISOrdered By: Solomon stem Electrical Foreman on 06-25-2009 Clarity Nom (U) CLEAR Normal Comprehen sive Internal Medicine Work Phone: Comment on above: COMMENTS: EMP LAB Color Nom (U) YELLOW Normal Comprehensi ve Internal Medicine Work Phone: Comment on above: COMMENTS: EMP LAB Protein mass conc SeeNote Normal Compreh ensive Internal Medicine Work Phone: Comment on above: Result: NEGATIVE Protein mass conc (U) SeeNote Normal Com prehensive Internal Medicine Work Phone: Comment on above: Result: NEGATIVE COMMENTS: EMP LAB EMP URINALYSIS SeeNote Normal Comprehens [facility] Work Phone: Comment on above: Result: NEGATIVE COMMENTS: EMP LAB EMP URINALYSIS CLEAR Normal Comprehens [facility] Work Phone: EMP URINALYSIS YELLOW Normal Comprehens [facility] Work Phone: EMP URINALYSIS 5.5 1 Normal 5.0-8.0 Comprehens [facility] Work Phone: Comment on above: COMMENTS: EMP LAB EMP URINALYSIS 1.020 1 Normal 1.002-1.03 0 [facility] Work Phone: Comment on above: COMMENTS: EMP LAB EMP URINALYSIS 0.2 EU/dl Normal 0.2 - 1.0 Comprehens [facility] Internal Medicine Work Phone: Comment on above: COMMENTS: EMP LAB BILAT SCRN DIGITAL & CADOrde red By: Skilled Trades Teacher on 11-24-2007 BILAT SCRN DIGITAL & CAD See Note Normal [facility] Work Phone: Comment on above: Exam Number: [id number] BILATERAL SCREENING DIGITAL MAMMOGRAM CLINICAL INFORMATIONScreening. Bilateral digital mammography was performed as a screening exam. Standard CC and MLO views were obtained. The current study is compared to the previous examinations of April 08, 2004, and also April 08, 2001. FINDINGSThere has been no significant change in the overall appearance of thebreasts. There is moderately dense, heterogenous fibroglandularparenchyma bilaterally. No dominant masses are evident, and nosuspicious groups of calcifications are seen. No areas of spiculationor distortion were evident. There were a few benign calcificationspresent. IMPRESSION1. Stable appearance of the breasts with no specific mammographicevidence of malignancy. Annual mammography is recommended.2. BIRADS 2 with 1-year followup. A letter regarding the results has been sent to the patient. This interpretation was rendered by a radiologist certified underthe Mammography Quality Standards Act of 1992 (MQSA). The mammogramswere also examined with computer-aided detection software([email or web address].). Reported By: JACKLYN CRISOSTOMO M.D. CBC, EMPLOYEEOrdered By: Erika tem Electrical Foreman on 11-16-2007 Erythrocyte distribution width Auto Ratio (RBC) 13.9 % Normal 11.6-14.6 [facility] Work Phone: Erythrocyte distribution width Ratio (RBC) 13.9 % Normal 11.6-14.6 [facility] Work Phone: Hematocrit Auto Volume Fraction (Bld) 38.3 % Normal 37-47 Com[facility] Work Phone: Hematocrit Volume Fraction (Bld) 38.3 % Normal 37-47 [facility] Work Phone: Hemoglobin mass conc (Bld) 13.2 g/dL Normal 12.0-16.0 [facility] Work Phone: MCH Auto Entitic mass (RBC) 28.1 pg Normal 27.0-32.0 [facility] Work Phone: MCH Entitic mass (RBC) 28.1 pg Normal 27.0-32.0 [facility] Internal Medicine Work Phone: MCHC Auto mass conc (RBC) 34.4 g/dL Normal 32-36 [facility] Work Phone: MCHC mass conc (RBC) 34.4 g/dL Normal 32-36 Comp rehensive Internal Medicine Work Phone: MCV Auto Entitic volume (RBC) 81.7 fL Normal 81-99 [facility] Work Phone: MCV Entitic volume (RBC) 81.7 fL Normal 81-99 [facility] Internal Medicine Work Phone: Platelet mean volume Auto Entitic volume (Bld) 7.8 fL Normal 6.5-12.0 [facility] Internal Medicine Work Phone: Platelet mean volume Entitic volume (Bld) 7.8 fL Normal 6.5-12.0 Comprehensi ve Internal Medicine Work Phone: Platelets #/vol (Bld) 297 10*3/uL Normal 150-450 Co mprehensive [facility] Work Phone: Platelets Auto #/vol (Bld) 297 10*3/uL Normal 150-450 [facility] Work Phone: RBC #/vol (Bld) 4.68 {M/mm3} Normal 4.2-5.4 Compreh ensive Internal Medicine Work Phone: RBC Auto #/vol (Bld) 4.68 {M/mm3} Normal 4.2-5.4 Co mprehensive [facility] Work Phone: WBC #/vol (Bld) 7.3 10*3/uL Normal 4.4-11.0 Comprehe nsive Internal Medicine Work Phone: WBC Auto #/vol (Bld) 7.3 10*3/uL Normal 4.4-11.0 Com prehensive Internal Medicine Work Phone: EMP PROFOrdered By: Ab kelly on 11-16-2007 Albumin mass conc 3.6 g/dL Normal 3.4-5.0 Compreh ensive Internal Medicine Work Phone: Albumin/Globulin mass ratio 1.2 {RATIO} Normal 0.9-2.4 [facility] Work Phone: ALP enzyme act/vol 89 U/L Normal 50-136 Compre hensive Internal Medicine Work Phone: AST enzyme act/vol 15 U/L Normal 15-37 Compre hensive Internal Medicine Work Phone: Bilirubin mass conc 0.24 mg/dL Normal 0.00-1.00 Compr ehensive Internal Medicine Work Phone: Calcium mass conc 8.5 mg/dL Normal 8.5-10.1 Compreh ensive Internal Medicine Work Phone: Cholesterol in HDL mass conc 41 mg/dL Normal [facility] Work Phone: Comment on above: Reference Range HDL <40 mg/dL Low HDL Cholesterol HDL >or= 60 mg/dL High HDL Cholesterol Cholesterol in LDL mass conc 90 mg/dL Normal 0-130 [facility] Work Phone: Cholesterol in VLDL mass conc 24 mg/dL Normal 5-40 [facility] Work Phone: Cholesterol mass conc 155 mg/dL Normal Com prehensive Internal Medicine Work Phone: Comment on above: <200 mg/dL Desirable 200-240 mg/dL Borderline >240 mg/dL High Risk Creatinine mass conc 0.8 mg/dL Normal 0.6-1.0 Comp rehensive Internal Medicine Work Phone: Globulin Calculated mass conc (S) 2.9 g/dL Normal 2.7-4.2 [facility] Work Phone: Comment on above: Please Note Refer ence Interval Change Globulin mass conc (S) 2.9 g/dL Normal 2.7-4.2 [facility] Work Phone: Comment on above: Please Note Refer ence Interval Change Glucose mass conc 90 mg/dL Normal 70-110 Compreh ensive Internal Medicine Work Phone: LDH enzyme act/vol 159 U/L Normal 100-190 Compre hensive Internal Medicine Work Phone: Protein mass conc 6.5 g/dL Normal 6.4-8.2 Compreh ensive Internal Medicine Work Phone: Triglyceride mass conc 118 mg/dL Normal [facility] Work Phone: Comment on above: Serum Triglycerides Reference Interval Normal <150 mg/dL Borderline high 150 - 199 mg/dL High 200 - 499 mg/dL Very High > or = 500 mg/dL Urea nitrogen mass conc 13 mg/dL Normal 7-18 [facility] Work Phone: Urea nitrogen/Creatinine mass ratio 16.3 {RATIO} Normal 10-20 [facility] Work Phone: EMP PROF 3.2 mg/dL Normal 2.5-4.9 [facility] Work Phone: EMP PROF 3.7 mg/dL Normal 2.6-6.0 [facility] Work Phone: EMP URINALYSISOrdered By: Solomon stem Electrical Foreman on 11-16-2007 Clarity Nom (U) CLEAR Normal [facility]pre[facility] Work Phone: Color Nom (U) YELLOW Normal Comprehensi ve [facility] Work Phone: Protein mass conc SeeNote Normal Compreh ensive [facility] Work Phone: Comment on above: Result: NEGATIVE Protein mass conc (U) SeeNote Normal Com prehens[facility] Work Phone: Comment on above: Result: NEGATIVE EMP URINALYSIS YELLOW Normal Comprehens [facility] Work Phone: EMP URINALYSIS 0.2 EU/dl Normal 0.2 - 1.0 Comprehens [facility] Work Phone: EMP URINALYSIS SeeNote Normal Comprehens [facility] Work Phone: Comment on above: Result: NEGATIVE EMP URINALYSIS CLEAR Normal Comprehens [facility] Work Phone: EMP URINALYSIS 2+ Abnormal Comprehens [facility] Work Phone: EMP URINALYSIS 5.0 1 Normal 5.0-8.0 Comprehens [facility] Work Phone: EMP URINALYSIS 1.025 1 Normal 1.002-1.03 0 [facility] Work Phone: Pap Lb, rfx HPV ASCUOrdered By: Skilled Trades Teacher on 11-11-2007 Pap Lb, rfx HPV ASCU SPRCS Normal Comp rehensive [facility] Work Phone: Comment on above: NEGATIVE FOR INTRAEP ITHELIAL LESION AND MALIGNANCY.FUNGAL ORGANISMS MORPHOLOGICALLY CONSISTENT WITH [place] SPECIES AREPRESENT.CELLULAR CHANGES ASSOCIATED WITH INFLAMMATION ARE PRESENT.Satisfactory for evaluation. Endocervical and/or squamous metaplasticcells (endocervical component) are present.V72.31 ; Routine gynecological examinationErin Puneet Meeting/Event Planner (ASCP) Source.............C ervical;EndocervicalLMP / Prev Treat...[id number]. of containers..01 CYTYC Thin Prep VialPERFORMED BY: [facility] [address] [place] [id number] Pap Lb, rfx HPV ASCU . Normal Comp [facility] Work Phone: Comment on above: Source.............C ervical;EndocervicalLMP / Prev Treat...TLF=[id number]. of containers..01 CYTYC Thin Prep VialPERFORMED BY: [facility] [address] [id number] Pap Lb, rfx HPV ASCU PAPSMR Normal Comp rehens[facility] Work Phone: Comment on above: The Pap smear is a s creening test designed to aid in the detection ofpremalignant and malignant conditions of the uterine cervix. It is not adiagnostic procedure and should not be used as the sole means of detectingcervical cancer. Both false-positive and false-negative reports do occur. .The HPV DNA reflex criteria were not met with this specimen resulttherefore, no HPV testing was performed. . Source.............C ervical;EndocervicalLMP / Prev Treat...[id number]. of containers..01 CYTYC Thin Prep VialPERFORMED BY: [facility] [address] [id number] Vital Signs Date Time Vital Sign Value Performing Clinician Facility 01-29-2025 08:07-0400 Body temperature 98.1 [degF] Miguelina Jones DOOR PATCHER-C Work Phone: [facility] 01-29-2025 08:07-0400 Diastolic blood pressure 78 mm[Hg] Miguelina Jones DOOR PATCHER-C Work Phone: [facility] 01-29-2025 08:07-0400 Heart rate 75 /min Miguelina Jones DOOR PATCHER-C Work Phone: [facility] 01-29-2025 08:07-0400 Respiratory rate 16 /min Miguelina Jones DOOR PATCHER-C Work Phone: [facility] 01-29-2025 08:07-0400 SaO2% (BldA) [Mass fraction] 99 % Miguelina Jones DOOR PATCHER-C Work Phone: [facility] 01-29-2025 08:07-0400 Systolic blood pressure 126 mm[Hg] Miguelina Jones DOOR PATCHER-C Work Phone: [facility] 01-29-2025 06:43-0400 Body height 149.86 cm Miguelina Jones DOOR PATCHER-C Work Phone: [facility] 01-29-2025 06:43-0400 Body mass index (BMI) [Ratio] 32.3 kg/m2 Miguelina Robert DOOR PATCHER-C Work Phone: [facility] 01-29-2025 06:43-0400 Body weight 72.57 kg Miguelina Robert DOOR PATCHER-C Work Phone: [facility] 07-17-2023 13:22-0400 Body height 152.4 cm DOOR PATCHER-C Miguelina Robert Work Phone: [facility] 07-17-2023 13:22-0400 Body mass index (BMI) [Ratio] 29 kg/m2 DOOR PATCHER-C Miguelina Robert Work Phone: [facility] 07-17-2023 13:22-0400 Body weight 67.58 kg DOOR PATCHER-C Miguelina Robert Work Phone: [facility] 07-17-2023 13:22-0400 Diastolic blood pressure 97 mm[Hg] DOOR PATCHER-C Miguelina Robert Work Phone: [facility] 07-17-2023 13:22-0400 Heart rate 99 /min DOOR PATCHER-C Miguelina Robert Work Phone: [facility] 07-17-2023 13:22-0400 Respiratory rate 17 /min DOOR PATCHER-C Miguelina Robert Work Phone: [facility] 07-17-2023 13:22-0400 SaO2% (BldA) [Mass fraction] 98 % DOOR PATCHER-C Miguelina Robert Work Phone: [facility] 07-17-2023 13:22-0400 Systolic blood pressure 139 mm[Hg] DOOR PATCHER-C Miguelina Robert Work Phone: [facility] 07-02-2023 13:09-0400 Body height 152.4 cm Peyton Pizarro MA [facility]; [facility] Work Phone: 07-02-2023 13:09-0400 Body mass index (BMI) [Ratio] 30.08 kg/m2 Peyton Pizarro MA [facility]; [facility] Work Phone: 07-02-2023 13:090400 Body surface area Derived from formula 1.67 m2 Peyton Pizarro MA [facility]; [facility] Work Phone: 07-02-2023 13:09-040 Body temperature 98.3 [degF] Peyton Pizarro MA [facility]; [facility] Work Phone: 07-02-2023 13:09-0400 Body weight 69.85 kg Peyton Pizarro MA [facility]; [facility] Work Phone: 07-02-2023 13:09-0400 Diastolic blood pressure 78 mm[Hg] Peyton Pizarro MA [facility]; [facility] Work Phone: Comment on above: Patient Position: Sitting; Cuff Location : Left Arm; Cuff Size: Standard 07-02-2023 13:09-0400 Heart rate 82 /min Peyton Pizarro MA [facility]; [facility] Work Phone: Comment on above: Pattern: Regular 07-02-2023 13:09-0400 SaO2% (BldA) [Mass fraction] 97 % Peyton Pizarro MA [facility]; [facility] Work Phone: Comment on above: Room air 07-02-2023 13:09-0400 Systolic blood pressure 118 mm[Hg] Peyton Pizarro MA [facility]; [facility] Work Phone: Comment on above: Patient Position: Sitting; Cuff Location : Left Arm; Cuff Size: Standard 06-09-2023 11:36-0400 Body height 152.4 cm Letty Gaffney LPN [facility]; [facility] Work Phone: 06-09-2023 11:36-0400 Body mass index (BMI) [Ratio] 30.08 kg/m2 Letty Gaffney LPN [facility]; [facility] Work Phone: 06-09-2023 11:36-0400 Body surface area Derived from formula 1.67 m2 Letty Gaffney STAPLE CUTTER [facility]; [facility] Work Phone: 06-09-2023 11:36-0400 Body temperature 97.7 [degF] Letty Slarb STAPLE CUTTER [facility]; [facility] Work Phone: Comment on above: Method: Temporal 06-09-2023 11:36-0400 Body weight 69.85 kg Letty Vanessarb STAPLE CUTTER [facility]; [facility] Work Phone: 06-09-2023 11:36-0400 Diastolic blood pressure 80 mm[Hg] Letty Slarb STAPLE CUTTER [facility]; [facility] Work Phone: Comment on above: Patient Position: Sitting; Cuff Location : Left Arm; Cuff Size: Standard 06-09-2023 11:36-0400 Heart rate 70 /min Letty Slarb STAPLE CUTTER [facility]; [facility] Work Phone: Comment on above: Pattern: Regular 06-09-2023 11:36-0400 Respiratory rate 16 /min Letty Rasheedarb STAPLE CUTTER [facility]; [facility] Work Phone: Comment on above: Pattern: Unlabored 06-09-2023 11:36-0400 SaO2% (BldA) [Mass fraction] 98 % Letty Rasheedarb STAPLE CUTTER [facility]; [facility] Work Phone: Comment on above: Room air 06-09-2023 11:36-0400 Systolic blood pressure 118 mm[Hg] Letty Slarb STAPLE CUTTER [facility]; [facility] Work Phone: Comment on above: Patient Position: Sitting; Cuff Location : Left Arm; Cuff Size: Standard 12-01-2022 11:36-0400 Body height 152.4 cm Letty Slarb STAPLE CUTTER [facility]; [facility] Work Phone: 12-01-2022 11:36-0400 Body mass index (BMI) [Ratio] 32.83 kg/m2 Letty Slarb STAPLE CUTTER [facility]; [facility] Work Phone: 12-01-2022 11:36-0400 Body surface area Derived from formula 1.73 m2 Letty Slarb STAPLE CUTTER [facility]; [facility] Work Phone: 12-01-2022 11:36-0400 Body temperature 97.1 [degF] Letty Slarb STAPLE CUTTER [facility]; [facility] Work Phone: Comment on above: Method: Temporal 12-01-2022 11:36-0400 Body weight 76.26 kg Letty Slarb STAPLE CUTTER [facility]; [facility] Work Phone: 12-01-2022 11:36-0400 Diastolic blood pressure 82 mm[Hg] Letty Slarb STAPLE CUTTER [facility]; [facility] Work Phone: Comment on above: Patient Position: Sitting; Cuff Location : Left Arm; Cuff Size: Standard 12-01-2022 11:36-0400 Heart rate 82 /min Letty Slarb STAPLE CUTTER [facility]; [facility] Work Phone: Comment on above: Pattern: Regular 12-01-2022 11:36-0400 Respiratory rate 18 /min Letty Slarb STAPLE CUTTER [facility]; [facility] Work Phone: Comment on above: Pattern: Unlabored 12-01-2022 11:36-0400 SaO2% (BldA) [Mass fraction] 98 % Letty Slarb STAPLE CUTTER [facility]; [facility] Work Phone: Comment on above: Room air 12-01-2022 11:36-0400 Systolic blood pressure 122 mm[Hg] Letty Slarb STAPLE CUTTER [facility]; [facility] Work Phone: Comment on above: Patient Position: Sitting; Cuff Location : Left Arm; Cuff Size: Standard 06-01-2022 11:11-0400 Body temperature 98.1 [degF] Peyton Pizarro MA [facility]; [facility] Work Phone: 06-01-2022 11:11-0400 Diastolic blood pressure 82 mm[Hg] Peyton Pizarro MA [facility]; [facility] Work Phone: Comment on above: Patient Position: Sitting; Cuff Location : Left Arm; Cuff Size: Standard 06-01-2022 11:11-0400 Heart rate 77 /min Peyton Pizarro MA [facility]; [facility] Work Phone: Comment on above: Pattern: Regular 06-01-2022 11:11-0400 Respiratory rate 17 /min Peyton Pizarro MA [facility]; [facility] Work Phone: Comment on above: Pattern: Unlabored 06-01-2022 11:11-0400 SaO2% (BldA) [Mass fraction] 97 % Peyton Pizarro MA [facility]; [facility] Work Phone: Comment on above: Room air 06-01-2022 11:11-0400 Systolic blood pressure 122 mm[Hg] Peyton Pizarro MA [facility]; [facility] Work Phone: Comment on above: Patient Position: Sitting; Cuff Location : Left Arm; Cuff Size: Standard 12-02-2021 10:17-0400 Body height 152.4 cm Patria Everett LPN [facility]; [facility] Work Phone: 12-02-2021 10:17-0400 Body mass index (BMI) [Ratio] 31.49 kg/m2 Patria Everett LPN [facility]; [facility] Work Phone: 12-02-2021 10:17-0400 Body surface area Derived from formula 1.7 m2 Patria Everett LPN [facility]; [facility] Work Phone: 12-02-2021 10:17-0400 Body temperature 97.1 [degF] Patria Everett LPN [facility]; [facility] Work Phone: 12-02-2021 10:17-0400 Body weight 73.14 kg Patria Everett LPN [facility]; [facility] Work Phone: 12-02-2021 10:17-0400 Diastolic blood pressure 88 mm[Hg] Patria Everett LPN [facility]; [facility] Work Phone: Comment on above: Patient Position: Sitting; Cuff Location : Left Arm; Cuff Size: Standard 12-02-2021 10:17-0400 Heart rate 70 /min Patrialm Patelbrittny BOLAND [facility]; [facility] Work Phone: Comment on above: Pattern: Regular 12-02-2021 10:17-0400 Respiratory rate 16 /min Patria Marguerite BOLAND [facility]; [facility] Work Phone: Comment on above: Pattern: Unlabored 12-02-2021 10:17-0400 SaO2% (BldA) [Mass fraction] 99 % Patria Everett LPN [facility]; [facility] Work Phone: Comment on above: Room air 12-02-2021 10:17-0400 Systolic blood pressure 128 mm[Hg] Patria Marguerite LPN [facility]; [facility] Work Phone: Comment on above: Patient Position: Sitting; Cuff Location : Left Arm; Cuff Size: Standard 06-06-2021 10:33-0400 Body height 152.4 cm Letty Gaffney LPN [facility]; [facility] Work Phone: 06-06-2021 10:33-0400 Body mass index (BMI) [Ratio] 32.81 kg/m2 Letty Slarb STAPLE CUTTER [facility]; [facility] Work Phone: 06-06-2021 10:33-0400 Body surface area Derived from formula 1.73 m2 Letty Gulshan MARTINN [facility]; [facility] Work Phone: 06-06-2021 10:33-0400 Body temperature 97.3 [degF] Letty Slarb STAPLE CUTTER [facility]; [facility] Work Phone: 06-06-2021 10:33-0400 Body weight 76.2 kg Letty Slarb STAPLE CUTTER [facility]; [facility] Work Phone: 06-06-2021 10:33-0400 Diastolic blood pressure 76 mm[Hg] Letty Slarb STAPLE CUTTER [facility]; [facility] Work Phone: Comment on above: Patient Position: Sitting; Cuff Location : Left Arm; Cuff Size: Standard 06-06-2021 10:33-0400 Heart rate 69 /min Letty Gaffney LPN [facility]; [facility] Work Phone: Comment on above: Pattern: Regular 06-06-2021 10:33-0400 Respiratory rate 18 /min Letty Gaffney LPN [facility]; [facility] Work Phone: Comment on above: Pattern: Unlabored 06-06-2021 10:33-0400 SaO2% (BldA) [Mass fraction] 99 % Letty Gaffney LPN [facility]; [facility] Work Phone: Comment on above: Room air 06-06-2021 10:33-0400 Systolic blood pressure 122 mm[Hg] Letty Gaffney LPN [facility]; [facility] Work Phone: Comment on above: Patient Position: Sitting; Cuff Location : Left Arm; Cuff Size: Standard 01-10-2021 11:090400 Body height 152.4 cm Steven He LPN [facility]; [facility] Work Phone: 01-10-2021 11:09-0400 Body mass index (BMI) [Ratio] 32.62 kg/m2 Steven He LPN [facility]; [facility] Work Phone: 01-10-2021 11:09-0400 Body surface area Derived from formula 1.73 m2 Steven He LPN [facility]; [facility] Work Phone: 01-10-2021 11:09-0400 Body temperature 97.1 [degF] Steven He LPN [facility]; [facility] Work Phone: Comment on above: Method: Infrared 01-10-2021 11:09-0400 Body weight 75.77 kg Steven He LPN [facility]; [facility] Work Phone: 01-10-2021 11:09-0400 Diastolic blood pressure 78 mm[Hg] Steven He LPN [facility]; [facility] Work Phone: Comment on above: Patient Position: Sitting; Cuff Location : Left Arm; Cuff Size: Standard 01-10-2021 11:09-0400 Heart rate 93 /min Steven He LPN [facility]; [facility] Work Phone: Comment on above: Pattern: Regular 01-10-2021 11:09-0400 Respiratory rate 16 /min Steven He LPN [facility]; [facility] Work Phone: Comment on above: Pattern: Unlabored 01-10-2021 11:09-0400 SaO2% (BldA) [Mass fraction] 96 % Steven He LPN [facility]; [facility] Work Phone: Comment on above: Room air 01-10-2021 11:09-0400 Systolic blood pressure 124 mm[Hg] Steven He LPN [facility]; [facility] Work Phone: Comment on above: Patient Position: Sitting; Cuff Location : Left Arm; Cuff Size: Standard 06-25-2020 08:39-0400 BMI (Body Mass Index) 33.79 kg/m2 Steven osorio [facility] Work Phone: 06-25-2020 08:39-0400 Body weight 78.48 kg Steven He LPN [facility] Work Phone: 06-25-2020 08:39-0400 BSA (Body Surface Area) 1.76 m2 Steven He LPN [facility] Work Phone: 06-25-2020 08:39-0400 Height 152.4 cm Steven He LPN [facility] Work Phone: 06-03-2020 13:33-0400 BMI (Body Mass Index) 33.79 kg/m2 Steven He LPN Comprehalfreda osorio [facility] Work Phone: 06-03-2020 13:33-0400 Body Temperature 97.4 [degF] Steven He LPN [facility] Work Phone: Comment on above: Method: Infrared 06-03-2020 13:33-0400 Body weight 78.48 kg Steven He LPN [facility] Work Phone: 06-03-2020 13:33-0400 BP Diastolic 86 mm[Hg] Steven He LPN [facility] Work Phone: Comment on above: Patient Position: Sitting; Cuff Location : Left Arm; Cuff Size: Standard 06-03-2020 13:33-0400 BP Systolic 126 mm[Hg] Steven He LPN [facility] Work Phone: Comment on above: Patient Position: Sitting; Cuff Location : Left Arm; Cuff Size: Standard 06-03-2020 13:33-0400 BSA (Body Surface Area) 1.76 m2 Steven He LPN [facility] Work Phone: 06-03-2020 13:33-0400 Height 152.4 cm Steven He LPN [facility] Work Phone: 06-03-2020 13:33-0400 Pulse (Heart Rate) 87 /min Steven He LPN Comprehensiv e [facility] Work Phone: Comment on above: Pattern: Regular 06-03-2020 13:33-0400 Pulse Oximetry 98 % Ivette Ramos [facility] Work Phone: Comment on above: Room air 06-03-2020 13:33-0400 Respiratory Rate 16 /min Steven He LPN [facility] Work Phone: Comment on above: Pattern: Unlabored 06-03-2020 13:33-0400 SaO2% (BldA) [Mass fraction] 98 % Steven He LPN [facility]; [facility] Work Phone: Comment on above: Room air 06-19-2019 13:13-0400 BMI (Body Mass Index) 33.79 kg/m2 Ivette Rachel Comprehens [facility] Work Phone: 06-19-2019 13:13-0400 BMI (Body Mass Index) 34.38 kg/m2 Steven He LPN Comprehen sive [facility] Work Phone: 06-19-2019 13:13-0400 Body Temperature 97.8 [degF] Steven He LPN [facility] Work Phone: Comment on above: Method: Temporal 06-19-2019 13:13-0400 Body weight 78.48 kg Ivette Ramos [facility] Work Phone: 06-19-2019 13:13-0400 Body weight 79.84 kg Steven He LPN [facility] Work Phone: 06-19-2019 13:13-0400 BP Diastolic 82 mm[Hg] Steven He LPN [facility] Work Phone: Comment on above: Patient Position: Sitting; Cuff Location : Left Arm; Cuff Size: Standard 06-19-2019 13:13-0400 BP Systolic 150 mm[Hg] Steven He LPN [facility] Work Phone: Comment on above: Patient Position: Sitting; Cuff Location : Left Arm; Cuff Size: Standard 06-19-2019 13:13-0400 BSA (Body Surface Area) 1.76 m2 Ivette Ramos [facility] Work Phone: 06-19-2019 13:13-0400 BSA (Body Surface Area) 1.77 m2 Steven He LPN [facility] Work Phone: 06-19-2019 13:13-0400 Height 152.4 cm Steven He LPN [facility] Work Phone: 06-19-2019 13:13-0400 Pulse (Heart Rate) 76 /min Steven He LPN Comprehens[facility] e [facility] Work Phone: Comment on above: Pattern: Regular 06-19-2019 13:13-0400 Pulse Oximetry 96 % Ivette Ramos [facility] Work Phone: Comment on above: Room air 06-19-2019 13:13-0400 Respiratory Rate 16 /min Steven He LPN [facility] Work Phone: Comment on above: Pattern: Unlabored 06-19-2019 13:13-0400 SaO2% (BldA) [Mass fraction] 96 % Steven He LPN [facility]; [facility] Work Phone: Comment on above: Room air 06-02-2019 08:03-0400 BMI (Body Mass Index) 33.79 kg/m2 Steven He LPN Comprehen s[facility] Work Phone: 06-02-2019 08:03-0400 Body Temperature 97.1 [degF] Steven He LPN [facility] Work Phone: Comment on above: Method: Temporal 06-02-2019 08:03-0400 Body weight 78.47 kg Ivette Ramos [facility] Work Phone: 06-02-2019 08:03-0400 Body weight 78.48 kg Steven He LPN [facility] Work Phone: 06-02-2019 08:03-0400 BP Diastolic 68 mm[Hg] Steven He LPN [facility] Work Phone: Comment on above: Patient Position: Sitting; Cuff Location : Left Arm; Cuff Size: Standard 06-02-2019 08:03-0400 BP Systolic 112 mm[Hg] Steven He LPN [facility] Work Phone: Comment on above: Patient Position: Sitting; Cuff Location : Left Arm; Cuff Size: Standard 06-02-2019 08:03-0400 BSA (Body Surface Area) 1.76 m2 Steven He LPN [facility] Work Phone: 06-02-2019 08:03-0400 Height 152.4 cm Steven He LPN [facility] Work Phone: 06-02-2019 08:03-0400 Pulse (Heart Rate) 90 /min Steven He LPN Comprehens[facility] e [facility] Work Phone: Comment on above: Pattern: Regular 06-02-2019 08:03-0400 Pulse Oximetry 93 % Ivette Ramos [facility] Work Phone: Comment on above: Room air 06-02-2019 08:03-0400 Respiratory Rate 16 /min Steven He LPN [facility] Work Phone: Comment on above: Pattern: Unlabored 06-02-2019 08:03-0400 SaO2% (BldA) [Mass fraction] 93 % Steven He LPN [facility]; [facility] Work Phone: Comment on above: Room air 10-24-2018 13:28-0500 BMI (Body Mass Index) 33.79 kg/m2 Ivette Ramos CNP Work Phone: [facility] Work Phone: 10-24-2018 13:28-0500 Body Temperature 99.1 [degF] Ivette Ramos CNP Work Phone: [facility] Work Phone: Comment on above: Method: Temporal 10-24-2018 13:28-0500 Body weight 78.47 kg Ivette Ramos CNP Work Phone: [facility] Work Phone: 10-24-2018 13:28-0500 BP Diastolic 82 mm[Hg] Ivette Ramos CNP Work Phone: [facility] Work Phone: Comment on above: Patient Position: Sitting; Cuff Location : Left Arm; Cuff Size: Standard 10-24-2018 13:28-0500 BP Systolic 128 mm[Hg] Ivette Ramos CNP Work Phone: [facility] Work Phone: Comment on above: Patient Position: Sitting; Cuff Location : Left Arm; Cuff Size: Standard 10-24-2018 13:28-0500 BSA (Body Surface Area) 1.76 m2 Ivette Ramos CNP Work Phone: [facility] Work Phone: 10-24-2018 13:28-0500 Height 152.4 cm Ivette Ramos CNP Work Phone: [facility] Work Phone: 10-24-2018 13:28-0500 Pulse (Heart Rate) 86 /min Ivette Ramos CNP Work Phone: [facility] Work Phone: Comment on above: Pattern: Regular 10-24-2018 13:28-0500 Pulse Oximetry 97 % Ivette Ramos [facility] Work Phone: Comment on above: Room air 10-24-2018 13:28-0500 Respiratory Rate 16 /min Ivette Ramos [employer] Work Phone: [facility] Work Phone: Comment on above: Pattern: Unlabored 10-24-2018 13:28-0500 SaO2% (BldA) [Mass fraction] 97 % Ivette Ramos [employer] OPERATOR Work Phone: [facility]; [facility] Work Phone: Comment on above: Room air 10-24-2018 13:28-0500 Weight 78.47 kg Ivette Ramos [facility] Work Phone: 09-16-2018 10:53-0500 BMI (Body Mass Index) 33.4 kg/m2 Rebecca Navalear [facility] Work Phone: 09-16-2018 10:53-0500 Body Temperature 99 [degF] Rebecca Abdalla [facility] Work Phone: Comment on above: Method: Temporal 09-16-2018 10:53-0500 Body weight 77.57 kg Rebecca Abdalla [facility] Work Phone: 09-16-2018 10:53-0500 BP Diastolic 90 mm[Hg] Rebecca Abdalla [facility] Work Phone: Comment on above: Patient Position: Sitting; Cuff Location : Left Arm; Cuff Size: Standard 09-16-2018 10:53-0500 BP Systolic 140 mm[Hg] Rebecca Abdalla [facility] Work Phone: Comment on above: Patient Position: Sitting; Cuff Location : Left Arm; Cuff Size: Standard 09-16-2018 10:53-0500 BSA (Body Surface Area) 1.75 m2 Rebecca Abdalla [facility] Work Phone: 09-16-2018 10:53-0500 Height 152.4 cm Rebecca Abdalla [facility] Work Phone: 09-16-2018 10:53-0500 Pulse (Heart Rate) 89 /min Rebecca Abdalla [facility] Work Phone: Comment on above: Pattern: Regular 09-16-2018 10:53-0500 Pulse Oximetry 99 % Ivette Ramos [facility] Work Phone: Comment on above: Room air 09-16-2018 10:53-0500 Respiratory Rate 17 /min Rebecca Abdalla [facility] Work Phone: Comment on above: Pattern: Unlabored 09-16-2018 10:53-0500 SaO2% (BldA) [Mass fraction] 99 % Rebecca Abdalla [facility]; [facility] Work Phone: Comment on above: Room air 09-16-2018 10:53-0500 Weight 77.57 kg Ivette Ramos [facility] Work Phone: 06-03-2018 10:49-0400 BMI (Body Mass Index) 32.71 kg/m2 Ivette Ramos [employer] OPERATOR Work Phone: [facility] Work Phone: 06-03-2018 10:49-0400 Body Temperature 98.5 [degF] Ivette Ramos [employer] DO[employer] OPERATOR Work Phone: [facility] Work Phone: Comment on above: Method: Temporal 06-03-2018 10:49-0400 Body weight 75.98 kg Ivette Ramos [employer] DO[employer] OPERATOR Work Phone: [facility] Work Phone: 06-03-2018 10:49-0400 BP Diastolic 90 mm[Hg] Ivette Ramos [employer] DO[employer] OPERATOR Work Phone: [facility] Work Phone: Comment on above: Patient Position: Sitting; Cuff Location : Left Arm; Cuff Size: Standard 06-03-2018 10:49-0400 BP Systolic 142 mm[Hg] Ivette Duffya [employer] OPERATOR Work Phone: [facility] Work Phone: Comment on above: Patient Position: Sitting; Cuff Location : Left Arm; Cuff Size: Standard 06-03-2018 10:49-0400 BSA (Body Surface Area) 1.73 m2 Ivette Ramos [employer] DO[employer] OPERATOR Work Phone: [facility] Work Phone: 06-03-2018 10:49-0400 Height 152.4 cm Ivette Ramos [employer] DOLLY OPERATOR Work Phone: [facility] Work Phone: 06-03-2018 10:49-0400 Pulse (Heart Rate) 74 /min Ivette Ramos [employer] DO[employer] OPERATOR Work Phone: [facility] Work Phone: Comment on above: Pattern: Regular 06-03-2018 10:49-0400 Pulse Oximetry 97 % Ivette Ramos [facility] Work Phone: Comment on above: Room air 06-03-2018 10:49-0400 Respiratory Rate 16 /min Ivette Ramos [employer] DO[employer] OPERATOR Work Phone: [facility] Work Phone: Comment on above: Pattern: Unlabored 06-03-2018 10:49-0400 SaO2% (BldA) [Mass fraction] 97 % Ivette Ramos [employer] DO[employer] OPERATOR Work Phone: [facility]; [facility] Work Phone: Comment on above: Room air 06-03-2018 10:49-0400 Weight 75.98 kg Ivette Ramos [facility] Work Phone: 06-07-2017 11:48-0400 BMI (Body Mass Index) 31.15 kg/m2 Letty Slarb [employer] [facility] Internal Medicine Work Phone: 06-07-2017 11:48-0400 Body Temperature 98.5 [degF] Letty Slarb [employer] [facility] Work Phone: 06-07-2017 11:48-0400 Body weight 72.35 kg Letty Slarb [employer] [facility] Work Phone: 06-07-2017 11:48-0400 BP Diastolic 82 mm[Hg] Letty Slarb [employer] [facility] Work Phone: Comment on above: Patient Position: Sitting; Cuff Location : Left Arm; Cuff Size: Standard 06-07-2017 11:48-0400 BP Systolic 122 mm[Hg] Letty Slarb [employer] [facility] Work Phone: Comment on above: Patient Position: Sitting; Cuff Location : Left Arm; Cuff Size: Standard 06-07-2017 11:48-0400 BSA (Body Surface Area) 1.7 m2 Letty Gaffney [employer] [facility] Work Phone: 06-07-2017 11:48-0400 Height 152.4 cm Letty Vanessarb [employer]LE C[employer]TER [facility] Work Phone: 06-07-2017 11:48-0400 Pulse (Heart Rate) 86 /min Letty Gaffney [employer] [facility] Work Phone: Comment on above: Pattern: Regular 06-07-2017 11:48-0400 Pulse Oximetry 98 % Ivette Ramos [facility] Work Phone: Comment on above: Room air 06-07-2017 11:48-0400 Respiratory Rate 16 /min Letty Vanessarb [employer] [facility] Work Phone: Comment on above: Pattern: Unlabored 06-07-2017 11:48-0400 SaO2% (BldA) [Mass fraction] 98 % Letty Rasheedarb [employer] [facility]; [facility] Work Phone: Comment on above: Room air 06-07-2017 11:48-0400 Weight 72.35 kg Ivette Ramos [facility] Work Phone: 06-08-2016 10:53-0400 BMI (Body Mass Index) 29.88 kg/m2 Letty Rasheedarb [employer] [facility] Work Phone: 06-08-2016 10:53-0400 Body Temperature 98.1 [degF] Letty Slarb [employer] [facility] Work Phone: 06-08-2016 10:53-0400 Body weight 69.4 kg Letty Vanessarb [employer] [facility] Work Phone: 06-08-2016 10:53-0400 BP Diastolic 80 mm[Hg] Letty Slarb [employer] [facility] Work Phone: Comment on above: Patient Position: Sitting; Cuff Location : Left Arm; Cuff Size: Standard 06-08-2016 10:53-0400 BP Systolic 122 mm[Hg] Letty Gaffney LPN [facility] Work Phone: Comment on above: Patient Position: Sitting; Cuff Location : Left Arm; Cuff Size: Standard 06-08-2016 10:53-0400 BSA (Body Surface Area) 1.67 m2 Letty Gaffney LPN [facility] Work Phone: 06-08-2016 10:53-0400 Height 152.4 cm Letty Gaffney [employer] [facility] Work Phone: 06-08-2016 10:53-0400 Pulse (Heart Rate) 88 /min Letty Gaffney LPN [facility] Work Phone: Comment on above: Pattern: Regular 06-08-2016 10:53-0400 Pulse Oximetry 99 % Ivette Ramos [facility] Work Phone: Comment on above: Room air 06-08-2016 10:53-0400 Respiratory Rate 17 /min Letty Gaffney LPN [facility] Work Phone: Comment on above: Pattern: Unlabored 06-08-2016 10:53-0400 SaO2% (BldA) [Mass fraction] 99 % Letty Gaffney LPN [facility]; [facility] Work Phone: Comment on above: Room air 06-08-2016 10:53-0400 Weight 69.4 kg Ivette Ramos [facility] Work Phone: 09-11-2015 10:44-0500 BMI (Body Mass Index) 32.81 kg/m2 Letty Vanessarb [employer] [facility] Work Phone: 09-11-2015 10:44-0500 Body Temperature 98.4 [degF] Letty Gaffney [employer] [facility] Work Phone: 09-11-2015 10:44-0500 Body weight 76.2 kg Letty Gaffney [employer] [facility] Work Phone: 09-11-2015 10:44-0500 BP Diastolic 82 mm[Hg] Letty Slarb [employer] [facility] Work Phone: Comment on above: Patient Position: Sitting; Cuff Location : Left Arm; Cuff Size: Standard 09-11-2015 10:44-0500 BP Systolic 120 mm[Hg] Letty Rasheedarb [employer] [facility] Work Phone: Comment on above: Patient Position: Sitting; Cuff Location : Left Arm; Cuff Size: Standard 09-11-2015 10:44-0500 BSA (Body Surface Area) 1.73 m2 Letty Slarb [employer] [facility] Work Phone: 09-11-2015 10:44-0500 Height 152.4 cm Letty Slarb [employer] [facility] Work Phone: 09-11-2015 10:44-0500 Pulse (Heart Rate) 88 /min Letty Slarb [employer] [facility] Work Phone: Comment on above: Pattern: Regular 09-11-2015 10:44-0500 Pulse Oximetry 95 % Ivette Ramos [facility] Work Phone: Comment on above: Room air 09-11-2015 10:44-0500 Respiratory Rate 16 /min Letty Rasheedarb [employer] [facility] Work Phone: Comment on above: Pattern: Unlabored 09-11-2015 10:44-0500 SaO2% (BldA) [Mass fraction] 95 % Letty Slarb [employer] [facility]; [facility] Work Phone: Comment on above: Room air 09-11-2015 10:44-0500 Weight 76.2 kg Ivette Ramos [facility] Work Phone: 08-14-2015 11:13-0500 BMI (Body Mass Index) 34.08 kg/m2 Letty Slarb [employer] [facility] Work Phone: 08-14-2015 11:13-0500 Body Temperature 97 [degF] Letty Slarb [employer] [facility] Work Phone: 08-14-2015 11:13-0500 Body weight 79.15 kg Letty Gaffney LPN [facility] Work Phone: 08-14-2015 11:13-0500 BP Diastolic 78 mm[Hg] Letty Gaffney [employer] [facility] Work Phone: Comment on above: Patient Position: Sitting; Cuff Location : Left Arm; Cuff Size: Standard 08-14-2015 11:13-0500 BP Systolic 122 mm[Hg] Letty Gaffney [employer] [facility] Work Phone: Comment on above: Patient Position: Sitting; Cuff Location : Left Arm; Cuff Size: Standard 08-14-2015 11:130500 BSA (Body Surface Area) 1.76 m2 Letty Gaffney LPN [facility] Work Phone: 08-14-2015 11:13-0500 Height 152.4 cm Letty Gaffney LPN [facility] Work Phone: 08-14-2015 11:13-0500 Pulse (Heart Rate) 101 /min Letty Gaffney LPN [facility] Work Phone: Comment on above: Pattern: Regular 08-14-2015 11:13-0500 Pulse Oximetry 98 % Ivette Ramos [facility] Work Phone: Comment on above: Room air 08-14-2015 11:13-0500 Respiratory Rate 16 /min Letty Gaffney LPN [facility] Work Phone: Comment on above: Pattern: Unlabored 08-14-2015 11:13-0500 SaO2% (BldA) [Mass fraction] 98 % Letty Gaffney LPN [facility]; [facility] Work Phone: Comment on above: Room air 08-14-2015 11:13-0500 Weight 79.15 kg Ivette Ramos [facility] Work Phone: 07-08-2015 11:36-0400 BMI (Body Mass Index) 36.15 kg/m2 Letty Gaffney [employer] [facility] Work Phone: 07-08-2015 11:36-0400 Body Temperature 97.6 [degF] Letty Gaffney [employer] [facility] Work Phone: 07-08-2015 11:36-0400 Body weight 83.97 kg Letty Vanessarb [employer] [facility] Work Phone: 07-08-2015 11:36-0400 BP Diastolic 78 mm[Hg] Letty Rasheedarb [employer] [facility] Work Phone: Comment on above: Patient Position: Sitting; Cuff Location : Left Arm; Cuff Size: Standard 07-08-2015 11:36-0400 BP Systolic 118 mm[Hg] Letty Rasheedarb [employer] [facility] Work Phone: Comment on above: Patient Position: Sitting; Cuff Location : Left Arm; Cuff Size: Standard 07-08-2015 11:36-0400 BSA (Body Surface Area) 1.81 m2 Letty Rasheedarb [employer] [facility] Work Phone: 07-08-2015 11:36-0400 Height 152.4 cm Letty Vanessarb [employer] [facility] Work Phone: 07-08-2015 11:36-0400 Pulse (Heart Rate) 90 /min Letty Vanessarb [employer] [facility] Work Phone: Comment on above: Pattern: Regular 07-08-2015 11:36-0400 Pulse Oximetry 95 % Ivette Ramos [facility] Work Phone: Comment on above: Room air 07-08-2015 11:36-0400 Respiratory Rate 16 /min Letty Gaffney [employer] [facility] Work Phone: Comment on above: Pattern: Unlabored 07-08-2015 11:36-0400 SaO2% (BldA) [Mass fraction] 95 % Letty Slarb [employer] [facility]; [facility] Work Phone: Comment on above: Room air 07-08-2015 11:36-0400 Weight 83.97 kg Ivette Ramos [facility] Work Phone: 06-07-2015 10:37-0400 BMI (Body Mass Index) 36.01 kg/m2 Letty Slarb [employer] [facility] Work Phone: 06-07-2015 10:37-0400 Body Temperature 97.9 [degF] Letty Slarb [employer] [facility] Work Phone: 06-07-2015 10:37-0400 Body weight 83.63 kg Letty Vanessarb [employer] [facility] Work Phone: 06-07-2015 10:37-0400 BP Diastolic 80 mm[Hg] Letty Slarb [employer] [facility] Work Phone: Comment on above: Patient Position: Sitting; Cuff Location : Left Arm; Cuff Size: Standard 06-07-2015 10:37-0400 BP Systolic 118 mm[Hg] Letty Slarb [employer] [facility] Work Phone: Comment on above: Patient Position: Sitting; Cuff Location : Left Arm; Cuff Size: Standard 06-07-2015 10:37-0400 BSA (Body Surface Area) 1.8 m2 Letty Rasheedarb [employer] [facility] Work Phone: 06-07-2015 10:37-0400 Height 152.4 cm Letty Slarb [employer]LE [employer] [facility] Work Phone: 06-07-2015 10:37-0400 Pulse (Heart Rate) 93 /min Letty Gaffney [employer] [facility] Work Phone: Comment on above: Pattern: Regular 06-07-2015 10:37-0400 Pulse Oximetry 96 % Ivette Ramos [facility] Work Phone: Comment on above: Room air 06-07-2015 10:37-0400 Respiratory Rate 17 /min Letty Rasheedarb [employer] [facility] Work Phone: Comment on above: Pattern: Unlabored 06-07-2015 10:37-0400 SaO2% (BldA) [Mass fraction] 96 % Letty Rasheedarb [employer] [facility]; [facility] Work Phone: Comment on above: Room air 06-07-2015 10:37-0400 Weight 83.63 kg Ivette Ramos [facility] Work Phone: 08-24-2014 13:49-0500 Body Temperature 98.5 [degF] Ivette Ramos [facility] Work Phone: Comment on above: Method: Oral 08-24-2014 13:49-0500 Body weight 83.01 kg Ivette Ramos [facility] Work Phone: 08-24-2014 13:49-0500 BP Diastolic 68 mm[Hg] Ivette Ramos [facility] Work Phone: Comment on above: Patient Position: Sitting; Cuff Location : Left Arm; Cuff Size: Standard 08-24-2014 13:49-0500 BP Systolic 110 mm[Hg] Ivette Ramos [facility] Work Phone: Comment on above: Patient Position: Sitting; Cuff Location : Left Arm; Cuff Size: Standard 08-24-2014 13:49-0500 Pulse (Heart Rate) 110 /min Ivette Ramos [facility] Work Phone: Comment on above: Pattern: Regular 08-24-2014 13:49-0500 Pulse Oximetry 98 % Ivette Ramos [facility] Work Phone: Comment on above: Room air 08-24-2014 13:49-0500 SaO2% (BldA) [Mass fraction] 98 % Ivette Ramos [facility] Work Phone: [facility]; [facility] Work Phone: Comment on above: Room air 08-24-2014 13:49-0500 Weight 83.01 kg Ivette Ramos [facility] Work Phone: 08-20-2014 16:23-0500 Body Temperature 98.8 [degF] Ivette Ramos [facility] Work Phone: Comment on above: Method: Oral 08-20-2014 16:23-0500 Body weight 83.01 kg Ivette Ramos [facility] Work Phone: 08-20-2014 16:23-0500 BP Diastolic 88 mm[Hg] Ivette Ramos [facility] Work Phone: Comment on above: Patient Position: Sitting; Cuff Location : Left Arm; Cuff Size: Standard 08-20-2014 16:23-0500 BP Systolic 128 mm[Hg] Ivette Ramos [facility] Work Phone: Comment on above: Patient Position: Sitting; Cuff Location : Left Arm; Cuff Size: Standard 08-20-2014 16:23-0500 Pulse (Heart Rate) 80 /min Ivette Ramos [facility] Work Phone: Comment on above: Pattern: Regular 08-20-2014 16:23-0500 Pulse Oximetry 98 % Ivette Ramos [facility] Work Phone: Comment on above: Room air 08-20-2014 16:23-0500 Respiratory Rate 17 /min Ivette Ramos [facility] Work Phone: 08-20-2014 16:23-0500 SaO2% (BldA) [Mass fraction] 98 % Ivette Ramos [employer] OPERATOR Work Phone: [facility]; [facility] Work Phone: Comment on above: Room air 08-20-2014 16:23-0500 Weight 83.01 kg Ivette Ramos [facility] Work Phone: 06-01-2014 09:59-0400 BP Diastolic 84 mm[Hg] Ivette Ramos [employer] OPERATOR Work Phone: [facility] Work Phone: Comment on above: Patient Position: Supine; Cuff Location: Right Arm; Cuff Size: Standard 06-01-2014 09:59-0400 BP Systolic 132 mm[Hg] Ivette Ramos [employer] DO[employer] OPERATOR Work Phone: [facility] Work Phone: Comment on above: Patient Position: Supine; Cuff Location: Right Arm; Cuff Size: Standard 06-01-2014 09:49-0400 BMI (Body Mass Index) 35.54 kg/m2 Ivette Ramos [facility] Work Phone: 06-01-2014 09:49-0400 Body Temperature 98.9 [degF] Ivette Ramos [facility] Work Phone: Comment on above: Method: Oral 06-01-2014 09:49-0400 Body weight 82.56 kg Ivette Ramos [facility] Work Phone: 06-01-2014 09:49-0400 BSA (Body Surface Area) 1.79 m2 Ivette Ramos [facility] Work Phone: 06-01-2014 09:49-0400 Height 152.4 cm Ivette Ramos [facility] Work Phone: 06-01-2014 09:49-0400 Pulse (Heart Rate) 89 /min Ivette Ramos [facility] Work Phone: Comment on above: Pattern: Regular 06-01-2014 09:49-0400 Pulse Oximetry 98 % Ivette Ramos [facility] Work Phone: Comment on above: Room air 06-01-2014 09:49-0400 Respiratory Rate 16 /min Ivette Ramos [facility] Work Phone: 06-01-2014 09:49-0400 SaO2% (BldA) [Mass fraction] 98 % Ivette Ramos [facility] Work Phone: [facility]; [facility] Work Phone: Comment on above: Room air 06-01-2014 09:49-0400 Weight 82.56 kg Ivette Ramos [facility] Work Phone: 05-15-2014 15:35-0400 BMI (Body Mass Index) 35.54 kg/m2 Ivette Ramos [facility] Work Phone: 05-15-2014 15:35-0400 Body Temperature 97.6 [degF] Ivette Ramos [facility] Work Phone: Comment on above: Method: Temporal 05-15-2014 15:35-0400 Body weight 82.56 kg Ivette Ramos [facility] Work Phone: 05-15-2014 15:35-0400 BP Diastolic 100 mm[Hg] Ivette Ramos [facility] Work Phone: Comment on above: Patient Position: Sitting; Cuff Location : Right Arm; Cuff Size: Large 05-15-2014 15:35-0400 BP Systolic 132 mm[Hg] Ivette Ramos [facility] Work Phone: Comment on above: Patient Position: Sitting; Cuff Location : Right Arm; Cuff Size: Large 05-15-2014 15:35-0400 BSA (Body Surface Area) 1.79 m2 Ivette Ramos [facility] Work Phone: 05-15-2014 15:35-0400 Height 152.4 cm Ivette Ramos [facility] Work Phone: 05-15-2014 15:35-0400 Pulse (Heart Rate) 71 /min Ivette Ramos [facility] Work Phone: Comment on above: Pattern: Regular 05-15-2014 15:35-0400 Pulse Oximetry 99 % Ivette Ramos [facility] Work Phone: Comment on above: Room air 05-15-2014 15:35-0400 Respiratory Rate 18 /min Ivette Ramos [facility] Work Phone: Comment on above: Pattern: Unlabored 05-15-2014 15:35-0400 SaO2% (BldA) [Mass fraction] 99 % Ivette Ramos [facility] Work Phone: [facility]; [facility] Work Phone: Comment on above: Room air 05-15-2014 15:35-0400 Weight 82.56 kg Ivette Ramos [facility] Work Phone: 02-12-2014 16:04-0400 BMI (Body Mass Index) 36.8 kg/m2 Ivette Ramos [facility] Work Phone: 02-12-2014 16:04-0400 Body Temperature 99.2 [degF] Ivette Ramos [facility] Work Phone: Comment on above: Method: Oral 02-12-2014 16:04-0400 Body weight 85.48 kg Ivette Ramos [facility] Work Phone: 02-12-2014 16:04-0400 BP Diastolic 80 mm[Hg] Ivette Ramos [facility] Work Phone: Comment on above: Patient Position: Sitting; Cuff Location : Left Arm; Cuff Size: Standard 02-12-2014 16:04-0400 BP Systolic 120 mm[Hg] Ivette Ramos [facility] Work Phone: Comment on above: Patient Position: Sitting; Cuff Location : Left Arm; Cuff Size: Standard 02-12-2014 16:04-0400 BSA (Body Surface Area) 1.82 m2 Ivette Ramos [facility] Work Phone: 02-12-2014 16:04-0400 Height 152.4 cm Ivette Ramos [facility] Work Phone: 02-12-2014 16:04-0400 Pulse (Heart Rate) 82 /min Ivette Ramos [facility] Work Phone: Comment on above: Pattern: Regular 02-12-2014 16:04-0400 Pulse Oximetry 98 % Ivette Ramos [facility] Work Phone: Comment on above: Room air 02-12-2014 16:04-0400 Respiratory Rate 16 /min Ivette Ramos [facility] Work Phone: 02-12-2014 16:04-0400 SaO2% (BldA) [Mass fraction] 98 % Ivette Ramos [facility] Work Phone: [facility]; [facility] Work Phone: Comment on above: Room air 02-12-2014 16:04-0400 Weight 85.48 kg Ivette Ramos [facility] Work Phone: 01-22-2014 15:51-0400 BMI (Body Mass Index) 36.8 kg/m2 Ivette Ramos [facility] Work Phone: 01-22-2014 15:51-0400 Body Temperature 99.3 [degF] Ivette Ramos [facility] Work Phone: Comment on above: Method: Oral 01-22-2014 15:51-0400 Body weight 85.48 kg Ivette Ramos [facility] Internal Medicine Work Phone: 01-22-2014 15:51-0400 BP Diastolic 94 mm[Hg] Ivette Ramos [facility] Internal Medicine Work Phone: Comment on above: Patient Position: Sitting; Cuff Location : Left Arm; Cuff Size: Standard 01-22-2014 15:51-0400 BP Systolic 162 mm[Hg] Ivette Ramos [facility] Internal Medicine Work Phone: Comment on above: Patient Position: Sitting; Cuff Location : Left Arm; Cuff Size: Standard 01-22-2014 15:51-0400 BSA (Body Surface Area) 1.82 m2 Ivette Ramos [facility] Internal Medicine Work Phone: 01-22-2014 15:51-0400 Height 152.4 cm Ivette Ramos [facility] Medicine Work Phone: 01-22-2014 15:51-0400 Pulse (Heart Rate) 91 /min Ivette Ramos [facility] Internal Medicine Work Phone: Comment on above: Pattern: Regular 01-22-2014 15:51-0400 Pulse Oximetry 98 % Ivette Ramos [facility] Internal Medicine Work Phone: Comment on above: Room air 01-22-2014 15:51-0400 Respiratory Rate 16 /min Ivette Ramos [facility] Medicine Work Phone: 01-22-2014 15:51-0400 SaO2% (BldA) [Mass fraction] 98 % Ivette Ramos [facility] Work Phone: [facility]; [facility] Work Phone: Comment on above: Room air 01-22-2014 15:51-0400 Weight 85.48 kg Ivette Ramos [facility] Internal Medicine Work Phone: 12-25-2013 16:19-0400 BMI (Body Mass Index) 36.02 kg/m2 Ivette Ramos [facility] Internal Medicine Work Phone: 12-25-2013 16:19-0400 Body Temperature 99.2 [degF] Ivette Ramos [facility] Internal Medicine Work Phone: Comment on above: Method: Oral 12-25-2013 16:190400 Body weight 83.66 kg Ivette Ramos [facility] Medicine Work Phone: 12-25-2013 16:19-0400 BP Diastolic 82 mm[Hg] Ivette Ramos [facility] Work Phone: Comment on above: Patient Position: Sitting; Cuff Location : Left Arm; Cuff Size: Standard 12-25-2013 16:19-0400 BP Systolic 142 mm[Hg] Ivette Ramos [facility] Work Phone: Comment on above: Patient Position: Sitting; Cuff Location : Left Arm; Cuff Size: Standard 12-25-2013 16:19-0400 BSA (Body Surface Area) 1.8 m2 Ivette Ramos [facility] Medicine Work Phone: 12-25-2013 16:19-0400 Height 152.4 cm Ivette Ramos [facility] Work Phone: 12-25-2013 16:19-0400 Pulse (Heart Rate) 84 /min Ivette Ramos [facility] Work Phone: Comment on above: Pattern: Regular 12-25-2013 16:19-0400 Pulse Oximetry 95 % Ivette Ramos [facility] Work Phone: Comment on above: Room air 12-25-2013 16:19-0400 SaO2% (BldA) [Mass fraction] 95 % Ivette Ramos [employer] Work Phone: [facility]; [facility] Work Phone: Comment on above: Room air 12-25-2013 16:19-0400 Weight 83.66 kg Ivette Ramos [facility] Medicine Work Phone: 06-07-2013 15:24-0400 BMI (Body Mass Index) 35.07 kg/m2 Agnes Kwonon DO Work Phone: [facility] Work Phone: 06-07-2013 15:24-0400 Body Temperature 98.2 [degF] Agens Montana DO Work Phone: [facility] Work Phone: Comment on above: Method: Oral 06-07-2013 15:24-0400 Body weight 81.45 kg Agnes Montana DO Work Phone: [facility] Work Phone: 06-07-2013 15:24-0400 BP Diastolic 82 mm[Hg] Agnes Montana DO Work Phone: [facility] Work Phone: Comment on above: Patient Position: Sitting; Cuff Location : Left Arm; Cuff Size: Large 06-07-2013 15:24-0400 BP Systolic 126 mm[Hg] Agnes Montana DO Work Phone: [facility] Work Phone: Comment on above: Patient Position: Sitting; Cuff Location : Left Arm; Cuff Size: Large 06-07-2013 15:24-0400 BSA (Body Surface Area) 1.78 m2 Agnes Montana DO Work Phone: [facility] Work Phone: 06-07-2013 15:24-0400 Height 152.4 cm Agnes Montana DO Work Phone: [facility] Work Phone: 06-07-2013 15:24-0400 Pulse (Heart Rate) 91 /min Agnes Montana DO Work Phone: [facility] Work Phone: Comment on above: Pattern: Regular 06-07-2013 15:24-0400 Pulse Oximetry 97 % Ivette Ramos [facility] Work Phone: Comment on above: Room air 06-07-2013 15:24-0400 Respiratory Rate 20 /min Agnes Montana DO Work Phone: [facility] Work Phone: Comment on above: Pattern: Unlabored 06-07-2013 15:24-0400 SaO2% (BldA) [Mass fraction] 97 % Agnes Montana DO Work Phone: [facility]; [facility] Work Phone: Comment on above: Room air 06-07-2013 15:24-0400 Weight 81.45 kg Ivette Ramos [facility] Work Phone: 05-31-2012 15:51-0400 BMI (Body Mass Index) 35.39 kg/m2 Ivette Ramos [facility] Work Phone: 05-31-2012 15:51-0400 Body Temperature 99.8 [degF] Ivette Ramos [facility] Work Phone: Comment on above: Method: Oral 05-31-2012 15:51-0400 Body weight 82.19 kg Ivette Ramos [facility] Work Phone: 05-31-2012 15:51-0400 BP Diastolic 72 mm[Hg] Ivette Ramos [facility] Work Phone: Comment on above: Patient Position: Sitting; Cuff Location : Left Arm; Cuff Size: Standard 05-31-2012 15:51-0400 BP Systolic 124 mm[Hg] Ivette Ramos [facility] Work Phone: Comment on above: Patient Position: Sitting; Cuff Location : Left Arm; Cuff Size: Standard 05-31-2012 15:51-0400 BSA (Body Surface Area) 1.79 m2 Ivette Ramos [facility] Work Phone: 05-31-2012 15:51-0400 Height 152.4 cm Ivette Ramos [facility] Work Phone: 05-31-2012 15:51-0400 Pulse (Heart Rate) 74 /min Ivette Ramos [facility] Work Phone: Comment on above: Pattern: Regular 05-31-2012 15:51-0400 Pulse Oximetry 98 % Ivette Ramos [facility] Work Phone: Comment on above: Room air 05-31-2012 15:51-0400 SaO2% (BldA) [Mass fraction] 98 % Ivette Ramos [facility] Work Phone: [facility]; [facility] Work Phone: Comment on above: Room air 05-31-2012 15:51-0400 Weight 82.19 kg Ivette Ramos [facility] Work Phone: 03-03-2011 11:24-0400 BMI (Body Mass Index) 34.76 kg/m2 Aurelia Suarez RN [facility] Internal Medicine Work Phone: 03-03-2011 11:24-0400 Body Temperature 98.6 [degF] Aurelia Suarez RN [facility] Work Phone: Comment on above: Method: Oral 03-03-2011 11:24-0400 Body weight 80.74 kg Aurelia Suarez RN [facility] Work Phone: 03-03-2011 11:24-0400 BP Diastolic 82 mm[Hg] Aurelia Suarez RN [facility] Work Phone: Comment on above: Patient Position: Sitting; Cuff Location : Left Arm; Cuff Size: Large 03-03-2011 11:24-0400 BP Systolic 120 mm[Hg] Aurelia Suarez RN [facility] Work Phone: Comment on above: Patient Position: Sitting; Cuff Location : Left Arm; Cuff Size: Large 03-03-2011 11:24-0400 BSA (Body Surface Area) 1.78 m2 Aurelia Suarez RN [facility] Work Phone: 03-03-2011 11:24-0400 Height 152.4 cm Aurelia Suarez RN [facility] Work Phone: 03-03-2011 11:24-0400 Pulse (Heart Rate) 100 /min Aurelia Suarez RN [facility] Work Phone: Comment on above: Pattern: Regular 03-03-2011 11:24-0400 Respiratory Rate 18 /min Aurelia Suarez RN [facility] Work Phone: Comment on above: Pattern: Unlabored 03-03-2011 11:24-0400 Weight 80.74 kg Ivette Ramos [facility] Work Phone: 12-17-2010 15:40-0400 BMI (Body Mass Index) 36.13 kg/m2 Reshma Cosme RN [facility] Work Phone: 12-17-2010 15:40-0400 Body weight 83.92 kg Reshma Cosme RN [facility] Work Phone: 12-17-2010 15:40-0400 BP Diastolic 86 mm[Hg] Reshma Cosme RN [facility] Work Phone: Comment on above: Patient Position: Sitting; Cuff Location : Left Arm; Cuff Size: Large 12-17-2010 15:40-0400 BP Systolic 132 mm[Hg] Reshma Cosme RN [facility] Work Phone: Comment on above: Patient Position: Sitting; Cuff Location : Left Arm; Cuff Size: Large 12-17-2010 15:40-0400 BSA (Body Surface Area) 1.81 m2 Reshma Cosme RN [facility] Work Phone: 12-17-2010 15:40-0400 Height 152.4 cm Reshma Cosme RN [facility] Work Phone: 12-17-2010 15:40-0400 Pulse (Heart Rate) 76 /min Reshma Cosme RN [facility] Work Phone: Comment on above: Pattern: Regular 12-17-2010 15:40-0400 Respiratory Rate 20 /min Reshma Cosme RN [facility] Work Phone: Comment on above: Pattern: Unlabored 12-17-2010 15:40-0400 Weight 83.92 kg Ivette Ramos [facility] Work Phone: 08-14-2009 15:49-0500 Body weight 78.08 kg Reshma Cosme RN [facility] Work Phone: 08-14-2009 15:49-0500 BP Diastolic 84 mm[Hg] Reshma Cosme RN [facility] Work Phone: Comment on above: Patient Position: Sitting; Cuff Location : Left Arm; Cuff Size: Large 08-14-2009 15:49-0500 BP Systolic 120 mm[Hg] Reshma Cosme RN [facility] Work Phone: Comment on above: Patient Position: Sitting; Cuff Location : Left Arm; Cuff Size: Large 08-14-2009 15:49-0500 Head Circumference 0 cm Ivette Ramos [facility] Work Phone: 08-14-2009 15:49-0500 Head Occipital-frontal circumference 0 cm Reshma Cosme RN [facility]; [facility] Work Phone: 08-14-2009 15:49-0500 Height 0 cm Reshma Cosme RN [facility] Work Phone: 08-14-2009 15:49-0500 Pulse (Heart Rate) 80 /min Reshma Cosme RN [facility] Work Phone: Comment on above: Pattern: Regular 08-14-2009 15:49-0500 Respiratory Rate 20 /min Reshma Cosme RN [facility] Work Phone: Comment on above: Pattern: Unlabored 08-14-2009 15:49-0500 Weight 78.08 kg Ivette Ramos [facility] Work Phone: 07-19-2009 10:37-0500 Body weight 78.08 kg Ivette Ramos [facility] Work Phone: 07-19-2009 10:37-0500 BP Diastolic 92 mm[Hg] Ivette Ramos [facility] Work Phone: Comment on above: Patient Position: Sitting; Cuff Location : Left Arm; Cuff Size: Large 07-19-2009 10:37-0500 BP Systolic 158 mm[Hg] Ivette Ramos [facility] Work Phone: Comment on above: Patient Position: Sitting; Cuff Location : Left Arm; Cuff Size: Large 07-19-2009 10:37-0500 Head Circumference 0 cm Ivette Ramos [facility] Work Phone: 07-19-2009 10:37-0500 Head Occipital-frontal circumference 0 cm Ivette Ramos [facility] Work Phone: [facility]; [facility] Work Phone: 07-19-2009 10:37-0500 Height 0 cm Ivette Ramos [facility] Work Phone: 07-19-2009 10:37-0500 Pulse (Heart Rate) 80 /min Ivette Ramos [facility] Work Phone: Comment on above: Pattern: Regular 07-19-2009 10:37-0500 Pulse Oximetry 98 % Ivette Ramos [facility] Work Phone: Comment on above: Room air 07-19-2009 10:37-0500 Respiratory Rate 20 /min Ivette Ramos [facility] Work Phone: Comment on above: Pattern: Unlabored 07-19-2009 10:37-0500 SaO2% (BldA) [Mass fraction] 98 % Ivette Ramos [employer] Work Phone: [facility]; [facility] Work Phone: Comment on above: Room air 07-19-2009 10:37-0500 Weight 78.08 kg Ivette Ramos [facility] Work Phone: 06-17-2009 13:50-0400 Body weight 78.08 kg Reshma Cosme RN [facility] Work Phone: 06-17-2009 13:50-0400 BP Diastolic 90 mm[Hg] Reshma Cosme RN [facility] Work Phone: Comment on above: Patient Position: Sitting; Cuff Location : Left Arm; Cuff Size: Large 06-17-2009 13:50-0400 BP Systolic 138 mm[Hg] Reshma Cosme RN [facility] Work Phone: Comment on above: Patient Position: Sitting; Cuff Location : Left Arm; Cuff Size: Large 06-17-2009 13:50-0400 Head Circumference 0 cm Ivette Ramos [facility] Work Phone: 06-17-2009 13:50-0400 Head Occipital-frontal circumference 0 cm Reshma Cosme RN [facility]; [facility] Work Phone: 06-17-2009 13:50-0400 Height 0 cm Reshma Cosme RN [facility] Work Phone: 06-17-2009 13:50-0400 Pulse (Heart Rate) 88 /min Reshma Cosme RN [facility] Work Phone: Comment on above: Pattern: Regular 06-17-2009 13:50-0400 Respiratory Rate 20 /min Reshma Cosme RN [facility] Work Phone: Comment on above: Pattern: Unlabored 06-17-2009 13:50-0400 Weight 78.08 kg Ivette Ramos [facility] Work Phone: 11-11-2007 09:27-0500 Body weight 78.08 kg Reshma Cosme RN [facility] Work Phone: 11-11-2007 09:27-0500 BP Diastolic 88 mm[Hg] Reshma Cosme RN [facility] Work Phone: Comment on above: Patient Position: Sitting; Cuff Location : Right Arm; Cuff Size: Standard 11-11-2007 09:27-0500 BP Systolic 128 mm[Hg] Reshma Cosme RN [facility] Work Phone: Comment on above: Patient Position: Sitting; Cuff Location : Right Arm; Cuff Size: Standard 11-11-2007 09:27-0500 Head Circumference 0 cm Ivette Ramos [facility] Work Phone: 11-11-2007 09:27-0500 Head Occipital-frontal circumference 0 cm Reshma Cosme RN [facility]; [facility] Work Phone: 11-11-2007 09:27-0500 Height 0 cm Reshma Cosme RN [facility] Work Phone: 11-11-2007 09:27-0500 Pulse (Heart Rate) 80 /min Reshma Cosme RN [facility] Work Phone: Comment on above: Pattern: Regular 11-11-2007 09:27-0500 Respiratory Rate 20 /min Reshma Cosme RN [facility] Work Phone: Comment on above: Pattern: Unlabored 11-11-2007 09:27-0500 Weight 78.08 kg Ivette Ramos [facility] Work Phone: 10-12-2007 14:35-0500 Body weight 0 kg Reshma Cosme RN [facility] Work Phone: 10-12-2007 14:35-0500 BP Diastolic 82 mm[Hg] Reshma Cosme RN [facility] Work Phone: Comment on above: Patient Position: Sitting; Cuff Location : Left Arm; Cuff Size: Standard 10-12-2007 14:35-0500 BP Systolic 148 mm[Hg] Reshma Cosme RN [facility] Work Phone: Comment on above: Patient Position: Sitting; Cuff Location : Left Arm; Cuff Size: Standard 10-12-2007 14:35-0500 Head Circumference 0 cm Ivette Ramos [facility] Work Phone: 10-12-2007 14:35-0500 Head Occipital-frontal circumference 0 cm Reshma Cosme RN [facility]; [facility] Work Phone: 10-12-2007 14:35-0500 Height 0 cm Reshma Cosme RN [facility] Work Phone: 10-12-2007 14:35-0500 Pulse (Heart Rate) 72 /min Reshma Cosme RN [facility] Work Phone: Comment on above: Pattern: Regular 10-12-2007 14:35-0500 Respiratory Rate 20 /min Reshma Cosme RN [facility] Work Phone: Comment on above: Pattern: Unlabored 10-12-2007 14:35-0500 Weight 0 kg Ivette De La Torrerachan [facility] Work Phone: Encounters Encounter Date Encounter Type Care Provider Facility Start: 05-09-2025 ambulatory Abel Bairdi ty:[facility] Start: 05-07-2025 ambulatory Abel Armendariz Facili ty:[facility] Start: 05-04-2025 Encounter for other preprocedural examination Abel Armendariz [facility] Start: 04-20-2025 End: 04-20-2025 ambulatory Miguelina PUENTES Work Phone: -Outpatient Breast Imaging Start: 04-20-2025 End: 04-20-2025 Patient encounter procedure Miguelina PUENTES -Outpatient Breast Imaging Work Phone: Start: 04-20-2025 End: 04-20-2025 ambulatory Agnes Boyle Facility:[facility] Start: 03-19-2025 End: 03-19-2025 Non-patient / Non-visit Dr. Rip Hester MD -[facility] Work Phone: Start: 03-19-2025 End: 03-19-2025 ambulatory Miguelina Jones DOOR PATCHER-C Work Phone: -Cat Scan [facility] Start: 03-19-2025 End: 03-19-[address] Abel Armendariz DO -Cat Scan [facility] Work Phone: Start: 03-19-2025 End: 03-19-2025 ambulatory Miguelina Jones Facility:[facility] Start: 01-29-2025 End: 01-29-2025 Patient encounter procedure Marisol Justice PA -Laboratory Work Phone: Start: 01-29-2025 End: 01-29-2025 Admission to same day surgery center Dr. Maxim Pham MD -Surgical Day Care Start: 01-29-2025 End: 01-29-2025 ambulatory Miguelina Jones DOOR PATCHER-C Work Phone: [facility] Work Phone: Start: 01-29-2025 End: 01-29-2025 ambulatory Marisol Justice Facility:[facility] Start: 10-09-2024 End: 10-09-[address] Abel Armendariz DO -Radiology [facility] Work Phone: Start: 10-09-2024 End: 10-09-2024 ambulatory Abel Armendariz Facility:[facility] Start: 10-05-2024 ambulatory Miguelina Jones Facility :[facility] Start: 07-20-2024 End: 07-20-2024 ambulatory Jaycob Jones Facility:[facility] Start: 06-20-2024 ambulatory Health Risk Assessment Facility:[facility] Start: 06-09-2024 ambulatory Megan Ziegler Facility:[facility] Start: 12-01-2023 Non-patient / Non-visit DOOR PATCHER-C Flaco Jones Work Phone: [facility] Start: 12-01-2023 End: 12-01-2023 ambulatory DOOR PATCHER-C Miguelina Jones Work Phone: [facility] Work Phone: Start: 12-01-2023 End: 12-01-2023 Patient encounter procedure DOOR PATCHER-C Miguelina Jones Work Phone: [facility]-Pulmonary Services/Neurology Work Phone: Start: 10-07-2023 End: 10-07-2023 ambulatory DOOR PATCHER-C Miguelinasavannah Jones Work Phone: [facility] Work Phone: Start: 10-07-2023 End: 10-07-2023 Patient encounter procedure DOOR PATCHER-C Miguelina Jones Work Phone: [facility] Work Phone: Start: 09-16-2023 End: 09-16-2023 ambulatory DOOR PATCHER-C Miguelinasavannah Jones Work Phone: [facility] Work Phone: Start: 09-16-2023 End: 09-16-2023 Discharged Recurring DOOR PATCHER-C Miguelina Jones Work Phone: [facility]-Physical Therapy Work Phone: Start: 09-16-2023 Registered Recurring DOOR PATCHER-C Damon miguel ángel Jones Work Phone: [facility]-Physical Therapy Work Phone: Start: 09-02-2023 End: 09-02-2023 Patient encounter procedure DOOR PATCHER-C Miguelina Jones Work Phone: [facility]-Laboratory Work Phone: Start: 08-26-2023 Registered Recurring DOOR PATCHER-C Marisol Jones Work Phone: [facility]-Physical Therapy Work Phone: Start: 08-24-2023 End: 08-24-2023 ambulatory DOOR PATCHER-C Miguelinasavannah Jones Work Phone: [facility] Work Phone: Start: 08-24-2023 End: 08-24-2023 Patient encounter procedure DOOR PATCHER-C Miguelina Jones Work Phone: [facility]-Outpatient Breast Imaging Work Phone: Start: 08-19-2023 Registered Recurring DOOR PATCHER-C Marisol Jones Work Phone: [facility]-Physical Therapy Work Phone: Start: 08-19-2023 End: 08-19-2023 ambulatory DOOR PATCHER-C Miguelina Jones Work Phone: [facility] Work Phone: Start: 08-19-2023 End: 08-19-2023 Patient encounter procedure DOOR PATCHER-C Miguelina Jones Work Phone: [facility]-Outpatient Bone Densitometry Work Phone: Start: 07-17-2023 End: 07-17-2023 Patient encounter procedure DOOR PATCHER-C Miguelina Jones Work Phone: [facility] Work Phone: Start: 07-05-2023 End: 07-05-2023 Annotation/Addendum Miguelina Jones CNP Work Phone: [facility] Start: 07-02-2023 End: 07-02-2023 ambulatory [facility] Work Phone: Start: 07-02-2023 End: 07-02-2023 Patient encounter procedure [facility]-Radiology, [place] Work Phone: Start: 07-02-2023 End: 07-04-2023 Office outpatient visit 15 minutes Miguelina Jones CNP Work Phone: [facility] Start: 06-09-2023 End: 06-11-2023 Office outpatient visit 15 minutes Miguelina Jones CNP Work Phone: [facility] Start: 06-09-2023 Review Miguelina Jones CNP Work Phone: [facility] Start: 05-19-2023 Registered Referred [facility] Start: 12-22-2022 ambulatory Miguelina Jones CNP [facility] Start: 12-01-2022 End: 12-01-2022 Office outpatient visit 15 minutes Miguelina Jones CNP Work Phone: [facility] Start: 12-01-2022 Review Miguelina Jones CNP Work Phone: [facility] Start: 06-11-2022 End: 06-11-2022 ambulatory [facility] Work Phone: Start: 06-11-2022 End: 06-11-2022 Patient encounter procedure [facility] Start: 06-08-2022 Telephone encounter Isai Shipley MD Work Phone: OB/Gynecology Comment on above: Results Start: 06-05-2022 End: 06-05-2022 Patient encounter procedure Miguelina Jones CNP Work Phone: [facility] Start: 06-05-2022 End: 06-05-2022 Patient encounter procedure [facility] Start: 06-01-2022 End: 06-02-2022 Office outpatient visit 25 minutes Miguelina Jones CNP Work Phone: [facility] Start: 06-01-2022 End: 06-02-2022 Patient encounter status Miguelina Jones CNP Work Phone: [facility] Start: 05-26-2022 Registered Referred [facility] Start: 12-10-2021 End: 12-10-2021 Patient encounter procedure [facility]-Laboratory Start: 12-02-2021 End: 12-02-2021 Office outpatient visit 15 minutes Migeulina Jones CNP Work Phone: [facility] Start: 07-17-2021 End: 07-17-2021 Annotation/Addendum Miguelina Jones CNP Work Phone: [facility] Start: 06-06-2021 End: 06-06-2021 Annotation/Addendum Miguelina Jones CNP Work Phone: [facility] Start: 06-06-2021 End: 06-06-2021 Physical examination Miguelina Jones CNP Work Phone: [facility] Start: 06-06-2021 End: 06-06-2021 Periodic preventive med est patient 40-64yrs Miguelina Robert ELECTRIC DOLLY OPERATOR Work Phone: [facility] Start: 02-17-2021 End: 02-17-2021 Office outpatient visit 5 minutes Ivette Ramos ELECTRIC DOLLY OPERATOR Work Phone: [facility] Start: 02-07-2021 End: 02-07-2021 Office outpatient visit 5 minutes Ivette Ramos ELECTRIC DOLLY OPERATOR Work Phone: [facility] Start: 01-27-2021 End: 01-27-2021 Office outpatient visit 5 minutes Ivette Ramos ELECTRIC DOLLY OPERATOR Work Phone: [facility] Start: 01-13-2021 End: 01-13-2021 Annotation/Addendum Ivette Ramos ELECTRIC DOLLY OPERATOR Work Phone: [facility] Start: 01-13-2021 End: 01-13-2021 Office outpatient visit 5 minutes Ivette Ramos ELECTRIC DOLLY OPERATOR Work Phone: [facility] Start: 01-10-2021 End: 01-10-2021 Office outpatient visit 15 minutes Ivette Ramos ELECTRIC DOLLY OPERATOR Work Phone: [facility] Internal Medicine Start: 06-28-2020 End: 06-28-2020 Annotation/Addendum Ivette Rachel [facility] Start: 06-25-2020 End: 06-25-2020 Office outpatient visit 10 minutes Ivette Ramos [facility] Start: 06-03-2020 End: 06-03-2020 Patient encounter status Miguelina Jones ELECTRIC DOLLY OPERATOR Work Phone: [facility] Start: 06-03-2020 End: 06-03-2020 Periodic preventive med est patient 40-64yrs Ivette Rogers [facility] Start: 06-19-2019 End: 06-19-2019 Office outpatient visit 15 minutes Ivette Rogers [facility] Start: 06-19-2019 Review Ivette fine [facility] Medicine Start: 06-02-2019 End: 06-02-2019 Patient encounter status Miguelina Jones CNP Work Phone: [facility] Start: 06-02-2019 End: 06-02-2019 Periodic preventive med est patient 40-64yrs Ivette Ramos [facility] Start: 06-02-2019 Review Ivette Melendez babatunde Internal Medicine Start: 10-25-2018 End: 10-25-2018 Annotation/Addendum Ivette Ramos [facility] Start: 10-25-2018 End: 10-25-2018 Annotation/Addendum Ivette Ramos [facility] Start: 10-25-2018 End: 10-25-2018 Annotation/Addendum Ivette Ramos [facility] Start: 10-24-2018 Review Ivette Melendez babatunde Internal Medicine Start: 10-24-2018 End: 10-25-2018 Office outpatient visit 25 minutes Ivette Ramos [facility] Start: 10-24-2018 Review Ivette Melendez babatunde Internal Medicine Start: 10-10-2018 End: 10-10-2018 Annotation/Addendum Ivette Ramos [facility] Start: 09-16-2018 End: 09-16-2018 Annotation/Addendum Ivette Ramos [facility] Start: 09-16-2018 End: 09-16-2018 Office outpatient visit 25 minutes Ivette Ramos [facility] Start: 06-03-2018 End: 06-03-2018 Periodic preventive med est patient 40-64yrs Ivette Ramos [facility] Start: 06-03-2018 End: 06-03-2018 Physical examination Miguelina Jones CNP Work Phone: [facility] Start: 04-04-2018 End: 04-04-2018 Annotation/Addendum Ivette Ramos [facility] Start: 09-08-2017 End: 09-08-2017 Annotation/Addendum Ivette Ramos [facility] Start: 06-07-2017 End: 06-07-2017 Patient encounter status Miguelina Jones CNP Work Phone: [facility] Start: 06-07-2017 End: 06-07-2017 Periodic preventive med est patient 40-64yrs Ivette Ramos [facility] Start: 05-31-2017 End: 05-31-2017 Phone Encounter Ivette Ramos [facility] Start: 06-08-2016 End: 06-08-2016 Annotation/Addendum Ivette Ciesa [facility] Start: 06-08-2016 End: 06-08-2016 Initial preventive medicine new patient 40-64yrs Ivette Rachel Rogers [facility] Start: 09-11-2015 End: 09-11-2015 Annotation/Addendum Ivette [facility] Start: 09-11-2015 End: 09-11-2015 Office outpatient visit 10 minutes Ivette Rogers [facility] Start: 08-14-2015 End: 08-14-2015 Office outpatient visit 15 minutes Ivette Rogers [facility] Start: 07-08-2015 End: 07-08-2015 Annotation/Addendum Ivette De La Torredidierrachna [facility] Start: 07-08-2015 End: 07-08-2015 Office outpatient visit 15 minutes Ivette Rogers [facility] Start: 06-07-2015 End: 06-07-2015 Initial preventive medicine new patient 40-64yrs Ivette Rogers [facility] Start: 08-24-2014 End: 08-24-2014 Office outpatient visit 25 minutes Ivette Rogers [facility] Start: 08-20-2014 End: 08-20-2014 Office outpatient visit 25 minutes Ivette Rogers [facility] Start: 06-01-2014 End: 06-01-2014 Office outpatient visit 15 minutes Ivette Rogers [facility] Start: 05-15-2014 End: 05-15-2014 Office outpatient visit 15 minutes Ivette Rogers [facility] Start: 02-12-2014 End: 02-12-2014 Office outpatient visit 25 minutes Ivette Rogers [facility] Start: 01-22-2014 End: 01-22-2014 Office outpatient visit 25 minutes Ivette Rogers [facility] Start: 12-25-2013 End: 12-25-2013 Office outpatient visit 15 minutes Ivette Rogers [facility] Start: 2013 End: 2013 Lab Order Ivette [facility] Start: 06-07-2013 End: 06-07-2013 Patient encounter procedure Ivette Rogers [facility] Start: 05-31-2012 End: 05-31-2012 Office outpatient visit 15 minutes Ivette Rogers [facility] Start: 03-03-2011 End: 03-03-2011 Patient encounter procedure Ivette Rogers [facility] Start: 12-17-2010 End: 12-17-2010 Patient encounter procedure Ivette Ciesa [facility] Start: 08-14-2009 End: 08-14-2009 Patient encounter procedure Ivette Ramos [facility] Start: 07-19-2009 End: 07-19-2009 Patient encounter procedure Ivette Ramos [facility] Start: 06-17-2009 End: 06-17-2009 Patient encounter procedure Ivette Ramos [facility] Start: 11-11-2007 End: 11-11-2007 Patient encounter procedure Ivette Ramos [facility] Start: 10-12-2007 End: 10-12-2007 Office outpatient visit 15 minutes Ivette Ramos [facility] End: 06-07-2017 Patient encounter procedure Letty Slarb STAPLE CUTTER [facility]; [facility] Work Phone: Patient encounter status Steven Neri STAPLE CUTTER [facility]; [facility] Work Phone: Patient encounter status Miguelina Jones CNP Work Phone: [facility]; [facility] Work Phone: Patient encounter status Letty Slarb STAPLE CUTTER [facility]; [facility] Work Phone: Patient encounter status Letty Slarb STAPLE CUTTER [facility]; [facility] Work Phone: Physical examination Steven He STAPLE CUTTER [facility]; [facility] Work Phone: Physical examination Peyton Pizarro MA [facility]; [facility] Work Phone: Physical examination Letty Slarb STAPLE CUTTER [facility]; [facility] Work Phone: Physical examination Letty Slarb STAPLE CUTTER [facility]; [facility] Work Phone: Procedures Date Procedure Procedure Detail Performing Clinician Start: 04-20-2025 Vitamin D, 25-hydroxy measurement Miguelina Jones DOOR PATCHER-C Work Phone: Comment on above: Vitamin D StatusDeficiency: <20 ng/mL (5 0nmol/L)Insufficiency: 20-30 ng/mL (50-75 nmol/L)Sufficiency: 30-100 ng/mL (75-250 nmol/L)Toxicity: >100 ng/mL (>250 nmol/L) Start: 04-20-2025 Screening mammography Miguelina Jones DOOR PATCHER- C Work Phone: Start: 03-19-2025 MRI of lower extremity Miguelina Jones DOOR PATCHER -C Work Phone: Start: 01-29-2025 Injection of knee Miguelina Jones DOOR PATCHER-C Work Phone: Start: 01-29-2025 Fluoroscopic guidance Miguelina Jones DOOR PATCHER- C Work Phone: Start: 10-09-2024 X-ray of knee, four or more views Miguelina Jones DOOR PATCHER-C Work Phone: Start: 10-07-2023 MRI of lumbar spine DOOR PATCHER-C Miguelina Jones Work Phone: Start: 09-02-2023 Investigation of transfusion reaction DOOR PATCHER-C Miguelina Robert Work Phone: Start: 09-02-2023 Nasal Screen MRSA/MSSA DOOR PATCHER-C Miguelina Sullivan am Work Phone: Start: 09-02-2023 Nasopharyngeal Culture DOOR PATCHER-C Miguelina Nate byrne Work Phone: Start: 08-24-2023 Mammography DOOR PATCHER-C Miguelina Robert Work Phone: Start: 08-19-2023 Dual energy X-ray absorptiometry DOOR PATCHER-C Miguelina Jones Work Phone: Start: 08-19-2023 Screening mammography DOOR PATCHER-C Miguelina Smith m Work Phone: Start: 07-02-2023 X-ray of lumbosacral spine Start: 07-02-2023 End: 07-03-2023 L/S Spine Min 4 Views Procedure Note: See Note; NOTES: [facility] Imaging Services [address] [place] [address] L/S Spine Min 4 Views MR#: [id number] Acct: [id number] Name: MERVAT CORREA Rep #: [id number] : 1965 F 57 From: Casimiro Alvarado MD PCP: DHAVAL Almeida Status: REG CLI Study: L/S Spine Min 4 Views Date of Exam: 07/02/23 Exam# [id number] Ordering Dr: Miguelina Jones [id number] STUDY: X-RAY - LUMBAR SPINE REASON FOR [...] Alvarado MD at 16:20 EDT , CC: DHAVAL Jones Intramural Director: Signed Miguelina Jones [facility] Work Phone: Start: 08-13-2022 End: 08-14-2022 SCRN MAMM (CAD)W/JEAN-PAUL BILAT Procedure Note: See Note; NOTES: [facility] Imaging Services [address] [place] [address] SCRN MAMM (CAD)W/JEAN-PAUL BILAT MR#: [id number] Acct: [id number] Name: MERVAT CORREA Rep #: [id number] : 1965 F 56 From: Mane powell MD PCP: DHAVAL Almeida Status: [facility] Study: SCRN MAMM (CAD)W/JEAN-PAUL BILAT Date of Exam: 10/04 Exam# [id number] Ordering Dr: Miguelina Jones MAMMOGRAPHY - BILATERAL [...] delay biopsy of a clinically suspicious abnormality. [id number] Electronically Signed: Mane Viera MD at 9:06 EST , CC: Miguelina Jones DOOR PATCHER; DOOR PATCHER-C Miguelina Jones Intramural Director: Signed Miguelina Jones [facility] Work Phone: Start: 06-11-2022 MRI of pelvis with contrast Start: 06-11-2022 End: 06-11-2022 Pelvis W/WO Contrast Procedure Note: See Note; NOTES: [facility] Imaging Services [address] [place] [address] Pelvis W/WO Contrast MR#: [id number] Acct: [id number] Name: MERVAT CORREA Rep #: [id number] : 1965 F 56 From: Srinivas chavez MD PCP: DHAVAL Almeida Status: REG CLI Study: Pelvis W/WO Contrast Date of Exam: 06/11/22 Exam# [id number] Ordering Dr: Miguelina Jones MR Pelvis Female [...] at 19:22 EDT , CC: Miguelina Jones NP; DHAVAL Jones Intramural Director: Signed Miguelina Jones CNP Work Phone: Start: 06-05-2022 End: 06-05-2022 Kidney and Bladder Procedure Note: See Note; NOTES: [facility] Imaging Services [address] [place] [address] Kidney and Bladder MR#: [id number] Acct: [id number] Name: MERVAT CORREA Rep #: [id number] : 1965 F 56 From: Harmony Bronson MD PCP: DHAVAL Almeida Status: REG CLI Study: Kidney and Bladder Date of Exam: 06/05/22 Exam# [id number] Ordering Dr: Miguelina Jones STUDY: RENAL ULTRASOUND [...] 16:35 EDT , CC: Miguelina Jones NP; DOOR PATCHER-C Miguelina Jones Intramural Director: Signed Miguelina Jones CNP Work Phone: Start: 06-05-2022 US urinary tract Start: 07-15-2021 End: 07-16-2021 Dexa Bone Density Study Procedure Note: See Note; NOTES: [facility] Imaging Services [address] [place] [address] Dexa Bone Density Study MR#: [id number] Acct: [id number] Name: MERVAT CORREA Rep #: [id number] : 1965 F 55 From: Mane powell MD PCP: DHAVAL Solano Status: [facility] CLI Study: Dexa Bone Density Study Date of Exam: 07/15/21 Exam# [id number] Ordering Dr: Ivette Ramos NP DOOR PATCHER-C STUDY: DUAL ENERGY X-RAY ABSORPTIOMETRY / DXA [...] , Service support , CC: DHAVAL Ramos Intramural Director: Signed Ivette Ramos Work Phone: Start: 07-15-2021 End: 07-16-2021 SCRN MAMM (CAD)W/JEAN-PAUL BILAT Procedure Note: See Note; NOTES: [facility] Imaging Services [address] [facility] [address] SCRN MAMM (CAD)W/JEAN-PAUL BILAT MR#: [id number] Acct: [id number] Name: MERVAT CORREA Rep #: [id number] : 1965 F 55 From: Mane powell MD PCP: DHAVAL Solano Status: REG CLI Study: SCRN MAMM (CAD)W/JEAN-PAUL BILAT Date of Exam: 11/03 Exam# [id number] Ordering Dr: Ivette Ramos NP MAMMOGRAPHY - [...] delay biopsy of a clinically suspicious abnormality. [id number] Electronically Signed: Mane Viera MD at 9:28 EDT , Service support , CC: DHAVAL Ramos Intramural Director: Signed Ivette Ramos Work Phone: Start: 07-02-2020 End: 07-03-2020 SCREEN MAMM (CAD) W/JEAN-PAUL BILAT Comments: See Note; NOTES: [facility] Imaging Services [address] [place] [address] SCREEN MAMM (CAD) W/JEAN-PAUL BILAT MR#: [id number] Acct: [id number] Name: MERVAT CORREA Rep #: [id number] : 1965 F 54 From: Mane powell MD PCP: DHAVAL Solano Status: [facility] Study: SCREEN MAMM (CAD) W/JEAN-PAUL BILAT Date of Exam: Exam# [id number] Ordering Dr: Ivette Ramos NP DOOR PATCHER-Flaco MAMMOGRAPHY - BILATERAL SCREENING REASON FOR EXAM: [...] delay biopsy of a clinically suspicious abnormality. [id number] Electronically Signed: Mane Viera, at 8:15 EDT , Service support , CC: DHAVAL Ramos Intramural Director: Signed Ivette Ramos ELECTRIC DOLLY OPERATOR Work Phone: Start: 11-07-2018 End: 11-07-2018 Stress Test Echo w/o Contrast Comments: See Note; NOTES: [facility] Cardiovascular Services [address] [place] [address] Stress Test Echo w/o Contrast MR#: [id number] Acct: [id number] Name: MERVAT CORREA Rep #: [id number] : 1965 52 From: Rip Hester MD [...] Date Rip Hester MD CC: Ivette Ramos NP; Rip Hester MD Date Dictated: 11/07/18 1254 Date Transcribed: 11/07/18 1428 Intramural Director: Signed Rip Hester Work Phone: Start: 10-24-2018 End: 10-24-2018 Venous Duplex Lower Extremity Comments: See Note; NOTES: [facility] Cardiovascular Services [address] [place] [address] Venous Duplex US, Unilateral 10/24/18 1507 MR#: [id number] Acct: [id number] Name: MERVAT CORREA Rep #: [id number] : 1965 52 From: Art Ojeda MD Attending Dr: Ivette Ramos NP Status: REG CLI Ordering Dr: Ivette Ramos DOOR PATCHER-C Date: 10/24/18 Location: [facility] Sex: F C [...] Ordering Physician: Ivette Ramos Performed By: Srini Zamora RVT 10/24/182029 Date Art Ojeda MD CC: Ivette Ramos DOOR PATCHER Date Dictated: 10/24/18 1507 Date Transcribed: 10/24/182029 Intramural Director: Signed Ivette Ramos Work Phone: Start: 10-24-2018 End: 10-24-2018 Chest PA and Lateral Comments: See Note; NOTES: [facility] Imaging Services [address] [place] [address] Chest PA and Lateral MR#: [id number] Acct: [id number] Name: MERVAT CORREA Rep #: [id number] : 1965 F 52 From: Shannon Martinez MD PCP: Ivette Ramos NP Status: REG CLI Study: Chest PA and Lateral Date of Exam: 10/24/18 Exam# [id number] Ordering Dr: Ivette Ramos DOOR PATCHER-C STUDY: X-RAY CHEST REASON FOR EXAM: Female, [...] Service support , CC: Ivette Ramos NP Intramural Director: Signed Ivette Ramos Work Phone: Start: 10-12-2018 End: 10-12-2018 Cardiology Visit Report Comments: See Note; NOTES: [facility] Heart 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) Coding Level of Care Code Off vis,new,level [...] Echocardiogram 09/22/[address] 10/06/18 10/12/18 1542 <Electronically signed by Rip Hester MD> Date Rip Hester MD Cosigner Signature: Date (if applicable) CC: Ivette Rachel Ramos Start: 10-06-2018 End: 10-10-2018 CCTA Calcium Scoring Comments: See Note; NOTES: [facility] Imaging Services [address] [place] [address] CCTA Calcium Scoring MR#: [id number] Acct: [id number] Name: MERVAT CORREA Rep #: [id number] : 1965 F 52 From: Jose Alberto Walton MD PCP: Ivette Ramos NP Status: REG CLI Study: CCTA Calcium Scoring Date of Exam: 10/06/18 Exam# [id number] Ordering Dr: Ivette Ramos DOOR PATCHER-C STUDY: CT CHEST WITHOUT CONTRAST REASON FOR [...] EST , Service support , CC: Ivette Raoms NP Intramural Director: Signed Ivette Ramos Work Phone: Start: 10-06-2018 End: 10-08-[address] w/CCTA Comments: See Note; NOTES: [facility] Imaging Services [address] [place] [address] w/CCTA MR#: [id number] Acct: [id number] Name: MERVAT CORREA Rep #: [id number] : 1965 F 52 From: Jose Alberto Walton MD PCP: Ivette Ramos NP Status: REG CLI Study: Limited Chest CT w/CCTA Date of Exam: 10/06/18 Exam# [id number] Ordering Dr: Ivette Ramos NP-C STUDY: CT CHEST WITHOUT CONTRAST REASON FOR [...] Service support , CC: Ivette Ramos NP Intramural Director: Signed Ivette Ramos Work Phone: Start: 09-22-2018 End: 09-22-2018 Echocardiogram Complete Comments: See Note; NOTES: [facility] Cardiovascular Services [address] [place] [address] Echo Complete 09/22/18 1253 MR#: [id number] Acct: [id number] Name: MERVAT CORREA Rep #: [id number] : 1965 52 From: Jeff Eckert MD Attending Dr: Ivette Ramos NP Status: REG CLI Ordering Dr: Ivette Ramos DOOR PATCHER-C Date: 09/22/18 Location: [facility] Sex: F C Admitted: Reason For [...] Doppler Measurements AND Calculations MV E max david: 85.8 cm/sec Lat Peak E' David: 10.2 cm/sec Med Peak E' David: 7.4 cm/sec MV A max david: 64.6 cm/sec E/E' lat: 8.4 E/E' med: 11.7 MV E/A: 1.3 Ao V2 max: 157.8 cm/sec LV V1 max: 128.6 cm/sec PA V2 max: 107.7 cm/sec Ao max P.0 mmHg LV V1 max P.6 mmHg TR max david: 241.5 cm/sec TR max P.3 mmHg Interpretation [...] Referring Physician: Ivette Ramos Performed By: Mckenna Henry RDCS, RVT 09/22/18 7709 Date Jeff Eckert MD CC: Ivette Ramos DOOR PATCHER Date Dictated: 09/22/18 1253 Date Transcribed: 09/22/18 8887 Intramural Director: Signed Ivette Ramos Work Phone: Start: 07-18-2018 End: 07-18-2018 Breast Limited Unilateral Comments: See Note; NOTES: [facility] Imaging Services [address] [place] [address] Breast Limited Unilateral MR#: [id number] Acct: [id number] Name: MERVAT CORREA Rep #: [id number] : 1965 F 52 From: Mane Viera MD PCP: Ivette Ramos NP Status: REG CLI Study: Breast Limited Unilateral Date of Exam: 07/18/18 Exam# [id number] Ordering Dr: Ivette Ramos DOOR PATCHER-C STUDY: ULTRASOUND BREAST - LEFT REASON FOR [...] Mane Viera MD at 15:48 EST Tel [phone], Service support , CC: Ivette Ramos NP Intramural Director: Signed Ivette Ramos Work Phone: Start: 07-14-2018 End: 07-15-2018 SCREENING MAMM (CAD), BILAT Comments: See Note; NOTES: [facility] Imaging Services [address] [place] [address] SCREENING MAMM (CAD), BILAT MR#: [id number] Acct: [id number] Name: MERVAT CORREA Rep #: [id number] : 1965 F 52 From: Mane Viera MD PCP: Ivette Ramos NP Status: REG CLI Study: SCREENING MAMM (CAD), BILAT Date of Exam: 07/14/18 Exam# [id number] Ordering Dr: Ivette Ramos DOOR PATCHER-C MAMMOGRAPHY - BILATERAL SCREENING REASON FOR EXAM: [...] delay biopsy of a clinically suspicious abnormality. [id number] Electronically Signed: Mane Viera MD at 8:03 EDT Tel [phone], Service support , CC: Ivette Ramos NP Intramural Director: Signed Ivette Ramos Work Phone: Start: 03-03-2018 End: 03-03-2018 Downtime Report Comments: See Note; NOTES: [facility] Medical Records Department [address] [place] [address] Downtime Report MR#: [id number] Acct: [id number] Name: MERVAT CORREA Zachariah Rep #: [id number] : 1965 52 From: Mitch Toro PCP: Ivette Ramos NP Status: REG CLI This patient was seen during an EMR downtime February 14, 2018 - February 21, 2018. This patient may have a combination of paper and electronic documentation or all paper documentation. All documentation is viewable within the e-chart portion of [facility] for each patient visit. Ivette Ramos Start: 02-18-2018 End: 02-24-2018 Lower Ext Joint Only (Routine) Comments: See Note; NOTES: [facility] Imaging Services [address] [place] [address] Lower Ext Joint Only (Routine) MR#: [id number] Acct: [id number] Name: MERVAT CORREA Rep #: [id number] : 1965 F 52 From: Domingo Man MD PCP: Ivette Ramos NP Status: REG CLI Study: Lower Ext Joint Only (Routine) Date of Exam: 02/15/18 Exam# [id number] Ordering Dr: Jacklyn Lees PA-C STUDY: MRI LEFT KNEE REASON [...] Normal proximal tibiofibular articulation. Normal lateral collateral (fibular) ligament. Normal popliteus tendon. Normal biceps femoris [...] Service support , CC: Ivette Ramos NP; Jacklyn NATARAJAN Intramural Director: Signed Ivette Ramos Start: 01-27-2018 End: 01-27-2018 Lumbar Spine 2 or 3 Views Comments: See Note; NOTES: [facility] Imaging Services [address] [place] [address] Lumbar Spine 2 or 3 Views MR#: [id number] Acct: [id number] Name: MERVAT CORREA Rep #: [id number] : 1965 F 52 From: Mane Viera MD PCP: Ivette Ramos NP Status: REG CLI Study: Lumbar Spine 2 or 3 Views Date of Exam: 01/27/18 Exam# [id number] Ordering Dr: Jacklyn LeesC STUDY: X-RAY - LUMBAR SPINE REASON FOR [...] Mane Viera MD at 14:00 EDT Tel [phone], Service support , CC: Ivette Ramos DOOR PATCHER; Jacklyn NATARAJAN Intramural Director: Signed Ivette Ramos Start: 01-24-2015 End: 01-24-2015 NCS and/or EMG Patient Comments: See Note; NOTES: [facility] Pulmonary Services/Neurology [address] [place] [address] NCS and/or EMG Patient MR#: [id number] Acct: [id number] Name: MERVAT CORREA Rep #: [id number] : 1965 49 From: Kell Perales Referring Dr: Ivette Ramos Status: REG CLI Ordering Dr: Ivette Ramos Date: 01/23/15 Location: [facility] Sex: F C HISTORY OF PRESENT [...] Dictated: 01/23/15 1047 Date Transcribed: 01/23/15 1215 Intramural Director: LUIS ENRIQUE Signed Ivette Ramos Work Phone: Start: 01-23-2015 End: 01-23-2015 Cerv Spine 4 or 5 Views Comments: See Note; NOTES: [facility] Imaging Services [address] [place] [address] Radiology Report MR#: [id number] Acct: [id number] Name: MERVAT CORREA Rep #: [id number] : 1965 F 49 From: Shashi Loera DO PCP: Ivette Ramos Status: REG CLI Study: Cerv Spine 4 or 5 Views Date of Exam: 01/23/15 Exam# [id number] Ordering Dr: Ivette Ramos STUDY: X-RAY - CERVICAL SPINE REASON [...] Shashi Loera DO at 11:16 EDT Tel [phone], Service support [phone], RAD/Cerv Spine 4 or 5 Views IMPRESSION: Minimal degenerative changes of the lower cervical spine. Electronically Signed: Shashi Loera DO at 11:16 EDT Tel [phone], Service support [phone], CC: Ivette Ramos Intramural Director: Signed Ivette Ramos Work Phone: Start: 01-23-2015 End: 01-24-2015 Nuclear Stress Test - Chemical Comments: See Note; NOTES: [facility] Imaging Services [address] [place] [address] Nuclear Medicine Report MR#: [id number] Acct: [id number] Name: MERVAT CORREA Rep #: [id number] : 1965 F 49 From: Rip Hester MD PCP: Ivette Ramos Status: REG CLI Study: Nuclear Stress Test - Chemical Date of Exam: 01/23/15 Exam# [id number] Ordering Dr: Ivette Ramos PHARMACOLOGIC MYOCARDIAL PERFUSION [...] 2. Preserved ejection fraction. CC: Ivette Ramos Intramural Director: DUDLEY Signed Ivette Ramos Work Phone: Start: 02-28-2014 End: 02-28-2014 Bilat Scrn Digital & CAD Comments: See Note; NOTES: [facility] Imaging Services [address] [place] [address] Breast Imaging Report MR#: [id number] Acct: [id number] Name: MERVAT CORREA Rep #: [id number] : 1965 F 48 From: Mane Viera MD PCP: Status: [facility] CLI Exam# [id number] Ordering Dr: Ivette Ramos MAMMOGRAPHY - BILATERAL [...] Mane Viera MD at 16:18 EDT Tel [phone], Service support [phone], CC: Ivette Ramos Intramural Director: Signed Ivette Ramos Work Phone: Start: 01-26-2014 End: 01-26-2014 Echocardiogram Complete Comments: See Note; NOTES: [facility] Cardiovascular Services [address] [place] [address] Echo Complete 01/26/14 1012 MR#: [id number] Acct: [id number] Name: MERVAT CORREA Rep #: [id number] : 1965 48 From: Jeff Eckert MD Attending Dr: Ivette Ramos Status: REG CLI Ordering Dr: Ivette Ramos Date: 01/26/14 Location: [facility] Sex: F C Admitted: Procedure This [...] A4 area: 9.5 cm2 MV E max david: Lat Peak E' David: Med Peak E' David: Ao V2 max: 70.8 cm/sec 10.7 cm/sec 8.1 cm/sec 137.7 cm/sec MV A max david: Ao max P.6 mmHg 65.9 cm/sec MV E/A: 1.1 LV V1 max: 121.0 cm/sec PA V2 max: 106.8 cm/sec TR max david: 237.3 cm/sec E /E' lat: 6.6 LV [...] Performed By: Chloe Mcgee RDCS : Ivette Ramos; Agnes Boyle DO Date Dictated: 01/26/14 1012 Date Transcribed: 01/26/14 1332 Intramural Director: Signed Ivette Ramos Plan of Treatment Date Care Activity Detail Author Start: 01-29-2025 Injection aa&/strd genicular nrv branches w/img NJX AA&/STRD GNCLR NRV BRNCH [facility] Start: 01-29-2025 Fluoroscopic guidance [facility] Start: 01-29-2025 Patient discharge [facility] Start: 07-02-2023 Procedure Education Eprescribed prescriptions (G8553) [...] 06-01-2022 Urine albumin quantitative MICROALBUMIN: CREATININE RATIO (13689) AND (17151) [facility]; [facility] Work Phone: Start: 06-01-2022 Urnls dip stick/tablet reagent auto microscopy URINALYSIS, W/ MICRO (69915) [facility]; [facility] Work Phone: Start: 05-14-2022 Influenza vaccination INFLUENZA (#1) [facility] Start: 12-02-2021 Procedure Education Eprescribed prescriptions (G8553) [facility]; [facility] Work Phone: Start: 12-02-2021 Provider Instructions for Treatment Follow up in 6 months [facility]; [facility] Work Phone: Start: 12-02-2021 25 hydroxy includes fractions if performed CALCIFEDIOL (33810) [facility]; [facility] Work Phone: Start: 12-02-2021 Renal function panel RENAL FUNCTION PANEL (42765) [facility]; [facility] Work Phone: Start: 12-02-2021 Cyanocobalamin vitamin b-12 VITAMIN B12 AND FOLATES (44191) [facility]; [facility] Work Phone: Start: 06-06-2021 Procedure Education Eprescribed prescriptions (G8553) [facility]; [facility] Work Phone: Start: 06-06-2021 Provider Instructions for Treatment Follow up in 6 months [facility]; [facility] Work Phone: Start: 06-06-2021 Renal function panel RENAL FUNCTION PANEL (00485) [facility]; [facility] Work Phone: Start: 06-06-2021 Cyanocobalamin vitamin b-12 VITAMIN B12 AND FOLATES (61822) [facility]; [facility] Work Phone: Start: 01-10-2021 Procedure Education Eprescribed prescriptions (G8553) [facility]; [facility] Work Phone: Start: 01-10-2021 Provider Instructions for Treatment [facility]; [facility] Work Phone: Start: 01-10-2021 Assay of free thyroxine T4, FREE (THYROXINE) (29559) [facility]; [facility] Work Phone: Start: 01-10-2021 Assay of triiodothyronine t3 free T3, FREE (TRIDOTHYRONINE) (83393) [facility]; [facility] Work Phone: Start: 01-10-2021 Cortisol free CORTISOL FREE (38614) [facility]; [facility] Work Phone: Start: 01-10-2021 Gonadotropin follicle stimulating hormone FSH AND LH (59727) [facility]; [facility] Work Phone: Start: 01-10-2021 Cyanocobalamin vitamin b-12 VITAMIN B12 AND FOLATES (61978) [facility]; [facility] Work Phone: Start: 01-10-2021 25 hydroxy includes fractions if performed CALCIFEDIOL (52035) [facility]; [facility] Work Phone: Start: 01-10-2021 Comprehensive metabolic panel Metabolic Panel, Comprehensive (29397) [facility]; [facility] Work Phone: Start: 01-10-2021 Assay of thyroid stimulating hormone tsh TSH (THYROID STIMULATING HORMONE) (12354) [facility]; [facility] Work Phone: Start: 06-28-2020 Assay of magnesium MAGNESIUM (85029) [facility]; [facility] Work Phone: Start: 06-28-2020 Magnesium [Mass/Vol] MAGNESIUM (19143) [facility] Work Phone: Start: 06-28-2020 Basic metabolic panel calcium total METABOLIC PANEL, BASIC (88846) [facility] Work Phone: Start: 06-25-2020 Procedure Education Eprescribed prescriptions (G8553) [facility] Work Phone: Start: 06-03-2020 Potassium [Moles/Vol] POTASSIUM SERUM (33226) [facility] Work Phone: Start: 06-03-2020 Potassium serum plasma/whole blood POTASSIUM SERUM (51997) [facility]; [facility] Work Phone: Start: 06-03-2020 Blood count complete auto&auto difrntl wbc CBC, PLATELETS & AUT DIFF (03142) [facility] Work Phone: Start: 06-03-2020 Assay of magnesium MAGNESIUM (61827) [facility]; [facility] Work Phone: Start: 06-03-2020 Magnesium [Mass/Vol] MAGNESIUM (92134) [facility] Work [facility]: Start: [...] count complete automated CBC & PLATELETS (AUTO) (50546) [facility] Work Phone: Start: 10-24-2018 Comprehensive metabolic panel Metabolic Panel, Comprehensive (08391) [facility] Work Phone: Start: 10-24-2018 Sedimentation rate rbc automated Sedimentation Rate-ESR (22027) [facility] Work Phone: Start: 10-24-2018 Fibrin dgradj products d-dimer quantitative D-Dimer (61812) [facility] Work Phone: Start: 10-24-2018 C-reactive protein C-Reactive Protein (49312) [facility]; [facility] Work Phone: Start: 10-24-2018 CRP mass conc C-Reactive Protein (62181) [facility] Work Phone: Start: 10-24-2018 Procedure Education Eprescribed prescriptions (G8553) [facility] Work Phone: Start: 10-24-2018 Provider Instructions for Treatment Reviewed Coater Helper Letter [facility] Work Phone: Start: 09-16-2018 Procedure Education Eprescribed prescriptions (G8553) [facility] Work Phone: Start: 09-16-2018 Provider Instructions for Treatment Follow up - Make appt after diagnostic tests [facility] Work Phone: Start: 09-16-2018 Comprehensive metabolic panel Metabolic Panel, Comprehensive (49778) [facility] Work Phone: Start: 06-03-2018 Procedure Education Eprescribed prescriptions (G8553) [facility] Work Phone: Start: 06-03-2018 Provider Instructions for Treatment [facility] Work Phone: Start: 06-07-2017 Provider Instructions for Treatment [facility] Work Phone: Start: 06-07-2017 Assay of magnesium MAGNESIUM (49045) [facility]; [facility] Work Phone: Start: 06-07-2017 Magnesium mass conc MAGNESIUM (76654) [facility] Work Phone: Start: 06-07-2017 Potassium molar conc POTASSIUM SERUM (70026) [facility] Work Phone: Start: 06-07-2017 Potassium serum plasma/whole blood POTASSIUM SERUM (02204) [facility]; [facility] Work Phone: Start: 06-08-2016 Provider Instructions for Treatment [facility] Work Phone: Start: 06-08-2016 Blood occult peroxidase actv qual feces 1 deter OCCULT BLOOD FECES SCREEN - card done in office (82824) [facility] Work Phone: Start: 03-13-2016 HPV TESTING HPV TESTING [facility] Start: 03-13-2016 PAP TESTING PAP TESTING [facility] Start: 12-16-2015 SHINGRIX VACCINE (1 of 2) SHINGRIX VACCINE (1 of 2) [facility] Start: 09-11-2015 Provider Instructions for Treatment [facility] Work Phone: Start: 08-14-2015 Provider Instructions for Treatment [facility] Work Phone: Start: 07-08-2015 Provider Instructions for Treatment Follow up in 4 weeks [facility] Work Phone: Start: 06-07-2015 Provider Instructions for Treatment [facility] Work Phone: Start: 08-24-2014 Antibody tracy-watkins eb virus early antigen ea EBV Panel (38006) [facility] Work Phone: Comment on above: give pt lab slip to be drawn at hospital Start: 08-24-2014 Patient Education Sore throat: diagnosis and treatment [facility] Work Phone: Start: 08-24-2014 Provider Instructions for Treatment Follow up if no improvement or if symptoms worsen [facility] Work Phone: Start: 08-20-2014 Provider Instructions for Treatment Follow up in 2 weeks [facility] Work Phone: Start: 06-01-2014 Provider Instructions for Treatment [facility] Work Phone: Start: 05-15-2014 Provider Instructions for Treatment Follow up in 2 weeks with [facility] for BP [facility] Work Phone: Start: 02-12-2014 Antinuclear antibodies sidney SIDNEY (ANTINUCLEAR ANTIBODY) (15228) [facility]; [facility] Work Phone: Start: 02-12-2014 Nuclear Ab IF titer (S) SIDNEY (ANTINUCLEAR ANTIBODY) (18820) [facility] Work Phone: Start: 02-12-2014 Assay of thyroid stimulating hormone tsh TSH (THYROID STIMULATING HORMONE) (85831) [facility]; [facility] Work Phone: Start: 02-12-2014 Thyrotropin Qn TSH (THYROID STIMULATING HORMONE) (18772) [facility] Work Phone: Start: 02-12-2014 Provider Instructions for Treatment [facility] Work Phone: Start: 01-22-2014 Provider Instructions for Treatment [facility] Work Phone: Start: 12-25-2013 Provider Instructions for Treatment Follow up in 1 month [facility] Work Phone: Start: 06-07-2013 Provider Instructions for Treatment Reviewed Lab [facility] Work Phone: Start: 05-31-2012 Provider Instructions for Treatment [facility] Work Phone: Start: 12-17-2010 Provider Instructions for Treatment [facility] Work Phone: Start: 2010 COLOGUARD (FIT-DNA) COLOGUARD (FIT-DNA) [facility] Start: 2010 Colonoscopy COLONOSCOPY [facility] Start: 2010 COLORECTAL CANCER SCREENING COLORECTAL CANCER SCREENING [facility] Start: [address] COLONOGRAPHY [facility] Start: 2010 DIABETES SCREEN DIABETES SCREEN [facility] Start: 2010 FECAL OCCULT BLOOD FECAL OCCULT BLOOD [facility] Start: 2010 LIPID SCREEN LIPID SCREEN [facility] Start: 2010 SIGMOIDOSCOPY SIGMOIDOSCOPY [facility] Start: 08-14-2009 Provider Instructions for Treatment [facility] Work Phone: Start: 07-19-2009 Provider Instructions for Treatment [facility] Work Phone: Start: 11-11-2007 Provider Instructions for Treatment [facility] Work Phone: Start: 11-11-2007 Cytp cerv/vag auto thin layer prep mnl screen Thin prep Pap (97360) [facility] Work Phone: Start: 2005 Mammography MAMMOGRAM [facility] Start: 1984 Urine microalbumin profile DTAP,TDAP,TD (1 - Tdap) [facility] Start: 12-16-1983 HEPATITIS C SCREENING HEPATITIS C SCREENING [facility] Start: 12-16-1983 HIV SCREENING HIV SCREENING [facility] Start: 1977 Adult depression screening assessment DEPRESSION SCREENING [facility] Start: 06-16-1966 COVID-19 VACCINE (#1) COVID-19 VACCINE (#1) [facility] Start: 1965 HEPATITIS B (1 of 3 - 3-dose series) HEPATITIS B (1 of 3 - 3-dose series) [facility] Patient referral [facility] Work Phone: [facility] Work [facility]: [facility] Work [facility] Work Phone: [facility] Work Phone: [facility] Work [facility] Work Phone: [facility] Work [facility]: [facility] Work [facility]: [facility] Work [facility]: [facility] Work [facility]: [facility] Work Phone[facility] Work Phone: [facility] Work [facility] Work [facility] Work Phone: [facility] Work Phone: Nonsmoker : Eprescribed prescriptions (G8553) [facility] Work Phone: Pharyngitis : So re throat: diagnosis and treatment [facility] Work Phone: [facility] Work [facility] Work Phone[facility] Work Phone[facility] Work Phone: [facility] Work Phone: [facility] Work Phone: [facility] Work Phone: [facility] Work Phone: [facility] Work Phone: [facility] Work Phone: [facility] Work Phone: [facility]; [facility] Work Phone: [facility] Work Phone: [facility] Work Phone: [facility] Work Phone: Immunizations Immunization Date Immunization Notes Care Provider [facility] 07-27-2024 influenza, seasonal, injectable, preservative free Miguelina Jones DOOR PATCHER-C Work Phone: [facility] 07-09-2023 influenza, injectabl e, quadrivalent, preservative free DOOR PATCHER-C Miguelina Jones Work Phone: [facility] 07-29-2022 influenza, injectabl e, quadrivalent, preservative free [facility] 07-01-2021 influenza, injectabl e, quadrivalent, preservative free [facility] 07-01-2021 influenza, seasonal, injectable [facility] Work Phone: 10-22-2020 Covid (Moderna) [facility] Work Phone: 09-24-2020 Covid (Moderna) [facility] Work Phone: 08-05-2020 influenza, injectabl e, quadrivalent, preservative free [facility] 08-05-2020 influenza, seasonal, [facility] Work Phone: 07-04-2019 influenza, injectabl e, quadrivalent, preservative free [facility] 07-04-2019 influenza, seasonal, injectable [facility] Work Phone: 08-02-2018 influenza, injectabl e, quadrivalent, preservative free [facility] 08-02-2018 influenza, seasonal, injectable [facility] Work Phone: 07-08-2017 influenza, injectabl e, quadrivalent, preservative free [facility] 07-08-2017 influenza, seasonal, injectable [facility] Work Phone: 06-11-2016 influenza, injectabl e, quadrivalent, preservative free [facility] 06-11-2016 influenza, seasonal, injectable [facility] Work Phone: 07-10-2015 influenza, injectabl e, quadrivalent, preservative free [facility] 07-10-2015 influenza, seasonal, injectable [facility] Work Phone: 06-12-2014 influenza, injectabl e, quadrivalent, preservative free [facility] 06-12-2014 influenza, seasonal, injectable [facility] Work Phone: 07-13-2013 Influenza virus vaccine [facility] Payers Date Payer Category Payer Self-pay [id number] 2024 Unknown [id number] 2013 Unknown [id number] 2013 Unknown [id number] 1965 Unknown [id number] 2.16.84 [id number] Unknown Unknown [id number] 2.16.8 [id number] Unknown [id number] 2.16.8 [id number] Unknown [id number] 2.16.8 [id number] Unknown [id number] 2.16.8 [id number] Unknown [id number] 2.16.8 [id number] Unknown [id number] 2.16.8 [id number] Unknown [id number] 2.16.8 [id number] Unknown [id number] 2.16.8 [id number] Unknown [id number] 2.16.8 [id number] Unknown [id number] 2.16.8 [id number] Unknown [id number] 2.16.8 [id number] Unknown [id number] 2.16.8 [id number] Unknown [id number] 2.16.8 [id number] Social History Date Type Detail Facility Start: 10-12-2018 End: 07-17-2023 Tobacco smoking status NHIS Unknown if ever smoked [facility] Start: 1965 Sex Assigned At Female [facility] Start: 05-06-2011 End: 04-10-2025 Tobacco smoking status NHIS Never smoked tobacco [facility] Work Phone: Start: 05-06-2011 Tobacco use and exposure Smokeless tobacco non-user [facility] Work Phone: Start: 04-29-2022 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) [facility] Start: 1965 Sex Assigned At Not on file [facility] Goals Date Patient Goal Desired Activity /State Mental Status Date Assessment Result Facility 01-29-2025 Cognitive function Voice/Name [facility] Work Phone: Clinical Notes 06-08-2022 to 03-19-2025 Note Date & Type Note Facility 03-19-2025 Radiology Diagnostic study note [facility] Services [address] [place], [place] [address] Extremity Lower without Contra MR#: [id number] Acct: [id number] Name: MERVAT CORREA Rep #: [id number] : 1965 F 59 From: Pavel Patel MD PCP: Miguelina Jones, DOOR PATCHER-C Status: REG C KEE Study:Extremity Lower without Contra Date of Exam: 03/19/25 Exam# [id number] Ordering Dr: Abel Armendariz DO PROCEDURE: EXTREMITY LOWER WITHOUT CONTRA 03/19/2025 REASON FOR EXAM: RIGHT KNEE JAI PROTOCOL TECHNIQUE: Jai right knee protocol. One or more dose reduction techniques were used (e.g., Automated exposure control, adjustment of the mA and/or kV according to patient size, use of iterative reconstruction technique). RADIATION DOSE SUMMARY: DLP: 1347.85 mGycm COMPARISON: Right knee series of 10/09/2024. FINDINGS: Limited imaging of the right sacroiliac joint demonstrates mild degenerative changes. The right hip joint shows no significant finding. No evidence of femoral head osteonecrosis. The right knee demonstrates a small joint effusion. A moderate-sized Correa's cyst is also seen. Tricompartmental degenerative changes are again seen, now with severe medial joint narrowing and genu varus. Severe patellofemoral joint narrowing is also noted. Loose intra-articular bodies are seen in the suprapatellar bursa. Minimal degenerative changes are seen in the right ankle joint. No fracture or dislocation is seen. CT/Extremity Lower without Contra IMPRESSION: Right knee degenerative changes and additional findings as described. Reading Location: [address] CC: DHAVAL Jones; Dr. Abel Armendariz DO ~ Intramural Director: Signed [facility] 01-29-2025 Procedure note [facility] 07-20-2024 Note [facility] Medical Records Department [address] [place] [address] History Physical Exam 07/20/24917 MR#: [id number] Acct: [id number] Name: MERVAT CORREA Rep #: [id number] : 1965 58 From: Jaycob Jones DO PCP: DHAVAL Almeida Status:REG [facility] Location: [place] [address] HPI - General General Date of Admission: 07/20/24 Date of Service: 07/20/24 Chief Complaint: Screening colonoscopy HPI Narrative MERVAT CORREA, is a 58 F who presents today for screening colonoscopy. She has never had a colonoscopy in the past. She is not have any abdominal pain. She is not any chest pain shortness of breath. She takes vitamin D, spironolactone and valsartan on a daily basis for hypertension which is controlled with medicines. [facility] Medical History (Updated 07/18/24 @ 11:31 by Sruthi Conroy) Wears glasses History of steroid therapy Arthritis Migraine headache Non-smoker History of echocardiogram Normal stress echocardiogram History of Holter monitoring Cardiology follow-up encounter Low HDL (under 40) Essential (primary) hypertension Pericardial effusion Obesity Basal cell carcinoma Home Medications ???Medication ???Instructions ???Recorded ???Last Taken ???Type valsartan 320 mg tablet (Diovan) 320 mg PO DAILY 10/25/18 07/20/24 05:50 History spironolactone 25 mg tablet 25 mg PO DAILY 04/06/24 Unknown History acetaminophen-caffeine 500 mg-65 1 tab PO Q12H PRN migraine headache 06/09/24 Unknown History mg tablet (Excedrin Tension Headache) cholecalciferol (vitamin D3) 25 25 mcg PO DAILY 07/18/24 Unknown History mcg (1,000 unit) capsule (Vitamin D3) Allergy/AdvReac Type Severity Reaction Status Date / Time amlodipine AdvReac edema Verified 07/20/24 08:48 Family History Mother Heart disease Father Heart disease Surgical History H/O myomectomy History of Social History (Updated 06/09/24 @ 10:29 by Megan Ziegler) household members: spouse current occupational status: employed 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 Smoking Status: Never smoker alcohol intake: never substance use type: does not use ROS Review of Systems ROS Unobtainable: other Constitutional Constitutional: Denies fatigue, fever(s), poor appetite, weight gain or weight loss ENT HEENT: Denies mouth lesions Cardiovascular Cardiovascular: Denies abdominal bloating, abdominal edema or abdominal pain Respiratory/Chest Respiratory/Chest: Denies change in mental status, change in phlegm color, chest congestion or chest tightness Gastrointestinal Gastrointestinal: Denies belching, bloating, change in bowel habits, change in stool character, chewing difficulty, coffee ground emesis, constipation, cramping, diarrhea, dyspepsia, dysphagia, early satiety, excessive flatus, fecal incontinence, heartburn, hematemesis, hematochezia, hemorrhoids, loose stools, melena, nausea, odynophagia, rectal bleeding, tenesmus, vomiting or weight changes Genitourinary Genitourinary: Denies abdominal discomfort, burning urination or itching Musculoskeletal Musculoskeletal: Reports as per HPI; Denies muscle weakness or myalgias Integumentary Integumentary: Denies jaundice Neurologic Neurologic: Denies lack of coordination or weakness Psychiatric Psychiatric: Denies confusion, depression, memory loss, mood swings, paranoia or suicidal ideation Endocrine Endocrinology: Denies systems reviewed and no addt'l complaints, except as documented Hematologic/Lymphatic Hematologic/Lymphatic: Denies anemia, easy bleeding, easy bruising or lymphadenopathy Allergic/Immunologic Allergic/Immunologic: Denies systems reviewed and no addt'l complaints, except as documented Vital Signs Vital Signs Vital Signs: 07/20/24 09:05 07/20/24 09:05 Temperature 98.1 F Temperature Source Temporal Pulse Rate 90 Respiratory Rate 16 Respiratory Pattern Normal Blood Pressure 133/90 H Blood Pressure Mean 104 Blood Pressure Source Monitor Blood Pressure Position Semi-Fowlers Blood Pressure Location Left Arm Pulse Ox 97 Oxygen Delivery Method Room Air Weight Weight: 164 lb 3.91 oz Body Mass Index (BMI) 32.1 Physical Exam Const alert General Appearance: cooperative Orientation / Consciousness: oriented to person HEENT hearing grossly normal bilaterally Head and Scalp: normal to inspection Face and Sinus: face symmetric Nose: external nose normal Mouth: oral and palatal mucosa normal Eyes conjunctivae normal General Eye: normal appearance of both eyes Neck full ROM General: normal visual inspection Lymph Lymphatic: no lymphadenopathy noted Chest inspection of chest normal and palpation of chest normal Chest: (more content not included)... [facility] 12-24-2023 Discharge summary Note Date/Time December 24, 2023 12:38pm [facility] Physical Therapy [facility] [address] [place] [address] / REHABILITATION SERVICES DISCHARGE SUMMARY MR#: [id number] Acct: [id number] Name: MERVAT CORREA Rep #: [id number] : 1965 58 From: Cert. ANDREW SpearsT, OCS Referring DrRaoul: DHAVAL Jones Status: REG RCR Insurance: [employer]/[facility] SELF PAY INSURANCE Discharge Summary D/C summary: It has been my pleasure to treat MERVAT CORREA referred by DHAVAL Almeida,with the diagnosis of FACET HYPERTROPHY ,DDD for a total of 6 visit(s). Discharge Date: Please see the following information for a summary of their discharge status. Subjective Subjective: Patient seems some better Pain Left Lower Extremity: Pain Intensity (Out of 10): 3 Objective Objective/Function: Patient is actually doing well with progression of strengthening and Leela ex's with progression of abolishing pain in leg Goals Goal 1:: Patient to be I with HEP for lumbar Goal 2:: Patient to demonstrate 50% improvement with less pain and improved function Goal 3:: Patient to improve lumbar ROM for function of recovery for job demands Goal 4:: Patient to improve back oswestry score by 5 points to improve QOL and function Goal 5:: Patient to improve posture/body mechanics for job demands Plan Plan: RTD D/C Information d/c sentence: If there are questions or concerns regarding this patient's physical therapy, please feel free to call me at [phone]. Thank you for the referral of thispatient. Sincerely, Getachew Puente, PT, Cert MDT, OCS Balance/Gait/Functional tests Balance/Special Test Scores Oswestry Low Back Score: 23 <Electronically signed by Getachew Puente PT, Cert. MDT, OCS> 12/24/23 1244 CC: DHAVAL Miguelina Jones ~ JLA Signed [facility] Work Phone: 1(777) 118-899503-20-2024 Procedure [facility] 06-08-2022 Miscellaneous Notes* Telephone Encounter - Linda Ko LPN - 06/08/2022 10:12 AM EDT Kidney & bladder ultrasound results recevied from [facility]. Patient stated that she is having an MRIordered by PCP and will call office to f/u after she has MRI completed. Ultrasound results sent to be scanned documented in this encounterWebster ClinicEvaluation noteNo assessment information availableWPomerene Hospital Work Phone: Evaluation note* Diagnosis Onset Date Resolution Status COVID-19 acute [facility] Work Phone: Instructions* Name Dates Details Patient Instructions Indication:BMI 33.0-33.9,adult Start:10-Jan-2021 Instruction Type:Provider Instructions for Treatment How to Access Health Informa tion Online using Patient Portal and 3rd [employer] Apps Indication:Nonsmoker Start:10-Jan-2021 Instruction Type:Patient Education [...] Informa tion Online using Patient Portal and [employer] Apps Indication:Nonsmoker Start:10-Jan-2021 Instruction Type:Patient Education How [...] Informa tion Online using Patient Portal and [employer] Apps Indication:Nonsmoker Start:10-Jan-2021 Instruction Type:Patient Education [...] tion Online using Patient Portal and [employer]rd [employer] Apps Indication:Nonsmoker Start:10-Jan-2021 Instruction Type:Patient Education [...] tion Online using Patient Portal and [employer]rd [employer] Apps Indication:Nonsmoker Start:10-Jan-2021 Instruction Type:Patient Education [...] Informa tion Online using Patient Portal and [employer] Apps Indication:Encounter for general adult medical examination with abnormal findings Start:01-Jun-2022 Instruction Type:Patient Education Patient Instructions Indication:Encounter for general adult medical examination with abnormal findings Start:01-Jun-2022 Instruction Type:Provider Instructions for Treatment Patient Instructions Indication:BMI 32.0-32.9,adult Start:02-Dec-2021 Instruction Type:Provider Instructions for Treatment How to Access Health Informa tion Online using Patient Portal and [employer]rd [employer] Apps Indication:BMI 32.0-32.9,adult Start:02-Dec-2021 Instruction Type:Patient Education Patient Instructions Indication:BMI 32.0-32.9,adult Start:06-Jun-2021 Instruction Type:Provider Instructions for Treatment How to Access Health Informa tion Online using Patient Portal and [employer]rd [employer] Apps Indication:BMI 32.0-32.9,adult Start:06-Jun-2021 Instruction Type:Patient Education Patient Instructions Indication:BMI 33.0-33.9,adult Start:10-Jan-2021 Instruction Type:Provider Instructions for Treatment How to Access Health Informa tion Online using Patient Portal and [employer]rd [employer] Apps Indication:Nonsmoker Start:10-Jan-2021 Instruction Type:Patient Education [...] Informa tion Online using Patient Portal and [employer] Apps Indication:Encounter for general adult medical examination with abnormal findings Start:01-Jun-2022 Instruction Type:Patient Education Patient Instructions Indication:Encounter for general adult medical examination with abnormal findings Start:01-Jun-2022 Instruction Type:Provider Instructions for Treatment Patient Instructions Indication:BMI 32.0-32.9,adult Start:02-Dec-2021 Instruction Type:Provider Instructions for Treatment How to Access Health Informa tion Online using Patient Portal and [employer] Apps Indication:BMI 32.0-32.9,adult Start:02-Dec-2021 Instruction Type:Patient Education Patient Instructions Indication:BMI 32.0-32.9,adult Start:06-Jun-2021 Instruction Type:Provider Instructions for Treatment How to Access Health Informa tion Online using Patient Portal and [employer]rd [employer] Apps Indication:BMI 32.0-32.9,adult Start:06-Jun-2021 Instruction Type:Patient Education Patient Instructions Indication:BMI 33.0-33.9,adult Start:10-Jan-2021 Instruction Type:Provider Instructions for Treatment How to Access Health Informa tion Online using Patient Portal and [employer]rd [employer] Apps Indication:Nonsmoker Start:10-Jan-2021 Instruction Type:Patient Education [...] Informa tion Online using Patient Portal and [employer] Indication:Encounter for general adult medical examination with abnormal findings Start:01-Jun-2022 Instruction Type:Patient Education Patient Instructions Indication:Encounter for general adult medical examination with abnormal findings Start:01-Jun-2022 Instruction Type:Provider Instructions for Treatment Patient Instructions Indication:BMI 32.0-32.9,adult Start:02-Dec-2021 Instruction Type:Provider Instructions for Treatment How to Access Health Informa tion Online using Patient Portal and [employer] Apps Indication:BMI 32.0-32.9,adult Start:02-Dec-2021 Instruction Type:Patient Education Patient Instructions Indication:BMI 32.0-32.9,adult Start:06-Jun-2021 Instruction Type:Provider Instructions for Treatment How to Access Health Informa tion Online using Patient Portal and [employer] Apps Indication:BMI 32.0-32.9,adult Start:06-Jun-2021 Instruction Type:Patient Education Patient Instructions Indication:BMI 33.0-33.9,adult Start:10-Jan-2021 Instruction Type:Provider Instructions for Treatment How to Access Health Informa tion Online using Patient Portal and [employer] Apps Indication:Nonsmoker Start:30-Apr-2021 Instruction Type:Patient Education How to access health [...] Informa tion Online using Patient Portal and [employer] Apps Indication:Hypertension Start:01-Dec-2022 Instruction Type:Patient Education How to Access Health Informa tion Online using Patient Portal and [employer] Apps Indication:Encounter for general adult medical examination with abnormal findings Start:01-Jun-2022 Instruction Type:Patient Education Patient Instructions Indication:Encounter for general adult medical examination with abnormal findings Start:01-Jun-2022 Instruction Type:Provider Instructions for Treatment Patient Instructions Indication:BMI 32.0-32.9,adult Start:02-Dec-2021 Instruction Type:Provider Instructions for Treatment How to Access Health Informa tion Online using Patient Portal and [employer] Apps Indication:BMI 32.0-32.9,adult Start:02-Dec-2021 Instruction Type:Patient Education Patient Instructions Indication:BMI 32.0-32.9,adult Start:06-Jun-2021 Instruction Type:Provider Instructions for Treatment How to Access Health Informa tion Online using Patient Portal and [employer] Apps Indication:BMI 32.0-32.9,adult Start:06-Jun-2021 Instruction Type:Patient Education Patient Instructions Indication:BMI 33.0-33.9,adult Start:10-Jan-2021 Instruction Type:Provider Instructions for Treatment How to Access Health Informa tion Online using Patient Portal and [employer] Apps Indication:Nonsmoker Start:10-Jan-2021 Instruction Type:Patient Education [...] tion Online using Patient Portal and [employer] Apps Indication:Hypertension Start:01-Dec-2022 Instruction Type:Patient Education How to Access Health Informa tion Online using Patient Portal and [employer] Apps Indication:Encounter for general adult medical examination with abnormal findings Start:01-Jun-2022 Instruction Type:Patient Education Patient Instructions Indication:Encounter for general adult medical examination with abnormal findings Start:01-Jun-2022 Instruction Type:Provider Instructions for Treatment Patient Instructions Indication:BMI 32.0-32.9,adult Start:02-Dec-2021 Instruction Type:Provider Instructions for Treatment How to Access Health Informa tion Online using Patient Portal and [employer] Apps Indication:BMI 32.0-32.9,adult Start:02-Dec-2021 Instruction Type:Patient Education Patient Instructions Indication:BMI 32.0-32.9,adult Start:06-Jun-2021 Instruction Type:Provider Instructions for Treatment How to Access Health Informa tion Online using Patient Portal and [employer] Apps Indication:BMI 32.0-32.9,adult Start:06-Jun-2021 Instruction Type:Patient Education Patient Instructions Indication:BMI 33.0-33.9,adult Start:10-Jan-2021 Instruction Type:Provider Instructions for Treatment How to Access Health Informa tion Online using Patient Portal and [employer] Apps Indication:Nonsmoker Start:10-Jan-2021 Instruction Type:Patient Education [...] tion Online using Patient Portal and [employer] Apps Indication:Hypertension Start:01-Dec-2022 Instruction Type:Patient Education How to Access Health Informa tion Online using Patient Portal and [employer] Apps Indication:Encounter for general adult medical examination with abnormal findings Start:01-Jun-2022 Instruction Type:Patient Education Patient Instructions Indication:Encounter for general adult medical examination with abnormal findings Start:01-Jun-2022 Instruction Type:Provider Instructions for Treatment Patient Instructions Indication:BMI 32.0-32.9,adult Start:02-Dec-2021 Instruction Type:Provider Instructions for Treatment How to Access Health Informa tion Online using Patient Portal and [employer] Apps Indication:BMI 32.0-32.9,adult Start:02-Dec-2021 Instruction Type:Patient Education Patient Instructions Indication:BMI 32.0-32.9,adult Start:06-Jun-2021 Instruction Type:Provider Instructions for Treatment How to Access Health Informa tion Online using Patient Portal and [employer] Apps Indication:BMI 32.0-32.9,adult Start:06-Jun-2021 Instruction Type:Patient Education Patient Instructions Indication:BMI 33.0-33.9,adult Start:10-Jan-2021 Instruction Type:Provider Instructions for Treatment How to Access Health Informa tion Online using Patient Portal and [employer] Apps Indication:Nonsmoker Start:10-Jan-2021 Instruction Type:Patient Education [...] tion Online using Patient Portal and [employer] Apps Indication:Nonsmoker Start:09-Jun-2023 Instruction Type:Patient Education Patient Instructions Indication:Hypertension Start:01-Dec-2022 Instruction Type:Provider Instructions for Treatment How to Access Health Informa tion Online using Patient Portal and [employer] Apps Indication:Hypertension Start:01-Dec-2022 Instruction Type:Patient Education How to Access Health Informa tion Online using Patient Portal and [employer] Apps Indication:Encounter for general adult medical examination with abnormal findings Start:01-Jun-2022 Instruction Type:Patient Education Patient Instructions Indication:Encounter for general adult medical examination with abnormal findings Start:01-Jun-2022 Instruction Type:Provider Instructions for Treatment Patient Instructions Indication:BMI 32.0-32.9,adult Start:02-Dec-2021 Instruction Type:Provider Instructions for Treatment How to Access Health Informa tion Online using Patient Portal and [employer] Apps Indication:BMI 32.0-32.9,adult Start:02-Dec-2021 Instruction Type:Patient Education Patient Instructions Indication:BMI 32.0-32.9,adult Start:06-Jun-2021 Instruction Type:Provider Instructions for Treatment How to Access Health Informa tion Online using Patient Portal and [employer] Apps Indication:BMI 32.0-32.9,adult Start:06-Jun-2021 Instruction Type:Patient Education Patient Instructions Indication:BMI 33.0-33.9,adult Start:10-Jan-2021 Instruction Type:Provider Instructions for Treatment How to Access Health Informa tion Online using Patient Portal and [employer] Apps Indication:Nonsmoker Start:10-Jan-2021 Instruction Type:Patient Education [...] Internal Medicine; [facility] Work Phone: [phone]* Name Dates Details Patient Instructions Indication:Nonsmoker Start:09-Jun-2023 Instruction Type:Provider Instructions for Treatment How to Access Health Informa tion Online using Patient Portal and [employer] Apps Indication:Nonsmoker Start:09-Jun-2023 Instruction Type:Patient Education Patient Instructions Indication:Hypertension Start:01-Dec-2022 Instruction Type:Provider Instructions for Treatment How to Access Health Informa tion Online using Patient Portal and [employer] Apps Indication:Hypertension Start:01-Dec-2022 Instruction Type:Patient Education How to Access Health Informa tion Online using Patient Portal and [employer] Apps Indication:Encounter for general adult medical examination with abnormal findings Start:01-Jun-2022 Instruction Type:Patient Education Patient Instructions Indication:Encounter for general adult medical examination with abnormal findings Start:01-Jun-2022 Instruction Type:Provider Instructions for Treatment Patient Instructions Indication:BMI 32.0-32.9,adult Start:02-Dec-2021 Instruction Type:Provider Instructions for Treatment How to Access Health Informa tion Online using Patient Portal and [employer] Apps Indication:BMI 32.0-32.9,adult Start:02-Dec-2021 Instruction Type:Patient Education Patient Instructions Indication:BMI 32.0-32.9,adult Start:06-Jun-2021 Instruction Type:Provider Instructions for Treatment How to Access Health Informa tion Online using Patient Portal and [employer] Apps Indication:BMI 32.0-32.9,adult Start:06-Jun-2021 Instruction Type:Patient Education Patient Instructions Indication:BMI 33.0-33.9,adult Start:10-Jan-2021 Instruction Type:Provider Instructions for Treatment How to Access Health Informa tion Online using Patient Portal and [employer] Apps Indication:Nonsmoker Start:10-Jan-2021 Instruction Type:Patient Education [...] tion Online using Patient Portal and [employer] Apps Indication:Nonsmoker Start:02-Jul-2023 Instruction Type:Patient Education Patient Instructions Indication:Nonsmoker Start:09-Jun-2023 Instruction Type:Provider Instructions for Treatment How to Access Health Informa tion Online using Patient Portal and [employer] Apps Indication:Nonsmoker Start:09-Jun-2023 Instruction Type:Patient Education Patient Instructions Indication:Hypertension Start:01-Dec-2022 Instruction Type:Provider Instructions for Treatment How to Access Health Informa tion Online using Patient Portal and [employer] Apps Indication:Hypertension Start:01-Dec-2022 Instruction Type:Patient Education How to Access Health Informa tion Online using Patient Portal and [employer] Apps Indication:Encounter for general adult medical examination with abnormal findings Start:01-Jun-2022 Instruction Type:Patient Education Patient Instructions Indication:Encounter for general adult medical examination with abnormal findings Start:01-Jun-2022 Instruction Type:Provider Instructions for Treatment Patient Instructions Indication:BMI 32.0-32.9,adult Start:02-Dec-2021 Instruction Type:Provider Instructions for Treatment How to Access Health Informa tion Online using Patient Portal and [employer] Apps Indication:BMI 32.0-32.9,adult Start:02-Dec-2021 Instruction Type:Patient Education Patient Instructions Indication:BMI 32.0-32.9,adult Start:06-Jun-2021 Instruction Type:Provider Instructions for Treatment How to Access Health Informa tion Online using Patient Portal and [employer] Apps Indication:BMI 32.0-32.9,adult Start:06-Jun-2021 Instruction Type:Patient Education Patient Instructions Indication:BMI 33.0-33.9,adult Start:10-Jan-2021 Instruction Type:Provider Instructions for Treatment How to Access Health Informa tion Online using Patient Portal and [employer] Apps Indication:Nonsmoker Start:10-Jan-2021 Instruction Type:Patient Education [...] Informa tion Online using Patient Portal and [employer] Apps Indication:Nonsmoker Start:02-Jul-2023 Instruction Type:Patient Education Patient Instructions Indication:Nonsmoker Start:09-Jun-2023 Instruction Type:Provider Instructions for Treatment How to Access Health Informa tion Online using Patient Portal and [employer] Apps Indication:Nonsmoker Start:09-Jun-2023 Instruction Type:Patient Education Patient Instructions Indication:Hypertension Start:01-Dec-2022 Instruction Type:Provider Instructions for Treatment How to Access Health Informa tion Online using Patient Portal and [employer] Apps Indication:Hypertension Start:01-Dec-2022 Instruction Type:Patient Education How to Access Health Informa tion Online using Patient Portal and [employer] Apps Indication:Encounter for general adult medical examination with abnormal findings Start:01-Jun-2022 Instruction Type:Patient Education Patient Instructions Indication:Encounter for general adult medical examination with abnormal findings Start:01-Jun-2022 Instruction Type:Provider Instructions for Treatment Patient Instructions Indication:BMI 32.0-32.9,adult Start:02-Dec-2021 Instruction Type:Provider Instructions for Treatment How to Access Health Informa tion Online using Patient Portal and [employer] Indication:BMI 32.0-32.9,adult Start:02-Dec-2021 Instruction Type:Patient Education Patient Instructions Indication:BMI 32.0-32.9,adult Start:06-Jun-2021 Instruction Type:Provider Instructions for Treatment How to Access Health Informa tion Online using Patient Portal and [employer] Indication:BMI 32.0-32.9,adult Start:06-Jun-2021 Instruction Type:Patient Education Patient Instructions Indication:BMI 33.0-33.9,adult Start:10-Jan-2021 Instruction Type:Provider Instructions for Treatment How to Access Health Informa tion Online using Patient Portal and [employer] Apps Indication:Nonsmoker Start:10-Jan-2021 Instruction Type:Patient Education [...] Internal Medicine; [facility] Work Phone: reason for referral (narrative)No reason for referral information availableMer[facility] Work Phone: Instructions Name Dates Details Nonsmoker [...] n : Patient Instructions Indication:Benign essential hypertension Family History No Family History Records Found Relationship Condition Age at Onset Recorded Date/T ned mother Cardiac disease Unknown father Cardiac disease Unknown Summary Purpose Advance Directives No Advanced Directives Records FoundNo Advanced Directives Records FoundNo Advanced Directives Records Found Chief Complaint and Reason for Visit Chief Complaint employee labs HEMATURIA UTNEINE MASS Chief Complaint employee labs LUMBAR XRAY Chief Complaint employee labs LUMBAR XRAY FEVER, COUGH, SORE THROAT SCREENING SPONDYLOSIS, DDD. RX HERE Reason for Visit COVID-19 Chief Complaint LUMBAR XRAY FEVER, COUGH, SORE THROAT SCREENING LT BREAST ABN SOUTH [place]ASS ON RT JAWLINE SPONDYLOSIS, DDD. RX HERE LOW BACK PAIN W/LT SIDE SCIATICA Reason for Visit COVID-19 Chief Complaint SCREENING LT BREAST ABN SOUTH [place]ASS ON RT JAWLINE SPONDYLOSIS, DDD. RX HERE LOW BACK PAIN W/LT SIDE SCIATICA Pain in left leg Pain in left leg Chief Complaint MASS ON RT JAWLINE SPONDYLOSIS, DDD. 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 RX HERE Reason for Visit COVID-19 Chief Complaint Admit Date RIGHT KNEE JAI PROTOCAL March 19, 2025 7:31am Chief Complaint Admit Date RIGHT KNEE JAI PROTOCAL March 19, 2025 7:31am PREOP March 19, 2025 7:53a m SCREENING April 20, 2025 11: 38am Additional Source Comments Goals (unrecognized section and content) Goals may be documented in a n alternate sectionGoals may be documented in an alternate sectionGoals may be documented in an alternate sectionGoals may be documented in an alternate sectionGoals may be documented in an alternate sectionGoals may be documented in an alternate sectionGoals may be documented in an alternate sectionGoals may be documented in an alternate section Source Comments (unrecognize d section and content) In the event this informatio n is protected by the Federal Confidentiality of Alcohol and Drug Abuse Patient Records regulations: The Federal rules restrict any use of the information to criminally investigate or prosecute any alcohol or drug abuse patient.[facility] Reason for Visit (unrecogniz ed section and content) Reason Comments Results INFORMATION SOURCE (unrecogn ized section and content) DATE CREATED AUTHOR 06/15/2022 [facility] DATE CREATED AUTHOR AUTHOR'S ORGANIZ ATION 12/23/2022 [facility] DATE CREATED AUTHOR AUTHOR'S ORGANIZ ATION [facility] Teams (unrecognized sec tion and content) Team Status: Active Member Role Status Dates Ivette Ramos NP, DOOR PATCHER-C Family Provider Active DHAVAL Almeida Primary Care Provider Active Team Status: Inactive Member Role Status Dates DHAVAL Almeida Primary Care Provi svitlana, Attending Provider, Referring Provider Active Team Status: Active Member Role Status Dates Miguelina Robert , DOOR PATCHER-C Primary Care Provider Active Health Risk Assessment Attending Provider, Referring P dionte Active Team Status: Inactive Member Role Status Dates Miguelina Jones DOOR PATCHER-C Primary Care Provider, Referring Provider Active Mechelle NATARAJAN, PA Attending Provider Active Team Status: Active Member Role Status Dates Miguelina Jones , DOOR PATCHER-C Primary Care Provi svitlana, Attending Provider, Referring Provider Active Team Status: Inactive Member Role Status Dates Miguelina Jones DOOR PATCHER-C Primary Care Provider Active Dr. Charles Nazario MD Attending Provider, Referring Pr ovider Active Team Status: Active Member Role Status Dates Miguelina Jones DOOR PATCHER-C Primary Care Provi svitlana, Referring Provider, Other Provider Active Dr. Abilio Acosta MD Attending Provider Active Team Status: Active Member Role Status Dates Miguelina Jones DOOR PATCHER-C Primary Care Provider Active Team Status: Inactive Member Role Status Dates Miguelina Jones DOOR PATCHER-C Primary Care Provider Active Start: October 09, 2024 End: October 09, 2024 Dr. Abel Armendariz DO Attending Provider Active Start: October 09, 2024 End: October 09, 2024 Dr. Abel Armendariz DO Referring Provider Active Start: October 09, 2024 End: October 09, 2024 Team Status: Inactive Member Role Status Dates Miguelina Jones DOOR PATCHER-C Primary Care Provider Active Start: January 29, 2025 End: January 29, 2025 Dr. Maxim Pham MD Attending Provider Active Start: January 29, 2025 End: January 29, 2025 Dr. Maxim Pham MD Referring Provider Active Start: January 29, 2025 End: January 29, 2025 Team Status: Active Member Role Status Dates Miguelina Jones DOOR PATCHER-C Primary Care Provider Active Start: January 29, 2025 DELGADO Cosme Attending Provider Active Start : January 29, 2025 DELGADO Cosme Referring Provider Active Start : January 29, 2025 Team Status: Active Member Role/Relationship Status Dates Miguelina Jones , DOOR PATCHER-C Primary Care Provider Active Team Status: Inactive Member Role/Relationship Status Dates Miguelina Jones DOOR PATCHER-C Primary Care Provider Active Start: January 29, 2025 End: January 29, 2025 Dr. Maxim Pham MD Attending Provider Active Start: January 29, 2025 End: January 29, 2025 Dr. Maxim Pham MD Referring Provider Active Start: January 29, 2025 End: January 29, 2025 Team Status: Inactive Member Role/Relationship Status Dates Miguelina Jones , DOOR PATCHER-C Primary Care Provider Active Start: January 29, 2025 End: January 29, 2025 DELGADO Cosme Attending Provider Active Start : January 29, 2025 End: January 29, 2025 DELGADO Cosme Referring Provider Active Start : January 29, 2025 End: January 29, 2025 Team Status: Inactive Member Role/Relationship Status Dates Miguelina Jones DOOR PATCHER-C Primary Care Provider Active Start: March 19, 2025 End: March 19, 2025 Dr. Abel Armendariz DO Attending Provider Active Start: March 19, 2025 End: March 19, 2025 Dr. Abel Armendariz DO Referring Provider Active Start: March 19, 2025 End: March 19, 2025 Team Status: Active Member Role/Relationship Status Dates Miguelina Jones , DOOR PATCHER-C Primary Care Provider Active Start: March 19, 2025 End: March 19, 2025 Dr. Rip Hester MD Attending Provider Active S tart: March 19, 2025 End: March 19, 2025 Dr. Abel Armendariz DO Referring Provider Active Start: March 19, 2025 End: March 19, 2025 Team Status: Inactive Member Role/Relationship Status Dates Miguelinasavannah Jones , DOOR PATCHER-C Primary Care Provider Active Start: April 20, 2025 End: April 20, 2025 Miguelina Jones DOOR PATCHER-C Attending Provider Active Start: April 20, 2025 End: April 20, 2025 Miguelina Jones , DOOR PATCHER-C Referring Provider Active Start: April 20, 2025 End: April 20, 2025 Dr. Agnes Boyle DO Other Provider Active S tart: April 20, 2025 End: April 20, 2025 FOR RECORDS PERTAINING TO PATIENTS WHO ARE [...] BE BASED ON THE PRIMARY CLINICAL RECORDS. [facility]. provides no warranty or guarantee of the accuracy or completeness of information in this document.
[2025-05-07] MEDS: Magnesium 1 GM over 15 mins IV (06:05)
[2025-05-07] MEDS: LR 1,000 ML - BOLUS PREOP 999 ML IV (06:05)
--- NOTE | 2025-05-07 06:43 | PRE.ANES_ITS ---
ASA Classification* ASA Classification ASA Classification: 2 Assessment & Plan Anesthesia* Anesthesia Assessment Anesthesia Assessment: Discussed sedation and/or anesthesia options, risks, benefits, and alternatives with patient/parents/legal guardian/POA. Questions invited. The patient/parents/legal guardian/POA seems to understand and agrees to proceed with anesthesia plan. Reviewed the physical assessment, medical history, allergy history and patient home medications list prior to surgery/procedure/anesthetic and documented any changes. Performed airway and anesthesia risk assessments. Anesthesia Type Anesthesia Type: MAC, Spinal and Block History Source History Obtained from:: Patient and Chart Anesthesia Focused Assessment* Temperature: 98.3 F Pulse Rate: 79 Blood Pressure: 108/87 Respiratory Rate: 18 Pulse Ox: 100 Oxygen Delivery Method: Room Air Airway Assessment Mouth opens: 2 cm Mallampati Score: III Teeth Condition: Intact Neck Range of motion (ROM): Full ROM Labs Anesthesia Preop lab: CBC WBC 8.6 K/mm3 (4.4-11.0) 04/10/25 15:41 04/10/25 RBC 4.73 M/mm3 (4.2-5.4) 04/10/25 15:41 04/10/25 Hgb 13.7 g/dL (12.0-15.0) 04/10/25 15:41 04/10/25 Hct 40.3 % (37-47) 04/10/25 15:41 04/10/25 Plt Count 342 K/mm3 (150-450) 04/10/25 15:41 04/10/25 CHEMISTRY Potassium 3.9 mmol/L (3.3-5.1) 04/10/25 15:41 04/10/25 Sodium 140 mmol/L (133-145) 04/10/25 15:41 04/10/25 Magnesium 2.2 mg/dL (1.5-2.2) 04/10/25 15:40 04/10/25 Phosphorus 3.9 mg/dL (2.5-4.9) 06/20/24 06:43 06/20/24 BUN 17 mg/dL (4-19) 04/10/25 15:41 04/10/25 Creatinine 0.71 mg/dL (0.70-1.20) 04/10/25 15:41 04/10/25 Glucose 55 mg/dL (70-99) L 04/10/25 15:41 04/10/25 TSH 1.25 uIU/mL (0.358-3.74) 01/10/21 12:15 COAG Pre-Assessment Diagnosis/Proposed Procedure Planned Operative Procedure(s): ROBOTIC ASSISTED RIGHT TOTAL KNEE ARTHROPLASTY, ERAS Anesthesia History Anesthesia History - director of healthcare systems: Anesthesia History - director of healthcare systems Hx Hospitalization No 04/10/25 14:15 Any Problems With Anesthesia No 04/10/25 14:15 Cholinesterase deficiency No 04/10/25 14:15 You/Your Family Experience No 04/10/25 14:15 fever (hyperthermia) with Relationship Recent Exposure to Contagious No 05/07/25 06:14 Disease Does patient have nerve No 04/10/25 14:15 stimulator Patient instructed to have device shut off --Does patient have Pacemaker No 05/07/25 06:14 or ICD? When Was Last Pacemaker Check QUESTION #4 FULL TEXT: You/Your Family Experience fever (hyperthermia) with Anesthesia Last Oral Intake Last Oral intake: Last Oral Intake NPO since 03:00 05/07/25 06:14 Meds taken in AM with sips of Yes 05/07/25 06:14 water? Meds patient instructed to take am of surgery PONV PONV - director of healthcare systems: PONV - director of healthcare systems Female Yes 04/10/25 14:15 HX of Motion Sickness No 04/10/25 14:15 HX of N/V After Surgery No 04/10/25 14:15 Non-Smoker Yes 04/10/25 14:15 Duration of Surgery greater Yes 04/10/25 14:15 than 60 minutes Number of Risk Factors 3 04/10/25 14:15 PONV Score Moderate Risk 04/10/25 14:15 Height & Weight Height & Weight: Anesthesia: Height & Weight Height 4 ft 11 in 05/07/25 06:14 Weight: 72 kg 05/07/25 06:14 Body Mass Index (BMI) 32.0 05/07/25 06:14 Respiratory Assessment Respiratory Assessment - director of healthcare systems: Respiratory Tract Infection Hx - director of healthcare systems Hx Respiratory Tract Infection No 04/10/25 14:15 STOP Sleep Apnea STOP Sleep Apnea - director of healthcare systems: STOP Sleep Apnea - director of healthcare systems Hx Hypertension Yes: PER PT, CONTROLLED ON 04/10/25 14:15 MEDS Hx Sleep Apnea No 04/10/25 14:15 CPAP BIPAP Do you snore loudly (louder No 04/10/25 14:15 than talking or can be heard Do you often feel tired/ No 04/10/25 14:15 fatigued/ sleepy during daytime? Has anyone observed you stop No 04/10/25 14:15 breathing during sleep? STOP Results Negative 04/10/25 14:15 QUESTION #5 FULL TEXT : Do you snore loudly (louder than talking or can be heard through closed doors)? Tobacco Use History Tobacco Use History - director of healthcare systems: Tobacco Use History - director of healthcare systems Tobacco Use Smoking Status Never smoker 04/10/25 14:15 Hx Tobacco Use No 04/10/25 14:15 Years Smoking Packs Smoked per Day Smoking Cessation Date was within the last 15 years Hx Smoking Cessation Date Hx Smoking Cessation Counseling Hematologic Medial History Hematologic Hx - director of healthcare systems: Hematologic Medical Hx - documentation consultant Hx of Blood Transfusion No 04/10/25 14:15 Hx of Transfusion in last 3 No 04/10/25 14:15 Months Date of Last Transfusion (if within last 3 months) Ever experience any problems No 04/10/25 14:15 with transfusion(s)? Specify any problems Hx of Preganancy in last 3 No 04/10/25 14:15 Months Nurse Filling Out Transfusion MGRIFFITH 04/10/25 14:15 & Questions: Date: 04/10/25 04/10/25 14:15 Time: 14:16 04/10/25 14:15 Patient unable to answer at this time (ie. confused, unrespo /Reproduction History /Reproductive History - director of healthcare systems: /Reproductive Hx- director of healthcare systems Hx Now No 04/10/25 14:15 Gestational Age (in weeks): EDC: Hx Hx Para Hx Section SAB No 04/10/25 14:15 Active Medications Active Medications: Current Medications Generic Name Dose Route Start Last Admin Trade Name Freq PRN Reason Stop Dose Admin Acetaminophen 1,000 mg 05/07/25 08:00 05/07/25 06:22 Acetaminophen 500 Mg Tablet PO 05/07/25 08:01 1,000 mg PREOP ONE Administration Celecoxib 400 mg 05/07/25 08:00 05/07/25 06:22 Celecoxib 200 Mg Capsule PO 05/07/25 08:01 400 mg PREOP ONE Administration Sodium Chloride 77.9 ml/ 0 ml 05/07/25 08:00 Ropivacaine 200 mg/ OPERA.SITE 05/07/25 08:01 Epinephrine HCl 0.6 mg/ INTRAOP ONE Ketorolac Tromethamine 30 mg/ Morphine Sulfate 5 mg Dexamethasone Sodium Phosphate 10 mg 05/07/25 08:00 Dexamethasone 10 Mg/Ml Vial IV 05/07/25 08:01 INTRAOP ONE Gabapentin 600 mg 05/07/25 08:00 05/07/25 06:22 Gabapentin 600 Mg Tablet PO 05/07/25 08:01 600 mg PREOP ONE Administration Lactated Ringer's 1,000 mls @ 999 mls/hr 05/07/25 08:00 05/07/25 06:05 IV 05/07/25 09:00 999 mls/hr .Q1H1M NIMO Administration Cefazolin Sodium 2 gm/ Sodium 110 mls @ 150 mls/hr 05/07/25 08:00 Chloride IV 05/07/25 08:43 INTRAOP ONE Tranexamic Acid 1,000 mg/ 110 mls @ 660 mls/hr 05/07/25 08:00 Sodium Chloride IV 05/07/25 08:09 INTRAOP ONE Tranexamic Acid 1,000 mg/ 110 mls @ 660 mls/hr 05/07/25 09:00 Sodium Chloride IV 05/07/25 09:09 INTRAOP ONE Lactated Ringer's 1,000 mls @ 999 mls/hr 05/07/25 09:00 IV 05/07/25 10:00 .Q1H1M NIMO Lactated Ringer's 1,000 mls @ 125 mls/hr 05/07/25 10:00 IV 05/07/25 17:59 .Q8H NIMO Magnesium Sulfate 1 gm/ 102 mls @ 408 mls/hr 05/07/25 08:00 05/07/25 06:05 Dextrose IV 05/07/25 08:14 408 mls/hr PREOP ONE Administration Insulin Human Lispro 1 - 6 unit 05/07/25 08:00 Insulin Lispro 100 Unit/Ml Insuln.Pen SC 05/07/25 14:00 Q4H PRN PRN BG>/= 180, SEE PROTOCOL Protocol PFSH Medical History (Updated 04/10/25 @ 14:23 by Abbie Lerner) Hypertension Wears glasses History of steroid therapy Arthritis Migraine headache Non-smoker History of echocardiogram Normal stress echocardiogram History of Holter monitoring Cardiology follow-up encounter Low HDL (under 40) Essential (primary) hypertension Pericardial effusion Obesity Basal cell carcinoma Home Medications ?Medication ?Instructions ?Recorded ?Last Taken ?Type valsartan 320 mg tablet (Diovan) 320 mg PO DAILY 10/2505/07/25 History spironolactone 25 mg tablet 25 mg PO DAILY 04/06/24 History cholecalciferol (vitamin D3) 25 25 mcg PO DAILY 05/05/25 History mcg (1,000 unit) capsule (Vitamin D3) [id number] 250 2 tab PO Q4H PRN pa in 04/10/25 05/02/25 History mg-250 mg-65 mg tablet (Excedrin Extra Strength) magnesium glycinate 100 mg (as 200 mg PO DAILY 5 05/05/25 History glycinate) tablet Allergy/AdvReac Type Severity Reaction Status Date / Time amlodipine AdvReac edema Verified 04/10/25 14:11 Family History Mother Heart disease Father Heart disease Surgical History (Updated 04/10/25 @ 13:37 by Abbie Lerner) History of colonoscopy History of selective injection of anesthetic agent around lumbar nerve root H/O myomectomy History of Social History household members: spouse current occupational status: employed 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 Physical Exam Const alert and oriented x3 Orientation / Consciousness: awake Nutritional Appearance: obese Resp normal respiratory effort and normal air movement Cardio regular rate and regular rhythm
[2025-05-07] MEDS: Cefazolin 1 GM/5 ML Vial 2 GM IV (07:36)
[2025-05-07] MEDS: Midazolam 2 MG/2 ML Syringe IV (07:38)
[2025-05-07] MEDS: JPS (Morphine 10mg/ml) OPERA.SITE (09:05)
[2025-05-07] MEDS: TRANEXAMIC ACID 1,000 MG/10 ML ML 2000 MG IV (09:08)
[2025-05-07] MEDS: fentaNYL 100 MCG/2 ML Ampul IV (09:40)
[2025-05-07] MEDS: LR 1,000 ML - BOLUS POSTOP 999 ML IV (09:50)
--- NOTE | 2025-05-07 09:50 | PCM.POST.ANE ---
Anesthesia: Postop Eval I Current Vital Signs Temperature: 97.8 F Pulse Rate: 101 Blood Pressure: 105/69 Respiratory Rate: 20 Pulse Ox: 94 Assessment Airway patent: Yes Spontaneous unlabored respirations: Yes nausea: No Vomiting: No Anesthesia Complication: No Fluid Hydration Crystalloid volume administer (ml): 1,100 Total IV fluid infused: 1,100 Progress Note Anesthesia document: Postop Eval 1 completed: Yes
[2025-05-07] MEDS: Cefazolin 1 GM/50 ML BAG IV (09:55)
--- NOTE | 2025-05-07 09:56 | RAD_ITS ---
PROCEDURE: KNEE 1 OR 2 VIEWS 05/07/2025 REASON FOR EXAM: POST OP Total right knee arthroplasty. TECHNIQUE: KNEE 1 OR 2 VIEWS Laterality: Right COMPARISON: Right knee studies dated 10/09/2024 and 04/06/2024 FINDINGS: Bones: There are 4 lytic lesions that are round measuring approximate 3 mm projected over the distal femur and 4 lytic round 3 mm lesions projected over the medial aspect of the right tibia. These likely are postsurgical. The right prosthetic knee device appears to be in satisfactory position without evidence of fracture or loosening. Subcutaneous emphysematous air is seen along the anterior aspect of the right knee. There are no acute fractures or dislocations. There is a small suprapatellar bursa effusion. There is soft tissue swelling of the right knee. RAD/Knee 1 or 2 Views IMPRESSION: The right prosthetic knee device appears to be in satisfactory position without evidence of fracture or loosening. Subcutaneous soft tissue air anterior to the right knee. Small suprapatellar bursa effusion. Soft tissue swelling right knee. Reading Location: [id number]
[2025-05-07] MEDS: LR 1,000 ML - 125 ML/HR (POST BOLUS) POST OP IV (10:00)
--- NOTE | 2025-05-07 10:29 | OP.PCM_ITS ---
Operative Report (Standard) Operative Information Date of Procedure: 05/07/25 Pre-Operative Diagnosis: Right knee osteoarthritis Post-Operative Diagnosis: Right knee osteoarthritis Surgery/Procedure Performed: Right robotic arm assisted total knee arthroplasty correctional probation officer: Yes Adjunct Psychology Professor: Marisol Justice Tasks completed by hearing and speech assistant: Opening & closing, Implanting device, Hemostasis: Electrocautery and Retracting Additional assistant spa director?: No Type of Anesthesia: Spinal RN Documented Start/Stop Times: Operation Date: 05/07/25 07:30 Case Time Into Pre-Op 05/07/25 05:43 Anesthesia Start 05/07/25 07:37 Into Room 05/07/25 07:37 Procedure Start 05/07/25 08:04 Procedure End 05/07/25 09:42 Anesthesia End 05/07/25 09:46 Out of Room 05/07/25 09:46 Into Recovery 05/07/25 09:49 Procedure Start Time: 08:04 Procedure Stop Time: 09:42 Select all DRAINS/GRAFTS/IMPLANTS that apply: Implanted device Implanted device details: [employer] press-fit CR size #1 femur, press-fit size #1 tibia, 9 mm CS polyethylene, 29 mm all polyethylene patella Estimated Blood Loss: 25 cc Specimen collected: No Description of surgery: Patient was identified in the preoperative holding area by name, medical record number, and date of . Informed consent was confirmed with the patient. The operative knee was marked with a surgical marker. Anesthesia then then administered a spinal anesthetic in the PACU. At time of her procedure, patient brought to the operative suite and positioned supine a standard operating table. All bony prominences were well-padded. We then placed a well-padded pneumatic tourniquet on the right upper thigh. The right upper extremity was brought across patient's chest throughout the procedure. We then prepped and draped the right lower extremity in a normal, sterile orthopedic fashion. We performed a timeout with all parties in attendance in agreement with the side, site, operation be performed. No concerns were voiced and would like to proceed with surgery. 2 g Ancef was administered prior to the incision by anesthesia staff as well as 1 g IV TXA. First exsanguinated the left lower extremity with a Esmarch bandage. Tourniquet was inflated to 280 mmHg. Esmarch was removed. Tourniquet was inflated for approximately 65 minutes. I planned a standard midline approach to the left knee approximately 15 cm in length. Skin was sharply incised with a 10 blade scalpel developing full-thickness layers down to the retinaculum. Layers were developed identifying the VMO. I then planned a standard medial parapatellar arthrotomy performed in flexion. The anterior horn of the medial meniscus was released. Hoffa's fat pad was then released. I then everted the patella in extension and brought the knee into 90 degrees of flexion. The anterior horn of the lateral meniscus was then released. The ACL was split in its mid substance with a 10 blade. We then brought the knee back into extension. An appropriately sized patellar reamer was selected for. I measured the thickness of the patella to be 23 mm. I then reamed the patella to a depth of approximately 14 mm. I then placed pins in the metaphyseal distal femur medial to lateral for the Jai arrays. In similar fashion, I made a 2 cm incision approximately a handsbreadth distal to the tibial tubercle along the medial aspect of the tibia, drilling 2 bicortical pins for the tibial array. The knee was brought into flexion. The patella was subluxed laterally but not everted. Medial lateral retractors were placed. We then utilized the [employer]ave[employer] software to confirm our planned surgical procedure and oriented with the patient's osseous anatomy. All checks with the Favee[employer] system were confirmed. Patient had a significant fixed varus deformity after performing stress examination utilizing the Fave[employer] software. Neutral cuts were planned. Sawblade was then brought in. I first started with the tibial cut, ensuring protection of the MCL and patellar tendon. A tibial wafer was then excised. I then proceeded to make the posterior femoral, anterior, anterior chamfer cuts with the same blade. Ligaments were protected with [employer] retractors. Sawblade was then exchanged to perform the distal femoral and posterior chamfer cuts. The robot was then removed from the surgical field. Remaining loose bone and me niscus was excised carefully. Posterior osteophytes were removed from the distal femur with a curved osteotome and rongeur. Trial components were then placed. Balance was excellent in both extension and 90 degrees flexion. No mid flexion instability was apparent. I then drilled for a size 29 patella. Patella was trialed. Tracking was excellent. We then marked for tibial baseplate. Distal femoral pegs were drilled. Tibial keel was punched. Trials were removed. Periarticular block was administered. The wound was copiously irrigated with normal saline solution. Simplex cement was then mixed on the back table. Press-fit tibia and femoral components were placed with excellent pullout strength. Patellar component was then cemented in place with excess cement being removed. Cement was allowed to cure with the components in full extension utilizing a 9 mm trial polyethylene component. While the cement was curing, Betadine solution was irrigated into the wound and the wound edges. After cement had cured fully, trial polyethylene was removed. Tourniquet was deflated. Hemostasis was excellent. An additional 1 g TXA was administered IV. I selected a size 9 mm polyethylene which was placed and impacted per insurance underwriting assistant recommendations. Final components appeared very well balanced with excellent range of motion. There was no significant remaining flexion contracture. The wound was copiously irrigated with normal saline solution. Capsule was closed watertight with #1 strata fix barbed suture. Deeper bursal layer was reapproximated with 0 Vicryl suture. Dermis was reapproximated buried interrupted 2-0 Vicryl suture. Skin was finally subcuticular 4-0 Monocryl and Dermabond. 3-0 nylon suture in horizontal mattress fashion was used to close the tibial array incisions Patient tolerated the procedure well without apparent complication. She was safely awakened in the operative suite, transferred to her gurney and subsequently to PACU in stable condition. Need for skilled assistant spa director: Marisol Justice PA-C was critical to the outcome of the case. During the course of the procedure the physician assistant spa director played a vital role. Her intimate knowledge of my steps in the procedure aided in safe and expedient completion of the procedure. The PA played a vital role in positioning particularly in obtaining the appropriate positioning. The PA was also vital in the retraction of soft tissues during the exposure and projecting vital structures. The PA was also vital and protecting soft tissues during times of bony cuts. She also played a vital role in closure with my direct supervision. The PA was also important during reduction and dislocation of the joint and trials intraoperatively. Post Operative Plan: Plan for outpatient same-day discharge after meeting same-day surgery criteria. Physical therapy to see the patient prior to discharge. Weightbearing: Range of motion and weightbearing as tolerated right lower extremity. Antibiotics: 1 dose Ancef prior to discharge DVT Prophylaxis: Multimodal with SCDs, early mobilization, JOAN hose, aspirin 81 mg twice daily Dupont: None Dressing: Maintain silver dressing x5 days X-Rays: 2-week x-rays in the office. Follow-up: 2 weeks Surgical Findings: Tricompartmental osteoarthritic changes. Excellent patellar tracking. Good balance. Complications Complications: No Admit VTE Documentation VTE Present on Admission: No VTE Mechan Device Prophylaxis: SCD's and Thigh High JOAN Carlos VTE Pharm Prophylaxis ordered?: Yes
== END 2025-05-07 15:35 | disposition home or self-care (01) ==
LOC: SDC 05:33 → AC 05:33
PROVIDERS: Anesthesiology; PCP Nurse Practitioner Family; Referring Provider Student in an Organized Health Care Education/Training Program; Visit Provider Student in an Organized Health Care Education/Training Program
PROC: 0SRC0JZ Replacement of Right Knee Joint with Synthetic Substitute, Open Approach (ICD-10-PCS; CPT 27447; principal; 2025-05-07 07:00)
DX: M17.11 Unilateral primary osteoarthritis, right knee (principal); I10 Essential (primary) hypertension; E66.9 Obesity, unspecified; Z68.32 Body mass index [BMI] 32.0-32.9, adult; Z79.82 Long term (current) use of aspirin; Z79.899 Other long term (current) drug therapy
CPT/HCPCS: 27447; 01402; 64447; 36415; 73560; 80048; 82040; 82962; 83735; 85025; 87081; 97162; C1776; J2405; J3475

== ENCOUNTER → 2025-06-27 | Outpatient (CLI) | payer OTHER, SELFPAY ==
--- NOTE | 2025-06-27 13:12 | RAD_ITS ---
PROCEDURE: KNEES STANDING AP BILATERAL 06/27/2025 REASON FOR EXAM: PAIN/ ARTIFICIAL KNEE JOINT TECHNIQUE: Procedure Code: RADKNESTANDAP Modality: DX Procedure: KNEES STANDING AP BILATERAL Laterality: Both COMPARISON: Right knee, 05/07/2025, left knee, 10/09/2024. FINDINGS: Left knee: There is no evidence of fracture or dislocation. There is moderate arthritis of the medial joint space compartment of the knee. There is mild arthritis of the lateral joint space compartment of the knee. The visualized periarticular soft tissues are normal. Right knee: Status post total knee arthroplasty. The femoral and tibial components are normal apposition. There is no evidence of fracture. The visualized periarticular soft tissues are unremarkable. RAD/Knees Standing AP Bilateral IMPRESSION: As per findings. Reading Location: [place] [id number]
--- NOTE | 2025-06-27 13:13 | RAD_ITS ---
PROCEDURE: KNEE 1 OR 2 VIEWS 06/27/2025 REASON FOR EXAM: PAIN/ ARTIFICIAL KNEE JOINT TECHNIQUE: Procedure Code: RADK Modality: DX Procedure: KNEE 1 OR 2 VIEWS Laterality: Right COMPARISON: Right knee, 05/07/2025 FINDINGS: RIGHT KNEE: Status post total knee arthroplasty. The patellar, femoral and tibial components are normal apposition. There is no evidence of fracture. There is no knee joint effusion. The periarticular soft tissues are unremarkable. RAD/Knee 1 or 2 Views IMPRESSION: Normal-appearing right total knee arthroplasty. Reading Location: [place] [id number]
== END | disposition home or self-care (01) ==
LOC: MTRAD 13:09
PROVIDERS: PCP Nurse Practitioner Family; Referring Provider Student in an Organized Health Care Education/Training Program; Visit Provider Student in an Organized Health Care Education/Training Program
DX: Z96.651 Presence of right artificial knee joint (principal)
CPT/HCPCS: 73560; 73565

== ENCOUNTER 2025-07-09 05:57 | Day surgery (SDC) | payer OTHER, SELFPAY ==
[2025-07-09] VITALS (8 sets, daily range): BP systolic 106–124; BP diastolic 66–80; PULSE 89–95; RESP 10–18; TEMP 36.8–37.3; O2SAT 93–100; BMI 30.1
[2025-07-09] MEDS: Lactated Ringers 1,000 ML 15 ML IV (06:33)
--- NOTE | 2025-07-09 06:43 | PCM.PRE.AN2 ---
ASA Classification* ASA Classification ASA Classification: 2 Assessment & Plan Anesthesia* Anesthesia Assessment Anesthesia Assessment: Discussed sedation and/or anesthesia options, risks, benefits, and alternatives with patient/parents/legal guardian/POA. Questions invited. The patient/parents/legal guardian/POA seems to understand and agrees to proceed with anesthesia plan. Reviewed the physical assessment, medical history, allergy history and patient home medications list prior to surgery/procedure/anesthetic and documented any changes. Performed airway and anesthesia risk assessments. Anesthesia Type Anesthesia Type: MAC (GA backup.) History Source History Obtained from:: Patient and Chart Anesthesia Focused Assessment* Temperature: 99.2 F Pulse Rate: 93 Blood Pressure: 124/73 Respiratory Rate: 16 Pulse Ox: 100 Oxygen Delivery Method: Room Air Airway Assessment Mouth opens: >3 cm Mallampati Score: IV Teeth Condition: Intact Neck Range of motion (ROM): Limited ROM (Severe Restriction) Labs Anesthesia Preop lab: CBC WBC, (4.4-11.0) 8.0 K/mm3 06/07/25, RBC, (4.2-5.4) 4.46 M/mm3 06/07/25, Hgb, (12.0-15.0) 13.1 g/dL 06/07/25, Hct, (37-47) 38.6 % 06/07/25, Plt Count, (150-450) 440 K/mm3 06/07/25, CHEMISTRY Potassium, (3.3-5.1) 4.1 mmol/L 06/07/25, Sodium, (133-145) 141 mmol/L 06/07/25, Magnesium, (1.5-2.2) 2.2 mg/dL 04/10/25, 15:40 Phosphorus, (2.7-4.5) 3.9 mg/dL 06/07/25, BUN, (4-19) 14 mg/dL 06/07/25, Creatinine, (0.70-1.20) 0.71 mg/dL 06/07/25, Glucose, (70-99) 93 mg/dL 06/07/25, POC Glucose, (74-106) 134 mg/dL H 08/25/25, 06:12 TSH, (0.358-3.74) 1.25 uIU/mL 01/10/21, 12:15 COAG Pre-Assessment Diagnosis/Proposed Procedure Planned Operative Procedure(s): (R) RIGHT KNEE ARTHROPLASTY MANIPULATION UNDER ANESTHESIA Anesthesia History Anesthesia History - crystal attacher: Anesthesia History - crystal attacher Hx Hospitalization No 07/05/25 14:03 Any Problems With Anesthesia No 07/05/25 14:03 Cholinesterase deficiency No 07/05/25 14:03 You/Your Family Experience No 07/05/25 14:03 fever (hyperthermia) with Relationship Recent Exposure to Contagious No 07/09/25 06:26 Disease Does patient have nerve No 07/05/25 14:03 stimulator Patient instructed to have device shut off --Does patient have Pacemaker No 07/09/25 06:26 or ICD? When Was Last Pacemaker Check QUESTION #4 FULL TEXT: You/Your Family Experience fever (hyperthermia) with Anesthesia Last Oral Intake Last Oral intake: Last Oral Intake NPO since 19:30 07/09/25 06:26 Meds taken in AM with sips of water? Meds patient instructed to take am of surgery Any additional information?: Yes Meds taken in AM with sips of water?: Yes PONV PONV - crystal attacher: PONV - crystal attacher Female Yes 07/05/25 14:03 HX of Motion Sickness Yes 07/05/25 14:03 HX of N/V After Surgery No 07/05/25 14:03 Non-Smoker Yes 07/05/25 14:03 Duration of Surgery greater No 07/05/25 14:03 than 60 minutes Number of Risk Factors 3 07/05/25 14:03 PONV Score Moderate Risk 07/05/25 14:03 Height & Weight Height & Weight: Anesthesia: Height & Weight Height 5 ft 07/09/25 06:26 Weight: 69.9 kg 07/09/25 06:26 Body Mass Index (BMI) 30.1 07/09/25 06:26 Respiratory Assessment Respiratory Assessment - crystal attacher: Respiratory Tract Infection Hx - crystal attacher Hx Respiratory Tract Infection No 07/05/25 14:03 STOP Sleep Apnea STOP Sleep Apnea - crystal attacher: STOP Sleep Apnea - crystal attacher Hx Hypertension Yes 07/05/25 14:03 Hx Sleep Apnea No 07/05/25 14:03 CPAP BIPAP Do you snore loudly (louder No 07/05/25 14:03 than talking or can be heard Do you often feel tired/ No 07/05/25 14:03 fatigued/ sleepy during daytime? Has anyone observed you stop No 07/05/25 14:03 breathing during sleep? STOP Results Negative 07/05/25 14:03 QUESTION #5 FULL TEXT : Do you snore loudly (louder than talking or can be heard through closed doors)? Tobacco Use History Tobacco Use History - crystal attacher: Tobacco Use History - crystal attacher Tobacco Use Smoking Status Never smoker 07/05/25 14:03 Hx Tobacco Use No 07/05/25 14:03 Years Smoking Packs Smoked per Day Smoking Cessation Date was within the last 15 years Hx Smoking Cessation Date Hx Smoking Cessation Counseling Hematologic Medial History Hematologic Hx - crystal attacher: Hematologic Medical Hx - drama therapist Hx of Blood Transfusion No 07/05/25 14:03 Hx of Transfusion in last 3 No 07/05/25 14:03 Months Date of Last Transfusion (if within last 3 months) Ever experience any problems No 07/05/25 14:03 with transfusion(s)? Specify any problems Hx of Preganancy in last 3 No 07/05/25 14:03 Months Nurse Filling Out Transfusion VLEHMAN 07/05/25 14:03 & Questions: Date: 07/05/25 07/05/25 14:03 Time: 14:06 07/05/25 14:03 Patient unable to answer at this time (ie. confused, unrespo /Reproduction History /Reproductive History - crystal attacher: /Reproductive Hx- crystal attacher Hx Now Gestational Age (in weeks): EDC: Hx Hx Para Hx Section SAB No 07/05/25 14:03 Active Medications Active Medications: Current Medications Generic Name Dose Route Start Last Admin Trade Name Freq PRN Reason Stop Dose Admin Lactated Ringer's 1,000 mls @ 15 mls/hr 07/09/25 06:15 07/09/25 06:33 IV 15 mls/hr .Q48H NIMO Administration PFSH Medical History Hypertension Wears glasses History of steroid therapy Arthritis Migraine headache Non-smoker History of echocardiogram Normal stress echocardiogram History of Holter monitoring Cardiology follow-up encounter Low HDL (under 40) Essential (primary) hypertension Pericardial effusion Obesity Basal cell carcinoma Home Medications ?Medication ?Instructions ?Recorded ?Last Taken ?Type valsartan 320 mg tablet (Diovan) 320 mg PO DAILY 10/25/18 07/09/25 History spironolactone 25 mg tablet 25 mg PO DAILY 04/06/24 07/08/25 History cholecalciferol (vitamin D3) 25 25 mcg PO DAILY 07/18/24 07/08/25 History mcg (1,000 unit) capsule (Vitamin D3) magnesium glycinate 100 mg (as 200 mg PO DAILY 04/10/25 07/08/25 History glycinate) tablet celecoxib 200 mg capsule (Celebrex) 200 mg PO BID 07/05/25 07/08/25 History gabapentin 100 mg capsule 100 mg PO TID 07/05/25 07/08/25 History tramadol 50 mg tablet 50 - 100 mg PO Q6H PRN PRN pain 07/05/25 Unknown History Allergy/AdvReac Type Severity Reaction Status Date / Time hydrocodone (From [place]) AdvReac Unknown Nausea Verified 07/09/25 06:21 amlodipine AdvReac edema Verified 07/09/25 06:21 Family History Mother Heart disease Father Heart disease Surgical History History of surgery History of knee joint replacement History of colonoscopy H/O myomectomy History of Social History household members: spouse current occupational status: employed 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
[2025-07-09] MEDS: Midazolam 2 MG/2 ML Syringe IV (07:20)
--- NOTE | 2025-07-09 07:28 | OP.PCM_ITS ---
Operative Report (Standard)
--- NOTE | 2025-07-09 07:28 | PCM.OPRPT ---
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 Post-Operative Diagnosis: Right total knee arthroplasty arthrofibrosis Surgery/Procedure Performed: Right knee manipulation under anesthesia secretary bookkeeper: No Type of Anesthesia: MAC RN Documented Start/Stop Times: Operation Date: 07/09/25 07:30 Case Time Into Pre-Op 07/09/25 06:02 Anesthesia Start 07/09/25 07:30 Into Room 07/09/25 07:30 Out of Pre-Op 07/09/25 07:30 Procedure Start 07/09/25 07:37 Procedure End 07/09/25 07:39 Procedure Start Time: 07:37 Procedure Stop Time: 07:39 Select all DRAINS/GRAFTS/IMPLANTS that apply: None Estimated Blood Loss: None Specimen collected: No Description of surgery: Patient was identified in the preoperative holding area by name, medical record number, and date of . The operative extremity was marked. All questions were answered to the patient satisfaction. Adductor canal block was administered by anesthesia staff prior to the procedure. At time of her procedure, patient was brought to the operative suite and positioned supine on her gurney. MAC anesthesia was induced and achieved. A timeout was called confirming the side, site, and operation to be performed. No concerns were voiced and elected to proceed with the planned procedure. No antibiotics were administered. 10 mg Decadron was administered IV by anesthesia staff intraoperatively. Preoperative range of motion was then assessed after the patient was appropriately anesthetized. Range of motion was 0 to 105 degrees approximately. After confirming adequate muscle relaxation, gentle force was applied to the proximal tibia with the hip flexed. Multiple palpable umair and auditory releases of adhesions were observed. There was dramatic improvement in flexion with flexion measured to approximately 135 degrees. The knee was then examined. It was stable to varus valgus stressing as well as anterior and posterior drawer. No step-offs in the extensor mechanism were palpated. Denny wrap was applied. Patient tolerated the procedure well without apparent complication. She was safely awakened in the operative suite and transferred to PACU in stable condition. Postoperative plan: Physical therapy to restart today and continue every day for at least the next week possibly 2 depending on her progress. Follow-up in 2 weeks for range of motion assessment. Multimodal pain management with Medrol Dosepak, tramadol, continued gabapentin. Patient will be started on montelukast to prevent scarring for 30 days after manipulation. Patient advised to continue aggressive home range of motion exercise. She is encouraged to call the office prior to follow-up if any questions or concerns arise. Surgical Findings: Premanipulation range of motion 0-105 degrees. Postmanipulation range of motion 0-135 degrees. Complications Complications: No Admit VTE Documentation VTE Present on Admission: No VTE Mechan Device Prophylaxis: None VTE Pharm Prophylaxis ordered?: No Reason prophylaxis not ordered: Treatment Not Indicated
[2025-07-09] MEDS: fentaNYL 100 MCG/2 ML Ampul 50 MCG IV (07:30)
[2025-07-09] MEDS: Lactated Ringers 500 ML IV (07:30)
[2025-07-09] MEDS: Ketorolac 30 MG/ML Syringe IV (07:32)
--- NOTE | 2025-07-09 07:51 | POSTOP.ANE_ITS ---
Anesthesia: Postop Eval I
--- NOTE | 2025-07-09 07:51 | PCM.POST.ANE ---
Anesthesia: Postop Eval I Current Vital Signs Temperature: 99.1 F Pulse Rate: 95 Blood Pressure: 106/66 Respiratory Rate: 18 Pulse Ox: 93 Assessment Airway patent: Yes Spontaneous unlabored respirations: Yes nausea: No Vomiting: No Anesthesia Complication: No Fluid Hydration Crystalloid volume administer (ml): 500 Total IV fluid infused: 500 Progress Note Anesthesia document: Postop Eval 1 completed: Yes
--- NOTE | 2025-07-09 17:45 | POSTOPAN2_ITS ---
Anesthesia Postop Eval I Sum
--- NOTE | 2025-07-09 17:45 | PCM.POSTANE2 ---
Anesthesia Postop Eval I Sum Postop Eval Completion status Anesthesia document: Postop Eval 1 completed: Yes Anesthesia Postop Eval I Summary Anesthesia Postop Eval I Summary: Anesthesia Postop Eval I: Assessment Summary Airway patent Yes 07/09/25 07:51 CASING IN LINE SETTER.CSIR Spontaneous unlabored Yes 07/09/25 07:51 CASING IN LINE SETTER.CSIR respirations Mental status nausea No 07/09/25 07:51 CASING IN LINE SETTER.CSIR Vomiting No 07/09/25 07:51 CASING IN LINE SETTER.CSIR Anesthesia Postop Eval I: Fluid Summary Crystalloid volume administer 500 07/09/25 07:51 CASING IN LINE SETTER.CSIR (ml) Colloids volume administered ( ml) Blood Product volume administered (ml) Total IV fluid infused 500 07/09/25 07:51 CASING IN LINE SETTER.CSIR Anesthesia Postop Eval I: Summary Notes Anesthesia Complication No 07/09/25 07:51 CASING IN LINE SETTER.CSIR Anesthesia Complication Comment: Post-operative progress note Anesthesia: Postop Eval II Evaluation Mental status: Awake and Calm Pain Level: 1 nausea: No Vomiting: No Complications Anesthesia Complication: No
== END 2025-07-09 09:09 | disposition home or self-care (01) ==
LOC: SDC 05:57 → AC 05:58
PROVIDERS: PCP Nurse Practitioner Family; Referring Provider Student in an Organized Health Care Education/Training Program; Visit Provider Student in an Organized Health Care Education/Training Program
PROC: (CPT 27570; principal; 2025-07-09 07:25)
DX: T85.828A Fibrosis due to other internal prosthetic devices, implants and grafts, initial encounter (principal); Z96.651 Presence of right artificial knee joint; Z98.890 Other specified postprocedural states; I10 Essential (primary) hypertension; E66.9 Obesity, unspecified; Z68.30 Body mass index [BMI] 30.0-30.9, adult; Z79.899 Other long term (current) drug therapy; Y79.2 Prosthetic and other implants, materials and accessory orthopedic devices associated with adverse incidents
CPT/HCPCS: 27599; 64447; 01380; J2405

== ENCOUNTER → 2025-08-03 | Outpatient (CLI) | payer OTHER, SELFPAY ==
--- NOTE | 2025-08-03 11:10 | RAD_ITS ---
PROCEDURE: KNEE 4 OR MORE VIEWS 08/03/2025 REASON FOR EXAM: PRESENCE OF RIGHT ARTIFICIAL KNEE JOINT/UNILATERAL PRIMARY OSTEOA TECHNIQUE: Procedure Code: RADKN Modality: DX Procedure: KNEE 4 OR MORE VIEWS Laterality: Right COMPARISON: Bilateral knees, 06/27/2025. FINDINGS: Status post right total knee arthroplasty. The patellar, femoral and tibial components are normal apposition. There is no evidence of fracture. There is no knee joint effusion. The periarticular soft tissues are unremarkable. RAD/Knee 4 or More Views IMPRESSION: Normal-appearing right total knee arthroplasty. Reading Location: [id number]
== END | disposition home or self-care (01) ==
LOC: RAD 10:58
PROVIDERS: PCP Nurse Practitioner Family; Referring Provider Student in an Organized Health Care Education/Training Program; Visit Provider Student in an Organized Health Care Education/Training Program
DX: M17.11 Unilateral primary osteoarthritis, right knee (principal); Z96.651 Presence of right artificial knee joint
CPT/HCPCS: 73564